=== PATIENT | female | born 1930 | race Caucasian/White ===

== ENCOUNTER 2016-12-05 19:47 | Emergency (ER) | payer MEDICARE, MEDICAID ==
[~2016-12-05] VITALS: Ht 165.1 cm; Wt 59.4 kg
[~2016-12-05 19:47] MED LIST: ACET-868 PO; ASCO500C16 PO; CRAN450C PO; DEXT1CAP3 PO; DIVA250T PO; DONE5TAB3 PO; INSU100V3 IJ; LORA-258 PO; METF10002 PO; MULT1TAB11 PO; NA P133E RC; SITA50TA PO; TEMA7.5C PO; TRAV5DRO EACHEYE; VALS40TA11 PO
--- NOTE | 2016-12-05 20:25 | NUR ---
To bed 5 a 86 yo female bibra with c/o "not eating since this morning and abnormal results of wbc 10.7 and uti from alf." Upon arrival to er, patient is responsive to verbal and tactile stimuli, however does not answer questions and does not follow simple commands. VSS. afebrile. Gowned. Initiated safety and comfort measures. Awaiting for er md castro.
--- NOTE | 2016-12-05 20:32 | NUR ---
Dr Pitt at bedside.
[2016-12-05] MEDS ORDERED: IV NS 0.9% 2,000 ML ONE (20:38)
[2016-12-05] MEDS ORDERED: IV SET PRIMARY PUMP SET 1 EA INFUS.SET MC ONE (20:38)
[2016-12-05] MEDS ORDERED: IV SET PRIMARY 1 EA INFUS.SET MC ONE (20:38)
[2016-12-05] MEDS ORDERED: CEFTRIAXONE 1GM BAG (ER ONLY) 50 ML IV ONE ×2 (20:38→21:00)
--- NOTE | 2016-12-05 20:40 | NUR ---
performed in and out cath aseptically, collected a yellow cloudy urine of about 100cc of amount.
[2016-12-05 20:54] LABS: BASOPHILS % (AUTO) 0.4 % (0.0-2.0); EOSINOPHILS % (AUTO) 0.2 % (0.0-6.0); HEMATOCRIT 38 % (33-45); HEMOGLOBIN 12.7 g/dL (11.5-14.8); LYMPHOCYTES # (AUTO) 2.5 /CMM (0.8-4.8); LYMPHOCYTES % (AUTO) 21.9 % (20.0-44.0); MEAN CORPUSCULAR HEMOGLOBIN 28 PG (26.0-33.0); MEAN CORPUSCULAR HGB CONC 33 g/dl (31.0-36.0); MEAN CORPUSCULAR VOLUME 83 fL (82-100); MONOCYTES # (AUTO) 0.8 /CMM (0.1-1.30); MONOCYTES % (AUTO) 6.9 % (2.0-12.0); NEUTROPHILS % (AUTO) 70.6 % (43.0-81.0); PLATELET COUNT (AUTO) 256 /CMM (150-450); RDW COEFFICIENT OF VARIATION 12.7 (11.5-15.0); RED BLOOD CELL COUNT(AUTO) 4.56 MIL/uL (4.0-5.2); WHITE BLOOD COUNT (AUTO) 11.3 K/uL (4.3-11.0)
[2016-12-05 21:00] LABS: CALCIUM, SERUM 9.4 mg/dL (8.5-10.1); CARBON DIOXIDE 33 mmol/L (21-32); CHLORIDE 105 mmol/L (98-107); CREATININE 0.9 mg/dL (0.6-1.3); GLUCOSE 229 mg/dL (74-106); POTASSIUM 4.7 mmol/L (3.5-5.1); SODIUM SERUM 140 mmol/L (136-145); UREA NITROGEN, BLOOD 20 mg/dL (7-18)
[2016-12-05] MEDS ORDERED: IV NS 0.9% 1,000 ML BAG IV ONE ×2 (21:00)
--- NOTE | 2016-12-05 21:00 | NUR ---
started a saline lock on the rightforearm g20.
[2016-12-05 21:05] LABS: ALANINE AMINOTRANSFERASE 21 U/L (12-78); ALBUMIN 3.2 g/dL (3.4-5.0); ALKALINE PHOSPHATASE 65 U/L (46-116); ASPARTATE AMINOTRANSFERASE 14 U/L (15-37); BILIRUBIN,DIRECT 0.1 mg/dL (0.0-0.2); BILIRUBIN,TOTAL 0.4 mg/dL (0.2-1.0)
[2016-12-05 21:07] LABS: APPEARANCE,URINE Cloudy (CLEAR); BILIRUBIN,URINE Negative (NEGATIVE); BLOOD, URINE Moderate Ery/uL (NEGATIVE); COLOR,URINE Yellow (YELLOW); KETONES,URINE 40 (NEGATIVE); LEUKOCYTE ESTERASE ,URINE Large (NEGATIVE); NITRITE, URINE Positive (NEGATIVE); PH,URINE 5.5 (5.0-8.0); PROTEIN,URINE 30 mg/dl (NEGATIVE); UGLUCOSE Negative (NEGATIVE); UROBILINOGEN,URINE 0.2 EU/dL (0.2)
[2016-12-05 21:07] LABS: TROPONIN I < 0.017 ng/mL (0.00-0.056)
[2016-12-05 21:11] LABS: INR 1.02 (0.87-1.13); PROTHROMBIN TIME 10.6 SECS (9.5-12.7)
[2016-12-05 21:27] LABS: BACTERIA,URINE Many /HPF (None Seen); WBC,URINE TOO NUMEROUS TO COUN /HPF (0-3)
[2016-12-05 21:28] LABS: SQUAMOUS EPITHELIAL CELL,UR Moderate /HPF (None Seen); URINE AMORPHOUS URATE Few /HPF (None Seen)
--- NOTE | 2016-12-05 21:56 | NUR ---
CALLED [facility] FOR TRANSPORT ETA OF 45MINS WAS GIVEN.
--- NOTE | 2016-12-05 21:59 | NUR ---
Report given to LUCY Ferrara in the [facility] for vanessa.
--- NOTE | 2016-12-05 23:06 | NUR ---
Report given to 2 emt's for transport. VSS. Patient remained alert and responsive. IV removed. Catheter intact and site benign. Pressure and 4x4 applied to site. No bleeding noted. Discharge instructions given to patient.
[2016-12-05 23:08] VITALS: BP 150/70
== END 2016-12-05 23:09 ==
LOC: ER 19:49
DX: N39.0 Urinary tract infection, site not specified (principal); F03.90 Unspecified dementia, unspecified severity, without behavioral disturbance, psychotic disturbance, mood disturbance, and anxiety; I10 Essential (primary) hypertension; E11.9 Type 2 diabetes mellitus without complications; Z90.89 Acquired absence of other organs; D64.9 Anemia, unspecified
CPT/HCPCS: 36415; 71010-TC; 80048-TC; 80076-TC; 81000-TC; 83605-TC; 84484-TC; 85025-TC; 85730-TC; 87040-TC; 87086-TC; 87186-TC; A4606; J0696; J7030; Z7610

== ENCOUNTER 2019-01-05 00:41 | Inpatient (IN) | payer MEDICARE, OTHER ==
[~2019-01-05] VITALS: Ht 162.6 cm; Wt 53.5 kg
[~2019-01-05 00:41] MED LIST changes: -DONE5TAB3 PO; +DONE5TAB7 PO; +METF-442 PO; -METF10002 PO; -VALS40TA11 PO; +VALS40TA12 PO
--- NOTE | 2019-01-05 00:45 | NUR ---
PT BIBPA C/O R LEG PAIN FORM IMPERIAL HC/ R DISTAL FEMUR FX, UNKNOWN OF HOW/WHEN. PT STARTED COMPLAINING OF PAIN TODAY. PT AXO2. RESPIRATIONS EVEN AND UNLABORED. PT PUT ON THE MONITOR AND PULSE OX.
--- NOTE | 2019-01-05 01:00 | NUR ---
GAS PUMPING STATION OPERATOR AT BEDSIDE. 20G R FOREARM STARED, LABS DRAWN AND SENT.
[2019-01-05 01:19] LABS: BASOPHILS # (AUTO) 0.1 /CMM (0.0-0.2); BASOPHILS % (AUTO) 0.7 % (0.0-2.0); EOSINOPHILS % (AUTO) 0.1 % (0.0-6.0); HEMATOCRIT 35 % (33-45); HEMOGLOBIN 11.4 g/dL (11.5-14.8); LYMPHOCYTES % (AUTO) 13.3 % (20.0-44.0); MEAN CORPUSCULAR HGB CONC 33 g/dl (31.0-36.0); MEAN CORPUSCULAR VOLUME 86 fL (82-100); MONOCYTES # (AUTO) 0.7 /CMM (0.1-1.30); MONOCYTES % (AUTO) 4.9 % (2.0-12.0); NEUTROPHILS # (AUTO) 11.9 /CMM (1.8-8.9); PLATELET COUNT (AUTO) 261 /CMM (150-450); RED BLOOD CELL COUNT(AUTO) 4.03 MIL/uL (4.0-5.2); WHITE BLOOD COUNT (AUTO) 14.7 K/uL (4.3-11.0)
--- NOTE | 2019-01-05 01:26 | NUR ---
XRAY AT BEDSIDE.
[2019-01-05 01:29] LABS: CARBON DIOXIDE 28 mmol/L (21-32); CREATININE 0.9 mg/dL (0.6-1.3); GLUCOSE 141 mg/dL (74-106); UREA NITROGEN, BLOOD 20 mg/dL (7-18)
[2019-01-05 01:37] LABS: CHLORIDE 102 mmol/L (98-107); POTASSIUM 4.6 mmol/L (3.5-5.1); SODIUM SERUM 137 mmol/L (136-145)
[2019-01-05] MEDS ORDERED: ONDANSETRON HCL/PF 4 MG/2 ML VIAL ONE (01:51)
[2019-01-05] MEDS ORDERED: MORPHINE SULFATE INJ 4 MG/ML DISP.SYRIN ONE (01:52)
[2019-01-05] MEDS ORDERED: ONDANSETRON HCL/PF 4 MG/2 ML VIAL IV ONE (02:00)
[2019-01-05] MEDS ORDERED: MORPHINE SULFATE INJ 2 MG/ML DISP.SYRIN IV ONE (02:00)
[2019-01-05] MEDS ORDERED: ACETAMINOPHEN 325 MG TABLET PO PRN ×2 (02:00→02:30)
[2019-01-05] MEDS ORDERED: NA PHOS,M-B/NA PHOS,DI-BA 1 EA ENEMA RC PRN (02:00)
[2019-01-05] MEDS ORDERED: LORAZEPAM 0.5 MG TABLET PO PRN (02:00)
--- NOTE | 2019-01-05 02:10 | NUR ---
REPORT GIVEN TO SP AYALA FOR DALILA.
[2019-01-05 02:15] LABS: LYMPHOCYTES % (MANUAL) 25 % (16-48); MONOCYTES % (MANUAL) 4 % (0-11.0); NEUTROPHILS % (MANUAL) 71 (42-76)
[2019-01-05] MEDS ORDERED: ONDANSETRON HCL/PF 4 MG/2 ML VIAL IVP PRN (02:30)
[2019-01-05] MEDS ORDERED: MAG HYDROX/AL HYDROX/SIMETH 30 ML UDC PO PRN (02:30)
[2019-01-05] MEDS ORDERED: HYDROCODONE/APAP 5/325MG 1 EACH TABLET PO PRN (02:30)
[2019-01-05] MEDS ORDERED: MAGNESIUM HYDROXIDE 30 ML UDC PO PRN (02:30)
[2019-01-05] MEDS ORDERED: DEXTROSE 50%-WATER 50 ML DISP.SYRIN IV PRN (02:30)
[2019-01-05] MEDS ORDERED: Z GUARD REMEDY 2 OZ OINT TP PRN (02:30)
[2019-01-05 03:00] VITALS: BP 137/67
--- NOTE | 2019-01-05 03:00 | NUR ---
MS DENTURE PACKER NOTES Patient came to unit via edward. Patient is from [facility] who came in for R) femur fracture. Patient is non- verbal. Breathing even and unlabored. Not in any distress. Vital signs taken and recorded: BP- 137/67, HR- 90BPM, RR- 18BPM, TEMP- 97.8, SPO2- 100%. Skin assessment done. Pictures taken and attached to chart. Patient cleaned and kept dry. Oriented to call light- placed within reach. Bed in low, locked position. Will continue to monitor accordingly
--- NOTE | 2019-01-05 04:05 | NUR ---
RN NOTES Contacted Dr. Veliz re diet order. Patient is on CCHO- pureed with moderately thick liquids and no dairy at [facility]. As per Dr. Veliz, to follow SNF diet. Order noted and carried out
[2019-01-05] MEDS: BLOOD SUGAR DIAGNOSTIC 1 EACH STRIP VI SCH ×4 (06:38→21:09)
[2019-01-05] MEDS: INSULIN REGULAR, HUMAN 100 UNIT/ML 3 ML VIAL SQ PRN ×3 (06:43→17:08)
--- NOTE | 2019-01-05 07:08 | NUR ---
MS RN CLOSING NOTES Patient sleeping in bed, easily arousable. Breathing even and unlabored. No distress noted. No acute changes since admission. All needs attended. Safety measures in place. Will endorse DALILA to oncoming RN
--- NOTE | 2019-01-05 07:30 | NUR ---
RN MS NOTES PT IN BED, AWAKE, NON VERBAL, NO FACIAL GRIMACING OR MOANING, NO SIGN OF PAIN, NOT IN DISTRESS, CALL LIGHT WITHIN REACH, KEPT WARM AND COMFORTABLE IN BED.
[2019-01-05 08:00] VITALS: BP 144/74
[2019-01-05] MEDS ORDERED: Medication Not On Formulary EA (Cranberry Fruit Concentrate (Cranberry) 450 MG) PO SCH (09:00)
[2019-01-05] MEDS: MULTIVIT W/MINERALS 1 TAB TABLET PO SCH (09:12)
[2019-01-05] MEDS: ASCORBIC ACID 500 MG TABLET PO SCH (09:13)
[2019-01-05] MEDS: VALSARTAN 40 MG TABLET PO SCH (09:13)
[2019-01-05] MEDS: DIVALPROEX SODIUM 125 MG TABLET.DR PO SCH ×2 (11:55→21:07)
--- NOTE | 2019-01-05 13:00 | NUR ---
RN MS NOTES PT IN BED, RESTING, PAIN MEDICATION GIVEN FOR PAIN MANAGEMENT, SEEN BY ZIA FAJARDO FOR ORTHO, AWAITING RECOMMENDATIONS, SPOKE WITH NURSE JENSEN FROM [facility], STATED THAT PT IS A/O X 1 AND IS NON AMBULATORY AT BASELINE, RECEIVES TOTAL CARE AND USES A RECLINER WHEELCHAIR. PER DR. CHAUDHRY, OK TO INSERT AWAD.
[2019-01-05 16:00] VITALS: BP 142/100
[2019-01-05] MEDS ORDERED: QUINIDINE PO SCH (17:00)
[2019-01-05] MEDS ORDERED: DEXTROMETHORPHAN HBR PO SCH (17:00)
--- NOTE | 2019-01-05 18:12 | NUR ---
RN MS NOTES PT IN BED, ASLEEP, EASY TO AROUSE, NO SIGN OF PAIN AT THIS TIME, RESPIRATIONS NORMAL, TURNED AND REPOSITIONED Q2 HOURS, F/C IN PLACE AND DRAINING WELL WITH CLEAR, YELLOW URINE, URINE SAMPLE COLLECTED AND SENT TO LAB, PM CARE PROVIDED, KEPT COMFORTABLE AT ALL TIMES.
--- NOTE | 2019-01-05 19:10 | NUR ---
MS RN OPENING NOTES Received patient sleeping in bed, easy to arouse. Patient appears comfortable, no facial grimacing noted. Breathing even and unlabored. No distress noted. Rubio catheter in place. Safety measures in place; bed in lowest, locked position, side rails x 3 up. Will continue to monitor accordingly
[2019-01-05 20:00] VITALS: BP 116/68
[2019-01-05] MEDS: LATANOPROST EYE DROP 0.005% 2.5 ML BOTTLE EACHEYE SCH (21:08)
[2019-01-05] MEDS: DONEPEZIL 5 MG TABLET PO SCH (21:09)
[2019-01-05] MEDS: TEMAZEPAM 7.5 MG CAPSULE PO SCH (21:12)
[2019-01-05] MEDS: *INSULIN REGULAR(HUMULIN R)HUM 100 UNIT/ML VIAL SQ PRN (21:17)
--- NOTE | 2019-01-05 21:18 | NUR ---
RN NOTES BSL- 146mg/dL. 2 units of insulin given per sliding scale.
--- NOTE | 2019-01-05 22:13 | NUR ---
RN NOTES Received a call from [facility]. Requested to speak to a Doctor tomorrow. Will endorse to AM LUCY
[2019-01-06 04:00] VITALS: BP 118/68
--- NOTE | 2019-01-06 06:15 | NUR ---
MS RN CLOSING NOTES Patient sleeping in bed, easily arousable. Breathing even and unlabored. No distress noted. On O2 at 2LPM. Rubio catheter in place, draining clear yellow urine. No acute changes overnight. All needs attended. Turned and repositioned. Safety measures in place. Will endorse DALILA to oncoming RN
[2019-01-06 06:29] LABS: BASOPHILS % (AUTO) 0.2 % (0.0-2.0); EOSINOPHILS % (AUTO) 0.4 % (0.0-6.0); HEMATOCRIT 31 % (33-45); HEMOGLOBIN 10.2 g/dL (11.5-14.8); LYMPHOCYTES # (AUTO) 2.9 /CMM (0.8-4.8); LYMPHOCYTES % (AUTO) 24.6 % (20.0-44.0); MEAN CORPUSCULAR HGB CONC 33 g/dl (31.0-36.0); MEAN CORPUSCULAR VOLUME 86 fL (82-100); MONOCYTES # (AUTO) 1.4 /CMM (0.1-1.30); MONOCYTES % (AUTO) 11.6 % (2.0-12.0); NEUTROPHILS # (AUTO) 7.4 /CMM (1.8-8.9); NEUTROPHILS % (AUTO) 63.2 % (43.0-81.0); PLATELET COUNT (AUTO) 271 /CMM (150-450); RED BLOOD CELL COUNT(AUTO) 3.63 MIL/uL (4.0-5.2); WHITE BLOOD COUNT (AUTO) 11.8 K/uL (4.3-11.0)
[2019-01-06] MEDS: BLOOD SUGAR DIAGNOSTIC 1 EACH STRIP VI SCH ×4 (06:30→22:23)
[2019-01-06] MEDS: INSULIN REGULAR, HUMAN 100 UNIT/ML 3 ML VIAL SQ PRN ×3 (06:30→17:49)
[2019-01-06 06:43] LABS: CALCIUM, SERUM 8.9 mg/dL (8.5-10.1); CARBON DIOXIDE 30 mmol/L (21-32); CHLORIDE 103 mmol/L (98-107); CREATININE 0.7 mg/dL (0.6-1.3); GLUCOSE 169 mg/dL (74-106); MAGNESIUM 1.6 mg/dL (1.8-2.4); PHOSPHORUS 4.4 mg/dL (2.5-4.9); POTASSIUM 4.4 mmol/L (3.5-5.1); SODIUM SERUM 141 mmol/L (136-145); UREA NITROGEN, BLOOD 16 mg/dL (7-18)
--- NOTE | 2019-01-06 07:55 | NUR ---
ms rn received on bed, awake,alert,oriented x4,not in any form of distress, respirations even and unlabored,no sob noted, lungs are diminish,abdomen soft,positive bowel sounds, denies pain at this time,all needs attended. Addendum: 01/06/19 at 1821 by CINDY PATEL RN disregard charting, wrong time and patient.
--- NOTE | 2019-01-06 07:55 | NUR ---
ms rn received on bed, awake,demented, not in any form of distress, respirations even and unlabored,no sob noted, lungs are diminished,abdomen soft,positive bowel sounds, dx right leg fracture,will monitor patient.
[2019-01-06 08:00] VITALS: BP_SYST 111; BP_SYST 132; BP_DIAS 69; BP_DIAS 71
[2019-01-06 08:05] LABS: APPEARANCE,URINE CLOUDY (CLEAR); BILIRUBIN,URINE NEGATIVE (NEGATIVE); BLOOD, URINE NEGATIVE Ery/uL (NEGATIVE); COLOR,URINE YELLOW (YELLOW); KETONES,URINE TRACE (NEGATIVE); LEUKOCYTE ESTERASE ,URINE TRACE (NEGATIVE); NITRITE, URINE NEGATIVE (NEGATIVE); PH,URINE 5.5 (5.0-8.0); PROTEIN,URINE TRACE mg/dl (NEGATIVE); UGLUCOSE NEGATIVE (NEGATIVE); UROBILINOGEN,URINE 0.2 EU/dL (0.2)
[2019-01-06 08:33] LABS: BACTERIA,URINE Few /HPF (None Seen); RBC,URINE 0-2 /HPF (0-2); SQUAMOUS EPITHELIAL CELL,UR Few /HPF (None Seen); URINE AMORPHOUS URATE Many /HPF (None Seen)
--- NOTE | 2019-01-06 09:30 | NUR ---
ms saldaña breakfast served,due meds given,tolerated well.
[2019-01-06] MEDS: Magnesium 1GM/D5W 100ML PREMIX 100 ML IV SCH ×2 (09:36→10:48)
[2019-01-06] MEDS: ASCORBIC ACID 500 MG TABLET PO SCH (09:36)
[2019-01-06] MEDS: DIVALPROEX SODIUM 125 MG TABLET.DR PO SCH ×2 (09:36→21:40)
[2019-01-06] MEDS: MULTIVIT W/MINERALS 1 TAB TABLET PO SCH (09:36)
[2019-01-06] MEDS: VALSARTAN 40 MG TABLET PO SCH (09:37)
--- NOTE | 2019-01-06 09:40 | NUR ---
ms saldaña was seen by dr. emily singh/ orders made and carried out.
[2019-01-06] MEDS: MORPHINE SULFATE INJ 2 MG/ML DISP.SYRIN IV PRN (12:37)
[2019-01-06 16:00] VITALS: BP 82/50
--- NOTE | 2019-01-06 16:00 | NUR ---
ms rn on bed, no distress noted.
--- NOTE | 2019-01-06 17:45 | NUR ---
ms saldaña blood sugar - 134 - 2 units regular insulin given sq.
--- NOTE | 2019-01-06 18:17 | NUR ---
ms rn on bed, no distress, all needs attended.
--- NOTE | 2019-01-06 19:34 | NUR ---
MS AYALA OPENING NOTES: RECEIVED PT ON 2LPM VIA NC AND IS ASLEEP AT THIS TIME. PT APPEARS TO BE LETHARGIC AT THIS TIME . PT IS NON-VERBAL. PT HAS AWAD CATH AND IS ATTACHED TO DRAINAGE BAG WITH URINE DRAINING IN BAG. PT HAS R FOREARM #20G AND IS PATENT AND INTACT. BED IN SEMI SALCEDO'S POSITION AT THIS TIME. BED ALARM ACTIVATED. BED KEPT IN LOW, LOCKED POSITION, AND SIDE RAILS X 2UP. WILL CONTINUE TO MONITOR PT. Addendum: 01/07/19 at 0549 by NORA JIM RN R LEG APPEARS TO BE DISLOCATED AND SWOLLEN. ELEVATED WITH A PILLOW. IMMOBILIZER TO BE PLACED BY PT.
[2019-01-06 20:00] VITALS: BP 155/89
[2019-01-06] MEDS: TEMAZEPAM 7.5 MG CAPSULE PO SCH (22:00)
[2019-01-06] MEDS: DONEPEZIL 5 MG TABLET PO SCH (22:24)
[2019-01-06] MEDS: LATANOPROST EYE DROP 0.005% 2.5 ML BOTTLE EACHEYE SCH (22:28)
[2019-01-06] MEDS: *INSULIN REGULAR(HUMULIN R)HUM 100 UNIT/ML VIAL SQ PRN (22:42)
--- NOTE | 2019-01-06 22:44 | NUR ---
MS RN NOTES: BLOOD SUGAR THIS PM WAS 162. 2 UNITS OF INSULIN WAS HELD SINCE PT APPEARS TO BE LETHARGIC AND IS NOT EATING WHEN OFFERED FOOD. WILL CONTINUE TO MONITOR.
--- NOTE | 2019-01-06 22:45 | NUR ---
MS RN NOTES: RESTORIL 7.5MG WAS HELD SINCE PT APPEARS TO STILL BE LETHARGIC. WILL CONTINUE TO MONITOR.
[2019-01-07] MEDS: BLOOD SUGAR DIAGNOSTIC 1 EACH STRIP VI SCH ×4 (06:32→21:36)
[2019-01-07] MEDS: INSULIN REGULAR, HUMAN 100 UNIT/ML 3 ML VIAL SQ PRN (06:34)
--- NOTE | 2019-01-07 06:38 | NUR ---
MS RN NOTES: BLOOD SUGAR THIS AM WAS 195. 3 UNITS OF INSULIN WAS ADMINISTERED. PT MORE AWAKE THIS AM AND AROUSABLE TOUCH. PT WAS ADMINISTERED APPLE SAUCE AND APPLE JUICE. WILL CONTINUE TO MONITOR.
--- NOTE | 2019-01-07 06:50 | NUR ---
MS RN CLOSING NOTES: ALL NEEDS WERE ATTENDED AND ANTICIPATED FOR. PT KEPT CLEAN, DRY, AND COMFORTABLE. PT REMAINS ON 2LPM VIA NC AND IS TOLERATING WELL. NO SOB NOTED. NO S/S OF DISTRESS. PT HAS AWAD CATH AND IS ATTACHED TO DRAINAGE BAG WITH YELLOW URINE DRAINING. NOTED THAT THERE WAS SOME LEAKING WHEN PT'S DIAPER WAS CHANGED. REINFORCED AWAD CATHETER. IV REMAINS INTACT. CURRENTLY H/L. IMMOBILIZER NEEDS TO BE PLACED ON R KNEE BY PT. WILL HAVE DAY NURSE FOLLOW UP. WILL ENDORSE AM NURSE FOR DALILA.
[2019-01-07 07:07] LABS: CALCIUM, SERUM 8.9 mg/dL (8.5-10.1); CARBON DIOXIDE 29 mmol/L (21-32); CHLORIDE 102 mmol/L (98-107); CREATININE 0.7 mg/dL (0.6-1.3); GLUCOSE 200 mg/dL (74-106); MAGNESIUM 2.2 mg/dL (1.8-2.4); PHOSPHORUS 4.5 mg/dL (2.5-4.9); POTASSIUM 4.6 mmol/L (3.5-5.1); SODIUM SERUM 139 mmol/L (136-145); UREA NITROGEN, BLOOD 18 mg/dL (7-18)
[2019-01-07 07:11] LABS: BASOPHILS % (AUTO) 0.4 % (0.0-2.0); EOSINOPHILS % (AUTO) 0.3 % (0.0-6.0); HEMATOCRIT 31 % (33-45); HEMOGLOBIN 9.9 g/dL (11.5-14.8); LYMPHOCYTES # (AUTO) 3.7 /CMM (0.8-4.8); LYMPHOCYTES % (AUTO) 27.7 % (20.0-44.0); MEAN CORPUSCULAR HGB CONC 32 g/dl (31.0-36.0); MEAN CORPUSCULAR VOLUME 87 fL (82-100); MONOCYTES # (AUTO) 1.5 /CMM (0.1-1.30); NEUTROPHILS % (AUTO) 60.6 % (43.0-81.0); PLATELET COUNT (AUTO) 287 /CMM (150-450); RED BLOOD CELL COUNT(AUTO) 3.58 MIL/uL (4.0-5.2); WHITE BLOOD COUNT (AUTO) 13.3 K/uL (4.3-11.0)
--- NOTE | 2019-01-07 07:52 | NUR ---
MS RN OPENING NOTES: RECEIVED PATIENT ASLEEP IN BED RESTING COMFORTABLY IN MODERATE HIGH BACK REST, EASILY AROUSABLE. A/O X 1. ON OXYGEN 2LPM VIA NC. NO SOB NOTED. NO S/S OF DISTRESS. NO COMPLAIN OF PAIN OR DISCOMFORT AT THIS TIME. PT HAS AWAD CATH AND IS ATTACHED TO DRAINAGE BAG WITH YELLOW URINE DRAINING. IV ACCESS ON RIGHT FA #20, PATENT AND INTACT. CURRENTLY H/L. SAFETY MEASURES IN PLACE, BED LOCKED, BED LOW, SIDE RAILS UP X2. CALL LIGHT WITHIN EASY REACH. WILL CONTINUE TO MONITOR.
[2019-01-07 08:00] VITALS: BP 91/60
[2019-01-07] MEDS: VALSARTAN 40 MG TABLET PO SCH (08:55)
[2019-01-07] MEDS: DIVALPROEX SODIUM 125 MG TABLET.DR PO SCH ×2 (08:55→20:57)
[2019-01-07] MEDS: MULTIVIT W/MINERALS 1 TAB TABLET PO SCH (08:55)
[2019-01-07] MEDS: ASCORBIC ACID 500 MG TABLET PO SCH (08:55)
--- NOTE | 2019-01-07 09:49 | NUR ---
MS RN NOTES PATIENT SEEN BY DR. PANDYA WITH ORDERS FOR ORTHO BRACE(KNEE IMMOBILIZER) FOR IMMOBILIZATION. PATIENT MADE AWARE. WILL CONTINUE TO MONITOR.
--- NOTE | 2019-01-07 10:11 | NUR ---
WOUND CARE CONSULT: PT PRESENTS WITH BREASTFOLD RASH, PRESENT ON ADMISSION. RECOMMENDATIONS MADE FOR SKIN PROTECTION AND CARE. DISCUSSED WITH NURSING STAFF. WILL SEE PRN. PERALTA IN AGREEMENT WITH PLAN OF CARE. Addendum: 01/07/19 at 1013 by CASSIDY GARNETT WNDNU Amended: Links added.
[2019-01-07] MEDS: *INSULIN REGULAR(HUMULIN R)HUM 100 UNIT/ML VIAL SQ PRN ×3 (12:17→21:39)
--- NOTE | 2019-01-07 13:55 | NUR ---
MS RN NOTES RECEIVED CALL FROM [employer]), TO CANCEL DC ORDER FOR TODAY.
[2019-01-07] MEDS: CLOTRIMAZOLE 1% 15 GM TUBE TP SCH (17:10)
--- NOTE | 2019-01-07 18:53 | NUR ---
MS RN CLOSING NOTES PATIENT RESTING IN BED AT MODERATE HIGH BACK REST POSITION. EASILY AROUSABLE. A/O X 1. ON OXYGEN 2LPM VIA NC. NO SOB NOTED. NO S/S OF DISTRESS. NO S/S OF PAIN OR DISCOMFORT. ON AWAD CATHETER WITH YELLOW URINE DRAINING. IV ACCESS ON RIGHT FA #20, PATENT AND INTACT. CURRENTLY S/L. SAFETY MEASURES IN PLACE, BED LOCKED, BED LOW, SIDE RAILS UP X2. CALL LIGHT WITHIN EASY REACH. WILL ENDORSE TO CUSTOMER SUPPORT PROFESSIONAL
--- NOTE | 2019-01-07 19:15 | NUR ---
MS RN OPENING NOTES: RECEIVED PT ON 3LPM VIA NC AND IS TOLERATING WELL. PT AROUSABLE TO TOUCH. NOTED R KNEE IMMOBILIZER. PT HAS AWAD CATH AND IS ATTACHED TO DRAINAGE BAG WITH YELLOW URINE DRAINING. IV ON R FOREARM #20G IS PATENT AND INTACT. CURRENTLY H/L. BED KEPT IN LOW, LOCKED POSITION, AND SIDE RAILS X 2UP. WILL CONTINUE TO MONITOR PT.
[2019-01-07] MEDS: MORPHINE SULFATE INJ 2 MG/ML DISP.SYRIN IV PRN (19:50)
--- NOTE | 2019-01-07 19:52 | NUR ---
MS RN NOTES: PT APPEARS TO BE IN PAIN WHEN SHE IS TOUCHED AND REPOSITIONED, SHE STARTS TO MOAN. ALSO, HEART RATE NOTED AT 120S. PT WAS ADMINISTERED MORPHINE 2MG IV. WILL CONTINUE TO MONITOR.
[2019-01-07 20:00] VITALS: BP 130/78
[2019-01-07] MEDS: LATANOPROST EYE DROP 0.005% 2.5 ML BOTTLE EACHEYE SCH (21:13)
[2019-01-07] MEDS: DONEPEZIL 5 MG TABLET PO SCH (21:33)
--- NOTE | 2019-01-07 21:41 | NUR ---
MS RN NOTES: BLOOD SUGAR THIS PM WAS 206. 4 UNITS OF INSULIN WAS ADMINISTERED. PT IS A FEEDER AND WAS GIVEN A SNACK. WILL CONTINUE TO MONITOR.
[2019-01-07] MEDS: TEMAZEPAM 7.5 MG CAPSULE PO SCH (21:49)
--- NOTE | 2019-01-07 21:52 | NUR ---
MS RN NOTES: PT STILL AWAKE IN BED. RESTORIL 7.5MG PO WAS ADMINISTERED SCHEDULED. WILL CONTINUE TO MONITOR.
[2019-01-08] MEDS: INSULIN REGULAR, HUMAN 100 UNIT/ML 3 ML VIAL SQ PRN ×2 (06:24→11:39)
[2019-01-08] MEDS: BLOOD SUGAR DIAGNOSTIC 1 EACH STRIP VI SCH ×2 (06:32→11:40)
--- NOTE | 2019-01-08 06:45 | NUR ---
MS RN CLOSING NOTES: ALL NEEDS WERE ATTENDED AND ANTICIPATED FOR. PT KEPT CLEAN, DRY, AND COMFORTABLE. PT TURNED AND REPOSITIONED Q2HRS. WOUND TX PERFORMED ORDERED. PT HAS AWAD CATH AND IS ATTACHED TO DRAINAGE BAG WITH URINE DRAINING. OUTPUT WAS 300ML. PT OPENS EYES AND IS EASILY AROUSABLE TO TOUCH. IMMOBILIZER REMAINS ON R LEG/KNEE. IV REMAINS INTACT AND IS CURRENTLY H/L. BED KEPT IN LOW, LOCKED POSITION, AND SIDE RAILS X 2UP. BLOOD SUGAR THIS AM WAS 178. 3 UNITS OF INSULIN WAS ADMINISTERED. PT IS A FEEDER AND WAS GIVEN JUICE WITH THICKENER. WILL ENDORSE TO AM NURSE FOR DALILA.
--- NOTE | 2019-01-08 07:27 | NUR ---
RN OPENING NOTE PT WAS RECEIVED IN BED AT LOWEST AND LOCKED POSITION WITH SIDE RAILS UP X2, A/O X1 NON-VERBAL BREATHING EVEN AND UNLABORED ON 3L VIA NC, NO S/S OF ANY DISTRESS OR PAIN NOTED AT THIS TIME, IV IS PATENT AND INTACT, NOTED TO HAVE AWAD IN PLACE DRAINING, KNEE IMMOBILIZER IN PLACE, D/C PLANNING, SAFETY PRECAUTIONS IN PLACE, CALL LIGHT WITHIN REACH, WILL MONITOR ACCORDINGLY.
[2019-01-08 08:00] VITALS: BP 132/78
[2019-01-08 08:24] VITALS: BP 132/78
[2019-01-08] MEDS: MULTIVIT W/MINERALS 1 TAB TABLET PO SCH (08:24)
[2019-01-08] MEDS: ASCORBIC ACID 500 MG TABLET PO SCH (08:24)
[2019-01-08] MEDS: DIVALPROEX SODIUM 125 MG TABLET.DR PO SCH (08:24)
[2019-01-08] MEDS: VALSARTAN 40 MG TABLET PO SCH (08:24)
[2019-01-08] MEDS: CLOTRIMAZOLE 1% 15 GM TUBE TP SCH (08:25)
--- NOTE | 2019-01-08 13:10 | NUR ---
RN NOTE DELMI WAS D/C AT THIS TIME
--- NOTE | 2019-01-08 13:38 | NUR ---
RN NOTE REPORT GIVEN TO LESLIE AT [facility] AT THIS TIME
--- NOTE | 2019-01-08 15:52 | NUR ---
DISCHARGE NOTE PT WAS D/C AT THIS TIME BACK IN MEDICALLY STABLE CONDITION BACK TO [facility] [place] WHERE REPORT WAS GIVEN TO LESLIE. IV AND ID BAND WERE REMOVED. ALL D/C PAPERWORK, EXITCARE, AND BELONGINGS LIST WERE SIGNED, DISCUSSED, AND HANDED TO THE EMT CREW. PHOTOS OF WOUNDS WERE TAKEN AND PLACED IN THE CHART. ALL NEEDS WERE ATTENDED TO DURING HER STAY.
== END 2019-01-08 15:55 | DRG 544 ==
LOC: ER 00:50 → MED 02:06
DX: M84.451A Pathological fracture, right femur, initial encounter for fracture (principal); E11.9 Type 2 diabetes mellitus without complications; I10 Essential (primary) hypertension; F03.90 Unspecified dementia, unspecified severity, without behavioral disturbance, psychotic disturbance, mood disturbance, and anxiety; D64.9 Anemia, unspecified; Z79.4 Long term (current) use of insulin; Z86.73 Personal history of transient ischemic attack (TIA), and cerebral infarction without residual deficits; D72.829 Elevated white blood cell count, unspecified; E83.42 Hypomagnesemia; R53.1 Weakness; Z96.651 Presence of right artificial knee joint
CPT/HCPCS: 36415; 71045-TC; 73560-TC; 80048-TC; 81000-TC; 82962-TC; 83735-TC; 84100-TC; 85025-TC; 85610-TC; 85730-TC; 87081-TC; 87086-TC; 93307-TC; 94799-TC; G0378; J1815; J2270; J2405; J3475; J7050

== ENCOUNTER 2019-03-20 10:44 | Inpatient (IN) | payer MEDICARE, OTHER ==
[~2019-03-20] VITALS: Ht 167.6 cm; Wt 65.3 kg
--- NOTE | 2019-03-20 10:49 | NUR ---
PT BIBPA FROM [facility], SENT BY PMD DUE TO ABNORMAL LABS, CXR, K 5.2, PTI S AAOX1, NOT IN RESPIRATORY DISTRESS, HOOKED TO MONITOR, KEPT RESTED AND COMFORTABLE, WILL CONTINUE TO MONITOR, AWAITING ER MD FOR EVAL.
[2019-03-20] MEDS ORDERED: BRIM5DRO LEFTEYE (10:55)
[2019-03-20] MEDS ORDERED: DORZ10DR13 LEFTEYE (10:59)
[2019-03-20] MEDS ORDERED: BISA-79 RC (10:59)
--- NOTE | 2019-03-20 11:00 | NUR ---
IV LINE ESTABLISHED, BLOOD DRAWNED AND SENT TO LAB.
[2019-03-20] MEDS ORDERED: NUTR1PAC14 PO (11:01)
[2019-03-20] MEDS ORDERED: CYAN-51 PO (11:09)
[2019-03-20] MEDS ORDERED: CHOL100044 PO (11:09)
[2019-03-20] MEDS ORDERED: HYDR-4384 PO (11:09)
[2019-03-20] MEDS ORDERED: PRED20TA PO (11:09)
[2019-03-20] MEDS ORDERED: LINA5TAB PO (11:09)
[2019-03-20] MEDS ORDERED: ZINC220C8 PO (11:11)
[2019-03-20] MEDS ORDERED: AMIN30LI2 PO (11:11)
[2019-03-20] MEDS ORDERED: LATA2.5D2 EACHEYE (11:11)
--- NOTE | 2019-03-20 11:12 | NUR ---
SEEN AND EXAMINED BY .
[2019-03-20] MEDS ORDERED: MAGN2400 PO (11:13)
--- NOTE | 2019-03-20 11:18 | NUR ---
URINE SPECIMEN COLLECTED AND SENT TO LAB.
[2019-03-20 11:22] LABS: APPEARANCE,URINE Cloudy (CLEAR); BILIRUBIN,URINE Negative (NEGATIVE); BLOOD, URINE Small Ery/uL (NEGATIVE); COLOR,URINE Yellow (YELLOW); KETONES,URINE 15 (NEGATIVE); LEUKOCYTE ESTERASE ,URINE Large (NEGATIVE); NITRITE, URINE Positive (NEGATIVE); PROTEIN,URINE 30 mg/dl (NEGATIVE); UGLUCOSE 250 MG/DL mg/dL (NEGATIVE)
--- NOTE | 2019-03-20 11:25 | NUR ---
ELECTRICIAN MARINE AT BEDSIDE FOR XRAY.
[2019-03-20 11:29] LABS: BACTERIA,URINE Moderate /HPF (None Seen); SQUAMOUS EPITHELIAL CELL,UR Few /HPF (None Seen); WBC,URINE 81-100 /HPF (0-3)
[2019-03-20] MEDS ORDERED: CEFEPIME 1 GM in IV D5W 50 ML IV ONE (11:30)
[2019-03-20] MEDS ORDERED: IV NS 0.9% 1,000 ML BAG IV ONE (11:30)
[2019-03-20 11:36] LABS: CALCIUM, SERUM 9.1 mg/dL (8.5-10.1); CARBON DIOXIDE 28 mmol/L (21-32); CHLORIDE 103 mmol/L (98-107); CREATININE 0.9 mg/dL (0.6-1.3); GLUCOSE 249 mg/dL (74-106); POTASSIUM 4.9 mmol/L (3.5-5.1); SODIUM SERUM 139 mmol/L (136-145); UREA NITROGEN, BLOOD 26 mg/dL (7-18)
--- NOTE | 2019-03-20 11:36 | NUR ---
CALLED [employer] FOR TELE BED
--- NOTE | 2019-03-20 11:36 | NUR ---
CALLED [employer]. DYNAMITE RECLAIMER WAS PAGED.
[2019-03-20 11:44] LABS: BASOPHILS # (AUTO) 0.1 /CMM (0.0-0.2); BASOPHILS % (AUTO) 0.6 % (0.0-2.0); HEMATOCRIT 35 % (33-45); HEMOGLOBIN 11.4 g/dL (11.5-14.8); LYMPHOCYTES # (AUTO) 1.7 /CMM (0.8-4.8); MEAN CORPUSCULAR HGB CONC 32 g/dl (31.0-36.0); MEAN CORPUSCULAR VOLUME 87 fL (82-100); MONOCYTES # (AUTO) 0.3 /CMM (0.1-1.30); MONOCYTES % (AUTO) 2.5 % (2.0-12.0); NEUTROPHILS # (AUTO) 8.4 /CMM (1.8-8.9); NEUTROPHILS % (AUTO) 80.9 % (43.0-81.0); PLATELET COUNT (AUTO) 251 /CMM (150-450); RED BLOOD CELL COUNT(AUTO) 4.04 MIL/uL (4.0-5.2); WHITE BLOOD COUNT (AUTO) 10.4 K/uL (4.3-11.0)
[2019-03-20] MEDS ORDERED: CEFEPIME 1 GM in IV NS 0.9% 50 ML IV ONE (11:45)
[2019-03-20 11:50] LABS: ALANINE AMINOTRANSFERASE 116 U/L (12-78); ALBUMIN 2.6 g/dL (3.4-5.0); ALKALINE PHOSPHATASE 73 U/L (46-116); ASPARTATE AMINOTRANSFERASE 31 U/L (15-37); BILIRUBIN,DIRECT 0.1 mg/dL (0.0-0.2); BILIRUBIN,TOTAL 0.2 mg/dL (0.2-1.0); LIPASE 113 U/L (73-393); TOTAL PROTEIN, SERUM 5.9 g/dL (6.4-8.2)
--- NOTE | 2019-03-20 12:07 | NUR ---
REPORT GIVEN TO RN ADAM FOR DALILA.
[2019-03-20] MEDS ORDERED: NA PHOS,M-B/NA PHOS,DI-BA 1 EA ENEMA RC PRN (13:00)
[2019-03-20] MEDS ORDERED: ACETAMINOPHEN 325 MG TABLET PO PRN ×2 (13:00→13:30)
[2019-03-20] MEDS ORDERED: BISACODYL (5 MG) 5 MG TABLET.DR GT PRN (13:00)
[2019-03-20] MEDS ORDERED: HYDROCODONE/APAP 5/325MG 1 EACH TABLET PO PRN ×2 (13:00→13:30)
--- NOTE | 2019-03-20 13:25 | NUR ---
rn opening notes Patient received on 3L o2 nasal cannula, a/o x1, no s/s of pain at this time. R FA #18 running on 75 mL per hour NS 0.9%. Photos taken of patients wound and has photos of them in the chart. Bed at the lowest setting, call light within reach, side rails up x2.
[2019-03-20] MEDS ORDERED: MAGNESIUM HYDROXIDE 30 ML UDC PO PRN ×2 (13:30)
[2019-03-20] MEDS ORDERED: Z GUARD REMEDY 2 OZ OINT TP PRN (13:30)
[2019-03-20] MEDS ORDERED: MAG HYDROX/AL HYDROX/SIMETH 30 ML UDC PO PRN (13:30)
[2019-03-20] MEDS ORDERED: ONDANSETRON HCL/PF 4 MG/2 ML VIAL IVP PRN (13:30)
[2019-03-20] MEDS ORDERED: DEXTROSE 50%-WATER 50 ML DISP.SYRIN IV PRN (13:30)
[2019-03-20] MEDS: IV NS 0.9% 1,000 ML IV PRN (13:59)
[2019-03-20] MEDS: TIMOLOL 0.5% SOLN OPHTH 5 ML BOTTLE LEFTEYE SCH ×2 (14:33→16:21)
[2019-03-20 16:00] VITALS: BP 142/91
[2019-03-20] MEDS: DORZOLAMIDE OPTH 2% 10 ML BOTTLE LEFTEYE SCH (16:21)
[2019-03-20] MEDS: BRIMONIDINE TARTRATE OPHT SOLN 5 ML BOTTLE LEFTEYE SCH (16:22)
[2019-03-20] MEDS: PROSOURCE / PROSTAT (PYXIS) 30 ML UDC PO SCH (16:22)
[2019-03-20] MEDS: BLOOD SUGAR DIAGNOSTIC 1 EACH STRIP VI SCH ×2 (16:52→21:42)
[2019-03-20] MEDS ORDERED: Medication Not On Formulary EA (Arginine/Glutamine/Calcium Hmb (Juven Packet) 1 EACH) PO SCH (17:00)
[2019-03-20] MEDS: INSULIN REGULAR, HUMAN 100 UNIT/ML 3 ML VIAL SQ PRN (17:29)
[2019-03-20] MEDS ORDERED: LINAGLIPTIN 5 MG TABLET PO SCH (17:30)
--- NOTE | 2019-03-20 18:44 | NUR ---
RN CLOSING NOTES Patient remains on room air, no sob noted, no s/s of pain at this time. Patient remains on tele with SR ~70's rate. Patient remains with R FA #18, 75 mL per hour NS. Bed at the lowest setting, call light within reach, side rails up x2. Will give report to NOC RN for DALILA bedside.
--- NOTE | 2019-03-20 19:35 | NUR ---
MS RN NOTES RECEIVED ON BED A/O X1,BREATHING NON LABORED,O2 IN USED AT 2L/NC TO KEEP O2 SAT ABOVE 90%,CAME IN FOR DEHYDRATION,IVF OF NS 75ML/HR RATE IN PROGRESS ON RFA.NOTED RIGHT LEG IMMOBILIZER,LEFT FOOT HEEL PROTECTOR FOR SKIN MANAGEMENT.REPOSITION PER PROTOCOL,WILL CONTINUE TO MONITOR STATUS.
[2019-03-20 20:00] VITALS: BP 123/76
[2019-03-20] MEDS: DIVALPROEX SODIUM 250 MG TABLET.DR PO SCH (21:41)
[2019-03-20] MEDS: DONEPEZIL 5 MG TABLET PO SCH (21:42)
[2019-03-20] MEDS: LATANOPROST EYE DROP 0.005% 2.5 ML BOTTLE EACHEYE SCH (22:02)
--- NOTE | 2019-03-21 01:00 | NUR ---
MS RN NOTES SOUND ASLEEP,KEPT WARM AND COMFORTABLE.
[2019-03-21] MEDS: IV NS 0.9% 1,000 ML IV PRN ×2 (03:11→17:39)
--- NOTE | 2019-03-21 06:00 | NUR ---
MS RN NOTES ACCU-CHECK BLOOD SUGAR CHECK 113,NO INSULIN COVERAGE
--- NOTE | 2019-03-21 06:17 | NUR ---
MS RN CLOSING NOTES FAIRLY RESTED,TOLERATED PO PILLS WITH APPLE SAUCE.NEGATIVE FOR ASPIRATION.REPOSITION PER PROTOCOL.WOUND CARE RENDERED,IN NO ACUTE DISTRESS.WILL ENDORSE TO DAY NURSE FOR DALILA.
--- NOTE | 2019-03-21 07:30 | NUR ---
RN MS NOTES PT IN BED, AWAKE, ALERT TO SELF, SMILES WHEN SPOKEN TO, WITH CONFUSION, NOT IN DISTRESS, NO SIGN OF PAIN OR DISTRESS, IV FLUIDS INFUSING WELL, CALL LIGHT WITHIN REACH, KEPT WARM AND COMFORTABLE IN BED.
[2019-03-21] MEDS: BLOOD SUGAR DIAGNOSTIC 1 EACH STRIP VI SCH ×4 (07:49→21:10)
[2019-03-21 08:00] VITALS: BP 130/90
[2019-03-21 08:22] LABS: BASOPHILS % (AUTO) 0.4 % (0.0-2.0); EOSINOPHILS % (AUTO) 0.2 % (0.0-6.0); HEMATOCRIT 35 % (33-45); HEMOGLOBIN 11.3 g/dL (11.5-14.8); LYMPHOCYTES # (AUTO) 4.5 /CMM (0.8-4.8); LYMPHOCYTES % (AUTO) 40.2 % (20.0-44.0); MEAN CORPUSCULAR HGB CONC 32 g/dl (31.0-36.0); MEAN CORPUSCULAR VOLUME 87 fL (82-100); MONOCYTES # (AUTO) 0.8 /CMM (0.1-1.30); NEUTROPHILS # (AUTO) 5.9 /CMM (1.8-8.9); NEUTROPHILS % (AUTO) 52.2 % (43.0-81.0); PLATELET COUNT (AUTO) 247 /CMM (150-450); RED BLOOD CELL COUNT(AUTO) 4.08 MIL/uL (4.0-5.2); WHITE BLOOD COUNT (AUTO) 11.3 K/uL (4.3-11.0)
[2019-03-21] MEDS: MULTIVIT W/MINERALS 1 TAB TABLET PO SCH (08:24)
[2019-03-21] MEDS: ASCORBIC ACID 500 MG TABLET PO SCH (08:24)
[2019-03-21] MEDS: DIVALPROEX SODIUM 250 MG TABLET.DR PO SCH ×2 (08:24→21:10)
[2019-03-21] MEDS: ZINC SULFATE 220 MG CAPSULE PO SCH (08:24)
[2019-03-21] MEDS: predniSONE 20 MG TABLET PO SCH (08:24)
[2019-03-21] MEDS: BRIMONIDINE TARTRATE OPHT SOLN 5 ML BOTTLE LEFTEYE SCH ×2 (08:29→16:09)
[2019-03-21] MEDS: TIMOLOL 0.5% SOLN OPHTH 5 ML BOTTLE LEFTEYE SCH ×2 (08:30→16:09)
[2019-03-21] MEDS: DORZOLAMIDE OPTH 2% 10 ML BOTTLE LEFTEYE SCH ×2 (08:31→16:09)
[2019-03-21] MEDS: PROSOURCE / PROSTAT (PYXIS) 30 ML UDC PO SCH ×3 (08:33→16:09)
[2019-03-21 08:34] LABS: CALCIUM, SERUM 8.1 mg/dL (8.5-10.1); CREATININE 0.6 mg/dL (0.6-1.3); MAGNESIUM 1.8 mg/dL (1.8-2.4); PHOSPHORUS 3.3 mg/dL (2.5-4.9); POTASSIUM 4.3 mmol/L (3.5-5.1)
[2019-03-21] MEDS ORDERED: VALSARTAN 40 MG TABLET PO SCH (09:00)
[2019-03-21] MEDS: CEFTRIAXONE 1 G in IV D5W 50 ML IV SCH (09:10)
--- NOTE | 2019-03-21 11:05 | NUR ---
WOUND CARE CONSULT: PT PRESENTS WITH DISCOLORATION TO BILATERAL DORSAL FEET AND NECROTIC WOUND TO RT MEDIAL LOWER LEG, PRESENT ON ADMISSION. RECOMMEND DPM CONSULT DR HE NOTIFIED OF CONSULT REQUEST. PT IS IMMOBILE AND INCONTINENT. RECOMMENDATIONS MADE FOR SKIN PROTECTION. DISCUSSED WITH NURSING STAFF. CURRENT RENE SCORE IS 8. DEFORMITY NOTED TO RT KNEE. DEFER TO MD FOR POSSIBLE ORTHO CONSULT. WILL SEE PRN. MD IN AGREEMENT WITH PLAN OF CARE. Addendum: 03/21/19 at 1108 by CASSIDY GARNETT WNDNU Amended: Links added.
[2019-03-21] MEDS: INSULIN REGULAR, HUMAN 100 UNIT/ML 3 ML VIAL SQ PRN ×2 (12:51→17:36)
--- NOTE | 2019-03-21 13:00 | NUR ---
RN MS NOTES PT IN BED, RESTING, ALERT TO SELF, NO SIGN OF PAIN OR DISTRESS, IV FLUIDS INFUSING WELL, SEEN BY DR. JEFFERSON, TURNED AND REPOSITIONED, KEEP SKIN CLEAN AND DRY, KEPT ADMITTING SUPERVISOR BED.
[2019-03-21 16:00] VITALS: BP 122/95
--- NOTE | 2019-03-21 18:04 | NUR ---
RN MS NOTES PT IN BED, ALERT TO SELF, MUMBLES, NO SIGN OF PAIN OR ANY DISCOMFORT, RESPIRATIONS NORMAL, CALL LIGHT WITHIN REACH, IV FLUIDS INFUSING WELL, SEEN BY DR. STORM, WOUND TREATMENT ORDERS RECEIVED, INITIAL TREATMENT DONE, PM CARE PROVIDED, ASSISTED IN TURNING AND REPOSITIONING, KEPT BOTH HEELS ELEVATED, ALL NEEDS ATTENDED.
--- NOTE | 2019-03-21 19:15 | NUR ---
MS RN NOTES RECEIVED ON BED ON SEMI FOWLERS POSITION,BREATHING REGULAR,NOT IN ANY FORM OF DISTRESS.IVF NS AT 75ML/HR RATE IN PROGRESS ON RFA,SITE PATENT.ON GEL BED FOR SKIN MANAGEMENT.HEEL PROTECTOR IN USED ON BILATERAL FOOT.DRESSING TO RIGHT ANTERIOR LOWER LEG INTACT AND DRY.REPOSITION PER PROTOCOL.WILL CONTINUE TO MONITOR STATUS.
[2019-03-21 20:00] VITALS: BP 116/61
[2019-03-21 20:02] VITALS: BP 116/61
[2019-03-21] MEDS: DONEPEZIL 5 MG TABLET PO SCH (21:10)
[2019-03-21] MEDS: LATANOPROST EYE DROP 0.005% 2.5 ML BOTTLE EACHEYE SCH (21:11)
--- NOTE | 2019-03-21 21:30 | NUR ---
MS RN NOTES DUE PO MEDS CRUSHED AND GIVEN PO WITH APPLE SAUCE,TAKEN WELL.NEGATIVE FOR ASPIRATION
--- NOTE | 2019-03-21 22:00 | NUR ---
MS RN NOTES ACCU-CHECK BLOOD SUGAR CHECK 173,COVERED WITH HUMULIN R 3 UNITS PER SLIDING SCALE
[2019-03-21] MEDS: *INSULIN REGULAR(HUMULIN R)HUM 100 UNIT/ML VIAL SQ PRN (22:03)
[2019-03-22] MEDS: BLOOD SUGAR DIAGNOSTIC 1 EACH STRIP VI SCH ×4 (05:20→21:28)
[2019-03-22] MEDS: IV NS 0.9% 1,000 ML IV PRN ×2 (05:41→21:48)
--- NOTE | 2019-03-22 06:14 | NUR ---
MS RN NOTES ACCU-CHECK BLOOD SUGAR CHECK 86,NO INSULIN COVERAGE.
--- NOTE | 2019-03-22 06:15 | NUR ---
MS RN NOTES NO SIGNIFICANT CHANGE IN STATUS,IVF IN PROGRESS,DRESSING TO RIGHT LOWER LEG WOUND INTACT AND DRY,WITH BETADINE STAIN.REPOSITION PER PROTOCOL.IN NO ACUTE DISTRESS.WILL ENDORSE TO DAY NURSE FOR DALILA.
--- NOTE | 2019-03-22 07:25 | NUR ---
MS RN OPENING NOTES RECEIVED PT IN BED, ASLEEP, EASILY AROUSED. A/O X1. PT ON SUPPLEMENTARY OXYGEN AT 2LPM VIA NC, WITH NO ACUTE RESPIRATORY DISTRESS NOTED. PT DENIES PAIN OR ANY DISCOMFORT AT THIS TIME. PT ALSO DENIES QUESTIONS OR CONCERNS AT THIS MOMENT. IVF NS AT 75ML/HR TO [id number], INTACT AND FLUID INFUSING WELL. PT KEPT COMFORTABLE IN BED. CALL LIGHT KEPT WITHIN REACH. PT'S BED IN LOWEST, LOCKED POSITION WITH SR X3. WILL CONTINUE PLAN OF CARE.
[2019-03-22 08:00] VITALS: BP 138/88
[2019-03-22] MEDS: ASCORBIC ACID 500 MG TABLET PO SCH (08:41)
[2019-03-22] MEDS: PROSOURCE / PROSTAT (PYXIS) 30 ML UDC PO SCH ×3 (08:41→16:13)
[2019-03-22] MEDS: MULTIVIT W/MINERALS 1 TAB TABLET PO SCH (08:41)
[2019-03-22] MEDS: DIVALPROEX SODIUM 250 MG TABLET.DR PO SCH ×2 (08:41→21:28)
[2019-03-22] MEDS: predniSONE 20 MG TABLET PO SCH (08:41)
[2019-03-22] MEDS: ZINC SULFATE 220 MG CAPSULE PO SCH (08:41)
[2019-03-22] MEDS: TIMOLOL 0.5% SOLN OPHTH 5 ML BOTTLE LEFTEYE SCH ×2 (08:50→16:14)
[2019-03-22] MEDS: BRIMONIDINE TARTRATE OPHT SOLN 5 ML BOTTLE LEFTEYE SCH ×2 (08:50→16:14)
[2019-03-22] MEDS: DORZOLAMIDE OPTH 2% 10 ML BOTTLE LEFTEYE SCH ×2 (08:50→16:14)
[2019-03-22] MEDS ORDERED: ERGOCALCIFEROL (VITAMIN D 2) 50,000 UNIT CAPSULE PO SCH (09:00)
[2019-03-22] MEDS: CEFTRIAXONE 1 G in IV D5W 50 ML IV SCH (09:15)
--- NOTE | 2019-03-22 10:36 | NUR ---
MS/RN Saturation Room air saturation while ambulating 86%
[2019-03-22] MEDS: INSULIN REGULAR, HUMAN 100 UNIT/ML 3 ML VIAL SQ PRN ×2 (11:27→17:24)
[2019-03-22 16:00] VITALS: BP 122/85
--- NOTE | 2019-03-22 18:51 | NUR ---
MS RN CLOSING NOTES PT IN BED, ASLEEP, EASILY AROUSED. A/O X1. PT ON SUPPLEMENTARY OXYGEN AT 2LPM VIA NC, WITH NO ACUTE RESPIRATORY DISTRESS NOTED. PT DENIES PAIN OR ANY DISCOMFORT AT THIS TIME. IVF NS AT 75ML/HR TO [id number], INTACT AND FLUID INFUSING WELL. ALL NEEDS AND CARE ATTENDED. PT KEPT COMFORTABLE IN BED. CALL LIGHT KEPT WITHIN REACH. PT'S BED IN LOWEST, LOCKED POSITION WITH SR X3. WILL ENDORSE TO INCOMING NIGHT NURSE FOR DALILA.
--- NOTE | 2019-03-22 19:00 | NUR ---
MS RN NOTE RECEIVED PT IN STABLE CONDITION A/O X1, CURRENTLY AWAKE. NO SIGNS OF SOB OR DISTRESS, NO INDICATIONS OF PAIN. IV IN RFA #[address] WITH IVF INFUSING. ALL CURRENT NEEDS ATTENDED TO. BED LOW, LOCKED, UPPER RAILS UP, AND CALL LIGHT WITHIN REACH. WILL CONT. TO MONITOR.
[2019-03-22 20:00] VITALS: BP 127/75
[2019-03-22] MEDS: DONEPEZIL 5 MG TABLET PO SCH (21:28)
[2019-03-22] MEDS: LATANOPROST EYE DROP 0.005% 2.5 ML BOTTLE EACHEYE SCH (21:41)
[2019-03-22] MEDS: *INSULIN REGULAR(HUMULIN R)HUM 100 UNIT/ML VIAL SQ PRN (21:44)
--- NOTE | 2019-03-23 06:18 | NUR ---
MS RN NOTE PT REMAINS IN STABLE CONDITION A/O X1, CURRENTLY ASLEEP. NO SIGNS OF SOB OR DISTRESS, NO INDICATIONS OF PAIN. IV IN RFA #[address] WITH IVF INFUSING. ALL CURRENT NEEDS ATTENDED TO. BED LOW, LOCKED, UPPER RAILS UP, AND CALL LIGHT WITHIN REACH. WILL CONT. TO MONITOR AND ENDORSE TO NEXT SHIFT FOR DALILA.
[2019-03-23] MEDS: BLOOD SUGAR DIAGNOSTIC 1 EACH STRIP VI SCH ×2 (06:33→11:48)
--- NOTE | 2019-03-23 07:20 | NUR ---
MS RN OPENING NOTES RECEIVED PT IN AWAKE. A/O X1. PT ON SUPPLEMENTARY OXYGEN AT 2LPM VIA NC, WITH NO ACUTE RESPIRATORY DISTRESS NOTED. PT DENIES PAIN OR ANY DISCOMFORT AT THIS TIME. PT ALSO DENIES QUESTIONS OR CONCERNS AT THIS MOMENT. IVF NS AT 75ML/HR TO [id number], INTACT AND FLUID INFUSING WELL. PT KEPT COMFORTABLE IN BED. CALL LIGHT KEPT WITHIN REACH. PT'S BED IN LOWEST, LOCKED POSITION WITH SR X3. WILL CONTINUE PLAN OF CARE.
[2019-03-23] MEDS: ASCORBIC ACID 500 MG TABLET PO SCH (08:27)
[2019-03-23] MEDS: predniSONE 20 MG TABLET PO SCH (08:27)
[2019-03-23] MEDS: MULTIVIT W/MINERALS 1 TAB TABLET PO SCH (08:27)
[2019-03-23] MEDS: DIVALPROEX SODIUM 250 MG TABLET.DR PO SCH (08:27)
[2019-03-23] MEDS: ZINC SULFATE 220 MG CAPSULE PO SCH (08:28)
[2019-03-23 08:30] VITALS: BP 152/69
[2019-03-23] MEDS: PROSOURCE / PROSTAT (PYXIS) 30 ML UDC PO SCH ×2 (08:52→13:07)
[2019-03-23] MEDS: TIMOLOL 0.5% SOLN OPHTH 5 ML BOTTLE LEFTEYE SCH (08:52)
[2019-03-23] MEDS: BRIMONIDINE TARTRATE OPHT SOLN 5 ML BOTTLE LEFTEYE SCH (08:52)
[2019-03-23] MEDS: DORZOLAMIDE OPTH 2% 10 ML BOTTLE LEFTEYE SCH (08:52)
[2019-03-23] MEDS: CEFTRIAXONE 1 G in IV D5W 50 ML IV SCH (09:10)
[2019-03-23] MEDS ORDERED: LEVO500T75 PO (10:24)
[2019-03-23] MEDS: INSULIN REGULAR, HUMAN 100 UNIT/ML 3 ML VIAL SQ PRN (11:46)
--- NOTE | 2019-03-23 15:00 | NUR ---
MS RN NOTES SKIN ISSUES, PICTURES TAKEN AND FILED TO CHART.
--- NOTE | 2019-03-23 15:30 | NUR ---
SENIOR PRODUCER NOTES PT GOING BACK TO [facility]. PT ON SUPPLEMENTARY OXYGEN AT 2LPM VIA NC, WITH NO ACUTE RESPIRATORY DISTRESS NOTED. PT DENIES ANY PAIN OR DISCOMFORT AT THE TIME OF DISCHARGE. REPORT GIVEN TO GRACIELA AYALA AT [facility]. PIV TO RFA REMOVED, APPLIED DRY DRESSING. REVIEWED AND SIGNED DISCHARGE PAPERS AND INVENTORY LIST BY CAREGIVER/OTTIS. ALL BELONGINGS WITH THE PT. ALL NEEDS AND CARE ATTENDED AND PROVIDED. [facility] TRANSFERRED PT TO [facility] AND TO TRANSPORT VIA AMBULANCE TO [facility]. PT LEFT THE UNIT AT 1520. JAQUI/MADELINE AND /MILDRED AWARE OF DISCHARGE. Addendum: 03/23/19 at 1623 by MAXX CLIFTON RN WRONG DOCUMENTATION
--- NOTE | 2019-03-23 15:35 | NUR ---
MS [place] ATTORNEY NOTES PT GOING BACK TO [facility]. PT ON SUPPLEMENTARY OXYGEN AT 2LPM VIA NC, WITH NO ACUTE RESPIRATORY DISTRESS NOTED. PT DENIES ANY PAIN OR DISCOMFORT AT THE TIME OF DISCHARGE. REPORT GIVEN TO GRACIELA AYALA AT [facility]. PIV TO RFA REMOVED, APPLIED DRY DRESSING. PT UNABLE TO SIGN DISCHARGE PAPERS, WITNESSED BY ANOTHER RN. ALL BELONGINGS WITH THE PT. ALL NEEDS AND CARE ATTENDED AND PROVIDED. [facility] TRANSFERRED PT TO [facility] AND TO TRANSPORT VIA AMBULANCE TO [facility]. PT LEFT THE UNIT AT 1520. JAQUI/MADELINE AND /MILDRED AWARE OF DISCHARGE.
--- NOTE | 2019-03-23 17:30 | NUR ---
MS RN NOTES RECEIVED CALL FROM [facility] REGARDING RIGHT KNEE BLACK IMMOBILIZER IS MISSING. INFORMED THEM I/RN WAS THE ONE WHO PACKED HER BELONGINGS AND PUT IN THE BELONGINGS BAG. 1 BLUE BLANKET AT BEDSIDE, 4 EYEDROPS AND 1 INSULIN VIAL ONLY PRESENT AT BEDSIDE. JAQUI/MADELINE MADE AWARE. ALSO, I/RN CHANGED WOUND DRESSING TO RIGHT LOWER LEG WOUND FOR 2 CONSECUTIVE DAYS WITH NO BLACK KNEE IMMOBILIZER AT BEDSIDE.
[2019-04-19] MEDS ORDERED: CYANOCOBALAMIN 500 MCG TABLET PO SCH (09:00)
== END 2019-03-23 15:20 | DRG 640 ==
LOC: ER 10:51 → TELE 12:39 → MED 22:14
PROVIDERS: ADMIT Internal Medicine; ATTEND Internal Medicine
DX: E86.0 Dehydration (principal); N17.0 Acute kidney failure with tubular necrosis; G93.41 Metabolic encephalopathy; N39.0 Urinary tract infection, site not specified; E11.42 Type 2 diabetes mellitus with diabetic polyneuropathy; H40.9 Unspecified glaucoma; I10 Essential (primary) hypertension; Z86.73 Personal history of transient ischemic attack (TIA), and cerebral infarction without residual deficits; B96.89 Other specified bacterial agents as the cause of diseases classified elsewhere; B96.4 Proteus (mirabilis) (morganii) as the cause of diseases classified elsewhere; I95.9 Hypotension, unspecified; K59.09 Other constipation; Z79.4 Long term (current) use of insulin; M19.90 Unspecified osteoarthritis, unspecified site; Z74.01 Bed confinement status; M20.12 Hallux valgus (acquired), left foot; M20.11 Hallux valgus (acquired), right foot; F41.9 Anxiety disorder, unspecified; F03.90 Unspecified dementia, unspecified severity, without behavioral disturbance, psychotic disturbance, mood disturbance, and anxiety; Z96.659 Presence of unspecified artificial knee joint; M20.5X2 Other deformities of toe(s) (acquired), left foot; E11.621 Type 2 diabetes mellitus with foot ulcer; L97.519 Non-pressure chronic ulcer of other part of right foot with unspecified severity; M24.562 Contracture, left knee; M24.561 Contracture, right knee; Z79.84 Long term (current) use of oral hypoglycemic drugs
CPT/HCPCS: 36415; 71045-TC; 80048-TC; 80076-TC; 81000-TC; 82962-TC; 83690-TC; 83735-TC; 84100-TC; 84484-TC; 85025-TC; 87081-TC; 87086-TC; 87186-TC; A4216; A6253; G0378; J0692; J0696; J1815; J7030; J7042; J7060

== ENCOUNTER 2019-09-22 15:01 | Inpatient (IN) | payer MEDICARE, OTHER ==
[2019-09-22] VITALS (7 sets, daily range): BP systolic 84–191; BP diastolic 45–141
[~2019-09-22] VITALS: Ht 162.6 cm; Wt 58.1 kg
[~2019-09-22 15:01] MED LIST changes: +AMIN30LI2 PO; +BISA-79 RC; +BRIM5DRO LEFTEYE; +CHOL100044 PO; -CRAN450C PO; +CYAN-51 PO; -DEXT1CAP3 PO; +DORZ10DR13 LEFTEYE; +HYDR-4384 PO; -INSU100V3 IJ; +INSU100V3 SQ; +LATA2.5D2 EACHEYE; +LEVO500T75 PO; +LINA5TAB PO; -LORA-258 PO; +MAGN24002 PO; -METF-442 PO; +NUTR1PAC14 PO; +PRED20TA PO; -SITA50TA PO; -TEMA7.5C PO; -TRAV5DRO EACHEYE; +ZINC1CAP3 PO
--- NOTE | 2019-09-22 15:10 | NUR ---
BIB [facility] FOR O2 DESATURATION. PATIENT A/OX1, NOTED COUGHING, NO S/SX OF RESPIRATORY DISTRESS NOTED. NEEDS ATTENDED. KEPT COMFORTABLE.
[2019-09-22] MEDS ORDERED: DORZ10DR11 LEFTEYE (15:18)
[2019-09-22] MEDS ORDERED: ERGO500014 PO (15:18)
[2019-09-22] MEDS ORDERED: GLUC1KIT IM (15:18)
[2019-09-22] MEDS ORDERED: BRIM5DRO3 LEFTEYE (15:18)
[2019-09-22] MEDS ORDERED: ACET-868 PO (15:18)
[2019-09-22] MEDS ORDERED: DIVA-76 PO (15:18)
[2019-09-22 15:47] LABS: BASOPHILS % (AUTO) 0.3 % (0.0-2.0); HEMATOCRIT 36 % (33-45); HEMOGLOBIN 11.4 g/dL (11.5-14.8); LYMPHOCYTES # (AUTO) 0.8 /CMM (0.8-4.8); LYMPHOCYTES % (AUTO) 5.1 % (20.0-44.0); MEAN CORPUSCULAR HGB CONC 31 g/dl (31.0-36.0); MEAN CORPUSCULAR VOLUME 88 fL (82-100); MONOCYTES % (AUTO) 5.9 % (2.0-12.0); NEUTROPHILS # (AUTO) 14.6 /CMM (1.8-8.9); NEUTROPHILS % (AUTO) 88.7 % (43.0-81.0); PLATELET COUNT (AUTO) 290 /CMM (150-450); RED BLOOD CELL COUNT(AUTO) 4.13 MIL/uL (4.0-5.2); WHITE BLOOD COUNT (AUTO) 16.5 K/uL (4.3-11.0)
[2019-09-22 15:54] LABS: APPEARANCE,URINE CLEAR (CLEAR); BILIRUBIN,URINE NEGATIVE (NEGATIVE); BLOOD, URINE NEGATIVE Ery/uL (NEGATIVE); COLOR,URINE YELLOW (YELLOW); KETONES,URINE TRACE (NEGATIVE); LEUKOCYTE ESTERASE ,URINE NEGATIVE (NEGATIVE); NITRITE, URINE NEGATIVE (NEGATIVE); PH,URINE 5.5 (5.0-8.0); PROTEIN,URINE TRACE mg/dl (NEGATIVE); UGLUCOSE 500 MG/DL mg/dL (NEGATIVE); UROBILINOGEN,URINE 0.2 EU/dL (0.2)
[2019-09-22 16:06] LABS: BACTERIA,URINE Rare /HPF (None Seen); RBC,URINE 0-2 /HPF (0-2); SQUAMOUS EPITHELIAL CELL,UR 0-2 /HPF (None Seen); WBC,URINE 0-2 /HPF (0-3)
[2019-09-22 16:07] LABS: URINE AMORPHOUS URATE Few /HPF (None Seen)
[2019-09-22 16:09] LABS: ALANINE AMINOTRANSFERASE 29 U/L (12-78); ALBUMIN 2.3 g/dL (3.4-5.0); ALKALINE PHOSPHATASE 54 U/L (46-116); ASPARTATE AMINOTRANSFERASE 15 U/L (15-37); BILIRUBIN,DIRECT 0.1 mg/dL (0.0-0.2); BILIRUBIN,TOTAL 0.3 mg/dL (0.2-1.0); CALCIUM, SERUM 9.4 mg/dL (8.5-10.1); CARBON DIOXIDE 30 mmol/L (21-32); CHLORIDE 102 mmol/L (98-107); CREATININE 1.3 mg/dL (0.6-1.3); POTASSIUM 4.5 mmol/L (3.5-5.1); SODIUM SERUM 140 mmol/L (136-145); TOTAL PROTEIN, SERUM 6.6 g/dL (6.4-8.2); UREA NITROGEN, BLOOD 26 mg/dL (7-18)
[2019-09-22 16:18] LABS: GLUCOSE 359 mg/dL (74-106)
[2019-09-22] MEDS ORDERED: VANCOMYCIN 1 GM in IV D5W 250 ML IV ONE (17:00)
[2019-09-22] MEDS ORDERED: IV NS 0.9% 1,000 ML BAG IV ONE (17:00)
[2019-09-22] MEDS ORDERED: PIPERACILLIN /TAZOBACTAM 3.375 G in IV D5W 50 ML IV ONE (17:00)
--- NOTE | 2019-09-22 17:00 | NUR ---
PATIENT RESTING, STILL NOTED WITH DRY COUGHING. VITALS STABLE. ON ROOM AIR WITH SPO2 OF 96%. NEEDS ATTENDED. KEPT COMFORTABLE.
--- NOTE | 2019-09-22 17:42 | NUR ---
PAGED [facility].
--- NOTE | 2019-09-22 17:57 | NUR ---
CALLED NURSING SUP FOR ICU BED.
[2019-09-22] MEDS ORDERED: Z GUARD REMEDY 2 OZ OINT TP PRN (18:00)
[2019-09-22] MEDS ORDERED: predniSONE 20 MG TABLET PO SCH (18:00)
[2019-09-22] MEDS ORDERED: DEXTROSE 50%-WATER 50 ML DISP.SYRIN IV PRN (18:00)
[2019-09-22] MEDS ORDERED: MAGNESIUM HYDROXIDE 30 ML UDC PO PRN (18:00)
[2019-09-22] MEDS ORDERED: ONDANSETRON HCL/PF 4 MG/2 ML VIAL IVP PRN (18:00)
[2019-09-22] MEDS ORDERED: HYDROCODONE/APAP 5/325MG 1 EACH TABLET PO PRN (18:00)
[2019-09-22] MEDS ORDERED: NA PHOS,M-B/NA PHOS,DI-BA 1 EA ENEMA RC PRN (18:00)
[2019-09-22] MEDS ORDERED: ACETAMINOPHEN 325 MG TABLET PO PRN (18:00)
[2019-09-22] MEDS ORDERED: MAG HYDROX/AL HYDROX/SIMETH 30 ML UDC PO PRN (18:00)
[2019-09-22] MEDS ORDERED: BISACODYL (5 MG) 5 MG TABLET.DR PO PRN (18:00)
--- NOTE | 2019-09-22 18:22 | NUR ---
NURSING SUP GAVE ICU BED 258.
--- NOTE | 2019-09-22 19:07 | NUR ---
TRIED TO GIVE REPORT, RECEIVING NURSE UNABLE AT THIS TIME.
[2019-09-22] MEDS ORDERED: FEE PK DOSING 1 MIN EA MC ONE (19:23)
--- NOTE | 2019-09-22 19:42 | NUR ---
rREPORT GIVEN TO KRISTEN AYALA.
[2019-09-22] MEDS: AZITHROMYCIN 500 MG in IV D5W 250 ML IV SCH (20:22)
[2019-09-22] MEDS: BRIMONIDINE TARTRATE OPHT SOLN 5 ML BOTTLE OP SCH (20:35)
[2019-09-22] MEDS: DIVALPROEX SODIUM 250 MG TABLET.DR PO SCH (20:38)
--- NOTE | 2019-09-22 21:00 | NUR ---
RN NOTES ADMITTED A FEMALE PATIENT CONFUSED MUMBLES AND MOANS ON ROOM AIR SATURATION BETWEEN 88-90% PLACED ON O2 2LPM VIA NC TOLERATED WELL WENT UP TO 92%. PLACED ON TELE MONITOR. REVEALS ST WITH PVC'S HARDLY TO READ DUE TO SHAKING. DIAGNOSED WITH SEPSIS LACTIC ACID WAS 6.3 IN ER. AFEBRILE. VSS. IV SITE ON RFA AND STARTED ANOTHER IV ON LFA ALL IV SITE ARE INTACT AD PATENT. STARTED NS @ 75 ML/HR ORDERED AND AZITHROMYCIN IV. SKIN IS INTACT. KEPT PT CLEAN AND SRY. TURNED AND REPOSITIONED FOR SKIN MANAGEMENT. WILL CONTINUE TO MONITOR.
[2019-09-22] MEDS: LATANOPROST EYE DROP 0.005% 2.5 ML BOTTLE OP SCH (21:47)
[2019-09-22] MEDS: DONEPEZIL 5 MG TABLET PO SCH (21:47)
[2019-09-22] MEDS: IV NS 0.9% 1,000 ML IV PRN (21:58)
[2019-09-22] MEDS: BLOOD SUGAR DIAGNOSTIC 1 EACH STRIP VI SCH (22:00)
[2019-09-22] MEDS: HYDROCODONE/APAP 5/325MG 1 EACH TABLET PO PRN (22:02)
[2019-09-22 22:08] LABS: C-REACTIVE PROTEIN 20.3 mg/dL (0.0-0.9)
[2019-09-22] MEDS: PIPERACILLIN /TAZOBACTAM 2.25 G in IV D5W 50 ML IV SCH (23:04)
[2019-09-23] VITALS (42 sets, daily range): BP systolic 66–183; BP diastolic 20–145
[2019-09-23] MEDS: *INSULIN REGULAR(HUMULIN R)HUM 100 UNIT/ML VIAL SQ PRN (01:10)
[2019-09-23] MEDS ORDERED: NOREPINEPHRINE 8 MG in IV NS 0.9% 242 ML IV PRN (03:30)
[2019-09-23] MEDS ORDERED: NOREPINEPHRINE 4 MG/4 ML AMPUL IV ONE (03:33)
[2019-09-23 04:57] LABS: BASOPHILS % (AUTO) 0.1 % (0.0-2.0); EOSINOPHILS % (AUTO) 0.2 % (0.0-6.0); HEMATOCRIT 35 % (33-45); HEMOGLOBIN 10.9 g/dL (11.5-14.8); LYMPHOCYTES % (AUTO) 19.6 % (20.0-44.0); MEAN CORPUSCULAR HGB CONC 31 g/dl (31.0-36.0); MEAN CORPUSCULAR VOLUME 90 fL (82-100); MONOCYTES # (AUTO) 2.1 /CMM (0.1-1.30); MONOCYTES % (AUTO) 10.3 % (2.0-12.0); NEUTROPHILS # (AUTO) 14.3 /CMM (1.8-8.9); NEUTROPHILS % (AUTO) 69.8 % (43.0-81.0); PLATELET COUNT (AUTO) 302 /CMM (150-450); RED BLOOD CELL COUNT(AUTO) 3.88 MIL/uL (4.0-5.2); WHITE BLOOD COUNT (AUTO) 20.5 K/uL (4.3-11.0)
[2019-09-23] MEDS: PIPERACILLIN /TAZOBACTAM 2.25 G in IV D5W 50 ML IV SCH ×4 (05:19→23:12)
[2019-09-23 05:20] LABS: CALCIUM, SERUM 8.4 mg/dL (8.5-10.1); CREATININE 0.9 mg/dL (0.6-1.3); MAGNESIUM 1.9 mg/dL (1.8-2.4)
[2019-09-23] MEDS: BRIMONIDINE TARTRATE OPHT SOLN 5 ML BOTTLE OP SCH ×3 (05:54→21:07)
--- NOTE | 2019-09-23 07:10 | NUR ---
RN NOTES PT ASLEEP WELL ON BED. BREATHING EVEN AND UNLABORED. O2 2LPM VIA NC TOLERATED WELL SATURATION >92%. SR - ST ON TELE MONITOR. EPISODE OF SB 40'S THIS MORNING @ 330AM NOTED ONCE AND BOUNCE BACK TO SR. LEVOPHED OFF. VSS AT THIS TIME.. NO SIGNIFICANT CHANGES NOTED. KEPT PT CLEAN AND DRY. COTNIEU ON ISOLATION PRECAUTION.
[2019-09-23] MEDS ORDERED: HYDROCORTISONE SOD SUCCINATE 100 MG/2 ML VIAL IV SCH (09:00)
[2019-09-23] MEDS: DIVALPROEX SODIUM 250 MG TABLET.DR PO SCH ×2 (09:15→21:05)
[2019-09-23] MEDS: CYANOCOBALAMIN 500 MCG TABLET PO SCH (09:15)
[2019-09-23] MEDS: BLOOD SUGAR DIAGNOSTIC 1 EACH STRIP VI SCH ×4 (09:15→22:00)
[2019-09-23] MEDS: DORZOLAMIDE OPTH 2% 10 ML BOTTLE OP SCH ×2 (09:17→16:25)
[2019-09-23] MEDS: PROSTAT (PYXIS) 30 ML UDC PO SCH ×3 (09:19→16:26)
--- NOTE | 2019-09-23 11:00 | NUR ---
ICU/RN PT IS COUGHING DURING FEEDING.PLACED NPO.MD NOTIFIED.OK TO GIVE MEDS.SWALLOW EVAL ORDERED.
[2019-09-23] MEDS: IV NS 0.9% 1,000 ML IV PRN (12:23)
[2019-09-23] MEDS: predniSONE 10 MG TABLET PO SCH (12:25)
[2019-09-23 13:30] LABS: IRON, SERUM 33 ug/dl (50-175); TOTAL IRON BINDING CAPACITY 216 ug/dl (250-450)
[2019-09-23 13:38] LABS: PHOSPHORUS 3.1 mg/dL (2.5-4.9); THYROID STIMULATING HORMONE 0.266 uIU/mL (0.358-3.74)
[2019-09-23] MEDS: VANCOMYCIN 1 GM in IV D5W 250ml IV SCH (16:25)
[2019-09-23] MEDS ORDERED: VANCOMYCIN 500 MG in IV D5W 100 ML IV SCH (17:00)
--- NOTE | 2019-09-23 17:40 | NUR ---
ICU/RN PM CARE PROVIDED.DUE MEDS ARE GIVEN ORDERED. BS-158.NOT COVERED.PT IS NPO.IV FLUIDS INFUSING ORDERED.CONTINUE MONITORING
[2019-09-23] MEDS: AZITHROMYCIN 500 MG in IV D5W 250 ML IV SCH (18:36)
--- NOTE | 2019-09-23 19:40 | NUR ---
SCIENCE MANAGER OPENING NOTES, RECEIVED PATIENT IN BED SLEEPING. A/OX1. ON THE MONITOR PATIENT HAS ST OF 110. PATIENT IS ON 2L O2 VIA NC OF 97%. TOLERATING WELL. NO SOB OR ACUTE DISTRESS NOTED AT THIS TIME. IV ON RFA #18, LFA #20 AND PICC LINE ON [place]. NS RUNNING @75ML/HR. PATIENT IS NPO. CONTINUE ON ISOLATION PRECAUTION FOR R/O COVID. BED IN LOW/LOCKED POSITION. SIDE RAILS UP X2. CALL LIGHT WITHIN REACH WILL CONTINUE TO MONITOR.
[2019-09-23] MEDS: DONEPEZIL 5 MG TABLET PO SCH (22:10)
[2019-09-23] MEDS: HYDROCODONE/APAP 5/325MG 1 EACH TABLET PO PRN (22:10)
[2019-09-23] MEDS: LATANOPROST EYE DROP 0.005% 2.5 ML BOTTLE OP SCH (22:11)
--- NOTE | 2019-09-23 23:21 | NUR ---
PATIENTS BS IS 191. PATIENT IS NPO, NO INSULIN WAS ADMITTED. VSS. WILL CONTINUE TO MONITOR.
[2019-09-24] VITALS (25 sets, daily range): BP systolic 90–149; BP diastolic 34–97
[2019-09-24] MEDS: IV NS 0.9% 1,000 ML IV PRN ×2 (01:23→16:03)
--- NOTE | 2019-09-24 03:40 | NUR ---
CRITICAL LAB VALUE, BLOOD CULTURE GRAM POSITIVE COCCI IN CLUSTER WAS REPORTED BY [facility], AT [id number]. THE LAB RESULT IS EXPECTED. VSS, WILL CONTINUE TO MONITOR.
[2019-09-24 04:29] LABS: BASOPHILS % (AUTO) 0.2 % (0.0-2.0); EOSINOPHILS % (AUTO) 0.1 % (0.0-6.0); HEMATOCRIT 29 % (33-45); HEMOGLOBIN 9.3 g/dL (11.5-14.8); LYMPHOCYTES # (AUTO) 1.8 /CMM (0.8-4.8); LYMPHOCYTES % (AUTO) 14.7 % (20.0-44.0); MEAN CORPUSCULAR HGB CONC 33 g/dl (31.0-36.0); MEAN CORPUSCULAR VOLUME 88 fL (82-100); MONOCYTES # (AUTO) 1.2 /CMM (0.1-1.30); MONOCYTES % (AUTO) 10.3 % (2.0-12.0); NEUTROPHILS # (AUTO) 8.9 /CMM (1.8-8.9); NEUTROPHILS % (AUTO) 74.7 % (43.0-81.0); PLATELET COUNT (AUTO) 233 /CMM (150-450); RED BLOOD CELL COUNT(AUTO) 3.25 MIL/uL (4.0-5.2); WHITE BLOOD COUNT (AUTO) 11.9 K/uL (4.3-11.0)
[2019-09-24 04:40] LABS: CALCIUM, SERUM 7.7 mg/dL (8.5-10.1); CREATININE 0.8 mg/dL (0.6-1.3); POTASSIUM 3.7 mmol/L (3.5-5.1)
[2019-09-24] MEDS: BRIMONIDINE TARTRATE OPHT SOLN 5 ML BOTTLE OP SCH ×3 (05:01→20:06)
[2019-09-24] MEDS: PIPERACILLIN /TAZOBACTAM 2.25 G in IV D5W 50 ML IV SCH ×4 (06:04→23:15)
--- NOTE | 2019-09-24 07:05 | NUR ---
CORPORATE COMMUNICATIONS ASSOCIATE CLOSING NOTES, PATIENT IN BED SLEEPING. A/OX1. ON THE MONITOR PATIENT HAS ST OF 74. PATIENT IS ON 2L O2 VIA NC OF 100%. TOLERATING WELL. NO SOB OR ACUTE DISTRESS NOTED AT THIS TIME. IV ON RFA #18, LFA #20 AND PICC LINE ON MERLYN. NS RUNNING @75ML/HR. PATIENT IS NPO EXCEPT FOR MEDICATIONS. CONTINUE ON ISOLATION PRECAUTION FOR R/O COVID. PATIENT KEPT DRY AND CLEAN DURING YARN WASHER. BED IN LOW/LOCKED POSITION. SIDE RAILS UP X2. ENDORSED THE PATIENT TO AM RN FOR DALILA.
--- NOTE | 2019-09-24 07:10 | NUR ---
RN NOTES RECEIVED PATIENT ON BED, DRAWZY , DOENS NOT FOLLOW COMMAND, ON 2L O2 N/C , NO SOB NOTED, O2 SAT WNL, ON TELE SR HR IN 80'S , IV ON RFA #18, LFA #20 AND PICC LINE ON L UA , STIES CLEAN, DRY AND INTACT, NS RUNNING @75ML/HR. PATIENT IS NPO. CONTINUE ON ISOLATION PRECAUTION FOR R/O COVID. BED IN LOW/LOCKED POSITION. SIDE RAILS UP X3. CALL LIGHT WITHIN REACH, CONTINUE TO MONITOR.
[2019-09-24] MEDS: BLOOD SUGAR DIAGNOSTIC 1 EACH STRIP VI SCH ×4 (08:09→22:57)
[2019-09-24] MEDS: DIVALPROEX SODIUM 250 MG TABLET.DR PO SCH ×2 (08:52→20:06)
[2019-09-24] MEDS: predniSONE 10 MG TABLET PO SCH (08:52)
[2019-09-24] MEDS: CYANOCOBALAMIN 500 MCG TABLET PO SCH (08:53)
[2019-09-24] MEDS: DORZOLAMIDE OPTH 2% 10 ML BOTTLE OP SCH ×2 (08:57→16:30)
[2019-09-24] MEDS: PROSOURCE / PROSTAT (PYXIS) 30 ML UDC PO SCH ×3 (09:09→16:29)
[2019-09-24] MEDS: HYDROCORTISONE SOD SUCCINATE 100 MG/2 ML VIAL IV SCH ×3 (10:45→16:03)
--- NOTE | 2019-09-24 11:00 | NUR ---
RN NOTES VSS STABLE, IVF NS AT 75CC/HR RUNNING , CONTINUE TO MONITOR.
[2019-09-24] MEDS: HYDROCODONE/APAP 5/325MG 1 EACH TABLET PO PRN (12:48)
--- NOTE | 2019-09-24 15:45 | NUR ---
RN NOTES DR JENNINGS NOTIFED REGARDING POSITIVE MRSA , NEW ORDER RECEIVED.
[2019-09-24] MEDS: VANCOMYCIN 1 GM in IV D5W 250ml IV SCH (16:54)
[2019-09-24] MEDS: INSULIN REGULAR, HUMAN 100 UNIT/ML 3 ML VIAL SQ PRN (17:08)
[2019-09-24] MEDS: AZITHROMYCIN 500 MG in IV D5W 250 ML IV SCH (17:36)
--- NOTE | 2019-09-24 18:37 | NUR ---
RN NOTES NO SIGNFICATN CHANGES NOTED ON THIS SHIFT, VSS STABLE, O2 SAT 98-100% ON 2L O2 N/C , SR UP x3, CALL LIGHT WITHIN EASY REACH, BED LOCKED AND IN LOWEST POSITION, WILL ENDORSE TO WEEDER NURSE FOR CONTINUITY OF CARE .
--- NOTE | 2019-09-24 19:30 | NUR ---
RAIL DOWELING MACHINE OPERATOR OPENING NOTES, RECEIVED PATIENT IN BED SLEEPING. A/OX1. ON THE MONITOR PATIENT HAS SR OF 70. PATIENT IS ON 2L O2 VIA NC OF 98%. TOLERATING WELL. NO SOB OR ACUTE DISTRESS NOTED AT THIS TIME. IV ON RFA #18 SL, LFA #20 SL, AND PICC LINE ON MERLYN. NS RUNNING @75ML/HR. PATIENT IS ON FULL LIQUID DIET. CONTINUE ON ISOLATION PRECAUTION FOR R/O COVID. BED IN LOW/LOCKED POSITION. SIDE RAILS UP X2. WILL CONTINUE TO MONITOR.
[2019-09-24] MEDS: MUPIROCIN OINT 2% 22 GM TUBE SCH (20:06)
[2019-09-24] MEDS: LATANOPROST EYE DROP 0.005% 2.5 ML BOTTLE OP SCH (22:47)
[2019-09-24] MEDS: DONEPEZIL 5 MG TABLET PO SCH (22:51)
[2019-09-24] MEDS: *INSULIN REGULAR(HUMULIN R)HUM 100 UNIT/ML VIAL SQ PRN (23:08)
[2019-09-25] VITALS (26 sets, daily range): BP systolic 46–142; BP diastolic 24–92
[2019-09-25 04:36] LABS: BASOPHILS % (AUTO) 0.3 % (0.0-2.0); HEMATOCRIT 30 % (33-45); HEMOGLOBIN 9.7 g/dL (11.5-14.8); LYMPHOCYTES # (AUTO) 1.1 /CMM (0.8-4.8); LYMPHOCYTES % (AUTO) 10.8 % (20.0-44.0); MEAN CORPUSCULAR HGB CONC 32 g/dl (31.0-36.0); MEAN CORPUSCULAR VOLUME 88 fL (82-100); MONOCYTES # (AUTO) 0.4 /CMM (0.1-1.30); MONOCYTES % (AUTO) 4.4 % (2.0-12.0); NEUTROPHILS # (AUTO) 8.5 /CMM (1.8-8.9); NEUTROPHILS % (AUTO) 84.5 % (43.0-81.0); PLATELET COUNT (AUTO) 232 /CMM (150-450); RED BLOOD CELL COUNT(AUTO) 3.38 MIL/uL (4.0-5.2); WHITE BLOOD COUNT (AUTO) 10.1 K/uL (4.3-11.0)
[2019-09-25 04:44] LABS: CALCIUM, SERUM 7.9 mg/dL (8.5-10.1); CREATININE 0.8 mg/dL (0.6-1.3); POTASSIUM 3.6 mmol/L (3.5-5.1)
[2019-09-25] MEDS: BRIMONIDINE TARTRATE OPHT SOLN 5 ML BOTTLE OP SCH ×3 (04:53→21:46)
[2019-09-25] MEDS: PIPERACILLIN /TAZOBACTAM 2.25 G in IV D5W 50 ML IV SCH ×4 (05:22→23:27)
--- NOTE | 2019-09-25 07:00 | NUR ---
DRAFT ROLLER PICKER - OPENING PATIENT IN BED SLEEPING A/OX1. ON EXTERNAL MONITOR HEART RYTHM 60'S. PATIENT IS ON 2L O2 VIA NC SATURATING WELL > 95 PERCENT. TOLERATING TREATMENT WELL NO SIGNS OF ACUTE DISTRESS AT THIS TIME. IV ON RFA 18 #, AND PICC LINE ON MERLYN. NS RUNNING @ 75 ML/HR LINES PATENT AND FLUSHING WELL. NO SIGNS OF INFILRATION NOTE. PATIENT IS ON FULL LIQUID DIET. ISOLATION FOR R/O COVID , BED LOCKED, LOWEST POSITION CALL LIGHT WITH IN REACH ALL SAFETY MEASURE IMPLEMENTED PER HOSPITAL POLICY 2X RAILS UP
--- NOTE | 2019-09-25 07:02 | NUR ---
OFFSHORE WIND OPERATIONS MANAGER CLOSING NOTES, PATIENT IN BED SLEEPING. A/OX1. ON THE MONITOR PATIENT HAS SR OF 68. PATIENT IS ON 2L O2 VIA NC OF 97%. TOLERATING WELL. NO SOB OR ACUTE DISTRESS NOTED AT THIS TIME. IV ON RFA #18 SL, LFA #20 SL, AND PICC LINE ON MERLYN. NS RUNNING @75ML/HR. PATENT AND FLUSHING WELL. NO S/S OF INFILTRATION NOTED. PATIENT IS ON FULL LIQUID DIET. CONTINUE ON ISOLATION PRECAUTION FOR R/O COVID. BED IN LOW/LOCKED POSITION. SIDE RAILS UP X2. WILL ENDORSE THE PATIENT TO AM RN FOR DALILA.
[2019-09-25] MEDS: IV NS 0.9% 1,000 ML IV PRN (09:10)
[2019-09-25] MEDS: HYDROCORTISONE SOD SUCCINATE 100 MG/2 ML VIAL IV SCH ×3 (11:25→17:27)
[2019-09-25] MEDS: DORZOLAMIDE OPTH 2% 10 ML BOTTLE OP SCH ×2 (11:25→17:27)
[2019-09-25] MEDS: predniSONE 10 MG TABLET PO SCH (11:25)
[2019-09-25] MEDS: MUPIROCIN OINT 2% 22 GM TUBE SCH ×2 (11:25→21:45)
[2019-09-25] MEDS: CYANOCOBALAMIN 500 MCG TABLET PO SCH (11:26)
[2019-09-25] MEDS: DIVALPROEX SODIUM 250 MG TABLET.DR PO SCH ×2 (11:26→21:45)
[2019-09-25] MEDS: PROSOURCE / PROSTAT (PYXIS) 30 ML UDC PO SCH ×3 (11:26→17:27)
[2019-09-25] MEDS: BLOOD SUGAR DIAGNOSTIC 1 EACH STRIP VI SCH ×4 (11:28→21:47)
[2019-09-25] MEDS: *INSULIN REGULAR(HUMULIN R)HUM 100 UNIT/ML VIAL SQ PRN ×4 (11:49→23:00)
[2019-09-25] MEDS: VANCOMYCIN 1 GM in IV D5W 250ml IV SCH (18:01)
[2019-09-25] MEDS: AZITHROMYCIN 500 MG in IV D5W 250 ML IV SCH (19:31)
--- NOTE | 2019-09-25 19:45 | NUR ---
ICU/SYSTEMS ANALYST DEVELOPER REPORT RECEIVED FROM THE TO DAY NURSE. SEE FLOWSHEET FOR ASSESSMENT, ALONG WITH SKIN ASSESSMENTS AND THE INTERVENTIONS TO THESE. PT IS CONFUSED, DOESN'T RESPONDS TO QUESTIONS. PT IS ON 2 LITERS VIA N/C WITH SATURATION AT 100%. PT IS ON THICKEN LIQUIDS. PT TURNED AND REPOSITIONED FOR COMFORT AND CARE, WILL CONTINUE TO MONITOR THIS PT.
[2019-09-25] MEDS: DONEPEZIL 5 MG TABLET PO SCH (21:45)
[2019-09-25] MEDS: LATANOPROST EYE DROP 0.005% 2.5 ML BOTTLE OP SCH (21:46)
--- NOTE | 2019-09-25 22:10 | NUR ---
ICU/TIEDOWN OPERATOR PT WAS GIVEN PM CARE, ALONG WITH ORAL CARE. PT TOLERATED THIS WELL WITH SATURATION AT 100%. PT HAD LARGE LOSE STOOL. PT WAS THEN TURNED AND REPOSITIONED FOR COMFORT AND CARE. WILL CONTINUE TO MONITOR THIS PT. NO ACUTE DISTRESS SEEN AT THIS TIME.
--- NOTE | 2019-09-25 22:45 | NUR ---
ICU/INFORMATICS PHARMACIST PT'S BLOOD SUGAR IS 238, THIS WAS COVERED WITH THE PM DOSE REGULAR INSULIN. WILL CONTINUE TO MONITOR THIS PT AND HER BLOOD SUGAR. NO ACUTE DISTRESS SEEN AT THIS TIME.
[2019-09-26] VITALS (14 sets, daily range): BP systolic 96–150; BP diastolic 49–93
--- NOTE | 2019-09-26 02:10 | NUR ---
ICU/LINUX PROGRAMMER PT WAS GIVEN AM CARE, ALONG WITH ORAL CARE. PT TOLERATED THIS WELL WITH SATURATION AT 100%. PT HAD LARGE LOSE STOOL. PT WAS THEN TURNED AND REPOSITIONED FOR COMFORT AND CARE. WILL CONTINUE TO MONITOR THIS PT. NO ACUTE DISTRESS SEEN AT THIS TIME.
[2019-09-26 05:06] LABS: HEMATOCRIT 28 % (33-45); HEMOGLOBIN 9.3 g/dL (11.5-14.8); LYMPHOCYTES # (AUTO) 1.2 /CMM (0.8-4.8); LYMPHOCYTES % (AUTO) 12.4 % (20.0-44.0); MEAN CORPUSCULAR HGB CONC 33 g/dl (31.0-36.0); MEAN CORPUSCULAR VOLUME 88 fL (82-100); MONOCYTES # (AUTO) 0.4 /CMM (0.1-1.30); NEUTROPHILS # (AUTO) 8.2 /CMM (1.8-8.9); NEUTROPHILS % (AUTO) 83.6 % (43.0-81.0); PLATELET COUNT (AUTO) 274 /CMM (150-450); RED BLOOD CELL COUNT(AUTO) 3.23 MIL/uL (4.0-5.2); WHITE BLOOD COUNT (AUTO) 9.9 K/uL (4.3-11.0)
[2019-09-26 05:15] LABS: CALCIUM, SERUM 7.8 mg/dL (8.5-10.1); CREATININE 0.9 mg/dL (0.6-1.3); POTASSIUM 3.2 mmol/L (3.5-5.1)
[2019-09-26] MEDS: BRIMONIDINE TARTRATE OPHT SOLN 5 ML BOTTLE OP SCH ×3 (05:21→21:15)
[2019-09-26] MEDS: PIPERACILLIN /TAZOBACTAM 2.25 G in IV D5W 50 ML IV SCH ×4 (05:26→23:57)
[2019-09-26] MEDS: INSULIN REGULAR, HUMAN 100 UNIT/ML 3 ML VIAL SQ PRN ×3 (07:51→17:41)
[2019-09-26] MEDS: BLOOD SUGAR DIAGNOSTIC 1 EACH STRIP VI SCH ×4 (07:52→21:16)
--- NOTE | 2019-09-26 08:10 | NUR ---
received pt from steward/stewardess night, alert, does not follows commands, non verbal, SR, on 2L 02 sat well, lungs partially congested, tolerates diet, diaper on, v/s stable, no pain, pt turned and repositioned.
[2019-09-26] MEDS: predniSONE 10 MG TABLET PO SCH (08:15)
[2019-09-26] MEDS: HYDROCORTISONE SOD SUCCINATE 100 MG/2 ML VIAL IV SCH ×2 (08:15→17:39)
[2019-09-26] MEDS: DORZOLAMIDE OPTH 2% 10 ML BOTTLE OP SCH ×2 (08:16→17:38)
[2019-09-26] MEDS: MUPIROCIN OINT 2% 22 GM TUBE SCH ×2 (08:16→21:15)
[2019-09-26] MEDS: CYANOCOBALAMIN 500 MCG TABLET PO SCH (08:16)
[2019-09-26] MEDS: DIVALPROEX SODIUM 250 MG TABLET.DR PO SCH ×2 (08:16→21:15)
[2019-09-26] MEDS: PROSOURCE / PROSTAT (PYXIS) 30 ML UDC PO SCH ×3 (08:17→17:37)
[2019-09-26] MEDS: POTASSIUM CHLORIDE 20 MEQ POWDER PACKET PO SCH ×2 (09:57→10:41)
--- NOTE | 2019-09-26 10:30 | NUR ---
FOOD CASHIER NOTES RECEIVED PT IN BED FROM ICU NURSE LUCY BRYANT. PT IS NON VERBAL AND OPEN EYES. STABLE VITAL SIGNS. PT APPEARS COMFORTABLE WITH NO S/S OF ANY ACUTE DISTRESS. RESPIRATIONS ARE EVEN AND UNLABORED. LEFT UPPER ARM PICC, RFA G#18, LFA G#20 ALL IN TACT AND PATENT. SAFETY AND ASPIRATION PRECAUTIONS IN PLACE. BED IN LOWEST LOCK POSITION, CALL LIGHT WITHIN REACH, SIDE RAILS UP X3, WILL CONTINUE TO MONITOR
--- NOTE | 2019-09-26 10:44 | NUR ---
pt transferred to [facility], v/s stable, no pain.
[2019-09-26] MEDS: IV NS 0.9% 1,000 ML IV PRN (12:01)
--- NOTE | 2019-09-26 13:00 | NUR ---
COIN PURSE FRAMER NOTES NOTED MONOMORPHIC V TACH FOR 15-20 SECONDS PER CALL CENTER SPECIALIST, NOTIFIED DR MARVIN JEFFERSON MADE AWARE. NO NEW ORDERS MADE. PATIENT ALERT, NO ACUTE DISTRESS NOTED.
--- NOTE | 2019-09-26 16:06 | NUR ---
SERVICE CENTER REPRESENTATIVE NOTES RECEIVED NEW ORDER FROM DR MARVIN WASHINGTON FOR glucerna bid with food, ORDER CLARIFIED AND READ BACK WITH MD, NOTED AND CARRIED OUT.
[2019-09-26] MEDS: GLUCERNA SHAKE 237 ML CAN PO SCH (17:34)
[2019-09-26] MEDS: VANCOMYCIN 1 GM in IV D5W 250ml IV SCH (18:02)
--- NOTE | 2019-09-26 19:10 | NUR ---
OXYGEN EQUIPMENT PREPARER CLOSING NOTES PT IN BED AWAKE AT THIS TIME WITH HOB ELEVATED. PT IS NON VERBAL AND OPEN EYES. STABLE VITAL SIGNS. PT APPEARS COMFORTABLE WITH NO S/S OF ANY ACUTE DISTRESS. ALL NEEDS MET, SKIN CARE PROVIDED, CLEAN, DRY AND COMFORTABLE. TURN AND REPOSITION Q2HRS AND PRN. RESPIRATIONS ARE EVEN AND UNLABORED. LEFT UPPER ARM PICC INTACT, PATENT AND INFUSING NS@75ML/HR, RFA G#18, LFA G#20 ALL INTACT AND PATENT. SAFETY AND ASPIRATION PRECAUTIONS IN PLACE. BED IN LOWEST LOCK POSITION, CALL LIGHT WITHIN REACH, SIDE RAILS UP X3, WILL ENDORSE TO NIGHT NURSE FOR DALILA
--- NOTE | 2019-09-26 19:23 | NUR ---
MUNITIONS FACTORY WORKER NOTE, PERFORMED ACCU CHECK ON PATIENT WITH A BLOOD SUGAR RESULT OF 255 GAVE 6 UNITS OF REGULAR INSULIN PER SLIDING SCALE. PATIENT ALSO HAD APPLESAUCE A SNACK. WILL CONTINUE TO MONITOR THIS PATIENT.
--- NOTE | 2019-09-26 20:00 | NUR ---
RN NOTES RECEIVED PT. AWAKE ON BED, CONFUSED, SR-ST ON TELE MONITOR , PICC LINE IN PLACE, NOT IN DISTRESS, NO -PAIN NOTED, NO SOB, SIDERAILSUPX2, CONTINUE TO MONITOR
[2019-09-26] MEDS: LATANOPROST EYE DROP 0.005% 2.5 ML BOTTLE OP SCH (21:15)
[2019-09-26] MEDS: DONEPEZIL 5 MG TABLET PO SCH (21:16)
[2019-09-26] MEDS: *INSULIN REGULAR(HUMULIN R)HUM 100 UNIT/ML VIAL SQ PRN (21:33)
[2019-09-27] VITALS (7 sets, daily range): BP systolic 110–157; BP diastolic 69–92
[2019-09-27] MEDS: IV NS 0.9% 1,000 ML IV PRN (01:09)
[2019-09-27] MEDS ORDERED: DILTIAZEM HCL 25 MG IV IV ONE ×2 (02:00→04:30)
--- NOTE | 2019-09-27 02:00 | NUR ---
RN NOTES PT. HEART RATE SUDDENLY WENT UP TO 146-160, STAT EKG WAS ORDERED AND IT WAS A-FIB WITH RAPID V-RATE HR IS -146, SPOKE TO LEROY LUGO AND INFORMED HIM REGARDING PT'S, RHYTHM WAS FROM SR TO A-FIB,, LOKESH LUGO ORDERED DILTIAZEM 10MG IV X1, ORDERED NOTED AND CARRIED OUT
--- NOTE | 2019-09-27 02:14 | NUR ---
RN NOTES PT IS UNCONTROLLED [id number] DILTIAZEM 10MG IV GIVEN ORDERED, V/S STABLE
--- NOTE | 2019-09-27 04:30 | NUR ---
RN NOTES SPOKE TO LOKESH CARRANZA-PAPER TWISTER TENDER AND INFORMED HIM REGARDING PT'S HEART RATE STILL UNCONTROLLED A-FIB 132-160,DR. CARRANZA ORDERED ANOTHER DILTIAZEM 10MG IV ONCE, ORDER NOTED AND CARRIED OUT
--- NOTE | 2019-09-27 04:35 | NUR ---
RN NOTES PT. STILL UNCONTROLLED A-FIB- 132-160- ANOTHER DILTIAZEM 10MG IV GIVEN ORDERED, V/S STABLE
[2019-09-27] MEDS: BRIMONIDINE TARTRATE OPHT SOLN 5 ML BOTTLE OP SCH ×3 (04:46→22:50)
[2019-09-27] MEDS: PIPERACILLIN /TAZOBACTAM 2.25 G in IV D5W 50 ML IV SCH ×4 (05:30→23:29)
[2019-09-27 06:14] LABS: BASOPHILS % (AUTO) 0.1 % (0.0-2.0); HEMATOCRIT 29 % (33-45); HEMOGLOBIN 9.5 g/dL (11.5-14.8); LYMPHOCYTES # (AUTO) 1.2 /CMM (0.8-4.8); LYMPHOCYTES % (AUTO) 10.9 % (20.0-44.0); MEAN CORPUSCULAR HGB CONC 33 g/dl (31.0-36.0); MEAN CORPUSCULAR VOLUME 87 fL (82-100); MONOCYTES # (AUTO) 0.8 /CMM (0.1-1.30); MONOCYTES % (AUTO) 7.6 % (2.0-12.0); NEUTROPHILS # (AUTO) 9.1 /CMM (1.8-8.9); NEUTROPHILS % (AUTO) 81.4 % (43.0-81.0); PLATELET COUNT (AUTO) 300 /CMM (150-450); RED BLOOD CELL COUNT(AUTO) 3.29 MIL/uL (4.0-5.2); WHITE BLOOD COUNT (AUTO) 11.2 K/uL (4.3-11.0)
[2019-09-27 06:33] LABS: CALCIUM, SERUM 7.9 mg/dL (8.5-10.1); CREATININE 0.9 mg/dL (0.6-1.3); POTASSIUM 3.5 mmol/L (3.5-5.1)
[2019-09-27] MEDS: BLOOD SUGAR DIAGNOSTIC 1 EACH STRIP VI SCH ×4 (06:43→23:21)
--- NOTE | 2019-09-27 07:00 | NUR ---
RN NOTES AWAKE, NOT IN DISTRESS CONVRERTED TO SR., MORNING CARE RENDERED, PT. NEEDA ATTENDED
[2019-09-27] MEDS: INSULIN REGULAR, HUMAN 100 UNIT/ML 3 ML VIAL SQ PRN ×3 (07:05→17:54)
[2019-09-27] MEDS ORDERED: RXVAN XX (07:17)
[2019-09-27] MEDS ORDERED: PIPE3.379 IV (07:17)
--- NOTE | 2019-09-27 07:20 | NUR ---
EMS HELICOPTER PILOT NOTES PATIENT EYES CLOSED EASY TO AROUSE, NO ACUTE DISTRESS NOTED. BREATHING UNLABORED. SAFETY MEASURES IN PLACE. CALL LIGHT WITHIN REACH. WILL CONTINUE TO MONITOR ACCORDINGLY.
[2019-09-27] MEDS ORDERED: DILT180C66 PO (07:36)
[2019-09-27] MEDS: GLUCERNA SHAKE 237 ML CAN PO SCH ×2 (08:00→17:00)
[2019-09-27] MEDS: DIVALPROEX SODIUM 250 MG TABLET.DR PO SCH ×2 (08:42→22:46)
[2019-09-27] MEDS: HYDROCORTISONE SOD SUCCINATE 100 MG/2 ML VIAL IV SCH ×2 (08:42→12:00)
[2019-09-27] MEDS: CYANOCOBALAMIN 500 MCG TABLET PO SCH (08:43)
[2019-09-27] MEDS: PROSOURCE / PROSTAT (PYXIS) 30 ML UDC PO SCH ×3 (08:43→17:50)
[2019-09-27] MEDS: MUPIROCIN OINT 2% 22 GM TUBE SCH ×2 (08:44→22:50)
[2019-09-27] MEDS: DORZOLAMIDE OPTH 2% 10 ML BOTTLE OP SCH ×2 (08:44→17:48)
[2019-09-27] MEDS ORDERED: IV NS 0.9% 1,000 ML IV PRN (10:17)
--- NOTE | 2019-09-27 10:17 | NUR ---
CASH REGISTER OPERATOR NOTES LACTIC ACID RESULTED CRITICALLY HIGH 3.[address] BRYAN BUSTILLO, WITH NEW ORDERS TO INCREASE NS IVF @ 100MLS/HR AND CONTINUE DISCHARGE AND CONTINUE TO CONTINUE NS IVF @ 100MLS/HR AT SNF AND FOLLOW UP WITH SNF MD POST DISCHARGE. ORDER CLARIFIED AND READ BACK WITH MD, NOTED AND CARRIED OUT.
--- NOTE | 2019-09-27 11:20 | NUR ---
VERTICAL MILL OPERATOR NOTES PATIENT NOTED TO START SINUS TACHY AND CONVERTED TO UNCONTROLLED AFIB WITH PVC ON TELEMONITOR, NOTIFIED DR NILDA SALINAS MADE AWARE WITH NEW ORDERS FOR AMIODARONE 400 MG PO TID , ORDER CLARIFIED AND READ BACK, NOTED AND CARRIED OUT. DR MUNGUIA AWARE OF LACTOSE AND MILK ALLERGY , OK TO TAKE MEDICATION. Addendum: 09/27/19 at 1505 by ARACELI WATERS RN ADDENDUM: PATIENT NOT IN DISTRESS . WILL CONTINUE TO MONITOR PATIENT.
--- NOTE | 2019-09-27 11:25 | NUR ---
CLAM DREDGE BOAT CAPTAIN NOTES NOTIFIED DR ADAMS THAT NOTED ON TELE MONITOR STARTED SINUS TACHY AND CONVERTED TO UNCONTROLLED AFIB, HEART RATE 140-160 WITH PVC AND MENTIONED TO DR ADAMS THAT DR NILDA SALINAS WAS NOTIFIED WITH NEW ORDERS MADE BY DR MUNGUIA FOR AMIODARONE 400 MG PO TID, [address] ADAMS ORDERED TO CONTINUE WITH DISCHARGE AND DISCONTINUE DISCHARGE MEDICATION DILTIAZEM ORDERED BY DR ADAMS EARLIER, DR ADAMS MADE AWARE ALSO REGARDING PATIENT ALLERGY WITH LACTOSE AND MILK SAID ITS OK TO TAKE AMIODARONE, ORDER CLARIFIED AND READ BACK WITH DR ADAMS , NOTED AND CARRIED OUT.
[2019-09-27] MEDS ORDERED: AMIODARONE HCL 200 MG TABLET PO SCH (11:30)
[2019-09-27] MEDS: AMIODARONE HCL 200 MG TABLET PO SCH ×2 (11:44→17:49)
--- NOTE | 2019-09-27 12:25 | NUR ---
RN ONCOLOGY RESEARCH NOTES PATIENT NOT IN DISTRESS. WILL CONTINUE TO MONITOR PATIENT.
--- NOTE | 2019-09-27 12:45 | NUR ---
HUMAN RESOURCES BENEFITS COORDINATOR NOTES CLARIFIED WITH DR ATKINS REGARDING SOLU CORTROSALIO NEW ORDER SAID NOT TO ADMINISTER SCHEDULED FOR 1200 TODAY AND SAID TO START TOMORROW. ORDER CLARIFIED AND READ BACK WITH MD, NOTED AND CARRIED OUT.
[2019-09-27 13:29] LABS: BILIRUBIN,DIRECT 0.1 mg/dL (0.0-0.2); BILIRUBIN,TOTAL 0.1 mg/dL (0.2-1.0)
--- NOTE | 2019-09-27 14:03 | NUR ---
INVESTMENT ACCOUNTANT NOTES LACTIC ACID CRITICAL 3.4 RESULTED, NOTIFIED DR BRYAN BUSTILLO AND ALSO MENTIONEDTO MD THAT PATIENT STILL WITH UNCONTROLLED AFIB WITH PVC ON TELE MONITOR UP TO THIS TIME, NO NEW ORDERS MADE AT THIS TIME ,
[2019-09-27] MEDS ORDERED: ACETYLCYSTEINE 10% SOLN 400 MG/4 ML VIAL NEB SCH (15:30)
[2019-09-27] MEDS: VANCOMYCIN 1 GM in IV D5W 250ml IV SCH (17:44)
--- NOTE | 2019-09-27 19:06 | NUR ---
SALES MERCHANDISE ASSOCIATE NOTES PATIENT AWAKE, HOB ELEVATED . NO ACUTE DISTRESS NOTED. BREATHING UNLABORED. UNCONTROLLED AFIB WITH PVC HR 140-160 ON TELE MONITOR, DR ADAMS IS AWARE. NEEDS ATTENDED AND ANTICIPATED. SAFETY MEASURES IN PLACE. PATIENT FOR DISCHARGE , GAVE REPORT TO [facility] SPOKE WITH EDD RN, PER HER DON UNABLE TO TAKE PATIENT AT THIS TIME UNTIL HR LESS THAN 100, [facility] ON WILL CALL, DR DASILVA MADE AWARE. WILL ENDORSE TO NIGHT NURSE FOR CONTINUITY OF CARE AND DISCHARGE.
--- NOTE | 2019-09-27 19:45 | NUR ---
RN OPENING NOTES RECEIVED REPORT FROM [facility] LUCY ARTHUR/KRISHNA CAPPS. FOUND Pt AWAKE, RESTING IN BED. Pt IS AOX0, CONFUSED, NON-VERBAL, BUT MAKES MUMBLING NOISES. PER REPORT Pt IS PENDING DISCHARGE TO [facility], BUT WAS TOLD THAT [facility] WILL NOT ACCEPT Pt IF HER HR IS UNSTABLE & >100. ON TELE MONITOR, WITH TELE READING UNCONTROLLED AFIB 70-140. IV ACCESS ON MERLYN PICC IVF NS @100ML/HR. SAFETY MEASURES IN PLACE. BED LOW, LOCKED, HOB ELEVATED, SIDE RAILS UP, & BED ALARM ON. WILL CONTINUE TO MONITOR Pt's CONDITION AND SAFETY THROUGHOUT THE NIGHT.
--- NOTE | 2019-09-27 20:48 | NUR ---
RN NOTES SPOKE WITH LOW CARRANZA ON THE PHONE INFORMED HIM THAT [facility] WILL NOT ACCEPT THE Pt IF Pt' HR IS >100; AND Pt's HR IS STILL UNCONTROLLED AFIB THAT GOES >100. MINING SUPPORT WORKER SAID IS OK TO HOLD DC FOR TONIGHT AND HAVE THEM F/U TOMORROW AM.
[2019-09-27] MEDS: DONEPEZIL 5 MG TABLET PO SCH (22:46)
[2019-09-27] MEDS: HYDROCODONE/APAP 5/325MG 1 EACH TABLET PO PRN (22:46)
[2019-09-27] MEDS: LATANOPROST EYE DROP 0.005% 2.5 ML BOTTLE OP SCH (22:51)
--- NOTE | 2019-09-27 23:00 | NUR ---
RN NOTES HS ACCUCHECK BG 211. ADMINISTERED 4UN OF INSULIN PER SLIDING SCALE.
[2019-09-27] MEDS: *INSULIN REGULAR(HUMULIN R)HUM 100 UNIT/ML VIAL SQ PRN (23:20)
[2019-09-28 00:01] VITALS: BP 174/92
[2019-09-28 04:00] VITALS: BP 157/76
--- NOTE | 2019-09-28 04:12 | NUR ---
RN OPEN NOTES RECEIVED PATIENT FOR DALILA AWAKE IN BED. NON VERBAL. NO SIGNS OF DISTRESS OR DISCOMFORT. BREATHING EVEN AND UNLABORED.ON 2LPM O2 VIA NC. ON TELE MONITOR WITH SR 100 NOTED. IV ACCESS IN RFA AND LFA, PATENT AND INTACT, NO SIGNS OF REDNESS OR INFILTRATION. HAS MERLYN PICC INTACT WITH NS INFUSING. BED IN LOW LOCKED POSITION WITH SIDE RAILS X2. CALL LIGHT WITHIN REACH. WILL CONTINUE TO MONITOR.
--- NOTE | 2019-09-28 04:13 | NUR ---
RN NOTES ENDORSEMENT REPORT GIVEN TO LUCY DENT FOR Pt's DALILA. Pt IS RESTING COMFORTABLY IN BED. NO S/S OF ACUTE DISTRESS OR SOB NOTED. SAFETY MEASURES IN PLACE.
[2019-09-28] MEDS: BRIMONIDINE TARTRATE OPHT SOLN 5 ML BOTTLE OP SCH ×2 (05:32→12:06)
[2019-09-28] MEDS: PIPERACILLIN /TAZOBACTAM 2.25 G in IV D5W 50 ML IV SCH ×3 (05:34→17:28)
[2019-09-28 06:19] VITALS: BP 157/76
--- NOTE | 2019-09-28 06:37 | NUR ---
RN CLOSING NOTES PATIENT RESTING IN BED, EASILY AROUSABLE. NON VERBAL. NO SIGNS OF DISTRESS OR DISCOMFORT. BREATHING EVEN AND UNLABORED.ON 2LPM O2 VIA NC. ON TELE MONITOR WITH ST 130 NOTED. IV ACCESS IN RFA AND LFA, PATENT AND INTACT, NO SIGNS OF REDNESS OR INFILTRATION. HAS MERLYN PICC INTACT WITH NS INFUSING. ALL NEEDS MET. NO SIGNIFICANT CHANGES THROUGH THE NIGHT. BED IN LOW LOCKED POSITION WITH SIDE RAILS X2. CALL LIGHT WITHIN REACH. WILL ENDORSE TO AM SHIFT FOR DALILA. Addendum: 09/28/19 at 0703 by FILIPE JEREZ RN ERROR: TELE MONITOR IS READING SR 61
[2019-09-28 06:38] LABS: BASOPHILS % (AUTO) 0.1 % (0.0-2.0); HEMATOCRIT 29 % (33-45); HEMOGLOBIN 9.6 g/dL (11.5-14.8); LYMPHOCYTES # (AUTO) 2.1 /CMM (0.8-4.8); LYMPHOCYTES % (AUTO) 19.5 % (20.0-44.0); MEAN CORPUSCULAR HGB CONC 33 g/dl (31.0-36.0); MEAN CORPUSCULAR VOLUME 87 fL (82-100); MONOCYTES # (AUTO) 1.2 /CMM (0.1-1.30); MONOCYTES % (AUTO) 11.3 % (2.0-12.0); NEUTROPHILS # (AUTO) 7.6 /CMM (1.8-8.9); NEUTROPHILS % (AUTO) 69.1 % (43.0-81.0); PLATELET COUNT (AUTO) 345 /CMM (150-450); RED BLOOD CELL COUNT(AUTO) 3.37 MIL/uL (4.0-5.2)
[2019-09-28] MEDS: BLOOD SUGAR DIAGNOSTIC 1 EACH STRIP VI SCH ×3 (06:49→16:59)
[2019-09-28 06:53] LABS: CALCIUM, SERUM 8.1 mg/dL (8.5-10.1); CREATININE 0.9 mg/dL (0.6-1.3)
[2019-09-28 07:25] LABS: POTASSIUM 2.8 mmol/L (3.5-5.1)
--- NOTE | 2019-09-28 07:30 | NUR ---
GAS LOAD DISPATCHER NOTES RECEIVED PT IN BED, ASLEEP, EASILY AROUSED, A/OX0, OPEN EYES. PT ON SUPPLEMENTARY OXYGEN AT 2L VIA NC, WITH NO ACUTE RESPIRATORY DISTRESS NOTED. PT DENIES ANY PAIN OR DISCOMFORT AT THIS TIME. ON TELEMONITORING WITH SR 60. IVF NSS AT 100ML/HR TO MERLYN PICC, INTACT AND INFUSING WELL. PIV TO RFA G18 AND LFAG20, BOTH FLUSHED WITH NS, INTACT AND OPERATIONAL. PT KEPT COMFORTABLE IN BED. CALL LIGHT KEPT WITHIN REACH. PT'S BED IN LOWEST, LOCKED POSITION WITH SRX3. WILL CONTINUE PLAN OF CARE.
[2019-09-28] MEDS: GLUCERNA SHAKE 237 ML CAN PO SCH ×2 (08:00→16:27)
--- NOTE | 2019-09-28 08:16 | NUR ---
LUMBER TALLIER NOTES SEEN AND EVALUATED BY /EVERARDO. INFORMED ABOUT POTASSIUM LEVEL OF 2.8 FROM 3.5 YESTERDAY. ORDERED TO RECHECK POTASSIUM AT 9AM. CALLED TO LAB, SPOKE TO DUNIA.
[2019-09-28] MEDS: CYANOCOBALAMIN 500 MCG TABLET PO SCH (08:26)
[2019-09-28] MEDS: DIVALPROEX SODIUM 250 MG TABLET.DR PO SCH (08:26)
[2019-09-28] MEDS: PROSOURCE / PROSTAT (PYXIS) 30 ML UDC PO SCH ×3 (08:27→16:27)
[2019-09-28] MEDS: HYDROCORTISONE SOD SUCCINATE 100 MG/2 ML VIAL IV SCH (08:27)
[2019-09-28] MEDS: MUPIROCIN OINT 2% 22 GM TUBE SCH (08:37)
[2019-09-28] MEDS: DORZOLAMIDE OPTH 2% 10 ML BOTTLE OP SCH ×2 (08:37→16:26)
[2019-09-28] MEDS: AMIODARONE HCL 200 MG TABLET PO SCH ×3 (09:15→16:26)
[2019-09-28] MEDS: POTASSIUM CHLORIDE 20 MEQ TAB.PRT.SR PO SCH ×5 (09:49→14:00)
--- NOTE | 2019-09-28 10:30 | NUR ---
AIRPORT LOCATION MANAGER NOTES MD MADE AWARE OF REPEATED K RESULT OF 2.7. /NILDA REPLACED K TOTAL OF 100 MEQS NOTED/ PER HOSPITALIST//GA OKAY TO GO BACK TO [facility] TODAY AFTER REPLACING POTASSIUM AND TO KEEP PICC FOR IV VANCO AND IV ZOYSN X5MORE DAYS. ALSO, PER MD/GA DO NOT CONTINUE CARDIZEM ANYMORE AND CONTINUE AMIODARONE. WILL GIVE REPORT TO [facility].
[2019-09-28] MEDS: INSULIN REGULAR, HUMAN 100 UNIT/ML 3 ML VIAL SQ PRN ×2 (12:06→16:59)
[2019-09-28] MEDS ORDERED: Potassium Chloride 40 MEQ in IV NS 0.9% 1,000 ML IV PRN (14:00)
--- NOTE | 2019-09-28 14:04 | NUR ---
VICE PRESIDENT FINANCIAL NOTES RECEIVED N.O IF IVF WITH POTASSIUM FROM DR. TUBBS ELECTRONICALLY. PAGED MD/GA TO VERIFY ORDER ON TOP OF SUPPLEMENT POTASSIUM PO, SINCE PT IS GETTING DISCHARGE TODAY.
--- NOTE | 2019-09-28 14:49 | NUR ---
RN NOTES RECEIVED CALL FROM /ARLEY REGARDING IVF NS WITH 40MEQS POTASSIUM. PER MD, OKAY TO DISCONTINUE.
[2019-09-28 16:00] VITALS: BP 154/92
[2019-09-28 16:26] VITALS: BP 154/92
[2019-09-28] MEDS: VANCOMYCIN 1 GM in IV D5W 250ml IV SCH (16:26)
--- NOTE | 2019-09-28 18:15 | NUR ---
FORM STRIPPER NOTES PT DISCHARGE BACK TO [facility], REPORT GIVEN TO JENSEN/RN/ PT ON SUPPLEMENTARY OXYGEN AT 2LPM, WITH NO ACUTE RESPIRATORY DISTRESS NOTED. PT UNABLE TO SIGN DISCHARGE PAPERS, 2 RNS SIGNED AND REVIEWED DISCHARGE PAPERS. NO BELONGINGS WITH THE PT. PIVS TO RFA AND FA REMOVED AND APPLIED DRESSINGS. MERLYN TRIPLE PICC STILL IN PLACE AND WILL GO WITH PT TO CONTINUE 2 ANTIBIOTICS AT SNF. ALL PICTURES TAKEN FOR SKIN ISSUES AND FILED IN THE CHART. ALL NEEDS AND CARE ATTENDED AND PROVIDED TO THE PT. PT HAD BM TODAY AND HAD DINNER BEFORE LEAVING THE UNIT. 2[facility] TRANSPORTED PT VIA GURNEY IN AN AMBULANCE. VS RECHECKED AND STABLE. PT LEFT THE UNIT AT 1810. HOSPITALIST/GA AND CHARGE NURSE/MEHRDAD AWARE OF DISCHARGE.
[2019-10-02] MEDS ORDERED: AMIO200T4 PO (14:25)
== END 2019-09-28 18:10 | DRG 871 ==
LOC: ER 15:07 → ICU 18:23 → MED 09-26 10:30 → TELE 09-26 11:44
PROVIDERS: ADMIT Internal Medicine; ATTEND Family Medicine
PROC: 02HV33Z Insertion of Infusion Device into Superior Vena Cava, Percutaneous Approach (ICD-10-PCS; principal; 2019-09-24)
PROC: B548ZZA Ultrasonography of Superior Vena Cava, Guidance (ICD-10-PCS; 2019-09-24)
DX: A41.9 Sepsis, unspecified organism (principal); E11.00 Type 2 diabetes mellitus with hyperosmolarity without nonketotic hyperglycemic-hyperosmolar coma (NKHHC); E43 Unspecified severe protein-calorie malnutrition; G93.41 Metabolic encephalopathy; J18.9 Pneumonia, unspecified organism; N17.0 Acute kidney failure with tubular necrosis; R65.21 Severe sepsis with septic shock; J96.01 Acute respiratory failure with hypoxia; E27.40 Unspecified adrenocortical insufficiency; E87.2 Acidosis; J98.11 Atelectasis; M06.9 Rheumatoid arthritis, unspecified; R26.9 Unspecified abnormalities of gait and mobility; L89.601 Pressure ulcer of unspecified heel, stage 1; R62.7 Adult failure to thrive; Z87.81 Personal history of (healed) traumatic fracture; D63.8 Anemia in other chronic diseases classified elsewhere; E03.9 Hypothyroidism, unspecified; E86.1 Hypovolemia; E87.6 Hypokalemia; F03.90 Unspecified dementia, unspecified severity, without behavioral disturbance, psychotic disturbance, mood disturbance, and anxiety; F09 Unspecified mental disorder due to known physiological condition; I10 Essential (primary) hypertension; I48.91 Unspecified atrial fibrillation; Y95 Nosocomial condition; Z79.4 Long term (current) use of insulin; Z86.73 Personal history of transient ischemic attack (TIA), and cerebral infarction without residual deficits; Z96.659 Presence of unspecified artificial knee joint; Z79.899 Other long term (current) drug therapy; Z79.84 Long term (current) use of oral hypoglycemic drugs
CPT/HCPCS: 36415; 36569; 71045-TC; 80048-TC; 80076-TC; 80202-TC; 81000-TC; 82247-TC; 82248-TC; 82533; 82550-TC; 82728-TC; 82962-TC; 83540-TC; 83605-TC; 83615-TC; 83735-TC; 84100-TC; 84132-TC; 84439-TC; 84443-TC; 84484-TC; 85025-TC; 85378-TC; 85730-TC; 86140-TC; 87040-TC; 87081-TC; 87086-TC; 92526; 92611-TC; 93307-TC; C1751; C1894; G0378; J0456; J1720; J1815; J2543; J3370; J3480; J3490; J7030; J7040; J7050; J7060

== ENCOUNTER 2019-10-02 13:22 | Inpatient (IN) | payer MEDICARE, OTHER ==
[~2019-10-02] VITALS: Ht 152.4 cm; Wt 61.2 kg
[~2019-10-02 13:22] MED LIST changes: +ACET-868 GT; -ACET-868 PO; -ASCO500C16 PO; -BRIM5DRO LEFTEYE; +BRIM5DRO3 LEFTEYE; -CHOL100044 PO; +CYAN-51 GT; -CYAN-51 PO; +DILT180C66 PO; +DIVA-76 GT; -DIVA250T PO; +DONE5TAB7 GT; -DONE5TAB7 PO; +DORZ10DR11 LEFTEYE; -DORZ10DR13 LEFTEYE; +ERGO500014 GT; +GLUC1KIT IM; +HYDR-4384 GT; -HYDR-4384 PO; -LEVO500T75 PO; +LINA5TAB GT; -LINA5TAB PO; +MAGN24002 GT; -MAGN24002 PO; -MULT1TAB11 PO; -NUTR1PAC14 PO; +PIPE3.379 IV; +PRED20TA GT; -PRED20TA PO; +RXVAN XX; +VALS40TA12 GT; -VALS40TA12 PO; -ZINC1CAP3 PO
--- NOTE | 2019-10-02 13:22 | NUR ---
cary from [facility] for choking episode while being fed today; the staff called the EMS after they noted she was having SOB and hypoxic events after the incidence; poss. aspiration. to ER bed 3, hooked to monitor, changed to hosp gown, placed in an isolation room. awaiting MD castro.
--- NOTE | 2019-10-02 13:53 | NUR ---
RAPID INFLUENZA, COVID AND RESPIRATORY PROFILE SWAB SENT TO LAB
[2019-10-02] MEDS ORDERED: PIPE3.376 IV (14:25)
[2019-10-02] MEDS ORDERED: AMIO200T4 GT (14:25)
[2019-10-02] MEDS ORDERED: VANC1PIG IV (14:25)
[2019-10-02 14:40] LABS: APPEARANCE,URINE Clear (CLEAR); BILIRUBIN,URINE Negative (NEGATIVE); BLOOD, URINE Negative Ery/uL (NEGATIVE); COLOR,URINE Yellow (YELLOW); KETONES,URINE Negative (NEGATIVE); LEUKOCYTE ESTERASE ,URINE Negative (NEGATIVE); NITRITE, URINE Negative (NEGATIVE); PH,URINE 5.5 (5.0-8.0); PROTEIN,URINE Negative (NEGATIVE); UGLUCOSE 100 MG/DL mg/dL (NEGATIVE); UROBILINOGEN,URINE 0.2 EU/dL (0.2)
[2019-10-02] MEDS ORDERED: VANCOMYCIN 1 GM in IV D5W 250 ML IV ONE (15:00)
[2019-10-02] MEDS ORDERED: PIPERACILLIN /TAZOBACTAM 3.375 G in IV D5W 50 ML IV ONE (15:00)
[2019-10-02 15:15] LABS: BASOPHILS % (AUTO) 0.2 % (0.0-2.0); EOSINOPHILS % (AUTO) 0.3 % (0.0-6.0); HEMATOCRIT 33 % (33-45); HEMOGLOBIN 10.2 g/dL (11.5-14.8); LYMPHOCYTES # (AUTO) 1.7 /CMM (0.8-4.8); LYMPHOCYTES % (AUTO) 8.5 % (20.0-44.0); MEAN CORPUSCULAR HGB CONC 31 g/dl (31.0-36.0); MEAN CORPUSCULAR VOLUME 89 fL (82-100); MONOCYTES % (AUTO) 4.7 % (2.0-12.0); NEUTROPHILS # (AUTO) 17.7 /CMM (1.8-8.9); NEUTROPHILS % (AUTO) 86.3 % (43.0-81.0); PLATELET COUNT (AUTO) 305 /CMM (150-450); RED BLOOD CELL COUNT(AUTO) 3.69 MIL/uL (4.0-5.2); WHITE BLOOD COUNT (AUTO) 20.5 K/uL (4.3-11.0)
--- NOTE | 2019-10-02 15:21 | NUR ---
PAGED [facility].
[2019-10-02 15:34] LABS: ALBUMIN 1.9 g/dL (3.4-5.0); BILIRUBIN,TOTAL 0.3 mg/dL (0.2-1.0); CREATININE 0.9 mg/dL (0.6-1.3); TOTAL PROTEIN, SERUM 5.2 g/dL (6.4-8.2)
[2019-10-02 15:42] LABS: POTASSIUM 2.5 mmol/L (3.5-5.1)
[2019-10-02] MEDS ORDERED: ASPIRIN 300 MG/SUPP.RECT RC ONE ×2 (16:00→16:09)
[2019-10-02] MEDS ORDERED: POTASSIUM CL. PREMIX PERIPHER. 50 ML ONE (16:09)
[2019-10-02 16:16] LABS: D-DIMER 2.29 mg/L(FEU (0.17-0.50)
[2019-10-02] MEDS: POTASSIUM CL. PREMIX PERIPHER. 50 ML IV SCH ×4 (16:20→20:08)
[2019-10-02] MEDS ORDERED: POTASSIUM CL. PREMIX PERIPHER. 150 ML ONE (16:45)
--- NOTE | 2019-10-02 17:06 | NUR ---
NURSING SUP GAVE 105.
--- NOTE | 2019-10-02 17:13 | NUR ---
REPORT GIVEN TO COBY AYALA OF TELE UNIT
--- NOTE | 2019-10-02 18:28 | NUR ---
TRANSFERRED PATIENT TO TELE UNIT. ENDORSED 4TH BAG OF POTASSIUM CHLORIDE 10MEQ/50ML TO BE INFUSED IN UNIT.
[2019-10-02 18:47] VITALS: BP 166/94
[2019-10-02 19:38] LABS: C-REACTIVE PROTEIN 3.1 mg/dL (0.0-0.9)
[2019-10-02 20:00] VITALS: BP 149/83
[2019-10-02] MEDS: AZITHROMYCIN 500 MG in IV D5W 250 ML IV SCH (20:08)
[2019-10-02] MEDS: ZOSYN IVPB 2.25 G in IV D5W 50ml IV SCH (20:13)
[2019-10-02] MEDS ORDERED: PIPERACILLIN /TAZOBACTAM 3.375 G in IV D5W 50 ML IV SCH (21:00)
[2019-10-02] MEDS ORDERED: HEPARIN SODIUM, PORCINE 5000 UNITS/1 ML VIAL IV ONE (21:00)
[2019-10-02] MEDS: HEPARIN INFUSION/D5W 500 ML IV PRN (21:40)
[2019-10-03] VITALS (7 sets, daily range): BP systolic 118–148; BP diastolic 52–84
--- NOTE | 2019-10-03 02:20 | NUR ---
RN NOTES 1999 CHECKED ON PATIENT. PHOTOS TAKEN. TROPONIN 1.[address] LARA; TRENDING UP; NO ANTICOAGULANTS GIVEN. WITH ORDER TO START HEPARIN DRIP START WITH BOLUS THEN PER PROTOCOL. PHARMACIST MADE AWARE. 2139 HEPARIN DRIP STARTED ORDERED. PICC LINE MERLYN PATENT AND INTACT WITH GOOD BLOOD RETURN 0000 DR. DELACRUZ MADE AWARE OF TROPONIN 1.027; CONTINUE ON HEPARIN DRIP. PTT DUE AT 0340
--- NOTE | 2019-10-03 02:30 | NUR ---
MOTOR BUS DRIVER: Transferred of care from LUCY Desai (Registry) Completed admission process. Patient in bed remains stable.
[2019-10-03] MEDS: ZOSYN IVPB 2.25 G in IV D5W 50ml IV SCH ×4 (02:37→17:19)
[2019-10-03 04:30] LABS: BASOPHILS # (AUTO) 0.1 /CMM (0.0-0.2); BASOPHILS % (AUTO) 0.3 % (0.0-2.0); HEMATOCRIT 28 % (33-45); HEMOGLOBIN 9.2 g/dL (11.5-14.8); LYMPHOCYTES # (AUTO) 2.4 /CMM (0.8-4.8); LYMPHOCYTES % (AUTO) 11.9 % (20.0-44.0); MEAN CORPUSCULAR HGB CONC 33 g/dl (31.0-36.0); MEAN CORPUSCULAR VOLUME 87 fL (82-100); MONOCYTES # (AUTO) 1.3 /CMM (0.1-1.30); MONOCYTES % (AUTO) 6.4 % (2.0-12.0); NEUTROPHILS # (AUTO) 16.2 /CMM (1.8-8.9); NEUTROPHILS % (AUTO) 80.4 % (43.0-81.0); PLATELET COUNT (AUTO) 291 /CMM (150-450); RED BLOOD CELL COUNT(AUTO) 3.26 MIL/uL (4.0-5.2); WHITE BLOOD COUNT (AUTO) 20.2 K/uL (4.3-11.0)
[2019-10-03 04:45] LABS: CALCIUM, SERUM 7.6 mg/dL (8.5-10.1); CREATININE 0.8 mg/dL (0.6-1.3); MAGNESIUM 1.4 mg/dL (1.8-2.4); PHOSPHORUS 2.4 mg/dL (2.5-4.9)
[2019-10-03 04:59] LABS: POTASSIUM 2.6 mmol/L (3.5-5.1)
--- NOTE | 2019-10-03 04:59 | NUR ---
BANQUET SERVER ON CALL: CRITICAL LAB VALUES Potassium [address] Morales, order placed.
--- NOTE | 2019-10-03 05:44 | NUR ---
VEGETABLE I FARMWORKER: ABNORMAL LAB VALUES Low Magnesium 1.4 [address] Morales, order placed.
--- NOTE | 2019-10-03 05:47 | NUR ---
FRUIT TESTER: APTT RESULT PENDING Patient is on Heparin drip at 960unit/hr 19.2ml/hr. APTT result pending, charge nurse aware.
[2019-10-03] MEDS ORDERED: POTASSIUM CL. PREMIX PERIPHER. 50 ML ONE (05:52)
[2019-10-03] MEDS: POTASSIUM CL. PREMIX PERIPHER. 50 ML IV SCH ×4 (05:59→09:12)
[2019-10-03] MEDS: Magnesium 1GM/D5W 100ML PREMIX 100 ML IV SCH ×4 (06:06→09:12)
--- NOTE | 2019-10-03 06:32 | NUR ---
ADVISORY INTERNSHIP: END OF SHIFT REPORT' Patient in bed, 97% on 2L NC tolerating well. Sinus Rhythm in the Tele monitor. MERLYN PICC line intact, IV antibiotic as scheduled, afebrile. Heparin drip at 960 units/hr. photovoltaic testing technician arrived to re draw APTT, result pending from previous draw, per photovoltaic testing technician. they were asked to re draw APTT. Charge nurse aware, called lab for further infor. Will endorse to Oncoming RN.
--- NOTE | 2019-10-03 06:46 | NUR ---
RN NOTES SENIOR SQL SERVER DEVELOPER CAME TO REDRAW PTT SINCE THE 0340 BLOOD DRAWN HAS NO RESULT. CALLED LAB AND SPOKE TO ALANNA JOVEL, APPARENTLY THE MACHINE ONLY SHOWS [facility]ER[facility]K MEANING NO VALUE. CALLED PHARMACIST, SPOKE TO TIFFANY AND INFORMED HIM OF THE ABOVE. STATED TO HAVE THE LAB RUN THE RESULT STAT. WILL CONTINUE TO RUN HEPARIN DRIP UNTIL RESULT COMES OUT. CALLED ALANNA AGAIN TO MAKE SURE IT IS STAT. PRIMARY RNMERVAT MADE AWARE
--- NOTE | 2019-10-03 07:15 | NUR ---
JUNIOR LINUX SYSTEMS ADMINISTRATOR OPENING NOTES RECEIVED PT IN BED, ASLEEP, EASILY AROUSED, CONFUSED. ON SUPPLEMENTARY OXYGEN AT 2LPM VIA NC. PT NOT EXHIBIHING PAIN OR DISCOMFORT AT THIS TIME. ON TELEMONITORING WITH SR HR 80. MERLYN PICC PRESENT. ON GOING MG IV, PER NIGHT NURSE SHE REPLACED POTASSIUM AND MAGNESIUM ON HER SHIFT. ALSO, ON GOING HEPARIN DRIP, PER NIGHT NURSE APTT WAS JUST DRAWN AT AROUND 6AM, AWAITING FOR RESULT AT THIS TIME. PT KEPT COMFORTABLE. HOB ELEVATED. CALL LIGHT JEPT WITHIN REACH. PT'S BED IN LOWEST, LOCKED POSITION WITH SR X3. WILL CONTINUE PLAN OF CARE.
--- NOTE | 2019-10-03 07:30 | NUR ---
HAND WRAPPER OPERATOR NOTES TO REPEAT PTT AFTER 6 HOURS. AFTER RESUMING HEPARIN.
--- NOTE | 2019-10-03 07:30 | NUR ---
CERTIFIED COURT INTERPRETER NOTES RECEIVED CALL FROM LAB. APTT OF >170. VERIFIED WITH CHARGE NURSES. TO HOLD THE DOSE FOR AN HOUR AND SPOKE TO PHARMACIST/TIFFANY. WILL CONTINUE PLAN OF CARE.
[2019-10-03] MEDS: AMIODARONE HCL 200 MG TABLET PO SCH ×2 (09:13→17:00)
[2019-10-03] MEDS: POTASSIUM CHLORIDE 20 MEQ TAB.PRT.SR PO SCH ×2 (09:13→11:16)
[2019-10-03] MEDS: VALSARTAN 40 MG TABLET PO SCH (09:13)
[2019-10-03] MEDS: Z GUARD REMEDY 2 OZ OINT TP SCH (09:14)
[2019-10-03] MEDS: DIVALPROEX SODIUM 250 MG TABLET.DR PO SCH ×3 (09:14→21:00)
[2019-10-03] MEDS: HEPARIN INFUSION/D5W 500 ML IV PRN ×2 (09:26→18:35)
--- NOTE | 2019-10-03 09:27 | NUR ---
PLANT PACKER NOTES RESTARTED HEPARIN DRIP AT 0910 NOT 09 (FORGOT TO SAVE WHEN SCANNED AT 0910, RESCANNED AND VERIFIED AT 09 WITH SAME RN/RAÚL), WITH DOSAGE RATE OF 750 UNITS/HR AND 15ML/HR. RN VERIFIED AND CO SIGNED WITH RAÚL. CHARGE NURSE MADE AWARE WELL. WILL CONTINUE TO MONITOR PT.
--- NOTE | 2019-10-03 09:30 | NUR ---
LINOTYPIST NOTES HOSPITALIST/SK MADE AWARE REGARDING TROPONIN OF 0.809. NO ORDERS NOTED AT THIS TIME. PT ONGOING HEPARIN DRIP AT 750UNITS/HR. WILL CONTINUE TO MONITOR PT.
--- NOTE | 2019-10-03 09:43 | NUR ---
SAMPLE CHECKER NOTES PT HARD TO SWALLOW. NOT FULLY AWAKE WHEN SHE TOOK MEDS. SKIPPED BREAKFAST. MD/SK MADE AWARE. ORDERED SWALLOW EVAL. WILL CONTINUE TO MONITOR PT.
[2019-10-03] MEDS ORDERED: POTASSIUM PHOSPHATE MM 15 MMOL in IV NS 0.9% 250 ML IV SCH (10:00)
[2019-10-03] MEDS: TIMOLOL MAL/DORZOLAM HCL OPHTH 10 ML BOTTLE LEFTEYE SCH ×2 (11:17→17:07)
--- NOTE | 2019-10-03 11:54 | NUR ---
DATA ENTRY EMAIL PROCESSOR NOTES SPEECH THERAPIST/WINDY JUST SEEN AND EVALUATED PT. SHE RECOMMENDS PT TO BE NPO TODAY. AND SHE'LL RE-EVALUATE MARIA C WHEN PT IS MORE AWAKE. PER RECORDS PT WAS ON FULL LIQUID AND HONEY THICK LIQUIDS ON THE LAST ADMISSION. MD/SK MADE AWARE WELL. MEDICINE PREDNISONE TO RESTART MARIA C, MD/SK INFORMED. WILL CONTINUE TO MONITOR PT.
[2019-10-03] MEDS ORDERED: predniSONE 10 MG TABLET PO SCH (12:00)
--- NOTE | 2019-10-03 12:45 | NUR ---
SUCTION ROLLER NOTES.. CALLED TO RADIOLOGY REGARDING CT/HEAD WITHOUT CONTRAST FOR THE PT. SPOKE TO CHLOE.
--- NOTE | 2019-10-03 15:30 | NUR ---
ONLINE HEALTH AND FITNESS COACH NOTES PLUMBER HELPER JUST CAME TO GET BLOOD FOR PT/INR AND APTT. AWAITING FOR RESULT.
--- NOTE | 2019-10-03 16:30 | NUR ---
MANAGER SOCIAL RESPONSIBILITY NOTES RECEIVED CALL FROM LAB, APTT OF >170. TO FOLLOW HEPARIN PROTOCOL. CHARGE NURSE/SOON MADE AWARE ASWELL.
--- NOTE | 2019-10-03 16:32 | NUR ---
VIOLIN RESTORER NOTES CALLED LAB FOR RE DRAW OF BLOOD FOR PTT, SHOULD BE FROM PERIPHERAL NOT FROM PICC LINE. CHARGE NURSE SOON AWARE. AWAITING FOR NEW RESULT TO COME BACK BEFORE FOLLOWING HEPARIN PROTOCOL.
--- NOTE | 2019-10-03 16:35 | NUR ---
SKIVER HAND NOTES PT WENT TO CT FOR CT HEAD WITHOUT CONTRAST.
--- NOTE | 2019-10-03 16:47 | NUR ---
LEGAL SUMMER INTERN NOTES PT CAME BACK FROM CT. AWAITING FOR THE RESULT.
--- NOTE | 2019-10-03 17:30 | NUR ---
SUPERVISOR PLEATING NOTES CHARTER PILOT JUST RE-DRAW THE PTT. CHARGE NURSE/SOON AWARE HEPARIN DRIP STILL ON HOLD AT THIS TIME. AWAITING FOR PTT RESULT.
[2019-10-03] MEDS: AZITHROMYCIN 500 MG in IV D5W 250 ML IV SCH (18:05)
--- NOTE | 2019-10-03 18:35 | NUR ---
CORRESPONDENCE CLERK NOTES RESTARTED HEPARIN DRIP AT 700 U/HR WITH APTT OF 76.6. VERIFIED WITH CHARGE NURSE/SOON WELL.
--- NOTE | 2019-10-03 19:27 | NUR ---
BARREL CHARRER HELPER CLOSING NOTES PT REMAINS IN BED, ASLEEP, EASILY AROUSED, CONFUSED. ON SUPPLEMENTARY OXYGEN AT 2LPM VIA NC. PT NOT EXHIBITING PAIN OR DISCOMFORT AT THIS TIME. ON TELEMONITORING WITH SR HR 82. MERLYN PICC PRESENT. ON GOING HEPARIN DRIP, NEXT PTT AT 0030, ENDORSED TO RN/LENIN. PT KEPT COMFORTABLE. ALL NEEDS AND CARE PROVIDED. HOB ELEVATED. TURNED AND REPOSITIONED Q2H. CALL LIGHT KEPT WITHIN REACH. PT'S BED IN LOWEST, LOCKED POSITION WITH SR X3. ENDORSED TO INCOMING NIGHT NURSE FOR DALILA.
[2019-10-03] MEDS ORDERED: FEE PK DOSING 1 MIN EA MC ONE (20:08)
[2019-10-03] MEDS: VANCOMYCIN 1 GM in IV D5W 250 ML IV SCH (20:34)
--- NOTE | 2019-10-03 21:00 | NUR ---
INSTRUMENT TECHNICIAN HELPER NOTES BLOOD CX RESULTS GRAM + COCCI IN CLUSTERS. RENETTA MADE AWARE. WITH NEW ORDERS FOR VANCO. ORDERS NOTED AND CARRIED OUT. WILL CONTINUE TO MONITOR.
[2019-10-04] VITALS: BP_SYST 103; BP_SYST 138; BP_DIAS 47; BP_DIAS 70
[2019-10-04] MEDS: ZOSYN IVPB 2.25 G in IV D5W 50ml IV SCH ×5 (00:03→23:56)
[2019-10-04 04:00] VITALS: BP 134/70
--- NOTE | 2019-10-04 06:31 | NUR ---
WEAVER HAND LOOM NOTES PT SLEEPING EASILY AROUSABLE. NOT IN ANY DISTRESS. NO SOB NOTED. NO S/SX OF ANY PAIN OR DISCOMFORT AT THIS TIME. WITH HEPARIN DRIP INFUSING WELL @ 650 UNITS/HR. AM CARE DONE. MONITORED ACCORDINGLY. CALL LIGHT WITHIN REACH. BED IN LOWEST POSITION. SR UP X 3 WITH BED ALARM ON FOR SAFETY. WILL ENDORSE TO NEXT SHIFT. Addendum: 10/04/19 at 0637 by LENIN NEWTON RN ON TELE SR @ 73
[2019-10-04 07:46] LABS: BASOPHILS % (AUTO) 0.1 % (0.0-2.0); EOSINOPHILS % (AUTO) 2.5 % (0.0-6.0); HEMATOCRIT 30 % (33-45); HEMOGLOBIN 9.6 g/dL (11.5-14.8); LYMPHOCYTES # (AUTO) 2.2 /CMM (0.8-4.8); LYMPHOCYTES % (AUTO) 12.6 % (20.0-44.0); MEAN CORPUSCULAR HGB CONC 32 g/dl (31.0-36.0); MEAN CORPUSCULAR VOLUME 87 fL (82-100); MONOCYTES # (AUTO) 1.5 /CMM (0.1-1.30); MONOCYTES % (AUTO) 8.8 % (2.0-12.0); PLATELET COUNT (AUTO) 263 /CMM (150-450); RED BLOOD CELL COUNT(AUTO) 3.48 MIL/uL (4.0-5.2); WHITE BLOOD COUNT (AUTO) 17.1 K/uL (4.3-11.0)
[2019-10-04 08:00] VITALS: BP 135/75
[2019-10-04] MEDS: VALSARTAN 40 MG TABLET PO SCH (09:00)
--- NOTE | 2019-10-04 09:22 | NUR ---
WOUND CARE CONSULT: REVIEWED CHART AND NURSING DOCUMENTATION INCLUDING PHOTOS WHICH SHOW SACRAL SCARRING AND RASH TO POSTERIOR BUTTOCKS, THIGHS PRESENT ON ADMISSION. RECOMMENDATIONS MADE FOR SKIN PROTECTION. DISCUSSED WITH NURSING STAFF. ISOFLEX LOW AIRLOSS BED TO BE PLACED. WILL SEE PRN. PERALTA IN AGREEMENT WITH PLAN OF CARE.
[2019-10-04] MEDS: HEPARIN INFUSION/D5W 500 ML IV PRN (10:20)
[2019-10-04] MEDS: Z GUARD REMEDY 2 OZ OINT TP SCH (10:20)
[2019-10-04] MEDS: predniSONE 10 MG TABLET PO SCH (10:21)
[2019-10-04] MEDS: AMIODARONE HCL 200 MG TABLET PO SCH ×2 (10:22→18:11)
[2019-10-04] MEDS: DIVALPROEX SODIUM 250 MG TABLET.DR PO SCH ×2 (10:22→21:55)
[2019-10-04] MEDS: CLOTRIMAZOLE 1% 15 GM TUBE TP SCH (10:27)
[2019-10-04 10:28] LABS: CALCIUM, SERUM 7.8 mg/dL (8.5-10.1); CREATININE 0.9 mg/dL (0.6-1.3); MAGNESIUM 2.4 mg/dL (1.8-2.4); PHOSPHORUS 2.6 mg/dL (2.5-4.9)
[2019-10-04] MEDS: TIMOLOL MAL/DORZOLAM HCL OPHTH 10 ML BOTTLE LEFTEYE SCH ×2 (10:34→18:10)
[2019-10-04] MEDS: ENOXAPARIN SODIUM 30 MG/0.3 ML DISP.SYRIN SQ SCH (11:00)
[2019-10-04 12:00] VITALS: BP 148/66
--- NOTE | 2019-10-04 14:17 | NUR ---
Pt noted to have been bleeding from nose and mouth in small to moderate amounts. Heparin drip on hold since [address] Mckinney of the same. Received order from Dr. Mckinney to hold Enoxaparin Sodium (30 mg subcutaneous) dose for today and start it tomorrow. Please see eMAR.
[2019-10-04 16:00] VITALS: BP 149/50
--- NOTE | 2019-10-04 19:00 | NUR ---
WELL TESTING OPERATOR CLOSING NOTES Pt A/O x1 to person, remains confused. Noted O2 Sat=98% on 2L O2 via N/C. NO distress noted or reported. NO signs of pain or discomfort noted. NOted SR on Tele monitor. HR=73. MERLYN PICC PRESENT. Pt turned and repositioned every 2 hrs. All safety precautions in place. Pt safety maintained during shift. SBAR report given to LUCY Lo for continuity of care.
--- NOTE | 2019-10-04 19:00 | NUR ---
Pt failed swallow eval. Received order to insert NGT. Multiple attempts by this nurse and another RN to insert NGT, but unsuccessful x5 total. Notified Dr. Hopkins. Dr. Hopkins to consult Dr. Hansen to see pt tomorrow. Pt still remains NPO. Pt remains confused. NO respiratory distress noted or reported, but non-productive cough noted. Audible gurgling. Orally suctioned pt with [place]. Noted moderate amounts red tinged sputum. Pt turned and repositioned every 2 hours. SZ precautions maintained throughout shift. No SZ Activity noted. All safety precaUtions including aspiration precautions maintained. Pt safety maintained during shift. SBAR report given to LUCY Lo for continuity of care.
--- NOTE | 2019-10-04 19:54 | NUR ---
PHARMACY CUSTOMER CARE SPECIALIST OPENING NOTE RECEIVED PATIENT IN BED. A/OX1, PER REPORT PATIENT IS CONFUSED. ON OXYGEN 2L/MIN VIA NASAL CANNULA. RESPIRATIONS ARE EVEN AND UNLABORED. NO S/S SOB NOTED. NO S/S PAIN AT THIS TIME. EXTERNAL TELE MONITOR READS SINUS RHYTHM HR 71. IN NO APPARENT DISTRESS. IV ACCESS IN MERLYN PICC TRIPLE LUMEN CATH PATENT AND SALINE LOCKED. BED IS LOW AND LOCKED, HOB ELEVATED IN HIGH FOWLERS, SIDE RIALS UP X3, BED ALARM ON. CALL LIGHT WITHIN REACH. WILL CONTINUE TO MONITOR.
[2019-10-04 20:00] VITALS: BP 131/68
--- NOTE | 2019-10-04 21:47 | NUR ---
UPHOLSTERER INSIDE NOTE CALLED DUCT LAYER MD ZELALEM DELACRUZ AND INFORMED HIM PATIENT IS NPO AND FAILED SWALLOW EVAL BUT HAS DEPAKOTE 250 MG PO SCHEDULED AND REQUESTING TO CHANGE ROUTE TO IV. MD TELEPHONE ORDERED DEPAKOTE 250MG IV . ORDER READ BACK NOTED AND CARRIED OUT. WILL CONTINUE TO MONITOR.
[2019-10-04] MEDS: VANCOMYCIN 1 GM in IV D5W 250 ML IV SCH (21:54)
[2019-10-05] VITALS (7 sets, daily range): BP systolic 101–141; BP diastolic 59–84
[2019-10-05] MEDS: ZOSYN IVPB 2.25 G in IV D5W 50ml IV SCH ×4 (05:08→23:14)
--- NOTE | 2019-10-05 06:37 | NUR ---
TERRAZZO WORKER HELPER CLOSING NOTE PATIENT IN BED. A/OX1, CONFUSED. ON OXYGEN 4L/MIN VIA NASAL CANNULA. RESPIRATIONS ARE EVEN AND UNLABORED. NO SOB NOTED. PATIENT IS GARGLING, SUCTION WHEN NEEDED. NO S/S PAIN NOTED. EXTERNAL TELE MONITOR READS SINUS RHYTHM HR 71. NO DISTRESS NOTED. IV ACCESS IN MERLYN PICC TRIPLE LUMEN CATH PATENT AND SALINE LOCKED. BED IS LOW AND LOCKED, HOB ELEVATED IN HIGH FOWLERS, SIDE RIALS UP X3, BED ALARM ON. CALL LIGHT WITHIN REACH. WILL ENDORSE TO NEXT SHIFT
--- NOTE | 2019-10-05 07:24 | NUR ---
RN NOTES RECEIVED PATIENT IN BED RESTING COMFORTABLY IN MODERATE HIGH BACK REST. A/OX1, CONFUSED. ON OXYGEN 4L/MIN VIA NASAL CANNULA. NO SIGNS OF DISTRESS NOTED AT THIS TIME. TELE MONITOR READS SINUS RHYTHM HR 70'S. IV ACCESS IN MERLYN PICC TRIPLE LUMEN CATH PATENT AND SALINE LOCKED. SAFETY MEASURES IN PLACE, BED IS LOW AND LOCKED, HOB ELEVATED IN HIGH FOWLERS, SIDE RIALS UP X3, BED ALARM ON. CALL LIGHT WITHIN REACH. WILL CONTINUE TO MONITOR.
[2019-10-05] MEDS: VALSARTAN 40 MG TABLET PO SCH (09:00)
[2019-10-05] MEDS: AMIODARONE HCL 200 MG TABLET PO SCH ×2 (09:00→16:38)
[2019-10-05] MEDS: DIVALPROEX SODIUM 250 MG TABLET.DR PO SCH ×2 (09:00→21:00)
[2019-10-05] MEDS: ENOXAPARIN SODIUM 30 MG/0.3 ML DISP.SYRIN SQ SCH (09:00)
[2019-10-05] MEDS: Z GUARD REMEDY 2 OZ OINT TP SCH (09:38)
[2019-10-05] MEDS: CLOTRIMAZOLE 1% 15 GM TUBE TP SCH ×2 (09:38→16:06)
[2019-10-05] MEDS: TIMOLOL MAL/DORZOLAM HCL OPHTH 10 ML BOTTLE LEFTEYE SCH ×2 (09:39→16:06)
[2019-10-05] MEDS: CARVEDILOL 3.125 MG TABLET PO SCH ×2 (10:30→21:00)
[2019-10-05 10:55] LABS: CALCIUM, SERUM 8.2 mg/dL (8.5-10.1); MAGNESIUM 2.2 mg/dL (1.8-2.4); PHOSPHORUS 2.7 mg/dL (2.5-4.9); POTASSIUM 3.9 mmol/L (3.5-5.1)
[2019-10-05 11:19] LABS: BASOPHILS # (AUTO) 0.1 /CMM (0.0-0.2); BASOPHILS % (AUTO) 0.5 % (0.0-2.0); EOSINOPHILS % (AUTO) 0.7 % (0.0-6.0); HEMATOCRIT 32 % (33-45); HEMOGLOBIN 10.3 g/dL (11.5-14.8); LYMPHOCYTES # (AUTO) 1.8 /CMM (0.8-4.8); LYMPHOCYTES % (AUTO) 11.1 % (20.0-44.0); MEAN CORPUSCULAR HGB CONC 33 g/dl (31.0-36.0); MEAN CORPUSCULAR VOLUME 88 fL (82-100); MONOCYTES # (AUTO) 1.6 /CMM (0.1-1.30); MONOCYTES % (AUTO) 10.1 % (2.0-12.0); NEUTROPHILS # (AUTO) 12.6 /CMM (1.8-8.9); NEUTROPHILS % (AUTO) 77.6 % (43.0-81.0); PLATELET COUNT (AUTO) 244 /CMM (150-450); RED BLOOD CELL COUNT(AUTO) 3.58 MIL/uL (4.0-5.2); WHITE BLOOD COUNT (AUTO) 16.2 K/uL (4.3-11.0)
--- NOTE | 2019-10-05 18:30 | NUR ---
RN NOTES PATIENT IN BED RESTING COMFORTABLY IN MODERATE HIGH BACK REST. A/OX1, CONFUSED. ON OXYGEN 4L/MIN VIA NASAL CANNULA. NO SIGNS OF DISTRESS NOTED THROUGHOUT THE SHIFT. TELE MONITOR READS SINUS RHYTHM HR 60'S. IV ACCESS IN MERLYN PICC TRIPLE LUMEN CATH PATENT AND SALINE LOCKED. SAFETY MEASURES IN PLACE, BED IS LOW AND LOCKED, HOB ELEVATED IN HIGH FOWLERS, SIDE RIALS UP X3, BED ALARM ON. CALL LIGHT WITHIN REACH. WILL ENDORSE TO RIBBON WINDER NURSE FOR DALILA.
--- NOTE | 2019-10-05 19:10 | NUR ---
RN OPENING NOTE RECEIVED PATIENT IN BED RESTING WITH HOB ELEVATED. CONFUSED. BREATHING EVEN AND NON LABORED, NO SOB NOTED AT THIS TIME. MINIMAL WHEEZING HEARD. ON O2 4 LPM VIA NC. RESPONSIVE TO TACTILE STIMULI. PATIENT IS BEDRIDDEN, CONTRACTED. NOTED DISCOLORATION ON BILATERAL UPPER EXTREMITIES. GENERALIZED EDEMA. IN NO APPARENT DISTRESS NOTED AT THIS TIME. BED LOWERED AND LOCKED FOR SAFETY. WILL CONTINUE TO MONITOR.
[2019-10-06] VITALS (7 sets, daily range): BP systolic 111–143; BP diastolic 61–90
--- NOTE | 2019-10-06 01:10 | NUR ---
RN NOTE NOTED PATIENT'S HX OF DM TYPE 2. GLUCOSE LEVEL IS 189 IN AM LAB. PATIENT IS NPO. NOTIFIED DR. DELACRUZ, RECEIVED ORDERS FOR ACCU-CHECKS ACHS AND MILD INSULIN SLIDING SCALE. ORDERS NOTED AT CARRIED OUT. WILL CONTINUE TO MONITOR.
[2019-10-06] MEDS ORDERED: DEXTROSE 50%-WATER 50 ML DISP.SYRIN IV PRN (01:30)
[2019-10-06] MEDS: ZOSYN IVPB 2.25 G in IV D5W 50ml IV SCH ×4 (05:04→23:43)
--- NOTE | 2019-10-06 06:40 | NUR ---
RN CLOSING NOTE PATIENT IS IN BED RESTING WITH HOB ELEVATED. CONFUSED. ON O2 4 LPM VIA NC. IN NO APPARENT DISTRESS. ALL DUE IV MEDS GIVEN AND TOLERATED WELL ORDERED. PATIENT KEPT NPO THROUGHOUT THE NIGHT. PATIENT KEPT CLEAN, DRY, AND COMFORTABLE. WOUND CARE RENDERED. WILL ENDORSE TO AM SHIFT RN FOR CONTINUATION OF CARE.
--- NOTE | 2019-10-06 07:00 | NUR ---
RN TELE1 PATIENT IN BED RESTING COMFORTABLY, PATIENT IS CONFUSED, ON EXTERNAL MONITOR SR 80'S , PATIENT IS CONTRACTED , BUE DISCOLORATION, SARAL REDNESS. PATIENT IS ON NC WITH 4 LMP . NO SIGNS OF ACUTE RESPIRATORY DISTRESS, NO PAIN, AT THIS TIME PATIENT HAS A MERLYN PICC TKO PATENT FLUSHING AND INTACT, NO SIGNS OF INFILTRATION BED LOCKED LOWEST POSTION CALL LIGHT WITH IN REACH ALL SAFETY MEASURE IMPLEMENTED PER HOSPITAL POLICY
[2019-10-06] MEDS: BLOOD SUGAR DIAGNOSTIC 1 EACH STRIP IN SCH ×4 (07:30→21:39)
[2019-10-06 07:45] LABS: BASOPHILS # (AUTO) 0.1 /CMM (0.0-0.2); BASOPHILS % (AUTO) 0.4 % (0.0-2.0); EOSINOPHILS % (AUTO) 0.6 % (0.0-6.0); HEMATOCRIT 31 % (33-45); HEMOGLOBIN 9.8 g/dL (11.5-14.8); LYMPHOCYTES # (AUTO) 1.5 /CMM (0.8-4.8); LYMPHOCYTES % (AUTO) 9.3 % (20.0-44.0); MEAN CORPUSCULAR HGB CONC 32 g/dl (31.0-36.0); MEAN CORPUSCULAR VOLUME 88 fL (82-100); MONOCYTES # (AUTO) 1.7 /CMM (0.1-1.30); MONOCYTES % (AUTO) 10.3 % (2.0-12.0); NEUTROPHILS # (AUTO) 12.8 /CMM (1.8-8.9); NEUTROPHILS % (AUTO) 79.4 % (43.0-81.0); PLATELET COUNT (AUTO) 250 /CMM (150-450); RED BLOOD CELL COUNT(AUTO) 3.51 MIL/uL (4.0-5.2); WHITE BLOOD COUNT (AUTO) 16.1 K/uL (4.3-11.0)
[2019-10-06 08:04] LABS: CALCIUM, SERUM 8.4 mg/dL (8.5-10.1); CREATININE 0.8 mg/dL (0.6-1.3); PHOSPHORUS 2.3 mg/dL (2.5-4.9); POTASSIUM 3.7 mmol/L (3.5-5.1)
[2019-10-06] MEDS: VALSARTAN 40 MG TABLET PO SCH (08:06)
[2019-10-06] MEDS: CARVEDILOL 3.125 MG TABLET PO SCH ×2 (08:06→20:39)
[2019-10-06] MEDS: AMIODARONE HCL 200 MG TABLET PO SCH ×2 (08:06→16:05)
[2019-10-06] MEDS: DIVALPROEX SODIUM 250 MG TABLET.DR PO SCH ×2 (08:06→20:39)
[2019-10-06] MEDS: predniSONE 10 MG TABLET PO SCH (08:07)
--- NOTE | 2019-10-06 08:07 | NUR ---
EDUCATIONAL ASSISTANT TEACHER- NPO- FAILED SWALLOW EVAL NO PO MEDICATIONS GIVEN
[2019-10-06] MEDS: ENOXAPARIN SODIUM 30 MG/0.3 ML DISP.SYRIN SQ SCH (09:00)
--- NOTE | 2019-10-06 09:45 | NUR ---
EGG SORTER NOTES PER DR. MUNGUIA ALL COVID NEGATIVE PATIENTS NOT ON VENT MAY DC TELEMETRY.
[2019-10-06] MEDS: CLOTRIMAZOLE 1% 15 GM TUBE TP SCH ×2 (09:47→16:43)
[2019-10-06] MEDS: TIMOLOL MAL/DORZOLAM HCL OPHTH 10 ML BOTTLE LEFTEYE SCH ×2 (09:47→16:43)
[2019-10-06] MEDS: Z GUARD REMEDY 2 OZ OINT TP SCH (09:48)
[2019-10-06 09:59] LABS: IRON, SERUM 30 ug/dl (50-175); TOTAL IRON BINDING CAPACITY 164 ug/dl (250-450)
--- NOTE | 2019-10-06 10:00 | NUR ---
RN NOTES INSULIN NOT GIVEN, NOT EATING SINCE YESTERDAY, WILL CONTINUE TO MONITOR.
[2019-10-06 10:14] LABS: FERRITIN 256 ng/mL (8-388)
--- NOTE | 2019-10-06 17:00 | NUR ---
RN NOTES SEEN AND EXAMINED BY DR. LARA, INFROMED HER THAT DR. STEWART DID NOT COME, I INFORMED HER THAT DR. STEWART MADE AWARE SINCE YESTERDAY. WILL F/U.
[2019-10-06] MEDS ORDERED: K PHOS NEUTRAL 250 MG TABLET PO ONE (17:30)
--- NOTE | 2019-10-06 18:40 | NUR ---
RN NOTES PATIENT IN BED RESTING COMFORTABLY IN MODERATE HIGH BACK REST. A/OX1, CONFUSED. ON OXYGEN 4L/MIN VIA NASAL CANNULA. NO SIGNS OF DISTRESS NOTED THROUGHOUT THE SHIFT. IV ACCESS IN MERLYN PICC TRIPLE LUMEN CATH PATENT AND SALINE LOCKED. SAFETY MEASURES IN PLACE, BED IS LOW AND LOCKED, HOB ELEVATED IN HIGH FOWLERS, SIDE RIALS UP X3, BED ALARM ON. CALL LIGHT WITHIN REACH. WILL ENDORSE TO TODDLER CAREGIVER NURSE FOR DALILA.
--- NOTE | 2019-10-06 19:05 | NUR ---
RN OPENING NOTE RECEIVED PATIENT IN BED RESTING WITH HOB ELEVATED. CONFUSED. BREATHING EVEN AND NON LABORED, NO SOB NOTED AT THIS TIME. ON O2 4 LPM VIA NC. RESPONSIVE TO TACTILE STIMULI. PATIENT IS BEDRIDDEN, CONTRACTED. NOTED DISCOLORATION ON BILATERAL UPPER EXTREMITIES. GENERALIZED EDEMA. IN NO APPARENT DISTRESS NOTED AT THIS TIME. BED LOWERED AND LOCKED FOR SAFETY. WILL CONTINUE TO MONITOR.
--- NOTE | 2019-10-06 20:30 | NUR ---
RN NOTE INFORMED DR. DELACRUZ THAT PATIENT IS NPO WITH NO IV HYDRATION AT THIS TIME. RECEIVED ORDERS FOR D5 1/2 NS AT 60 MLS/HR IV. ORDERS NOTED AND CARRIED OUT. WILL CONTINUE TO MONITOR.
[2019-10-06] MEDS: IV D5/0.45 NACL 1,000 ML IV PRN (21:02)
[2019-10-06] MEDS: INSULIN REGULAR, HUMAN 100 UNIT/ML 3 ML VIAL SQ PRN (21:40)
--- NOTE | 2019-10-06 23:15 | NUR ---
PRESTRESSED CONCRETE LABORER NOTE TRANSFERRED PATIENT TO ROOM 311 BED 2 IN STABLE CONDITION AROUND THIS TIME. IN NO APPARENT DISTRESS NOTED. CHART AND MEDICATIONS SENT WITH PATIENT. GAVE REPORT TO PAUL AYALA FOR CONTINUATION OF CARE.
--- NOTE | 2019-10-06 23:37 | NUR ---
MS RN NOTES RECEIVED PATIENT FROM PRIYA FROM LUCY CAO. VSS STABLE. NO SIGNS OF DISTRESS. WILL CONTINUE TO MONITOR THROUGHOUT THE NIGHT.
[2019-10-07] MEDS: ZOSYN IVPB 2.25 G in IV D5W 50ml IV SCH ×3 (05:14→17:08)
[2019-10-07] MEDS: BLOOD SUGAR DIAGNOSTIC 1 EACH STRIP IN SCH ×4 (06:34→23:09)
--- NOTE | 2019-10-07 06:34 | NUR ---
MS RN NOTES PATIENT FSBS 168 NO INSULIN ADMINISTERED DUE TO PT BEING NPO. WILL CONTINUE TO MONITOR.
--- NOTE | 2019-10-07 06:53 | NUR ---
MS RN CLOSING NOTES PATIENT IN BED ASLEEP, A/O X 1. ON 4L OF O2 VIA NC BREATHING EVEN AND UNLABORED, NO SOB NOTED. NO SIGNS OF ACUTE DISTRESS. NO COMPLAINTS OF PAIN OR DISCOMFORT AT THE MOMENT- NO FACIAL GRIMACING NOTED. PICC LINE LOCATED ON MERLYN RUNNING D51//2 NS @ 60 ML/ HR. SAFETY PRECAUTIONS IN PLACE WITH BED IN LOWEST POSITION, CALL LIGHT WITHIN REACH, BREAKS ON, SIDE RAILS UP. PATIENT KEPT CLEAN AND DRY THROUGHOUT THE NIGHT. ALL NEEDS ATTENDED TO. WILL ENDORSE TO ONCOMING SHIFT ABOUT DALILA.
[2019-10-07 07:18] LABS: BASOPHILS % (AUTO) 0.4 % (0.0-2.0); EOSINOPHILS % (AUTO) 0.7 % (0.0-6.0); HEMATOCRIT 30 % (33-45); HEMOGLOBIN 9.4 g/dL (11.5-14.8); LYMPHOCYTES # (AUTO) 1.5 /CMM (0.8-4.8); LYMPHOCYTES % (AUTO) 12.2 % (20.0-44.0); MEAN CORPUSCULAR HGB CONC 32 g/dl (31.0-36.0); MEAN CORPUSCULAR VOLUME 89 fL (82-100); MONOCYTES # (AUTO) 1.3 /CMM (0.1-1.30); MONOCYTES % (AUTO) 10.2 % (2.0-12.0); NEUTROPHILS # (AUTO) 9.6 /CMM (1.8-8.9); NEUTROPHILS % (AUTO) 76.5 % (43.0-81.0); PLATELET COUNT (AUTO) 275 /CMM (150-450); RED BLOOD CELL COUNT(AUTO) 3.34 MIL/uL (4.0-5.2); WHITE BLOOD COUNT (AUTO) 12.6 K/uL (4.3-11.0)
[2019-10-07 07:26] LABS: CALCIUM, SERUM 8.2 mg/dL (8.5-10.1); CREATININE 0.8 mg/dL (0.6-1.3); MAGNESIUM 1.8 mg/dL (1.8-2.4); PHOSPHORUS 2.1 mg/dL (2.5-4.9); POTASSIUM 3.4 mmol/L (3.5-5.1)
[2019-10-07 08:00] VITALS: BP 146/81
[2019-10-07] MEDS: VALSARTAN 40 MG TABLET PO SCH (09:00)
[2019-10-07] MEDS: TIMOLOL MAL/DORZOLAM HCL OPHTH 10 ML BOTTLE LEFTEYE SCH ×2 (09:00→17:05)
[2019-10-07] MEDS: ENOXAPARIN SODIUM 30 MG/0.3 ML DISP.SYRIN SQ SCH (09:00)
[2019-10-07] MEDS: AMIODARONE HCL 200 MG TABLET PO SCH ×2 (09:00→17:00)
[2019-10-07] MEDS: CARVEDILOL 3.125 MG TABLET PO SCH ×2 (09:00→21:00)
[2019-10-07] MEDS: DIVALPROEX SODIUM 250 MG TABLET.DR PO SCH ×2 (09:00→21:00)
--- NOTE | 2019-10-07 09:48 | NUR ---
WOUND CARE CONSULT: PT CONTINUES TO HAVE RASH TO BUTTOCKS AND UPPER THIGHS, PRESENT ON ADMISSION. PT NOTED TO HAVE VERY LOOSE STOOL. RECOMMENDATIONS MADE FOR SKIN PROTECTION. DISCUSSED WITH NURSING STAFF AND MEDICAL CSR. WILL SEE PRN. PERALAT IN AGREEMENT WITH PLAN OF CARE. Addendum: 10/07/19 at 0950 by CASSIDY GARNETT WNDNU Amended: Links added.
[2019-10-07] MEDS ORDERED: POTASSIUM PHOSPHATE MM 15 MMOL in IV NS 0.9% 250 ML IV SCH (10:30)
[2019-10-07] MEDS: POTASSIUM CL. PREMIX PERIPHER. 50 ML IV SCH ×2 (10:40→11:55)
[2019-10-07] MEDS: CLOTRIMAZOLE 1% 15 GM TUBE TP SCH ×2 (11:53→17:09)
[2019-10-07] MEDS: POTASSIUM PHOSPHATE MM 7.5 MMOL in IV NS 0.9% 100 ML IV SCH ×2 (11:54→15:10)
[2019-10-07] MEDS: Z GUARD REMEDY 2 OZ OINT TP SCH (11:54)
[2019-10-07] MEDS: INSULIN REGULAR, HUMAN 100 UNIT/ML 3 ML VIAL SQ PRN ×2 (12:10→23:11)
[2019-10-07 16:00] VITALS: BP 80/48
--- NOTE | 2019-10-07 18:28 | NUR ---
Patient in bed, obtunded. Breathing unlabored and even on O2 4l via nasal canula. Patient remains NPO , GI consult for possible PEG placement is pending. Patient kept clean and dry , wound care as ordered. IV fluid is running as ordered. Midline intact and patent , flushing well. All needs attended. Patient turned and repositioned q2hr. Will endorse to next shift for vanessa.
--- NOTE | 2019-10-07 19:15 | NUR ---
MS RN NOTES RECEIVED PT IN BED AND RESTING. A/O X 1. PT ON 4L OF O2 VIA NC BREATHING EVEN AND UNLABORED, NO SOB NOTED. NO S/S OF PAIN AT THIS TIME. SAFETY MEASURES IN PLACE WITH BED IN LOWEST POSITION WITH SIDE RAILS UP X2. CALL LIGHT WITHIN REACH. WILL CONTINUE TO MONITOR.
[2019-10-07 20:00] VITALS: BP 145/73
[2019-10-08] MEDS: ZOSYN IVPB 2.25 G in IV D5W 50ml IV SCH ×4 (00:08→18:43)
[2019-10-08] MEDS: IV D5/0.45 NACL 1,000 ML IV PRN (00:41)
[2019-10-08 06:33] LABS: BASOPHILS # (AUTO) 0.1 /CMM (0.0-0.2); BASOPHILS % (AUTO) 0.5 % (0.0-2.0); EOSINOPHILS % (AUTO) 0.1 % (0.0-6.0); HEMATOCRIT 29 % (33-45); HEMOGLOBIN 9.2 g/dL (11.5-14.8); LYMPHOCYTES # (AUTO) 1.1 /CMM (0.8-4.8); LYMPHOCYTES % (AUTO) 6.3 % (20.0-44.0); MEAN CORPUSCULAR HGB CONC 32 g/dl (31.0-36.0); MEAN CORPUSCULAR VOLUME 88 fL (82-100); MONOCYTES # (AUTO) 1.1 /CMM (0.1-1.30); MONOCYTES % (AUTO) 6.4 % (2.0-12.0); NEUTROPHILS # (AUTO) 15.4 /CMM (1.8-8.9); NEUTROPHILS % (AUTO) 86.7 % (43.0-81.0); PLATELET COUNT (AUTO) 289 /CMM (150-450); RED BLOOD CELL COUNT(AUTO) 3.27 MIL/uL (4.0-5.2); WHITE BLOOD COUNT (AUTO) 17.7 K/uL (4.3-11.0)
[2019-10-08 07:00] LABS: CALCIUM, SERUM 8.4 mg/dL (8.5-10.1); CREATININE 0.9 mg/dL (0.6-1.3); MAGNESIUM 1.6 mg/dL (1.8-2.4); PHOSPHORUS 2.4 mg/dL (2.5-4.9); POTASSIUM 3.5 mmol/L (3.5-5.1)
[2019-10-08] MEDS: BLOOD SUGAR DIAGNOSTIC 1 EACH STRIP IN SCH ×4 (07:07→21:12)
[2019-10-08] MEDS: INSULIN REGULAR, HUMAN 100 UNIT/ML 3 ML VIAL SQ PRN ×3 (07:13→21:10)
--- NOTE | 2019-10-08 07:24 | NUR ---
MS RN NOTES PT IN BED AND RESTING. A/O X 1. PT ON 4L OF O2 VIA NC BREATHING EVEN AND UNLABORED, NO SOB NOTED THROUGHOUT SHIFT. NO S/S OF PAIN AT THIS TIME. PT KEPT CLEAN, RY, AND COMFORTABLE. SAFETY MEASURES IN PLACE WITH BED IN LOWEST POSITION WITH SIDE RAILS UP X2. CALL LIGHT WITHIN REACH. WILL ENDORSE TO ONCOMING NURSE FOR DALILA.
--- NOTE | 2019-10-08 07:30 | NUR ---
RN MS NOTES PT IN BED, ASLEEP, EASY TO AROUSE, NON VERBAL, NO SIGN OF PAIN, NOT IN DISTRESS, ON O2 AT 4LPM VIA NASAL CANULA, ORAL SUCTION DONE, KEPT HOB ELEVATED, IV FLUIDS INFUSING, CALL LIGHT WITHIN REACH, REPOSITIONED FOR COMFORT.
[2019-10-08 08:00] VITALS: BP 160/85
[2019-10-08] MEDS: CARVEDILOL 3.125 MG TABLET PO SCH ×2 (09:00→20:34)
[2019-10-08] MEDS: ENOXAPARIN SODIUM 30 MG/0.3 ML DISP.SYRIN SQ SCH (09:00)
[2019-10-08] MEDS: DIVALPROEX SODIUM 250 MG TABLET.DR PO SCH ×2 (09:00→20:35)
[2019-10-08] MEDS: AMIODARONE HCL 200 MG TABLET PO SCH ×2 (09:00→17:00)
[2019-10-08] MEDS: VALSARTAN 40 MG TABLET PO SCH (09:00)
[2019-10-08] MEDS: TIMOLOL MAL/DORZOLAM HCL OPHTH 10 ML BOTTLE LEFTEYE SCH ×2 (09:03→16:41)
[2019-10-08] MEDS: CLOTRIMAZOLE 1% 15 GM TUBE TP SCH ×2 (09:03→16:42)
[2019-10-08] MEDS: Magnesium 1GM/D5W 100ML PREMIX 100 ML IV SCH ×2 (09:03→10:33)
[2019-10-08] MEDS: Z GUARD REMEDY 2 OZ OINT TP SCH (09:04)
[2019-10-08] MEDS ORDERED: hydrALAZINE HCL IV 20 MG VIAL IV PRN (09:30)
--- NOTE | 2019-10-08 09:30 | NUR ---
RN MS NOTES DR. LUCAS INFORMED OF PT'S INCREASING BLOOD PRESSURE AND HEART RATE, ORDERS GIVEN, NOTED AND CARRIED OUT, PLACED PT ON TELE FOR MONITORING.
[2019-10-08] MEDS ORDERED: POTASSIUM PHOSPHATE MM 15 MMOL in IV NS 0.9% 250 ML IV SCH (10:00)
[2019-10-08] MEDS ORDERED: Magnesium 1GM/D5W 100ML PREMIX 100 ML IV SCH (10:00)
[2019-10-08 12:00] VITALS: BP 122/80
[2019-10-08] MEDS: POTASSIUM PHOSPHATE MM 7.5 MMOL in IV D5W 100 ML IV SCH ×2 (12:31→15:53)
--- NOTE | 2019-10-08 13:00 | NUR ---
RN MS NOTES PT IN BED, ASLEEP, EASY TO AROUSE, NO SHORTNESS OF BREATH, NO SIGN OF PAIN, SECRETIONS SUCTIONED NEEDED, SEEN BY DR. LUCAS, AWAITING GI CONSULT FOR POSSIBLE PEG PLACEMENT, TURNED AND REPOSITIONED Q2 HOURS.
[2019-10-08 13:56] LABS: ABG BASE EXCESS 6.2 mmol/L; ABG OXYGEN SATURATION 92.2 % (92.0-98.5); ABG PCO2 41.4 mmHg (35.0-45.0); ABG PH 7.481 (7.350-7.450); AaDO2 147.7 mmHg; COHb 0.3 % (0.5-1.5); MetHb 0.5 % (0.0-1.5); O2Hb 91.5 % (94.0-97.0); SITE, ABG Right Radial; VENT MODE, BG nasal cannula
[2019-10-08 16:00] VITALS: BP 101/50
--- NOTE | 2019-10-08 18:38 | NUR ---
RN MS NOTES PT IN BED, AWAKE, NON VERBAL, MOANS OCCASIONALLY, NO SOB NOTED, NO SIGN OF PAIN, SECRETIONS SUCTIONED NEEDED, KEPT HOB ELEVATED TO PROMOTE OXYGENATION, PM CARE PROVIDED, TURNED AND REPOSITIONED Q2 HOURS, KEPT CLEAN AND DRY, ALL NEEDS ATTENDED.
--- NOTE | 2019-10-08 19:20 | NUR ---
MS RN OPENING NOTES: RECEIVED PT ON 4LPM VIA NC AND IS TOLERATING WELL. PT IS ASLEEP AT THIS TIME WITH EYES SHUT. PT NONVERBAL. PT HAS MERLYN PICC LINE AND IS BEING INFUSED WITH ZOSYN AT THIS TIME. PT REMAINS NPO SHE FAILED SWALLOW EVAL. BED KEPT IN LOW, LOCKED POSITION, AND SIDE RAILS X 3 UP. BED ALARM ACTIVATED. WILL CONTINUE TO MONITOR PT.
[2019-10-08 20:00] VITALS: BP 127/78
--- NOTE | 2019-10-08 20:29 | NUR ---
MS RN NOTES: PT MOANING AT THIS TIME.
[2019-10-08] MEDS: ALBUTEROL HALF STRENGTH 1.25 MG/3 ML VIAL.NEB NEB SCH ×2 (20:31→23:30)
[2019-10-08] MEDS: IPRATROPIUM NEB FS 0.5 MG/2.5 ML AMPUL.NEB NEB SCH ×2 (20:32→23:30)
[2019-10-08] MEDS: METRONIDAZOLE 500MG/ NS 100ML 500 MG in PREMIX 1 EA IV SCH (21:16)
[2019-10-08] MEDS ORDERED: ACETAMINOPHEN 650 MG/SUPP.RECT RC PRN (23:30)
[2019-10-08] MEDS: ACETYLCYSTEINE 10% SOLN 400 MG/4 ML VIAL NEB SCH (23:30)
--- NOTE | 2019-10-09 00:33 | NUR ---
MS RN NOTES: PT APPEARS TO BE IN MILD DISTRESS SHE KEEP MOANING. PT WAS ADMINISTERED TYLENOL 650MG SUPPOSITORY FOR PAIN MGMT. WILL CONTINUE TO MONITOR.
[2019-10-09] MEDS: IPRATROPIUM NEB FS 0.5 MG/2.5 ML AMPUL.NEB NEB SCH ×6 (03:30→23:58)
[2019-10-09] MEDS: ALBUTEROL HALF STRENGTH 1.25 MG/3 ML VIAL.NEB NEB SCH ×6 (03:30→23:58)
[2019-10-09 04:08] LABS: RENIN, PLASMA 1.086 ng/mL/hr (0.167-5.380)
[2019-10-09] MEDS: METRONIDAZOLE 500MG/ NS 100ML 500 MG in PREMIX 1 EA IV SCH ×3 (04:16→21:10)
[2019-10-09] MEDS: INSULIN REGULAR, HUMAN 100 UNIT/ML 3 ML VIAL SQ PRN ×3 (06:12→22:10)
[2019-10-09] MEDS: BLOOD SUGAR DIAGNOSTIC 1 EACH STRIP IN SCH ×4 (06:37→22:10)
--- NOTE | 2019-10-09 06:44 | NUR ---
MS RN CLOSING NOTES: ALL NEEDS WERE ATTENDED AND ANTICIPATED FOR. PT KEPT CLEAN, DRY, AND COMFORTABLE. PT ORALLY SUCTIONED PRN. ORAL CARE PERFORMED WELL. WOUND TX PERFORMED. PT TURNED AND REPOSITIONED Q2HRS. PT REMAINS ON 4LPM VIA NC AND IS TOLERATING WELL. NO SOB NOTED. NO S/S OF DISTRESS. PT HAS MERLYN PICC LINE AND IS BEING INFUSED WITH TKO. NO INSULIN WAS ADMINISTERED PT IS NPO. BLOOD SUGAR THIS AM WAS 151. BED KEPT IN LOW, LOCKED POSITION, AND SIDE RAILS X 3UP. BED ALARM ACTIVATED. WILL ENDORSE TO AM NURSE FOR DALILA.
--- NOTE | 2019-10-09 07:15 | NUR ---
RN MS OPENING NOTES PT IN BED, ASLEEP, EASY TO AROUSEABLE WITH HOB ELEVATED, NON VERBAL, AOX1. PT APPEARS COMFORTABLE WITH NO S/S OF ANY ACUTE DISTRESS. BREATHING EVEN AND UNLABORED. PT ON 4LPM O2 VIA NC, SAFETY PRECAUTIONS IN PLACE, BED IN LOCKED LOWEST POSITION, SIDE RAILS UP X2, CALL LIGHT WITHIN REACH, WILL CONTINUE TO MONITOR
--- NOTE | 2019-10-09 07:18 | NUR ---
MS RN NOTES: ENDORSED TO AM NURSE, THOR, FOR DALILA.
[2019-10-09 07:27] LABS: CALCIUM, SERUM 8.5 mg/dL (8.5-10.1); CREATININE 0.8 mg/dL (0.6-1.3); MAGNESIUM 2.1 mg/dL (1.8-2.4); PHOSPHORUS 2.8 mg/dL (2.5-4.9); POTASSIUM 3.7 mmol/L (3.5-5.1)
[2019-10-09 07:30] LABS: BASOPHILS # (AUTO) 0.1 /CMM (0.0-0.2); BASOPHILS % (AUTO) 0.8 % (0.0-2.0); EOSINOPHILS % (AUTO) 0.3 % (0.0-6.0); HEMATOCRIT 30 % (33-45); HEMOGLOBIN 9.7 g/dL (11.5-14.8); LYMPHOCYTES # (AUTO) 1.3 /CMM (0.8-4.8); LYMPHOCYTES % (AUTO) 11.1 % (20.0-44.0); MEAN CORPUSCULAR HGB CONC 32 g/dl (31.0-36.0); MEAN CORPUSCULAR VOLUME 88 fL (82-100); MONOCYTES # (AUTO) 0.8 /CMM (0.1-1.30); MONOCYTES % (AUTO) 7.3 % (2.0-12.0); NEUTROPHILS # (AUTO) 9.3 /CMM (1.8-8.9); NEUTROPHILS % (AUTO) 80.5 % (43.0-81.0); PLATELET COUNT (AUTO) 264 /CMM (150-450); RED BLOOD CELL COUNT(AUTO) 3.42 MIL/uL (4.0-5.2); WHITE BLOOD COUNT (AUTO) 11.6 K/uL (4.3-11.0)
[2019-10-09] MEDS: ACETYLCYSTEINE 10% SOLN 400 MG/4 ML VIAL NEB SCH ×3 (07:49→23:58)
[2019-10-09 08:00] VITALS: BP 110/71
[2019-10-09] MEDS: CARVEDILOL 3.125 MG TABLET PO SCH ×2 (09:00→21:00)
[2019-10-09] MEDS: ENOXAPARIN SODIUM 30 MG/0.3 ML DISP.SYRIN SQ SCH (09:00)
[2019-10-09] MEDS: AMIODARONE HCL 200 MG TABLET PO SCH ×2 (09:00→17:00)
[2019-10-09] MEDS: VALSARTAN 40 MG TABLET PO SCH (09:00)
[2019-10-09] MEDS: DIVALPROEX SODIUM 250 MG TABLET.DR PO SCH ×2 (09:00→21:00)
[2019-10-09] MEDS: CLOTRIMAZOLE 1% 15 GM TUBE TP SCH ×2 (09:18→17:34)
[2019-10-09] MEDS: Z GUARD REMEDY 2 OZ OINT TP SCH (09:18)
[2019-10-09] MEDS: TIMOLOL MAL/DORZOLAM HCL OPHTH 10 ML BOTTLE LEFTEYE SCH ×2 (09:23→17:36)
[2019-10-09 09:39] LABS: ABG BASE EXCESS 4.2 mmol/L; ABG OXYGEN SATURATION 94.4 % (92.0-98.5); ABG PCO2 39.7 mmHg (35.0-45.0); ABG PH 7.469 (7.350-7.450); ABG PO2 73.5 mmHg (75.0-100.0); MetHb 0.5 % (0.0-1.5); O2Hb 93.9 % (94.0-97.0); SITE, ABG Right Radial; VENT MODE, BG NASAL CANULA 40%
[2019-10-09] MEDS ORDERED: FUROSEMIDE 40 MG/4 ML VIAL IV ONE (14:00)
--- NOTE | 2019-10-09 14:27 | NUR ---
FUROSEMIDE 40MG/ML VIAL IV WAS NOT ADMINISTERED DUE TO PT BP 103/48, PULSE 92
[2019-10-09 16:00] VITALS: BP 106/78
--- NOTE | 2019-10-09 17:00 | NUR ---
RN MS NOTES RECEIVED ORDERS FROM DR. OLIVAS TO OBTAIN CONSENT FOR EGD WITH PEG TO BE DONE TOMORROW AT 0730, CONSENT GIVEN BY PT'S SON ANATOLE VIA PHONE.
--- NOTE | 2019-10-09 18:51 | NUR ---
MS RN CLOSING NOTES PT IN BED, AWAKE AT THIS TIME, HOB ELEVATED, PT NON VERBAL, MOANS OCCASIONALLY, NO SOB NOTED, NO SIGN OF PAIN, SECRETIONS SUCTIONED NEEDED, SKIN CARE PROVIDED, PT KEPT CLEAN AND DRY, TURNED AND REPOSITIONED Q2HRS, PRN AND PER PROTOCOL, ALL NEEDS PROVIDED ANTICIPATED. ASPIRATION AND SAFETY PRECAUTIONS IN PLACE. BED IN LOCKED LOWEST POSITION, SIDE RAILS UP X2, CALL LIGHT WITHIN REACH. WILL ENDORSE TO SIDE LASTER TACK NURSE FOR DALILA
--- NOTE | 2019-10-09 19:50 | NUR ---
MS RN OPENING NOTES RECEIVED PATIENT IN BED, EYES OPEN AND MOANING. BREATHING REGULAR AND UNLABORED ON OXYGEN AT 4L/MIN VIA NASAL CANNULA. LEFT UPPER ARM PICC LINE INTACT AND PATENT, FLUSHING WELL WITH NO BLEEDING OR S/S OF INFILTRATION NOTED. NO S/S OF PAIN/DISCOMFORT SEEN AT THIS TIME. BED LOW AND LOCKED ON SEMI FOWLERS POSITION. CALL LIGHT IN REACH. WILL CONTINUE TO MONITOR.
[2019-10-09 20:00] VITALS: BP 114/68
--- NOTE | 2019-10-09 22:15 | NUR ---
MS RN NOTES BS 122mg/dl, NO INSULIN COVERAGE NEEDED. WILL CONTINUE TO MONITOR.
[2019-10-10] MEDS: IPRATROPIUM NEB FS 0.5 MG/2.5 ML AMPUL.NEB NEB SCH ×6 (03:47→23:33)
[2019-10-10] MEDS: ALBUTEROL HALF STRENGTH 1.25 MG/3 ML VIAL.NEB NEB SCH ×6 (03:47→23:33)
[2019-10-10] MEDS: METRONIDAZOLE 500MG/ NS 100ML 500 MG in PREMIX 1 EA IV SCH ×3 (04:09→21:22)
[2019-10-10] MEDS: BLOOD SUGAR DIAGNOSTIC 1 EACH STRIP IN SCH ×4 (06:34→22:04)
[2019-10-10] MEDS: INSULIN REGULAR, HUMAN 100 UNIT/ML 3 ML VIAL SQ PRN ×4 (06:35→22:07)
--- NOTE | 2019-10-10 06:50 | NUR ---
MS RN CLOSING NOTES PATIENT IN BED AWAKE AND MOANING. BREATHING REGULAR AND UNLABORED ON OXYGEN AT 4L/MIN VIA NASAL CANNULA. LEFT UPPER ARM PICC LINE PATENT AND FLUSHING WELL. NO S/S OF PAIN/DISCOMFORT SEEN AT THIS TIME. BED LOW AND LOCKED ON SEMI FOWLERS POSITION. CALL LIGHT IN REACH. WILL ENDORSE TO MORNING SHIFT FOR DALILA.
[2019-10-10 06:55] LABS: BASOPHILS # (AUTO) 0.1 /CMM (0.0-0.2); BASOPHILS % (AUTO) 0.9 % (0.0-2.0); EOSINOPHILS % (AUTO) 0.4 % (0.0-6.0); HEMATOCRIT 27 % (33-45); HEMOGLOBIN 8.7 g/dL (11.5-14.8); LYMPHOCYTES # (AUTO) 1.6 /CMM (0.8-4.8); LYMPHOCYTES % (AUTO) 13.2 % (20.0-44.0); MEAN CORPUSCULAR HGB CONC 32 g/dl (31.0-36.0); MEAN CORPUSCULAR VOLUME 88 fL (82-100); MONOCYTES # (AUTO) 0.7 /CMM (0.1-1.30); MONOCYTES % (AUTO) 6.2 % (2.0-12.0); NEUTROPHILS # (AUTO) 9.5 /CMM (1.8-8.9); NEUTROPHILS % (AUTO) 79.3 % (43.0-81.0); PLATELET COUNT (AUTO) 253 /CMM (150-450); RED BLOOD CELL COUNT(AUTO) 3.09 MIL/uL (4.0-5.2); WHITE BLOOD COUNT (AUTO) 12.1 K/uL (4.3-11.0)
[2019-10-10] MEDS ORDERED: ANESTHESIA TRAY IN PYXIS 1 EA TRAY MC ONE (07:03)
[2019-10-10 07:12] LABS: CALCIUM, SERUM 8.3 mg/dL (8.5-10.1); CREATININE 0.9 mg/dL (0.6-1.3); MAGNESIUM 1.8 mg/dL (1.8-2.4); POTASSIUM 3.6 mmol/L (3.5-5.1)
[2019-10-10] MEDS: ACETYLCYSTEINE 10% SOLN 400 MG/4 ML VIAL NEB SCH ×3 (07:35→23:30)
--- NOTE | 2019-10-10 07:49 | NUR ---
PT AWAY FROM DEPT IN PROCEDURE. RN AWARE Addendum: 10/10/19 at 0750 by ANNABEL URIBE RT Amended: Links added.
[2019-10-10 08:00] VITALS: BP 130/90
--- NOTE | 2019-10-10 08:18 | NUR ---
Patient back from surgery (PEG placement). VS are stable , O2 saturation 95% on 3.5 l NC. No bleeding noted. Orders received , will carry out. Will continue to monitor .
[2019-10-10] MEDS: DIVALPROEX SODIUM 250 MG TABLET.DR PO SCH ×2 (09:00→21:00)
[2019-10-10] MEDS: VALSARTAN 40 MG TABLET PO SCH (09:00)
[2019-10-10] MEDS: AMIODARONE HCL 200 MG TABLET PO SCH ×2 (09:00→17:20)
[2019-10-10] MEDS: ENOXAPARIN SODIUM 30 MG/0.3 ML DISP.SYRIN SQ SCH (09:00)
[2019-10-10] MEDS: CARVEDILOL 3.125 MG TABLET PO SCH ×2 (09:00→21:00)
[2019-10-10] MEDS: CLOTRIMAZOLE 1% 15 GM TUBE TP SCH ×2 (10:00→17:19)
[2019-10-10] MEDS: Z GUARD REMEDY 2 OZ OINT TP SCH (10:00)
[2019-10-10] MEDS: TIMOLOL MAL/DORZOLAM HCL OPHTH 10 ML BOTTLE LEFTEYE SCH ×2 (10:02→17:18)
--- NOTE | 2019-10-10 14:00 | NUR ---
G-tube flushed with 200 cc water. Flushing well
[2019-10-10] MEDS: IV D5W 1,000 ML IV PRN (15:19)
[2019-10-10 16:00] VITALS: BP 139/72
--- NOTE | 2019-10-10 19:25 | NUR ---
PT IN BED, AWAKE AT THIS TIME, HOB ELEVATED, PT NON VERBAL, NO SOB NOTED, NO SIGN OF PAIN, SECRETIONS SUCTIONED NEEDED, SKIN CARE PROVIDED, PT KEPT CLEAN AND DRY, TURNED AND REPOSITIONED Q2HRS. ALL NEEDS PROVIDED ANTICIPATED. G-TUBE FLUSHED WELL.ASPIRATION AND SAFETY PRECAUTIONS IN PLACE.BED IN LOCKED LOWEST POSITION, SIDE RAILS UP X2, CALL LIGHT WITHIN REACH. WILL ENDORSE TO PRODUCTION SOLDERER NURSE FOR DALILA
--- NOTE | 2019-10-10 19:30 | NUR ---
ms brazing furnace feeder initial notes received report from am nurse Adilia while doing our rounds and seen pt in bed awake only [place] speaking. open eyes when you mentioned her name. Pt still with IVF of D5W at 50ml/hr infusing at this time. she also with O2 at 3liters via NS. no signs of any acute distress noted. respiration even and non-labored. Noticed right arm swollen and presence of bruises. per am nurse pt will be have her G-tube feeding started in am as ordered. kept her warm and comfortable at all times. bed in low and lock in position . 2x side rails up for pt safety. will continue monitoring.
[2019-10-10 20:50] VITALS: BP 118/67
--- NOTE | 2019-10-10 22:07 | NUR ---
MS SOUND ENGINEERING TECHNICIAN NOTES BLOOD SUGAR 192, NO INSULIN DUE AT THIS TIME BECAUSE PT IS NPO AND G-TUBE FEEDING WILL START TO IN AM ORDERED. NO SIGNS OF HYPER GLYCEMIA NOTED. NO SIGNS OF SEIZURE NOTED WELL.
[2019-10-11] MEDS: ALBUTEROL HALF STRENGTH 1.25 MG/3 ML VIAL.NEB NEB SCH ×6 (02:37→23:10)
[2019-10-11] MEDS: IPRATROPIUM NEB FS 0.5 MG/2.5 ML AMPUL.NEB NEB SCH ×6 (02:37→23:10)
[2019-10-11] MEDS: METRONIDAZOLE 500MG/ NS 100ML 500 MG in PREMIX 1 EA IV SCH ×2 (05:22→14:51)
[2019-10-11] MEDS: BLOOD SUGAR DIAGNOSTIC 1 EACH STRIP IN SCH ×4 (05:56→22:54)
--- NOTE | 2019-10-11 06:42 | NUR ---
ms box packer closing notes pt resting at this time after morning care done with the helped of [employer]. stable obi the night , no signs of any distress noted. garble speaking noted when she woke up .IVF still infusing. PICC line patent and intact. G-tube site patent and flushed well. kept her warm and comfortable at all times. on semi fowlers position with side rails X2 up and bed in low and lock in position. will endorse to am nurse for continuity of care.
[2019-10-11] MEDS: ACETYLCYSTEINE 10% SOLN 400 MG/4 ML VIAL NEB SCH ×3 (07:30→23:10)
[2019-10-11 08:00] VITALS: BP 120/61
[2019-10-11] MEDS ORDERED: PHARMACY TO CHANGE PO MEDS TO GT/NG XX PRN (08:00)
[2019-10-11] MEDS ORDERED: GLUCERNA 1.2 1,000 ML BOTTLE NG PRN (08:00)
--- NOTE | 2019-10-11 08:00 | NUR ---
M/S PSYCH NURSE: NOTES NOTED TO HAVE GENERALIZED RASH TO BACK, CHEST AND LEFT FOOT WELL FUNGAL RASH TO BUTTOCKS, THIGHS AND PERINEUM. ABNER (LUIS CARLOS) HERE AND MADE AWARE WITH ORDER TO GIVE BENADRYL 50MG VIA GT X ONE AND 25MG VIA GT EVERY 6 HOURS NEEDED. ORDERS READ BACK AND CARRIED OUT AND ACKNOWLEDGED. Addendum: 10/11/19 at 0829 by NANI TREADWELL LVN ALSO ABDOMEN RASH
--- NOTE | 2019-10-11 08:08 | NUR ---
WOUND CARE CONSULT/FOLLOW UP: PT SEEN FOR RASHES AND NOTED TO HAVE GENERALIZED RASH TO BACK, CHEST AND LEFT FOOT WELL FUNGAL RASH TO BUTTOCKS, THIGHS AND PERINEUM. PER NURSING STAFF, PT HAS BEEN INCONTINENT OF STOOL BUT DID NOT HAVE ANY STOOL YESTERDAY. GENERALIZED RASH DISCUSSED WITH Art LUCAS NP AND NEW ORDERS RECEIVED BY NURSING STAFF. RECOMMENDATIONS MADE FOR FUNGAL RASH AND DISCUSSED WITH NURSING STAFF AND N.P. PT ON [facility] B[facility]. MD/SURGICAL ASSISTANT IN AGREEMENT WITH PLAN OF CARE. WILL SEE PRN. Addendum: 10/11/19 at 0811 by CASSIDY GARNETT WNDNU Amended: Links added.
[2019-10-11] MEDS ORDERED: predniSONE 10 MG TABLET GT SCH ×2 (08:14→10:30)
[2019-10-11] MEDS ORDERED: diphenhydrAMINE HCL ELIX 25 MG/10 ML UDC GT ONE (08:30)
[2019-10-11] MEDS ORDERED: diphenhydrAMINE HCL ELIX 25 MG/10 ML UDC GT PRN (08:30)
[2019-10-11] MEDS: TIMOLOL MAL/DORZOLAM HCL OPHTH 10 ML BOTTLE LEFTEYE SCH ×2 (08:51→16:22)
[2019-10-11] MEDS: CARVEDILOL 3.125 MG TABLET GT SCH ×2 (08:52→21:00)
[2019-10-11] MEDS: AMIODARONE HCL 200 MG TABLET GT SCH ×2 (08:52→16:21)
[2019-10-11] MEDS: VALSARTAN 40 MG TABLET GT SCH (08:56)
[2019-10-11] MEDS: VALPROIC ACID 250 MG/5 ML UDC GT SCH ×2 (08:57→21:25)
[2019-10-11] MEDS: Z GUARD REMEDY 2 OZ OINT TP SCH (09:32)
[2019-10-11 09:36] LABS: BASOPHILS # (AUTO) 0.1 /CMM (0.0-0.2); BASOPHILS % (AUTO) 0.8 % (0.0-2.0); EOSINOPHILS % (AUTO) 0.6 % (0.0-6.0); HEMATOCRIT 28 % (33-45); HEMOGLOBIN 8.8 g/dL (11.5-14.8); LYMPHOCYTES # (AUTO) 1.4 /CMM (0.8-4.8); LYMPHOCYTES % (AUTO) 10.9 % (20.0-44.0); MEAN CORPUSCULAR HGB CONC 32 g/dl (31.0-36.0); MEAN CORPUSCULAR VOLUME 88 fL (82-100); MONOCYTES # (AUTO) 0.7 /CMM (0.1-1.30); MONOCYTES % (AUTO) 5.3 % (2.0-12.0); NEUTROPHILS # (AUTO) 10.9 /CMM (1.8-8.9); NEUTROPHILS % (AUTO) 82.4 % (43.0-81.0); PLATELET COUNT (AUTO) 219 /CMM (150-450); RED BLOOD CELL COUNT(AUTO) 3.15 MIL/uL (4.0-5.2); WHITE BLOOD COUNT (AUTO) 13.2 K/uL (4.3-11.0)
[2019-10-11 09:51] LABS: CALCIUM, SERUM 7.9 mg/dL (8.5-10.1); POTASSIUM 3.2 mmol/L (3.5-5.1)
[2019-10-11 09:55] LABS: MAGNESIUM 1.5 mg/dL (1.8-2.4); PHOSPHORUS 2.6 mg/dL (2.5-4.9)
--- NOTE | 2019-10-11 10:30 | NUR ---
m/s manager supply chain planning: notes kailee (acnp) notified and made aware re: hgb/hct 8.8/28, mag=1.5, and k+=3.2; clarify lovenox order and informed acnp that her lovenox was held and okay to give now as stated. called pharmacist to replace electrolytes.
[2019-10-11] MEDS: CLOTRIMAZOLE/BETAMETASONE DIPROPIONATE 15 GM TUBE TP SCH ×2 (10:47→16:23)
[2019-10-11] MEDS: ENOXAPARIN SODIUM 30 MG/0.3 ML DISP.SYRIN SQ SCH (10:51)
[2019-10-11 11:20] VITALS: BP 141/57
--- NOTE | 2019-10-11 11:20 | NUR ---
m/s player manager: notes r.t. at bedside and noted with agonal breathing. vital signs taken and satting 100% on o2 at 3l/min via n/c. resp. rate at 22. r.t recommends abg. kailee (acnp) notified and made aware with order for stat abg and cxr. orders read back and carried out and acknowledged.
--- NOTE | 2019-10-11 11:30 | NUR ---
m/s service unit operator: notes breathing improved. pt remains arousable. hob elevated. will continue to monitor.
[2019-10-11] MEDS: INSULIN REGULAR, HUMAN 100 UNIT/ML 3 ML VIAL SQ PRN ×3 (11:33→22:57)
[2019-10-11 11:40] LABS: ABG BASE EXCESS 4.2 mmol/L; ABG OXYGEN SATURATION 96.6 % (92.0-98.5); ABG PCO2 36.3 mmHg (35.0-45.0); ABG PH 7.498 (7.350-7.450); ABG PO2 90.7 mmHg (75.0-100.0); COHb 0.5 % (0.5-1.5); MetHb 0.7 % (0.0-1.5); O2Hb 95.4 % (94.0-97.0); SITE, ABG Right Radial; VENT MODE, BG 3L NC
--- NOTE | 2019-10-11 11:44 | NUR ---
RT NOTE ABG RESULTS RELAYED TO LUCY CARDOZA.
[2019-10-11] MEDS ORDERED: METR-147 PO (11:48)
[2019-10-11] MEDS ORDERED: POTASSIUM CHLORIDE 20 MEQ TAB.PRT.SR PO ONE (12:00)
--- NOTE | 2019-10-11 12:00 | NUR ---
m/s busher helper: notes chest x-ray resulted. kailee (acnp) notified and made aware and instructed me to forward the chest x-ray to dr. floyd.
--- NOTE | 2019-10-11 12:10 | NUR ---
m/s jet inspector: notes dr. floyd notified and made aware re: chest x-ray results and informed me to have r.t. suction pt. maryann (r.t.) made aware.
--- NOTE | 2019-10-11 12:35 | NUR ---
m/s barber apprentice: notes will hold discharge today and will discharge her tomorrow per kailee (acnp) per telephone conversation.
[2019-10-11] MEDS: Magnesium 1GM/D5W 100ML PREMIX 100 ML IV SCH ×2 (12:41→13:47)
[2019-10-11] MEDS ORDERED: ACETYLCYSTEINE 10% SOLN 400 MG/4 ML VIAL NEB SCH (15:30)
--- NOTE | 2019-10-11 15:30 | NUR ---
m/s special education resource teacher: notes received orders from dr. floyd. alfonsotSmitha grace. orders acknowledged.
[2019-10-11 16:00] VITALS: BP 105/42
--- NOTE | 2019-10-11 16:00 | NUR ---
M/S FIRE PREVENTION FORESTER: NOTES CHEST PERCUSSION AND SUCTIONED BY R.T. HOB ELEVATED. INCREASE G-TUBE FEEDING TO 30ML/HR. WILL CONTINUE TO MONITOR.
--- NOTE | 2019-10-11 18:00 | NUR ---
M/S DOUBLE END TENON OPERATOR: NOTES RESTING COMFORTABLE IN BED. HOB ELEVATED. NEEDS ATTENDED. WILL CONTINUE TO MONITOR.
--- NOTE | 2019-10-11 19:15 | NUR ---
MS RN NOTES RECEIVED PT IN BED AND AWAKE. PT A/O X1 OPENS EYES AND CONFUSED. RESPIRATIONS EVEN AND UNLABORED WITH NO S/S OF ACUTE DISTRESS OR SOB NOTED. NO S/S OF PAIN AT THIS TIME. SAFETY MEASURES IN PLACE WITH BED IN LOWEST LOCKED POSITION WITH SIDE RAILS UPX2. CALL LIGHT WITHIN REACH. WILL CONTINUE TO MONITOR.
--- NOTE | 2019-10-11 19:20 | NUR ---
M/S COLOR PRINTER OPERATOR: NOTES REPORT GIVEN TO GERMAN (RN) FOR CONTINUITY OF CARE.
[2019-10-11] MEDS: IV D5W 1,000 ML IV PRN (19:52)
[2019-10-11 20:23] VITALS: BP 100/58
[2019-10-12] MEDS: IPRATROPIUM NEB FS 0.5 MG/2.5 ML AMPUL.NEB NEB SCH ×4 (03:52→15:44)
[2019-10-12] MEDS: ALBUTEROL HALF STRENGTH 1.25 MG/3 ML VIAL.NEB NEB SCH ×4 (03:52→15:44)
[2019-10-12] MEDS: BLOOD SUGAR DIAGNOSTIC 1 EACH STRIP IN SCH ×2 (06:47→13:18)
[2019-10-12] MEDS: INSULIN REGULAR, HUMAN 100 UNIT/ML 3 ML VIAL SQ PRN (07:00)
--- NOTE | 2019-10-12 07:45 | NUR ---
MS RN NOTES PT IN BED AND AWAKE. PT A/O X1 OPENS EYES AND CONFUSED. RESPIRATIONS EVEN AND UNLABORED WITH NO S/S OF ACUTE DISTRESS OR SOB NOTED THROUGHOUT SHIFT. PT KEPT CLEAN, DRY, AND COMFORTABLE. NO S/S OF PAIN AT THIS TIME. SAFETY MEASURES IN PLACE WITH BED IN LOWEST LOCKED POSITION WITH SIDE RAILS UPX2. CALL LIGHT WITHIN REACH. WILL ENDORSE TO ONCOMING NURSE FOR DALILA.
[2019-10-12 08:00] VITALS: BP 157/94
[2019-10-12] MEDS: ACETYLCYSTEINE 10% SOLN 400 MG/4 ML VIAL NEB SCH ×2 (08:08→15:44)
[2019-10-12] MEDS: VALPROIC ACID 250 MG/5 ML UDC GT SCH (09:16)
[2019-10-12] MEDS: VALSARTAN 40 MG TABLET GT SCH (09:16)
[2019-10-12] MEDS: CARVEDILOL 3.125 MG TABLET GT SCH (09:16)
[2019-10-12] MEDS: AMIODARONE HCL 200 MG TABLET GT SCH (09:17)
[2019-10-12] MEDS: CLOTRIMAZOLE/BETAMETASONE DIPROPIONATE 15 GM TUBE TP SCH (09:19)
[2019-10-12] MEDS: TIMOLOL MAL/DORZOLAM HCL OPHTH 10 ML BOTTLE LEFTEYE SCH (09:19)
[2019-10-12] MEDS: Z GUARD REMEDY 2 OZ OINT TP SCH (09:19)
--- NOTE | 2019-10-12 14:05 | NUR ---
report called to Sabina AYALA ( [facility])
[2019-10-12 16:00] VITALS: BP 98/60
--- NOTE | 2019-10-12 16:40 | NUR ---
Patient cleared for d/c to SNF by . Patient non-verbal, bed bound , open eyes. Breathing unlabored and even on 3l 02 via nasal canula, saturating 97%. VS are stable and with in baseline, afebrile. G-tube intact patent , residual 60ml. PICC line removed, no bleeding noted. ID wrist removed. Patient kept clean and dry, Lotrisone applied as directed. Skin care instructions given to facility. D/C pictures taken 10/11/19. D/C instructions provided, med recon provided. Patient unable to sigh d/c papers. Patient has no belongings. Pt picked up by ambulance.
[2019-10-13] MEDS ORDERED: NUT.237L30 GT (14:53)
== END 2019-10-12 16:40 | DRG 871 ==
LOC: ER 13:22 → TELE1 17:22 → MEDSG1 10-06 11:15 → MED 10-06 23:20
PROVIDERS: ADMIT Student in an Organized Health Care Education/Training Program; ATTEND Nurse Practitioner Acute Care
PROC: 0DH63UZ Insertion of Feeding Device into Stomach, Percutaneous Approach (ICD-10-PCS; principal; 2019-10-10)
PROC: 0DJ08ZZ Inspection of Upper Intestinal Tract, Via Natural or Artificial Opening Endoscopic (ICD-10-PCS; 2019-10-10)
DX: A41.9 Sepsis, unspecified organism (principal); J69.0 Pneumonitis due to inhalation of food and vomit; I21.A1 Myocardial infarction type 2; E43 Unspecified severe protein-calorie malnutrition; G93.41 Metabolic encephalopathy; E27.40 Unspecified adrenocortical insufficiency; E87.0 Hyperosmolality and hypernatremia; J98.11 Atelectasis; D68.69 Other thrombophilia; T17.928A Food in respiratory tract, part unspecified causing other injury, initial encounter; X58.XXXA Exposure to other specified factors, initial encounter; Y92.129 Unspecified place in nursing home as the place of occurrence of the external cause; F03.90 Unspecified dementia, unspecified severity, without behavioral disturbance, psychotic disturbance, mood disturbance, and anxiety; E87.6 Hypokalemia; E11.9 Type 2 diabetes mellitus without complications; E03.9 Hypothyroidism, unspecified; E83.39 Other disorders of phosphorus metabolism; E83.42 Hypomagnesemia; I25.10 Atherosclerotic heart disease of native coronary artery without angina pectoris; I48.91 Unspecified atrial fibrillation; R13.10 Dysphagia, unspecified; Z86.73 Personal history of transient ischemic attack (TIA), and cerebral infarction without residual deficits; Z79.4 Long term (current) use of insulin; Z96.659 Presence of unspecified artificial knee joint; M06.9 Rheumatoid arthritis, unspecified; E88.09 Other disorders of plasma-protein metabolism, not elsewhere classified; Z68.26 Body mass index [BMI] 26.0-26.9, adult; F09 Unspecified mental disorder due to known physiological condition; I11.0 Hypertensive heart disease with heart failure; I50.9 Heart failure, unspecified; K29.70 Gastritis, unspecified, without bleeding; D64.9 Anemia, unspecified
CPT/HCPCS: 36415; 36600; 70450-TC; 71045-TC; 80048-TC; 80053-TC; 80202-TC; 81000-TC; 82088; 82550-TC; 82728-TC; 82803-TC; 82962-TC; 83540-TC; 83605-TC; 83615-TC; 83735-TC; 83880; 84100-TC; 84244; 84484-TC; 85025-TC; 85378-TC; 85610-TC; 85730-TC; 86140-TC; 86850-TC; 87040-TC; 87081-TC; 87086-TC; 92526; 92611-TC; 94640-TC; 94667-TC; 94799-TC; A4216; G0378; J0360; J0456; J0690; J1644; J1650; J1815; J1940; J2543; J2704; J3370; J3475; J3480; J3490; J7030; J7040; J7050; J7060; J7070; Q0163

== ENCOUNTER 2019-10-13 14:17 | Inpatient (IN) | payer MEDICARE, OTHER ==
[~2019-10-13] VITALS: Ht 162.6 cm; Wt 68.5 kg
[~2019-10-13 14:17] MED LIST changes: +AMIO200T4 GT; -DILT180C66 PO; +METR-147 PO; -PIPE3.379 IV; -RXVAN XX
--- NOTE | 2019-10-13 14:27 | NUR ---
PT [id number] SNF, NOTED O2 DESATURATION/ RASH S/P GIVEN MILK BASE FEEDING, PT IS AAOX0, NOTED RESPIRATORY DISTRESS, HOOKED TO O2 AT 2LP VIA NC AND INTERACTIVE MEDIA DIRECTOR, KEPT RESTED AND COMFORTABLE, WILL CONTINUE TO MONITOR.
--- NOTE | 2019-10-13 14:45 | NUR ---
URINE SPECIMEN COLLECTED AND SENT TO LAB.
--- NOTE | 2019-10-13 14:50 | NUR ---
IV LINE ESTABLISHED, BLOOD DRAWN AND SENT TO LAB.
[2019-10-13] MEDS ORDERED: NUT.237L30 GT (14:53)
[2019-10-13 14:57] LABS: BASOPHILS # (AUTO) 0.1 /CMM (0.0-0.2); EOSINOPHILS % (AUTO) 0.5 % (0.0-6.0); HEMATOCRIT 32 % (33-45); HEMOGLOBIN 10.3 g/dL (11.5-14.8); LYMPHOCYTES # (AUTO) 0.7 /CMM (0.8-4.8); LYMPHOCYTES % (AUTO) 5.4 % (20.0-44.0); MEAN CORPUSCULAR HGB CONC 32 g/dl (31.0-36.0); MEAN CORPUSCULAR VOLUME 88 fL (82-100); MONOCYTES # (AUTO) 0.5 /CMM (0.1-1.30); MONOCYTES % (AUTO) 3.6 % (2.0-12.0); NEUTROPHILS # (AUTO) 12.1 /CMM (1.8-8.9); NEUTROPHILS % (AUTO) 89.5 % (43.0-81.0); PLATELET COUNT (AUTO) 215 /CMM (150-450); RED BLOOD CELL COUNT(AUTO) 3.65 MIL/uL (4.0-5.2); WHITE BLOOD COUNT (AUTO) 13.5 K/uL (4.3-11.0)
[2019-10-13 14:58] LABS: APPEARANCE,URINE Slightly Cloudy (CLEAR); BILIRUBIN,URINE SMALL (NEGATIVE); BLOOD, URINE Moderate Ery/uL (NEGATIVE); COLOR,URINE Yellow (YELLOW); KETONES,URINE Trace (NEGATIVE); LEUKOCYTE ESTERASE ,URINE Large (NEGATIVE); NITRITE, URINE Negative (NEGATIVE); PH,URINE 5.5 (5.0-8.0); PROTEIN,URINE 30 mg/dl (NEGATIVE); UGLUCOSE Negative (NEGATIVE); UROBILINOGEN,URINE 0.2 EU/dL (0.2)
[2019-10-13 15:03] LABS: BACTERIA,URINE 3+ /HPF (None Seen); SQUAMOUS EPITHELIAL CELL,UR Few /HPF (None Seen); WBC,URINE 51-80 /HPF (0-3)
[2019-10-13 15:07] LABS: CALCIUM, SERUM 8.4 mg/dL (8.5-10.1); CARBON DIOXIDE 35 mmol/L (21-32); CHLORIDE 105 mmol/L (98-107); CREATININE 0.9 mg/dL (0.6-1.3); GLUCOSE 161 mg/dL (74-106); POTASSIUM 4.1 mmol/L (3.5-5.1); SODIUM SERUM 141 mmol/L (136-145); UREA NITROGEN, BLOOD 13 mg/dL (7-18)
--- NOTE | 2019-10-13 15:15 | NUR ---
INSULATION CUPOLA CHARGER AT BEDSIDE FOR XRAY.
[2019-10-13 15:19] LABS: ALANINE AMINOTRANSFERASE 14 U/L (12-78); ALBUMIN 2.1 g/dL (3.4-5.0); ALKALINE PHOSPHATASE 57 U/L (46-116); ASPARTATE AMINOTRANSFERASE 14 U/L (15-37); B-TYPE NATRIURETIC PEPTIDE 25745 PG/ML (0-125); BILIRUBIN,DIRECT 0.1 mg/dL (0.0-0.2); BILIRUBIN,TOTAL 0.3 mg/dL (0.2-1.0); TOTAL PROTEIN, SERUM 5.6 g/dL (6.4-8.2)
--- NOTE | 2019-10-13 16:15 | NUR ---
EPIC PAGE. ABNER IS ADMITTING. AWAITING CALL BACK
[2019-10-13] MEDS ORDERED: FUROSEMIDE 40 MG/4 ML VIAL ONE (16:27)
[2019-10-13] MEDS ORDERED: PIPERACILLIN /TAZOBACTAM 3.375 G in IV D5W 50 ML IV ONE (17:00)
[2019-10-13] MEDS ORDERED: FUROSEMIDE 40 MG/4 ML VIAL IV ONE (17:00)
--- NOTE | 2019-10-13 17:00 | NUR ---
NURSING SUP GAVE TELE BED 311-1.
--- NOTE | 2019-10-13 17:15 | NUR ---
CALLED PHARMACY FOR ANTIBIOTIC.
--- NOTE | 2019-10-13 17:30 | NUR ---
REPORT GIVEN TO LUCY LOPEZ FOR DALILA.
--- NOTE | 2019-10-13 18:25 | NUR ---
MEN'S BASKETBALL COACH NOTES RECEIVED PATIENT VIA GURNEY FROM ER. PATIENT CONFUSED ABLE TO OPEN EYES. NO SOB OR ACUTE DISTRESS NOTED. PATIENT PLACED IN BED. ORIENTED TO ROOM. CALL LIGHT WITHIN REACH. WILL ENDORSE TO PM SHIFT.
[2019-10-13] MEDS ORDERED: MAG HYDROX/AL HYDROX/SIMETH 30 ML UDC PO PRN (18:30)
[2019-10-13] MEDS ORDERED: ACETAMINOPHEN 325 MG TABLET PO PRN (18:30)
[2019-10-13] MEDS ORDERED: MORPHINE SULFATE INJ 2 MG/ML DISP.SYRIN IV PRN (18:30)
[2019-10-13] MEDS ORDERED: ONDANSETRON HCL/PF 4 MG/2 ML VIAL IVP PRN (18:30)
[2019-10-13] MEDS ORDERED: Z GUARD REMEDY 2 OZ OINT TP PRN (18:30)
[2019-10-13] MEDS ORDERED: MAGNESIUM HYDROXIDE 30 ML UDC PO PRN (18:30)
[2019-10-13] MEDS ORDERED: HYDROCODONE/APAP 5/325MG 1 EACH TABLET PO PRN (18:30)
[2019-10-13] MEDS ORDERED: INSULIN REGULAR, HUMAN 100 UNIT/ML 3 ML VIAL SQ PRN (19:00)
[2019-10-13] MEDS ORDERED: DEXTROSE 50%-WATER 50 ML DISP.SYRIN IV PRN (19:00)
[2019-10-13] MEDS ORDERED: *INSULIN REGULAR(HUMULIN R)HUM 100 UNIT/ML VIAL SQ PRN (19:00)
[2019-10-13] MEDS: ALBUTEROL HALF STRENGTH 1.25 MG/3 ML VIAL.NEB NEB SCH (19:13)
[2019-10-13] MEDS: IPRATROPIUM NEB FS 0.5 MG/2.5 ML AMPUL.NEB NEB SCH ×2 (19:13→22:32)
--- NOTE | 2019-10-13 19:15 | NUR ---
POP SINGER OPEN NOTES PATIENT IS LAYING IN BED. BED IS IN LOWEST LOCKED POSITION WITH SIDE RAILS UP, SEMI FOWLERS. NO COMPLAINTS OF PAIN AT THIS TIME. NO SOB/ ACUTE RESPIRATORY DISTRESS NOTED. CALL LIGHT IS WITHIN REACH. WILL CONTINUE TO MONITOR.
--- NOTE | 2019-10-13 19:35 | NUR ---
PAPER BALING MACHINE OPERATOR NOTES RECEIVED CRITICAL LAB VALUE LACTIC ACID 2.1 DOMI DIXON MADE AWARE.
[2019-10-13] MEDS: ENOXAPARIN SODIUM 40 MG/0.4 ML DISP.SYRIN SQ SCH (19:50)
[2019-10-13 20:00] VITALS: BP 95/50
[2019-10-13] MEDS: ACETYLCYSTEINE 10% SOLN 400 MG/4 ML VIAL NEB SCH (22:32)
[2019-10-13] MEDS: BLOOD SUGAR DIAGNOSTIC 1 EACH STRIP VI SCH (22:33)
[2019-10-13] MEDS: PIPERACILLIN /TAZOBACTAM 3.375 G in IV D5W 50 ML IV SCH (23:32)
[2019-10-14] VITALS: BP 104/80
[2019-10-14] MEDS: IPRATROPIUM NEB FS 0.5 MG/2.5 ML AMPUL.NEB NEB SCH ×6 (02:31→23:30)
[2019-10-14 04:00] VITALS: BP 119/51
[2019-10-14] MEDS: PIPERACILLIN /TAZOBACTAM 3.375 G in IV D5W 50 ML IV SCH ×4 (05:11→23:17)
[2019-10-14 06:06] VITALS: BP 97/66
[2019-10-14] MEDS: BLOOD SUGAR DIAGNOSTIC 1 EACH STRIP VI SCH ×4 (06:38→23:17)
--- NOTE | 2019-10-14 07:18 | NUR ---
RN CLOSE NOTES PATIENT IS LAYING IN BED. NO COMPLAINTS OF PAIN AT THE MOMENT. BED IS IN LOWEST LOCKED POSITION WITH SIDE RAILS UP, SEMI FOWLERS. NO COMPLAINTS OF PAIN AT THE MOMENT. NO SOB/ ACUTE RESPIRATORY DISTRESS NOTED. WILL ENDORSE TO AM NURSE.
--- NOTE | 2019-10-14 07:28 | NUR ---
PERFORMANCE ANALYST OPENING NOTES RECEIVED PATIENT IN BED, AWAKE, A/O X1. PATIENT ON OXYGEN THERAPY AT 3 LPM SATURATING WELL; BREATHING EVEN AND UNLABORED WITH NO S/S OF SOB PRESENT. NO SIGNS OF PAIN SUCH FACIAL GRIMACING, MOANING OR GUARDING. RFA GUAGE # 20 AND L HAND IV ACCESS PRESENT AND INTACT; FLUSHING WELL. SAFETY PRECAUTIONS IN PLACE; BED IN LOW POSITION AND LOCKED, RAILS UP X2, CALL LIGHT WITHIN REACH. WILL CONTINUE TO MONITOR PATIENT.
[2019-10-14] MEDS: PANTOPRAZOLE 40 MG TABLET.DR PO SCH (07:30)
[2019-10-14 08:00] VITALS: BP 112/58
[2019-10-14] MEDS: ALBUTEROL HALF STRENGTH 1.25 MG/3 ML VIAL.NEB NEB SCH ×4 (08:12→19:30)
[2019-10-14] MEDS: ACETYLCYSTEINE 10% SOLN 400 MG/4 ML VIAL NEB SCH ×3 (08:12→23:30)
[2019-10-14 08:44] LABS: BASOPHILS # (AUTO) 0.1 /CMM (0.0-0.2); BASOPHILS % (AUTO) 0.4 % (0.0-2.0); EOSINOPHILS % (AUTO) 1.5 % (0.0-6.0); HEMATOCRIT 30 % (33-45); HEMOGLOBIN 9.4 g/dL (11.5-14.8); LYMPHOCYTES # (AUTO) 1.3 /CMM (0.8-4.8); MEAN CORPUSCULAR HGB CONC 32 g/dl (31.0-36.0); MEAN CORPUSCULAR VOLUME 88 fL (82-100); MONOCYTES # (AUTO) 0.7 /CMM (0.1-1.30); MONOCYTES % (AUTO) 3.7 % (2.0-12.0); NEUTROPHILS % (AUTO) 87.4 % (43.0-81.0); PLATELET COUNT (AUTO) 191 /CMM (150-450); RED BLOOD CELL COUNT(AUTO) 3.34 MIL/uL (4.0-5.2); WHITE BLOOD COUNT (AUTO) 18.3 K/uL (4.3-11.0)
[2019-10-14 08:49] LABS: ALBUMIN 1.7 g/dL (3.4-5.0); BILIRUBIN,TOTAL 0.3 mg/dL (0.2-1.0); CALCIUM, SERUM 8.4 mg/dL (8.5-10.1); CREATININE 0.8 mg/dL (0.6-1.3); MAGNESIUM 1.6 mg/dL (1.8-2.4); PHOSPHORUS 3.2 mg/dL (2.5-4.9); POTASSIUM 3.7 mmol/L (3.5-5.1); TOTAL PROTEIN, SERUM 4.7 g/dL (6.4-8.2)
[2019-10-14] MEDS: FUROSEMIDE 40 MG/4 ML VIAL IV SCH ×2 (09:44→17:23)
--- NOTE | 2019-10-14 12:21 | NUR ---
MS RN NOTES 1200 ACCUCHECK WITH BS OF 93. NO INSULIN COVERAGE PER PROTOCOL.
[2019-10-14] MEDS: Magnesium 1GM/D5W 100ML PREMIX 100 ML IV SCH ×2 (13:14→14:27)
[2019-10-14] MEDS: GLUCERNA 1.2 1,000 ML BOTTLE NG PRN (14:54)
[2019-10-14 16:00] VITALS: BP 102/55
--- NOTE | 2019-10-14 18:46 | NUR ---
ATM MANAGER CLOSING NOTES PATIENT IN BED AND ASLEEP AT THIS TIME. PATIENT ON OXYGEN THERAPY AT 3 LPM SATURATING WELL; BREATHING EVEN AND UNLABORED WITH NO S/S OF SOB PRESENT. NO SIGNS OF PAIN SUCH FACIAL GRIMACING, MOANING OR GUARDING AT THIS MOMENT. RFA GUAGE # 20 AND L HAND IV ACCESS PRESENT AND INTACT; FLUSHING WELL. WOUND CONSULT SCHEDULED FOR TOMORROW DUE TO SKIN RASH AND FLUID OOZING AT RFA. ALL NEEDS ATTENDED TO THROUGHOUT THE DAY. SAFETY PRECAUTIONS IN PLACE; BED IN LOW POSITION AND LOCKED, RAILS UP X2, CALL LIGHT WITHIN REACH. ISOLATION PRECAUTIONS IN PLACE R/O COVID-19. WILL ENDORSE TO YEAST PUMPER NURSE.
--- NOTE | 2019-10-14 19:05 | NUR ---
RN OPENING NOTES Received patient awake, opens eyes, non-verbal. On O2 inhalation via NC @ 3LPM, saturating well, no SOB/respiratory distress noted. On tele monitor with NSR noted. On GTF, infusing well, no N/V noted. With FC indwelling well, clear yellow urine output noted. No s/sx of discomfort noted at this time. Kept on bed clean, dry and comfortable. Call light within easy reach. Will continue to monitor accordingly.
[2019-10-14] MEDS ORDERED: DEXTROSE 50%-WATER 50 ML DISP.SYRIN IV PRN (19:51)
[2019-10-14 20:00] VITALS: BP 99/46
[2019-10-14] MEDS: FLUCONAZOLE (100 MG) 100 MG TABLET PO SCH (20:33)
[2019-10-14] MEDS: ENOXAPARIN SODIUM 40 MG/0.4 ML DISP.SYRIN SQ SCH (20:35)
[2019-10-14] MEDS: INSULIN REGULAR, HUMAN 100 UNIT/ML 3 ML VIAL SQ PRN (23:43)
[2019-10-15] VITALS: BP 109/82
[2019-10-15] MEDS: IPRATROPIUM NEB FS 0.5 MG/2.5 ML AMPUL.NEB NEB SCH ×6 (03:30→23:30)
[2019-10-15 04:00] VITALS: BP 106/78
[2019-10-15] MEDS: PIPERACILLIN /TAZOBACTAM 3.375 G in IV D5W 50 ML IV SCH ×2 (05:01→14:39)
[2019-10-15] MEDS: BLOOD SUGAR DIAGNOSTIC 1 EACH STRIP VI SCH ×4 (05:02→23:45)
[2019-10-15] MEDS: INSULIN REGULAR, HUMAN 100 UNIT/ML 3 ML VIAL SQ PRN ×2 (05:14→23:45)
--- NOTE | 2019-10-15 06:25 | NUR ---
RN CLOSING NOTES Patient asleep on bed, easily awaken. On O2 inhalation via NC, saturating well, no SOB/respiratory distress noted at this time. On GTF infusing well, tolerating well, adjusted accordingly. On 30ml/hr as this time. No N/V noted. No s/sx of discomfort noted. Kept on bed clean, dry and comfortable. Call light within easy reach. On fall and aspiration precautions. Endorsed.
--- NOTE | 2019-10-15 07:20 | NUR ---
ms rn received on bed, awake,non verbal patient,on continuous o2 sat, at 92, 2 liters nc, abdomen soft,positive bowel sounds,g tube feeding at 30ml/hr, no residual noted.
[2019-10-15] MEDS: ACETYLCYSTEINE 10% SOLN 400 MG/4 ML VIAL NEB SCH ×3 (07:35→23:30)
[2019-10-15] MEDS: ALBUTEROL HALF STRENGTH 1.25 MG/3 ML VIAL.NEB NEB SCH ×4 (07:35→19:30)
[2019-10-15 08:00] VITALS: BP 115/89
--- NOTE | 2019-10-15 08:00 | NUR ---
ms rn was seen by dr. iván singh/ orders made and carried out.
--- NOTE | 2019-10-15 08:20 | NUR ---
ms rn patient saturation going down at 70%, cn notified, called dr. floyd for result, o2 increase to 4 liters, lasix iv given ,will monitor patient, temp98.9 at this time.
[2019-10-15 08:23] LABS: ABG BASE EXCESS 10.3 mmol/L; ABG OXYGEN SATURATION 89.7 % (92.0-98.5); ABG PCO2 40.9 mmHg (35.0-45.0); ABG PH 7.535 (7.350-7.450); ABG PO2 54.2 mmHg (75.0-100.0); AaDO2 147.8 mmHg; COHb 0.4 % (0.5-1.5); MetHb 0.5 % (0.0-1.5); O2Hb 88.9 % (94.0-97.0); SITE, ABG Right Radial; VENT MODE, BG 3L NASAL CANULA
--- NOTE | 2019-10-15 09:50 | NUR ---
ms rn was seen by dr. floyd pt better today.
--- NOTE | 2019-10-15 10:00 | NUR ---
ms rn ok to use lower extremity for iv use.
[2019-10-15] MEDS: FUROSEMIDE 40 MG/4 ML VIAL IV SCH (10:20)
[2019-10-15] MEDS: PANTOPRAZOLE 40 MG TABLET.DR PO SCH (10:20)
[2019-10-15] MEDS: FLUCONAZOLE (100 MG) 100 MG TABLET PO SCH (10:21)
[2019-10-15 12:00] VITALS: BP 119/65
[2019-10-15 12:11] LABS: BASOPHILS # (AUTO) 0.1 /CMM (0.0-0.2); BASOPHILS % (AUTO) 0.4 % (0.0-2.0); EOSINOPHILS % (AUTO) 3.6 % (0.0-6.0); HEMATOCRIT 31 % (33-45); HEMOGLOBIN 9.8 g/dL (11.5-14.8); LYMPHOCYTES # (AUTO) 1.6 /CMM (0.8-4.8); LYMPHOCYTES % (AUTO) 9.3 % (20.0-44.0); MEAN CORPUSCULAR HGB CONC 32 g/dl (31.0-36.0); MEAN CORPUSCULAR VOLUME 88 fL (82-100); MONOCYTES # (AUTO) 0.6 /CMM (0.1-1.30); MONOCYTES % (AUTO) 3.4 % (2.0-12.0); NEUTROPHILS # (AUTO) 14.2 /CMM (1.8-8.9); NEUTROPHILS % (AUTO) 83.3 % (43.0-81.0); PLATELET COUNT (AUTO) 221 /CMM (150-450); RED BLOOD CELL COUNT(AUTO) 3.47 MIL/uL (4.0-5.2)
[2019-10-15 12:22] LABS: CALCIUM, SERUM 8.4 mg/dL (8.5-10.1); CREATININE 1.2 mg/dL (0.6-1.3); MAGNESIUM 1.7 mg/dL (1.8-2.4); POTASSIUM 3.4 mmol/L (3.5-5.1)
--- NOTE | 2019-10-15 15:00 | NUR ---
ms rn midline at right upper arm done, will get labs for today.
--- NOTE | 2019-10-15 17:20 | NUR ---
ms rn on bed, all needs attended.
[2019-10-15] MEDS: GLUCERNA 1.2 1,000 ML BOTTLE NG PRN (18:43)
[2019-10-15] MEDS ORDERED: POTASSIUM CHLORIDE 20 MEQ TAB.PRT.SR PO SCH ×2 (19:00→21:00)
--- NOTE | 2019-10-15 19:00 | NUR ---
RN OPENING NOTES Patient asleep, responsive to touch and pain. On GTF infusing well, no N/V noted. Generalized edema noted. With FC with clear yellow urine output noted. On O2 inhalation via NC, no SOB/respiratory distress noted. Kept on bed clean, dry and comfortable. On fall and aspiration precautions. Will continue to monitor accordingly.
[2019-10-15 20:00] VITALS: BP 153/89
[2019-10-15] MEDS: Magnesium 1GM/D5W 100ML PREMIX 100 ML IV SCH ×2 (20:32→22:56)
--- NOTE | 2019-10-15 20:42 | NUR ---
RT nebulized tx not given due to pt being covid rule out
--- NOTE | 2019-10-15 20:55 | NUR ---
RN NOTES Called in house pharmacy for technical problem in withdrawing Potassium 20mEq from pyxis. Problem resolved, withdrawn med at this time, administered as ordered.
[2019-10-15] MEDS: ENOXAPARIN SODIUM 40 MG/0.4 ML DISP.SYRIN SQ SCH (20:59)
--- NOTE | 2019-10-15 22:00 | NUR ---
RN NOTES On GTF at 30 ml/hr, residual 10 ml noted. Increased to 40ml/hr as tolerated, goal rate is 50ml/hr as ordered. Will continue to monitor accordingly.
--- NOTE | 2019-10-15 23:45 | NUR ---
RT neb tx not given due to pt being covid rule out. notified chiqui encarnacion rn
[2019-10-16] VITALS: BP 122/56
[2019-10-16] MEDS: IPRATROPIUM NEB FS 0.5 MG/2.5 ML AMPUL.NEB NEB SCH ×6 (03:30→23:02)
--- NOTE | 2019-10-16 03:45 | NUR ---
RT neb med not given due to pt being covid rule out. notified chiqui encarnacion rn
[2019-10-16 04:00] VITALS: BP 127/74
[2019-10-16] MEDS: BLOOD SUGAR DIAGNOSTIC 1 EACH STRIP VI SCH ×3 (05:52→18:42)
[2019-10-16] MEDS: INSULIN REGULAR, HUMAN 100 UNIT/ML 3 ML VIAL SQ PRN ×3 (05:54→17:48)
--- NOTE | 2019-10-16 06:27 | NUR ---
RN CLOSING NOTES Patient on bed, on O2 inhalation via NC, no SOB/respiratory distress noted at this time. No s/sx of discomfort noted. On tele monitor with NSR noted. All nursing needs attended, due meds given as ordered. Kept on bed clean, dry and comfortable. On fall and aspiration precautions. Endorsed to the next shift.
--- NOTE | 2019-10-16 07:30 | NUR ---
MS/RN Opening note Patient received from night coordinator. Alert to self, 3l oxygen via nasal cannula, saturation 96%. Tele reading NSA, heart rate 89. Tolerating GT feeding, no residual noted. Appears comfortable, in no distress. Bed in low setting, side rails X3 in upright position, call light within reach. Will continue to monitor and ensure safety.
[2019-10-16] MEDS: ALBUTEROL HALF STRENGTH 1.25 MG/3 ML VIAL.NEB NEB SCH ×4 (07:35→19:30)
[2019-10-16] MEDS: ACETYLCYSTEINE 10% SOLN 400 MG/4 ML VIAL NEB SCH ×3 (07:35→23:03)
[2019-10-16 08:00] VITALS: BP 140/98
[2019-10-16 08:20] LABS: BASOPHILS % (AUTO) 0.3 % (0.0-2.0); EOSINOPHILS % (AUTO) 4.1 % (0.0-6.0); HEMATOCRIT 30 % (33-45); HEMOGLOBIN 9.5 g/dL (11.5-14.8); LYMPHOCYTES # (AUTO) 1.6 /CMM (0.8-4.8); LYMPHOCYTES % (AUTO) 10.7 % (20.0-44.0); MEAN CORPUSCULAR HGB CONC 32 g/dl (31.0-36.0); MEAN CORPUSCULAR VOLUME 87 fL (82-100); MONOCYTES # (AUTO) 0.6 /CMM (0.1-1.30); MONOCYTES % (AUTO) 3.9 % (2.0-12.0); NEUTROPHILS # (AUTO) 12.2 /CMM (1.8-8.9); PLATELET COUNT (AUTO) 190 /CMM (150-450); RED BLOOD CELL COUNT(AUTO) 3.44 MIL/uL (4.0-5.2); WHITE BLOOD COUNT (AUTO) 15.1 K/uL (4.3-11.0)
--- NOTE | 2019-10-16 08:27 | NUR ---
WOUND CARE CONSULT: PT PRESENTS WITH GENERALIZED REDNESS OF SKIN WITH RED BLOTCHES ALL OVER INCLUDING FEET (UNKNOWN ETIOLOGY), SACRAL INTACT DEEP TISSUE INJURY, RASH TO BUTTOCKS AND PERINEUM, MULTIPLE AREAS OF GENERALIZED EDEMA WITH SKIN DISCOLORATION AND SOME PEELING OF SKIN TO SIDES AND CHEST WALL, PRESENT ON ADMISSION. DISCUSSED SKIN CONDITION WITH NURSING STAFF AND SKIDDER LOADER. RN TO DISCUSS WITH MD TODAY. RECOMMENDATIONS MADE FOR WOUND CARE AND SKIN PROTECTION. DISCUSSED WITH NURSING STAFF. PEG AND AWAD NOTED. REMOVED ABDOMINAL BINDER FROM SENDING FACILITY (WHICH WAS SOILED). PT NOTED TO BE INCONTINENT OF STOOL. RECOMMEND LOW AIRLOSS BED (TO BE PLACED). WILL SEE PRN. MD IN AGREEMENT WITH PLAN OF CARE. Addendum: 10/16/19 at 0831 by CASSIDY GARNETT WNDNU Amended: Links added.
[2019-10-16 08:30] LABS: CALCIUM, SERUM 8.2 mg/dL (8.5-10.1); CREATININE 1.1 mg/dL (0.6-1.3); MAGNESIUM 2.2 mg/dL (1.8-2.4); PHOSPHORUS 3.3 mg/dL (2.5-4.9); POTASSIUM 3.3 mmol/L (3.5-5.1)
[2019-10-16] MEDS: PANTOPRAZOLE 40 MG TABLET.DR PO SCH (08:51)
[2019-10-16] MEDS: FLUCONAZOLE (100 MG) 100 MG TABLET PO SCH (08:51)
[2019-10-16] MEDS: CLOTRIMAZOLE 1% 15 GM TUBE TP SCH ×2 (09:00→17:00)
[2019-10-16] MEDS: POTASSIUM CHLORIDE 20 MEQ TAB.PRT.SR PO SCH ×2 (10:41→11:42)
--- NOTE | 2019-10-16 10:42 | NUR ---
MS/RN Aly Unable to administer lotrimin as not yet dispensed by pharmacy.
--- NOTE | 2019-10-16 13:52 | NUR ---
MS/palliative care physician Wound care as per order. New pictures taken and placed in chart.
[2019-10-16 16:00] VITALS: BP_SYST 143; BP_DIAS 89; BP_DIAS 98
--- NOTE | 2019-10-16 16:00 | NUR ---
MS/RN S/B Toni Morales Seen by Toni Morales, orders noted and carried out. Asked DNP to call patient's son with update. Per Toni Morales, family will decide if they want to withdrawal current treatment and place patient on hospice. Will discuss amongst family and make a decision by Monday or Monday.
--- NOTE | 2019-10-16 18:47 | NUR ---
MS/RN End note No changes in plan of care, will endores ton raw hide trimmer.
[2019-10-16 20:00] VITALS: BP 122/68
--- NOTE | 2019-10-16 20:00 | NUR ---
MS marketing education teacher initial notes pt seen in bed after got report from am nurse Pam/RN . pt resting at this time with eyes closed, respiration even and non-labored not in any acute distress noted. She also on g-tube feeding glucerna at 40ml/hr , pt tolerated well no aspiration noted. Noticed rashed noted and MD aware of it, peterson to gtavity. kept him warm and comfortable at all times. will continue to monitor. kept pt on semi fowlers position with side rails x3 up will continue monitoring.
[2019-10-16] MEDS: ENOXAPARIN SODIUM 40 MG/0.4 ML DISP.SYRIN SQ SCH (21:15)
[2019-10-16] MEDS: GLUCERNA 1.2 1,000 ML BOTTLE NG PRN (21:49)
--- NOTE | 2019-10-16 23:03 | NUR ---
Neb med not given due to pt covid R/O. No SOB noted
--- NOTE | 2019-10-17 | NUR ---
ms britney notes blood sugar 155 , 2 units of inuslin given obi SQ as ordered on diff. site. PT still on G-tube feeding. no aspiration noted. will continue monitoring.
[2019-10-17] MEDS: BLOOD SUGAR DIAGNOSTIC 1 EACH STRIP VI SCH ×4 (00:13→17:06)
[2019-10-17] MEDS: INSULIN REGULAR, HUMAN 100 UNIT/ML 3 ML VIAL SQ PRN ×3 (00:20→11:43)
[2019-10-17] MEDS: IPRATROPIUM NEB FS 0.5 MG/2.5 ML AMPUL.NEB NEB SCH ×6 (03:12→22:30)
--- NOTE | 2019-10-17 06:00 | NUR ---
MS BREED TO WEAN PRODUCTION TECHNICIAN NOTES BLOOD SUGAR CHECKED DONE 162, 3 UNITS OF INSULIN GIVEN ORDERED.
--- NOTE | 2019-10-17 07:01 | NUR ---
MS PUPIL PERSONNEL WORKER CLOSING NOTES PT RESTING AT THIS TIME STABLE REUBEN THE NIGHT . NO SIGNS OF ANY ACUTE DISTRESS NOTED REUBEN ENTIRE OF THE SHIFT. G-TUBE FEEDING TOLERATED WELL AND NO ASPIRATION NOTED. RESPIRATION EVEN AND NON-LABORED. ,SKIN WARM AND DRY TO TOUCH. KEPT HER WARM AND COMFORTABLE AT ALL TIMES. ON SEMI FOWLERS POSITION FOR ASPIRATION PRECAUTION . BED IN LOW AND LOCK IN POSITION WITH SIDE RAILS X2 UP . ENDORSE TO AM NURSE JERSON FOR CONTINUITY OF CARE.
--- NOTE | 2019-10-17 07:45 | NUR ---
MS/RN - Assessment Patient is awake, lethargic but arousable to verbal and tactile stimuli, afebrile, no s/s of pain, currently on supplemental oxygen at 3lpm via NC, saturating well. Rubio catheter in place for retention, draining yellow urine. GTF Glucerna @ 40 ml/hr tolerating well, no residual, will increase to 50 ml/hr to reach goal rate. Saline lock on the RLE is patent, intact, with no signs of infiltration. Fall and aspiration precautions maintained. Will continue with current plan of care.
[2019-10-17] MEDS: ACETYLCYSTEINE 10% SOLN 400 MG/4 ML VIAL NEB SCH ×3 (07:56→22:30)
[2019-10-17] MEDS: ALBUTEROL HALF STRENGTH 1.25 MG/3 ML VIAL.NEB NEB SCH ×4 (07:56→19:25)
[2019-10-17 08:00] VITALS: BP 132/92
[2019-10-17] MEDS ORDERED: POTASSIUM CHLORIDE 20 MEQ POWDER PACKET GT ONE (08:30)
[2019-10-17] MEDS: PANTOPRAZOLE 40 MG/PACK PACK GT SCH (08:35)
[2019-10-17] MEDS: FLUCONAZOLE (100 MG) 100 MG TABLET PO SCH (08:38)
[2019-10-17] MEDS: CLOTRIMAZOLE 1% 15 GM TUBE TP SCH ×2 (08:38→16:22)
[2019-10-17 13:00] LABS: BASOPHILS # (AUTO) 0.1 /CMM (0.0-0.2); BASOPHILS % (AUTO) 0.5 % (0.0-2.0); HEMATOCRIT 25 % (33-45); HEMOGLOBIN 8.1 g/dL (11.5-14.8); LYMPHOCYTES # (AUTO) 1.8 /CMM (0.8-4.8); LYMPHOCYTES % (AUTO) 13.5 % (20.0-44.0); MEAN CORPUSCULAR HGB CONC 32 g/dl (31.0-36.0); MEAN CORPUSCULAR VOLUME 88 fL (82-100); MONOCYTES # (AUTO) 0.6 /CMM (0.1-1.30); MONOCYTES % (AUTO) 4.5 % (2.0-12.0); NEUTROPHILS # (AUTO) 10.1 /CMM (1.8-8.9); NEUTROPHILS % (AUTO) 75.5 % (43.0-81.0); PLATELET COUNT (AUTO) 218 /CMM (150-450); RED BLOOD CELL COUNT(AUTO) 2.86 MIL/uL (4.0-5.2); WHITE BLOOD COUNT (AUTO) 13.4 K/uL (4.3-11.0)
[2019-10-17 13:16] LABS: CALCIUM, SERUM 8.3 mg/dL (8.5-10.1); CREATININE 0.9 mg/dL (0.6-1.3); POTASSIUM 4.3 mmol/L (3.5-5.1)
[2019-10-17 15:59] VITALS: BP 145/100
--- NOTE | 2019-10-17 18:04 | NUR ---
MS/RN - End of shift notes No significant change in condition seen. Awaiting for family decision about initiation of hospice. Will continue with current medical management.
[2019-10-17 20:00] VITALS: BP 138/88
--- NOTE | 2019-10-17 20:00 | NUR ---
steel buffer initial notes seen pt in bed resting with eyes closed but arouse to touch. No signs of any acute distress noted. skin warm and dry to touch. Breathing even and non-labored. still with G-tube feeding Glucerna at 50ml/hr , no aspiration noted. Kept her on semi fowlers position with side rails x2 up and kept her warm and comfortable at all times. will continue monitoring.
[2019-10-17] MEDS: ENOXAPARIN SODIUM 40 MG/0.4 ML DISP.SYRIN SQ SCH (21:43)
[2019-10-18] MEDS: BLOOD SUGAR DIAGNOSTIC 1 EACH STRIP VI SCH ×4 (00:52→17:57)
[2019-10-18] MEDS: INSULIN REGULAR, HUMAN 100 UNIT/ML 3 ML VIAL SQ PRN ×4 (01:00→17:58)
[2019-10-18] MEDS: GLUCERNA 1.2 1,000 ML BOTTLE NG PRN ×2 (01:00→21:58)
--- NOTE | 2019-10-18 01:10 | NUR ---
ms animal surgeon notes blood sugar 210. 6 units of insulin given obi SQ as ordered , pt still on g-tube feeding. kept her comfortable at all times. will continue monitoring.
[2019-10-18] MEDS: IPRATROPIUM NEB FS 0.5 MG/2.5 ML AMPUL.NEB NEB SCH ×6 (02:37→23:35)
[2019-10-18 06:29] LABS: BASOPHILS # (AUTO) 0.1 /CMM (0.0-0.2); BASOPHILS % (AUTO) 0.5 % (0.0-2.0); EOSINOPHILS % (AUTO) 5.5 % (0.0-6.0); HEMATOCRIT 27 % (33-45); HEMOGLOBIN 8.5 g/dL (11.5-14.8); LYMPHOCYTES # (AUTO) 1.7 /CMM (0.8-4.8); LYMPHOCYTES % (AUTO) 12.9 % (20.0-44.0); MEAN CORPUSCULAR HGB CONC 32 g/dl (31.0-36.0); MEAN CORPUSCULAR VOLUME 89 fL (82-100); MONOCYTES # (AUTO) 0.8 /CMM (0.1-1.30); MONOCYTES % (AUTO) 6.4 % (2.0-12.0); NEUTROPHILS # (AUTO) 9.9 /CMM (1.8-8.9); NEUTROPHILS % (AUTO) 74.7 % (43.0-81.0); PLATELET COUNT (AUTO) 233 /CMM (150-450); RED BLOOD CELL COUNT(AUTO) 2.99 MIL/uL (4.0-5.2); WHITE BLOOD COUNT (AUTO) 13.2 K/uL (4.3-11.0)
[2019-10-18 06:59] LABS: CALCIUM, SERUM 8.8 mg/dL (8.5-10.1); CREATININE 0.9 mg/dL (0.6-1.3); MAGNESIUM 2.1 mg/dL (1.8-2.4); POTASSIUM 4.2 mmol/L (3.5-5.1)
--- NOTE | 2019-10-18 07:17 | NUR ---
ms fan mail editor closing notes pt back to rest after morning care done . Blood sugar checked done 142, 2 units of insulin given obi SQ as ordered. No signs of hyper/hypo glycemia noted. Stable obi the night. Breathing even and non-labored with no acute distress noted. pt still on O2 at 2 liters via Nasal Canula. kept her warm and comfortable at all times. will endorse to am nurse for continuity of care.
[2019-10-18] MEDS: ACETYLCYSTEINE 10% SOLN 400 MG/4 ML VIAL NEB SCH ×3 (07:51→23:35)
[2019-10-18] MEDS: ALBUTEROL HALF STRENGTH 1.25 MG/3 ML VIAL.NEB NEB SCH ×4 (07:51→19:21)
[2019-10-18 08:00] VITALS: BP 138/78
--- NOTE | 2019-10-18 08:00 | NUR ---
m/s wood sash and frame carpenter: initial assessment received pt in bed with eyes open, confused and disoriented to time, place, and situation. reality orientation provided prn. hob elevated. g-tube placement check and patent. no distress noted. still has generalized rash. skin care rendered. will continue to monitor.
[2019-10-18] MEDS: CLOTRIMAZOLE 1% 15 GM TUBE TP SCH ×2 (08:53→16:51)
[2019-10-18] MEDS: PANTOPRAZOLE 40 MG/PACK PACK GT SCH (08:53)
[2019-10-18] MEDS: FLUCONAZOLE (100 MG) 100 MG TABLET PO SCH (08:53)
--- NOTE | 2019-10-18 10:00 | NUR ---
m/s chicken stuffer: notes am care rendered. tx done to buttocks/perineum rash/masd. turned and repositioned. kept comfortable. will continue to monitor.
--- NOTE | 2019-10-18 12:00 | NUR ---
m/s infrastructure engineer: notes turned and repositioned. pericare rendered. kept clean and dry. will continue to monitor.
--- NOTE | 2019-10-18 14:00 | NUR ---
m/s parts classifier: notes turned and repositioned, kept comfortable. no acute distress noted. will continue to monitor.
[2019-10-18] MEDS ORDERED: acetaZOLAMIDE SODIUM 500 MG/VIAL VIAL IV ONE (15:30)
[2019-10-18 16:00] VITALS: BP 124/65
--- NOTE | 2019-10-18 16:30 | NUR ---
m/s medical apparatus model maker: notes pm care rendered. kept clean and dry. turned and repositioned. hob elevated. will continue to monitor.
--- NOTE | 2019-10-18 19:15 | NUR ---
m/s director cloud transformation: notes report given to sagar (rn) for continuity of care.
--- NOTE | 2019-10-18 19:30 | NUR ---
MS RN PT IN BED EYES OPEN ALERT TO SELF STABLE AND NOT IN DISTRESS, SAFETY MEASURES AT ALL TIMES. WILL CONT TO MONITOR
[2019-10-18 20:00] VITALS: BP 113/86
[2019-10-18 20:30] VITALS: BP 113/86
[2019-10-18] MEDS: ENOXAPARIN SODIUM 40 MG/0.4 ML DISP.SYRIN SQ SCH (21:38)
[2019-10-19] MEDS: IPRATROPIUM NEB FS 0.5 MG/2.5 ML AMPUL.NEB NEB SCH ×6 (03:47→23:24)
[2019-10-19] MEDS: BLOOD SUGAR DIAGNOSTIC 1 EACH STRIP VI SCH ×5 (05:27→23:07)
[2019-10-19] MEDS: INSULIN REGULAR, HUMAN 100 UNIT/ML 3 ML VIAL SQ PRN ×5 (05:28→23:07)
--- NOTE | 2019-10-19 05:33 | NUR ---
MS RN NO SIGNIFICANT CHANGES, MONITORED ACCORDINGLY, NEEDS ATTENDED AND ANTICIPATED, KEPT CLEAN, DRY AND COMFORTABLE AT ALL TIMES, NO S/S OF DISTRESS, TOLERATED GT FEEDING ORDERED. REPOSITION EVERY 2HOURS. SAFETY MEASURES AT ALL TIMES. ENDORSE TO NEXT SHIFT POC.
--- NOTE | 2019-10-19 07:18 | NUR ---
MS/RN OPENING NOTES RECEIVED PATIENT ON BED. NO S/S OF RESPIRATORY DISTRESS NOTED. GT FEEDING IN PLACED SETTING ORDERED. BED IN LOWEST POSITION. SIDE RAILS UP X2. SAFETY MEASURES IN PLACED. WILL CONTINUE TO MONITOR.
[2019-10-19] MEDS: ALBUTEROL HALF STRENGTH 1.25 MG/3 ML VIAL.NEB NEB SCH ×4 (07:27→19:59)
[2019-10-19] MEDS: ACETYLCYSTEINE 10% SOLN 400 MG/4 ML VIAL NEB SCH ×3 (07:27→23:24)
[2019-10-19 08:00] VITALS: BP 147/98
[2019-10-19] MEDS: PANTOPRAZOLE 40 MG/PACK PACK GT SCH (08:57)
[2019-10-19] MEDS: FLUCONAZOLE (100 MG) 100 MG TABLET PO SCH (08:57)
[2019-10-19] MEDS: CLOTRIMAZOLE 1% 15 GM TUBE TP SCH ×2 (08:57→17:02)
[2019-10-19] MEDS ORDERED: acetaZOLAMIDE SODIUM 500 MG/VIAL VIAL IV ONE (11:00)
--- NOTE | 2019-10-19 11:16 | NUR ---
MS/RN NOTES PATIENT IS RESTLESS AND GRIMACE FACE NOTED. TYLENOL 650 MG VIA GTUBE WAS GIVEN. WILL MONITOR CONTINUOUSLY.
[2019-10-19 16:00] VITALS: BP_SYST 127; BP_SYST 129; BP_DIAS 52; BP_DIAS 60
--- NOTE | 2019-10-19 18:52 | NUR ---
MS/RN CLOSING NOTES PATIENT IS ALERT AND ORIENTED X1. PATIENT IN NO APPARENT RESPIRATORY DISTRESS NOTED. NO S/S OF PAIN AT THIS TIME. IV ACCESS AT LEFT HAND # 20 G PATENT AND INTACT. GTUBE FEEDING IS IN PLACED AT PRESCRIBED ORDER SETTING. SEEN AND EXAMINED BY MD WITH ORDERS MADE AND CARRIED OUT. ALL DUE MEDS WAS GIVEN. CHECKED AND TURNED PATIENT EVERY 2 HOURS. KEPT PATIENT CLEAN AND DRY THE WHOLE TIME. BED IN LOWEST POSITION AND LOCKED. SIDE RAILS UP X 2. CALL LIGHT WITH IN REACH. WILL ENDORSED TO PLASTICS NURSE FOR DALILA.
--- NOTE | 2019-10-19 19:20 | NUR ---
MS RN PT IN BED EYES OPEN ALERT TO SELF NON VERBAL. GT FEEDING INFUSING PT STABLE AND NOT IN DISTRESS, SAFETY MEASURES AT ALL TIMES. WILL CONT TO MONITOR
[2019-10-19 20:00] VITALS: BP 137/87
[2019-10-19] MEDS: ENOXAPARIN SODIUM 40 MG/0.4 ML DISP.SYRIN SQ SCH (21:28)
[2019-10-19] MEDS: GLUCERNA 1.2 1,000 ML BOTTLE NG PRN (21:31)
[2019-10-20] MEDS: IPRATROPIUM NEB FS 0.5 MG/2.5 ML AMPUL.NEB NEB SCH ×6 (03:33→23:19)
[2019-10-20] MEDS: BLOOD SUGAR DIAGNOSTIC 1 EACH STRIP VI SCH ×4 (05:10→23:31)
[2019-10-20] MEDS: INSULIN REGULAR, HUMAN 100 UNIT/ML 3 ML VIAL SQ PRN ×4 (05:10→23:32)
--- NOTE | 2019-10-20 05:52 | NUR ---
MS RN STABLE THROUGHOUT THE NIGHT. TOLERATED GT FEEDING ORDERED. LOW RESIDUAL 5CC. MONITORED FOR PAIN, NEEDS ATTENDED AND ANTICIPATED, KEPT CLEAN, DRY AND COMFORTABLE AT ALL TIMES, NO S/S OF DISTRESS, REPOSITION EVERY 2 HOURS. OFFLOAD HEELS AND ELBOWS. SAFETY MEASURES AT ALL TIMES. ENDORSE TO NEXT SHIFT POC.
[2019-10-20 06:33] LABS: HEMOGLOBIN 8.5 g/dL (11.5-14.8); RED BLOOD CELL COUNT(AUTO) 2.97 MIL/uL (4.0-5.2); WHITE BLOOD COUNT (AUTO) 11.7 K/uL (4.3-11.0)
[2019-10-20 06:34] LABS: BASOPHILS # (AUTO) 0.1 /CMM (0.0-0.2); BASOPHILS % (AUTO) 0.6 % (0.0-2.0); EOSINOPHILS % (AUTO) 9.5 % (0.0-6.0); HEMATOCRIT 27 % (33-45); LYMPHOCYTES # (AUTO) 2.2 /CMM (0.8-4.8); LYMPHOCYTES % (AUTO) 18.8 % (20.0-44.0); MEAN CORPUSCULAR HGB CONC 32 g/dl (31.0-36.0); MEAN CORPUSCULAR VOLUME 90 fL (82-100); MONOCYTES # (AUTO) 0.8 /CMM (0.1-1.30); MONOCYTES % (AUTO) 7.1 % (2.0-12.0); NEUTROPHILS # (AUTO) 7.5 /CMM (1.8-8.9); PLATELET COUNT (AUTO) 251 /CMM (150-450)
[2019-10-20 06:54] LABS: ALBUMIN 1.8 g/dL (3.4-5.0); BILIRUBIN,TOTAL 0.2 mg/dL (0.2-1.0); CALCIUM, SERUM 8.9 mg/dL (8.5-10.1); CREATININE 0.8 mg/dL (0.6-1.3); MAGNESIUM 1.9 mg/dL (1.8-2.4); PHOSPHORUS 3.9 mg/dL (2.5-4.9); POTASSIUM 4.2 mmol/L (3.5-5.1); TOTAL PROTEIN, SERUM 5.3 g/dL (6.4-8.2)
[2019-10-20 08:00] VITALS: BP 144/70
[2019-10-20] MEDS: ACETYLCYSTEINE 10% SOLN 400 MG/4 ML VIAL NEB SCH ×3 (08:03→23:19)
[2019-10-20] MEDS: ALBUTEROL HALF STRENGTH 1.25 MG/3 ML VIAL.NEB NEB SCH ×4 (08:03→20:08)
[2019-10-20 08:33] LABS: BAND % (MANUAL) 4 % (0.0-5.0); EOSINOPHILS % (MANUAL) 9 % (0-4); LYMPHOCYTES % (MANUAL) 14 % (16-48); METAMYELOCYTES % 1 % (0-0); MONOCYTES % (MANUAL) 7 % (0-11.0); MYELOCYTES % 1 % (0-0); NEUTROPHILS % (MANUAL) 64 (42-76)
[2019-10-20] MEDS: FLUCONAZOLE (100 MG) 100 MG TABLET PO SCH (08:37)
[2019-10-20] MEDS: PANTOPRAZOLE 40 MG/PACK PACK GT SCH (08:37)
[2019-10-20 16:00] VITALS: BP 115/50
[2019-10-20] MEDS: CLOTRIMAZOLE 1% 15 GM TUBE TP SCH ×2 (17:16→17:17)
--- NOTE | 2019-10-20 18:29 | NUR ---
PATIENT IS ALERT AND ORIENTED X1. NO APPARENT RESPIRATORY DISTRESS NOTED. NO S/S OF PAIN AT THIS TIME. IV ACCESS AT LEFT HAND # 20 G PATENT AND INTACT, RLE G24. G TUBE FEEDING ONGOING ORDERED. ALL NEEDS ATTENDED. CHECKED AND TURNED PATIENT EVERY 2 HOURS. KEPT PATIENT CLEAN AND DRY. BED IN LOWEST POSITION AND LOCKED. SIDE RAILS UP X 2. CALL LIGHT WITH IN REACH. WILL ENDORSED TO NEXT SHIFT FOR DALILA.
--- NOTE | 2019-10-20 19:36 | NUR ---
MS RN OPENING NOTES PATIENT RECEIVED RESTING IN BED A/O X 0. ON 2L OF O2 VIA NC WITH BREATHING EVEN AND UNLABORED, NO SOB NOTED. NO SIGNS OF ACUTE DISTRESS. NO COMPLAINTS OF PAIN OR DISCOMFORT- NO FACIAL GRIMACING NOTED. IV LOCATED ON R AC #20 SL. SAFETY PRECAUTIONS IN PLACE WITH BED IN LOWEST POSITION, CALL LIGHT WITHIN REACH, BREAKS ON, SIDE RAILS UP. WILL CONTINUE TO MONITOR THROUGHOUT THE NIGHT.
[2019-10-20 20:00] VITALS: BP 102/57
[2019-10-20] MEDS: ENOXAPARIN SODIUM 40 MG/0.4 ML DISP.SYRIN SQ SCH (20:47)
[2019-10-20] MEDS: GLUCERNA 1.2 1,000 ML BOTTLE NG PRN (23:20)
[2019-10-21] MEDS: IPRATROPIUM NEB FS 0.5 MG/2.5 ML AMPUL.NEB NEB SCH ×4 (03:18→14:32)
[2019-10-21] MEDS: BLOOD SUGAR DIAGNOSTIC 1 EACH STRIP VI SCH ×2 (05:40→12:27)
[2019-10-21] MEDS: INSULIN REGULAR, HUMAN 100 UNIT/ML 3 ML VIAL SQ PRN (05:42)
--- NOTE | 2019-10-21 06:38 | NUR ---
MS RN CLOSING NOTES PATIENT RESTING IN BED A/O X 0. ON 2L OF O2 VIA NC WITH BREATHING EVEN AND UNLABORED, NO SOB NOTED. NO SIGNS OF ACUTE DISTRESS. NO COMPLAINTS OF PAIN OR DISCOMFORT- NO FACIAL GRIMACING NOTED. IV LOCATED ON R AC #20 S AND RLE #25. SAFETY PRECAUTIONS IN PLACE WITH BED IN LOWEST POSITION, CALL LIGHT WITHIN REACH, BREAKS ON, SIDE RAILS UP. PATIENT WAS KEPT CLEAN AND DRY THROUGHOUT THE NIGHT, ALL NEEDS ATTENDED TO. WILL ENDORSE TO ONCOMING SHIFT ABOUT DALILA.
[2019-10-21 06:56] LABS: BASOPHILS # (AUTO) 0.1 /CMM (0.0-0.2); EOSINOPHILS % (AUTO) 7.9 % (0.0-6.0); HEMATOCRIT 23 % (33-45); HEMOGLOBIN 7.5 g/dL (11.5-14.8); LYMPHOCYTES # (AUTO) 2.2 /CMM (0.8-4.8); LYMPHOCYTES % (AUTO) 21.2 % (20.0-44.0); MEAN CORPUSCULAR HGB CONC 33 g/dl (31.0-36.0); MEAN CORPUSCULAR VOLUME 91 fL (82-100); MONOCYTES # (AUTO) 0.8 /CMM (0.1-1.30); NEUTROPHILS # (AUTO) 6.5 /CMM (1.8-8.9); NEUTROPHILS % (AUTO) 61.9 % (43.0-81.0); PLATELET COUNT (AUTO) 238 /CMM (150-450); RED BLOOD CELL COUNT(AUTO) 2.54 MIL/uL (4.0-5.2); WHITE BLOOD COUNT (AUTO) 10.5 K/uL (4.3-11.0)
[2019-10-21 07:10] LABS: CALCIUM, SERUM 8.7 mg/dL (8.5-10.1); CREATININE 0.9 mg/dL (0.6-1.3); MAGNESIUM 1.8 mg/dL (1.8-2.4); PHOSPHORUS 2.9 mg/dL (2.5-4.9); POTASSIUM 4.4 mmol/L (3.5-5.1)
[2019-10-21 08:00] VITALS: BP 110/80
[2019-10-21] MEDS: ALBUTEROL HALF STRENGTH 1.25 MG/3 ML VIAL.NEB NEB SCH ×3 (08:30→14:32)
[2019-10-21] MEDS: ACETYLCYSTEINE 10% SOLN 400 MG/4 ML VIAL NEB SCH ×2 (08:30→14:32)
--- NOTE | 2019-10-21 08:32 | NUR ---
PATIENT A&O X0. ALERT TO SELF. PATIENTMUBBLES AND GRUMBLES. NO SIGN OR SYMPTOMS OFPAIN OR DISTRESS. BED IN LOWEST POSITION. WILL CONTINUE TO MONITOR THORUGHOUT SHIFT.
[2019-10-21 08:35] LABS: BAND % (MANUAL) 1 % (0.0-5.0); EOSINOPHILS % (MANUAL) 6 % (0-4); LYMPHOCYTES % (MANUAL) 19 % (16-48); METAMYELOCYTES % 1 % (0-0); MONOCYTES % (MANUAL) 6 % (0-11.0); MYELOCYTES % 1 % (0-0); NEUTROPHILS % (MANUAL) 66 (42-76)
[2019-10-21] MEDS: FLUCONAZOLE (100 MG) 100 MG TABLET PO SCH (09:50)
[2019-10-21] MEDS: PANTOPRAZOLE 40 MG/PACK PACK GT SCH (09:50)
[2019-10-21] MEDS: CLOTRIMAZOLE 1% 15 GM TUBE TP SCH (09:56)
--- NOTE | 2019-10-21 16:57 | NUR ---
Patient in bed resting. Monitoring vital signs. Bed in lowest position. Call light in reach. Preparing discharge paperwork for discharge to [facility].
--- NOTE | 2019-10-21 17:33 | NUR ---
Patient discharged with ambulance accompanied by two ambulance staff. Discharge teaching done. Paperwork is with ambulance staff. No signs and symptoms of pain or distress. Discharged to SNF.
[2019-11-23] MEDS ORDERED: AMIO200T7 PO (19:08)
== END 2019-10-21 17:30 | DRG 280 ==
LOC: ER 14:22 → TELE 17:19 → MED 10-16 12:13
PROVIDERS: ADMIT Nurse Practitioner Acute Care; ATTEND Internal Medicine
PROC: 02HV33Z Insertion of Infusion Device into Superior Vena Cava, Percutaneous Approach (ICD-10-PCS; principal; 2019-10-16)
PROC: B548ZZA Ultrasonography of Superior Vena Cava, Guidance (ICD-10-PCS; 2019-10-16)
DX: I13.0 Hypertensive heart and chronic kidney disease with heart failure and stage 1 through stage 4 chronic kidney disease, or unspecified chronic kidney disease (principal); J96.01 Acute respiratory failure with hypoxia; I21.A1 Myocardial infarction type 2; J15.9 Unspecified bacterial pneumonia; E43 Unspecified severe protein-calorie malnutrition; I50.33 Acute on chronic diastolic (congestive) heart failure; D68.59 Other primary thrombophilia; E27.40 Unspecified adrenocortical insufficiency; J98.11 Atelectasis; E87.3 Alkalosis; E87.0 Hyperosmolality and hypernatremia; B37.49 Other urogenital candidiasis; J90 Pleural effusion, not elsewhere classified; G93.40 Encephalopathy, unspecified; N17.9 Acute kidney failure, unspecified; N18.9 Chronic kidney disease, unspecified; E11.22 Type 2 diabetes mellitus with diabetic chronic kidney disease; F03.90 Unspecified dementia, unspecified severity, without behavioral disturbance, psychotic disturbance, mood disturbance, and anxiety; M06.9 Rheumatoid arthritis, unspecified; R26.9 Unspecified abnormalities of gait and mobility; R62.7 Adult failure to thrive; D63.8 Anemia in other chronic diseases classified elsewhere; E03.9 Hypothyroidism, unspecified; E83.42 Hypomagnesemia; I25.10 Atherosclerotic heart disease of native coronary artery without angina pectoris; I48.91 Unspecified atrial fibrillation; I25.2 Old myocardial infarction; Z96.659 Presence of unspecified artificial knee joint; Z98.890 Other specified postprocedural states; Z79.4 Long term (current) use of insulin; Z87.440 Personal history of urinary (tract) infections; Z93.1 Gastrostomy status; R13.10 Dysphagia, unspecified; I69.893 Ataxia following other cerebrovascular disease; Z91.011 Allergy to milk products; Z79.899 Other long term (current) drug therapy; E87.6 Hypokalemia; F09 Unspecified mental disorder due to known physiological condition; Z74.09 Other reduced mobility; Y95 Nosocomial condition; D72.829 Elevated white blood cell count, unspecified
CPT/HCPCS: 36415; 36600; 71045-TC; 80048-TC; 80053-TC; 80076-TC; 81000-TC; 82803-TC; 82962-TC; 83605-TC; 83735-TC; 83880; 84100-TC; 84484-TC; 85025-TC; 87081-TC; 87086-TC; 94799-TC; G0378; J1120; J1650; J1815; J1940; J2543; J3475; J7050; J7060

== ENCOUNTER 2019-10-30 21:27 | Inpatient (IN) | payer MEDICARE, OTHER ==
[~2019-10-30] VITALS: Ht 154.9 cm; Wt 61.3 kg
[~2019-10-30 21:27] MED LIST changes: -AMIN30LI2 PO; +NUT.237L30 GT
[2019-10-30] MEDS ORDERED: ACETAMINOPHEN 325 MG TABLET PO ONE (22:00)
[2019-10-30 22:13] LABS: BASOPHILS # (AUTO) 0.1 /CMM (0.0-0.2); BASOPHILS % (AUTO) 0.7 % (0.0-2.0); EOSINOPHILS % (AUTO) 0.1 % (0.0-6.0); HEMATOCRIT 27 % (33-45); HEMOGLOBIN 8.4 g/dL (11.5-14.8); LYMPHOCYTES # (AUTO) 2.4 /CMM (0.8-4.8); LYMPHOCYTES % (AUTO) 14.8 % (20.0-44.0); MEAN CORPUSCULAR HGB CONC 32 g/dl (31.0-36.0); MEAN CORPUSCULAR VOLUME 90 fL (82-100); MONOCYTES # (AUTO) 1.4 /CMM (0.1-1.30); MONOCYTES % (AUTO) 8.8 % (2.0-12.0); NEUTROPHILS # (AUTO) 12.4 /CMM (1.8-8.9); NEUTROPHILS % (AUTO) 75.6 % (43.0-81.0); PLATELET COUNT (AUTO) 444 /CMM (150-450); RED BLOOD CELL COUNT(AUTO) 2.97 MIL/uL (4.0-5.2); WHITE BLOOD COUNT (AUTO) 16.3 K/uL (4.3-11.0)
--- NOTE | 2019-10-30 22:21 | NUR ---
BLOOD COLLECTED AND SENT TO THE LAB.
[2019-10-30 22:22] LABS: CALCIUM, SERUM 8.5 mg/dL (8.5-10.1); CARBON DIOXIDE 28 mmol/L (21-32); CHLORIDE 100 mmol/L (98-107); CREATININE 1.2 mg/dL (0.6-1.3); GLUCOSE 226 mg/dL (74-106); POTASSIUM 4.5 mmol/L (3.5-5.1); SODIUM SERUM 137 mmol/L (136-145); UREA NITROGEN, BLOOD 27 mg/dL (7-18)
[2019-10-30] MEDS ORDERED: CEFTRIAXONE 1GM BAG (ER ONLY) 50 ML IV ONE (22:22)
[2019-10-30] MEDS ORDERED: ACETAMINOPHEN 325 MG TABLET ONE (22:23)
[2019-10-30 22:27] LABS: ALANINE AMINOTRANSFERASE 25 U/L (12-78); ALBUMIN 1.9 g/dL (3.4-5.0); ALKALINE PHOSPHATASE 82 U/L (46-116); ASPARTATE AMINOTRANSFERASE 31 U/L (15-37); BILIRUBIN,DIRECT 0.1 mg/dL (0.0-0.2); BILIRUBIN,TOTAL 0.3 mg/dL (0.2-1.0); TOTAL PROTEIN, SERUM 6.8 g/dL (6.4-8.2)
[2019-10-30] MEDS ORDERED: AZITHROMYCIN 500 MG in IV D5W 250 ML IV ONE (22:30)
[2019-10-30] MEDS ORDERED: CEFTRIAXONE 1GM BAG (ER ONLY) 1 GM/50 ML PIGGYBACK IV ONE (22:30)
--- NOTE | 2019-10-30 22:41 | NUR ---
URINE COLLECTED AND SENT TO THE LAB.
[2019-10-30 22:47] LABS: APPEARANCE,URINE Cloudy (CLEAR); BILIRUBIN,URINE Negative (NEGATIVE); BLOOD, URINE Small Ery/uL (NEGATIVE); COLOR,URINE Yellow (YELLOW); KETONES,URINE Negative (NEGATIVE); LEUKOCYTE ESTERASE ,URINE Large (NEGATIVE); NITRITE, URINE Negative (NEGATIVE); PH,URINE 8.5 (5.0-8.0); PROTEIN,URINE 100 mg/dl (NEGATIVE); UGLUCOSE 100 MG/DL mg/dL (NEGATIVE); UROBILINOGEN,URINE 0.2 EU/dL (0.2)
--- NOTE | 2019-10-30 23:01 | NUR ---
[id number] FROM [facility] FOR SOB AND FEVER. TESTED -COVID. PATIENT IS AAOX0. RESPONSIVE TO PAINFUL STIMULI. CONNECTED TO CARDIAC MONITORING. BREATHING EVENLY AND UNLABORED ON 3L OF N/C.
[2019-10-30 23:11] LABS: BACTERIA,URINE Many /HPF (None Seen); WBC,URINE TOO NUMEROUS TO COUN /HPF (0-3)
[2019-10-30 23:12] LABS: SQUAMOUS EPITHELIAL CELL,UR Few /HPF (None Seen)
--- NOTE | 2019-10-30 23:27 | NUR ---
COVID SWAB SAMPLE COLLECTED AND SENT TO LAB.
[2019-10-30] MEDS ORDERED: DILTIAZEM HCL 50 MG IV IV ONE (23:30)
[2019-10-30] MEDS ORDERED: AZITHROMYCIN 500 MG VIAL ONE (23:40)
--- NOTE | 2019-10-30 23:44 | NUR ---
TELE 106
--- NOTE | 2019-10-31 00:13 | NUR ---
PATIENT'S VITAL SIGN AT 78/48, MD NOTIFIED. ORDERED FOR 500ML OF NORMAL SALINE 0.9% BOLUS VIA IV.
--- NOTE | 2019-10-31 00:17 | NUR ---
ER TALKING TO GABRIEL MUÑOZ REGARDING PT ADMISSION.
[2019-10-31] MEDS ORDERED: DEXTROSE 50%-WATER 50 ML DISP.SYRIN IV PRN (00:30)
[2019-10-31] MEDS ORDERED: IV NS 0.9% 500 ML BAG IV ONE (00:30)
--- NOTE | 2019-10-31 00:56 | NUR ---
REPORT GIVEN TO NIRANJAN AYALA FOR DALILA.
--- NOTE | 2019-10-31 00:56 | NUR ---
Received report from LUCY Sow for DALILA Addendum: 10/31/19 at 0118 by NIRANJAN OJEDA RN LUCY Dubon
[2019-10-31] MEDS ORDERED: Z GUARD REMEDY 2 OZ OINT TP PRN (01:00)
[2019-10-31] MEDS ORDERED: MORPHINE SULFATE INJ 2 MG/ML DISP.SYRIN IV PRN (01:00)
[2019-10-31] MEDS ORDERED: IPRATROPIUM NEB FS 0.5 MG/2.5 ML AMPUL.NEB NEB PRN (01:00)
[2019-10-31] MEDS ORDERED: ALBUTEROL FS 2.5 MG/3 ML VIAL.NEB NEB PRN (01:00)
[2019-10-31] MEDS ORDERED: MAG HYDROX/AL HYDROX/SIMETH 30 ML UDC PO PRN (01:00)
[2019-10-31] MEDS ORDERED: ZOLPIDEM TARTRATE 5 MG TABLET PO PRN (01:00)
[2019-10-31] MEDS ORDERED: MAGNESIUM HYDROXIDE 30 ML UDC PO PRN (01:00)
[2019-10-31] MEDS ORDERED: ONDANSETRON HCL/PF 4 MG/2 ML VIAL IVP PRN (01:00)
--- NOTE | 2019-10-31 02:00 | NUR ---
RN OPENING NOTES: Pt transferred to unit via edward accompanied by RN and rowdy. Transferred to bed, bed bath given, head to toe assessment done and wound pictures taken. Pt A&Ox0, opens eyes and is nonverbal. On isolation for R/O Covid. Admit dx of UTI, sepsis and PNA. IV on RFA #20, patent and flushing. Dressing c/d/i. GT site patent and flushing. No residual noted. Robbie notified of pt's arrival to unit. Safety measures in place. Will continue to monitor. Addendum: 10/31/19 at 0351 by NIRANJAN OJEDA RN ST on tele monitor.
[2019-10-31] MEDS: ENOXAPARIN SODIUM 30 MG/0.3 ML DISP.SYRIN SQ SCH (02:02)
--- NOTE | 2019-10-31 02:30 | NUR ---
RN NOTE: Pt has no feeding orders. Was getting Glucerna 1.2 at 50ml/hr x 20hrs at [facility]. Paged Robbie who gave orders to continue same feeding. Noted and carried out.
[2019-10-31] MEDS ORDERED: GLUCERNA 1.2 1,000 ML BOTTLE GT PRN (03:30)
--- NOTE | 2019-10-31 03:56 | NUR ---
RN NOTE: 5389: Pt;s HR goes up to 140 but does not sustain. Drops back down 110's. Paged Robbie. 4692: Robbie gave orders for Cardizem 5mg IV once. Noted and carried out. Will administer.
[2019-10-31 04:00] VITALS: BP 104/60
[2019-10-31] MEDS ORDERED: DILTIAZEM HCL 50 MG IV IV ONE (04:00)
[2019-10-31] MEDS ORDERED: DILTIAZEM HCL 25 MG IV ONE (04:13)
--- NOTE | 2019-10-31 04:35 | NUR ---
RN NOTE: Robbie aware of pt's BP of 104/60. Gave ok to still administer Cardizem. Noted.
[2019-10-31] MEDS ORDERED: PIPERACILLIN /TAZOBACTAM 3.375 G VIAL IV ONE (05:23)
[2019-10-31] MEDS ORDERED: PIPERACILLIN /TAZOBACTAM 3.375 G in IVPB D5W FOR ZOSYN 50 ML IV ONE (06:00)
[2019-10-31 06:22] LABS: BASOPHILS # (AUTO) 0.1 /CMM (0.0-0.2); BASOPHILS % (AUTO) 0.7 % (0.0-2.0); EOSINOPHILS % (AUTO) 0.3 % (0.0-6.0); HEMATOCRIT 26 % (33-45); LYMPHOCYTES # (AUTO) 3.8 /CMM (0.8-4.8); LYMPHOCYTES % (AUTO) 22.8 % (20.0-44.0); MEAN CORPUSCULAR HGB CONC 32 g/dl (31.0-36.0); MEAN CORPUSCULAR VOLUME 90 fL (82-100); MONOCYTES # (AUTO) 1.6 /CMM (0.1-1.30); MONOCYTES % (AUTO) 9.8 % (2.0-12.0); NEUTROPHILS % (AUTO) 66.4 % (43.0-81.0); PLATELET COUNT (AUTO) 400 /CMM (150-450); RED BLOOD CELL COUNT(AUTO) 2.83 MIL/uL (4.0-5.2); WHITE BLOOD COUNT (AUTO) 16.5 K/uL (4.3-11.0)
--- NOTE | 2019-10-31 06:27 | NUR ---
RN NOTE: Noted pt to have infiltrated IV. D/C'd site and started a new IV on RW #22. Line patent and flushing. IV ATB running.
--- NOTE | 2019-10-31 06:31 | NUR ---
RN CLOSING NOTE: Pt resting in bed, confused. On isolation for R/O Covid. On 6L/min NC tolerating well. No SOB or respiratory distress noted during shift. No acute changes noted during shift. ST on tele monitor. GT feeding Glucerna running at 50ml/hr tolerating well. Minimal residuals noted. LW #22 IV patent and flushing. Dressing c/d/i. Safety measures in place. Will endorse to AM nurse for DALILA.
[2019-10-31 07:03] LABS: ALBUMIN 1.8 g/dL (3.4-5.0); BILIRUBIN,TOTAL 0.3 mg/dL (0.2-1.0); CALCIUM, SERUM 8.4 mg/dL (8.5-10.1); PHOSPHORUS 3.6 mg/dL (2.5-4.9); POTASSIUM 5.1 mmol/L (3.5-5.1); TOTAL PROTEIN, SERUM 6.2 g/dL (6.4-8.2)
[2019-10-31 08:00] VITALS: BP 80/40
[2019-10-31] MEDS: BLOOD SUGAR DIAGNOSTIC 1 EACH STRIP IN SCH ×4 (08:18→20:39)
[2019-10-31] MEDS: INSULIN REGULAR, HUMAN 100 UNIT/ML 3 ML VIAL SQ PRN ×3 (08:20→17:18)
[2019-10-31] MEDS ORDERED: PANT40SU2 GT (08:30)
[2019-10-31] MEDS ORDERED: ACET1OOV6 HHN (08:30)
[2019-10-31] MEDS ORDERED: COLL30OI TP (08:30)
[2019-10-31] MEDS ORDERED: IPRA0.2S9 IH (08:30)
[2019-10-31] MEDS ORDERED: INSU100V3 SQ (08:30)
[2019-10-31] MEDS ORDERED: GLUC1KIT IM (08:30)
[2019-10-31] MEDS ORDERED: MAGN400O6 GT (08:30)
[2019-10-31] MEDS ORDERED: BISA10SU11 RC (08:30)
[2019-10-31] MEDS ORDERED: ACET-868 GT ×2 (08:30)
[2019-10-31] MEDS ORDERED: ENOX40DI SQ (08:30)
[2019-10-31] MEDS ORDERED: ALBU1.257 IH (08:30)
[2019-10-31] MEDS ORDERED: MAG30ORA GT (08:30)
[2019-10-31] MEDS ORDERED: NYST15OI TP (08:30)
[2019-10-31] MEDS ORDERED: ZINC1CAP2 GT (08:30)
[2019-10-31] MEDS ORDERED: AMIN30LI2 GT (08:30)
[2019-10-31] MEDS ORDERED: NA P133E RC (08:30)
[2019-10-31] MEDS ORDERED: ASCO-352 GT (08:30)
[2019-10-31] MEDS ORDERED: MULT-447 GT (08:30)
[2019-10-31] MEDS ORDERED: NUT.237L30 GT (08:30)
[2019-10-31] MEDS ORDERED: FLUC100T8 GT (08:30)
[2019-10-31] MEDS: IV NS 0.9% 1,000 ML IV PRN (09:24)
[2019-10-31] MEDS: PIPERACILLIN /TAZOBACTAM 3.375 G in IV D5W 50 ML IV SCH ×3 (11:23→23:25)
[2019-10-31 12:00] VITALS: BP 75/59
[2019-10-31 16:00] VITALS: BP 82/48
--- NOTE | 2019-10-31 18:31 | NUR ---
Patient bedbound , nonverbal. Breathing unlabored and even on 5l oxygen via NC saturation 92%. On tele monitor A-fib to ST ,currently HR 106. G-tube feeding at rate 55 ml/hr duration 24 hr., no residual. Hydration at rate 70 ml/hr ongoing. All needs attended. Patient kept clean and dry , repositioned Q2hr. Wound consult ordered. Will endorse to next shift for DALILA
[2019-10-31 20:00] VITALS: BP 87/56
--- NOTE | 2019-10-31 20:00 | NUR ---
TELE/RN OPENING NOTES RECEIVED PATIENT IN BED, AWAKE, OPENS EYES AND RESPONSIVE ON OXYGEN AT 5LITER, RESPIRATIONS EVEN AND UNLABORED AN TELE MONITORING AT ST 111. WAK AND FRAIL. BUE AND BLE WITH REDNESS AROUND BODY. ABLE TO ACKNOWLEDGE NURSW ON IV NS AY 70 ML/HR, AND ON GTUBE FEEDING. MONITORING FOR ANY CHANGES,RECEIVED ENDORSEMENT FROM AM RN FOR DALILA. WILL MONITOR,
--- NOTE | 2019-10-31 20:46 | NUR ---
BS-193 ON GTUBE FEEDING AT A RATE OF 55 ML PER HOUR.
[2019-10-31] MEDS ORDERED: AZITHROMYCIN 500 MG in IV D5W 250 ML IV SCH (23:00)
--- NOTE | 2019-10-31 23:47 | NUR ---
2347 NOTED PATIENT'S HR AFIB UNCONTROLLED IN THE 150S-160S, NO PRN MEDICATION ORDERED WHEN CHECKED. NOTIFIED AUTO MECHANICS INSTRUCTOR SHAYY, AWAITING ORDERS. PATIENT AWAKE AND NOT IN DISTRESS. LOW GRADE FEVER OF 100.1, BP 118/71. COOLING MEASURES PROVIDED.
[2019-10-31] MEDS: ACETAMINOPHEN 325 MG TABLET PO PRN (23:55)
--- NOTE | 2019-10-31 23:55 | NUR ---
TELE/RN NOTES PATIENT WITH UNCONTROLLED AFIB WITH PULSE RATE OF 160, TEMPERATURE OF 100.1 OXYGEN AT 5 LITER OF 94% AND B/P OF 118/71. MD CONTACTED AWAITING FOR ORDER.TYLENOL 650 MG PO TO BE GIVEN,
--- NOTE | 2019-10-31 23:55 | NUR ---
7855 LOW LUCAS CALLED BACK WITH ORDER MADE. ORDER NOTED AND CARRIED OUT.
[2019-10-31] MEDS ORDERED: AMIODARONE HCL 200 MG TABLET GT STA (23:58)
[2019-10-31 23:59] VITALS: BP 118/71
[2019-11-01] VITALS (8 sets, daily range): BP systolic 118–158; BP diastolic 65–88
[2019-11-01] MEDS: ENOXAPARIN SODIUM 30 MG/0.3 ML DISP.SYRIN SQ SCH (00:03)
--- NOTE | 2019-11-01 00:55 | NUR ---
TELE MONITOR RATE 115 TRENDING DOWN
[2019-11-01] MEDS: GLUCERNA 1.2 1,000 ML BOTTLE GT PRN (03:38)
[2019-11-01] MEDS: PIPERACILLIN /TAZOBACTAM 3.375 G in IV D5W 50 ML IV SCH ×4 (05:01→23:21)
[2019-11-01] MEDS: IV NS 0.9% 1,000 ML IV PRN (06:01)
--- NOTE | 2019-11-01 06:13 | NUR ---
106-1TELE/RN NOTES CLOSING NOTES PATIENT OPENS EYES ,AND WEAK, ON OXYGEN VIA NC AT 5 LITER, WITH UNCONTROLLED AFIB. GTUBE PATENT WITH 10 ML RESIDUAL. ISOLATION PRECAUTION FOLLOWED FOR DROPLET, ATTENDED TO ALL NEEDS, MONITORED FOR ANY CHANGES. BED LOCKED, CALL LIGHTS WITHIN REACH.WILL ENDORSE TO AM RN FOR DALILA,
[2019-11-01 06:27] LABS: BASOPHILS % (AUTO) 0.3 % (0.0-2.0); EOSINOPHILS % (AUTO) 0.9 % (0.0-6.0); HEMATOCRIT 32 % (33-45); HEMOGLOBIN 10.1 g/dL (11.5-14.8); LYMPHOCYTES % (AUTO) 7.2 % (20.0-44.0); MEAN CORPUSCULAR HGB CONC 32 g/dl (31.0-36.0); MEAN CORPUSCULAR VOLUME 90 fL (82-100); MONOCYTES # (AUTO) 0.5 /CMM (0.1-1.30); MONOCYTES % (AUTO) 3.6 % (2.0-12.0); NEUTROPHILS # (AUTO) 11.7 /CMM (1.8-8.9); PLATELET COUNT (AUTO) 559 /CMM (150-450); RED BLOOD CELL COUNT(AUTO) 3.51 MIL/uL (4.0-5.2); WHITE BLOOD COUNT (AUTO) 13.3 K/uL (4.3-11.0)
[2019-11-01 06:58] LABS: ALANINE AMINOTRANSFERASE 40 U/L (12-78); ALBUMIN 1.5 g/dL (3.4-5.0); ALKALINE PHOSPHATASE 110 U/L (46-116); ASPARTATE AMINOTRANSFERASE 58 U/L (15-37); BILIRUBIN,TOTAL 0.3 mg/dL (0.2-1.0); CALCIUM, SERUM 7.9 mg/dL (8.5-10.1); CARBON DIOXIDE 23 mmol/L (21-32); CHLORIDE 103 mmol/L (98-107); CREATININE 1.2 mg/dL (0.6-1.3); MAGNESIUM 1.9 mg/dL (1.8-2.4); PHOSPHORUS 3.4 mg/dL (2.5-4.9); SODIUM SERUM 138 mmol/L (136-145); TOTAL PROTEIN, SERUM 5.9 g/dL (6.4-8.2); UREA NITROGEN, BLOOD 32 mg/dL (7-18)
[2019-11-01 07:08] LABS: GLUCOSE 422 mg/dL (74-106)
[2019-11-01] MEDS: INSULIN REGULAR, HUMAN 100 UNIT/ML 3 ML VIAL SQ PRN ×4 (07:12→16:44)
--- NOTE | 2019-11-01 07:15 | NUR ---
PER LAB GLUCOSE LEVEL ELEVATED AT 422, SLIDING SCALE OF 10 UNITS GIVEN SQ. ENDORSE TO CHARGE NURSE AND WILL FOLLOW UP WITH OCTAVIANO YOON TO MONITOR.
--- NOTE | 2019-11-01 08:00 | NUR ---
TELE/RN OPENING NOTES RECEIVED PATIENT IN BED, AWAKE, OPENS EYES AND RESPONSIVE ON OXYGEN AT 5LITER, RESPIRATIONS EVEN AND UNLABORED AN TELE MONITORING UNCONTROLLED AFIB 106. WEAK AND FRAIL. BUE AND BLE WITH REDNESS AROUND BODY. ON IVF NS AY 70 ML/HR INFUSING WELL AND ON GTUBE FEEDING GLUCERNA AT 55 ML/HR TOLERATING WELL. HOB ELEVATED. TURNED EVERY TWO HRS.WOUND TX DONE ORDERED. MONITORING FOR ANY CHANGES,
[2019-11-01] MEDS: BLOOD SUGAR DIAGNOSTIC 1 EACH STRIP IN SCH (09:10)
[2019-11-01] MEDS ORDERED: DEXTROSE 50%-WATER 50 ML DISP.SYRIN IV PRN (09:30)
[2019-11-01] MEDS: BLOOD SUGAR DIAGNOSTIC 1 EACH STRIP VI SCH ×4 (09:35→21:37)
--- NOTE | 2019-11-01 09:47 | NUR ---
WOUND CARE CONSULT: REVIEWED CHART, NURSING DOCUMENTATION AND PHOTOS WHICH SHOW MULTIPLE SKIN ISSUES INCLUDING BILATERAL HIP DEEP TISSUE INJURIES, RASH TO GROIN AREA, INTACT DEEP TISSUE INJURIES TO BILAT FEET, HEELS AND RT ANKLE, SACRAL DEEP TISSUE INJURY AND WOUND TO RT CHEST WALL, ALL PRESENT ON ADMISSION. RECOMMENDATIONS MADE FOR SKIN PROTECTION AND WOUND CARE. DISCUSSED WITH NURSING STAFF. MD IN AGREEMENT WITH PLAN OF CARE. WILL SEE PRN.
[2019-11-01] MEDS: DIGOXIN INJ 0.5 MG/2 ML AMPUL IV SCH ×3 (13:06→23:36)
[2019-11-01] MEDS: CLOTRIMAZOLE 1% 15 GM TUBE TP SCH (16:19)
--- NOTE | 2019-11-01 19:17 | NUR ---
PT HAS BEEN COUGHING WITH MOIST COUGH AND SUCTIONED THICK YELLOW SECRETIONS.ORAL CARE RENDERED.TOLERATED GT FEEDING WITH HOB ELEVATED.TURNED EVERY TWO HRS. WILL MONITOR.
--- NOTE | 2019-11-01 19:30 | NUR ---
FIXED ROUTE OPERATOR OPENING NOTE RECEIVED PATIENT IN ISOLATION FOR COVID 19. PATIENT IN BED. PATIENT IS NONVERBAL ,OPENS EYES. ON OXYGEN 5L/MIN VIA NASAL CANNULA. RESPIRATIONS ARE EVEN AND UNLABORED. NO S/S SOB NOTED. NO S/S PAIN AT THIS TIME. EXTERNAL TELE MONITOR READS UNCONTROLLED AFIB HR 128. IN NO APPARENT DISTRESS. IV ACCESS IN LEFT WRIST#22 RUNNING NS@70ML/HR. GTUBE IS PRESENT, ASPIRATED, RESIDUAL 5ML, FLUSHED WITH NO RESISTANCE, RUNNING GLUCERNA 1.2@55ML/HR. BED IS LOW AND LOCKED HOB ELEVATED IN SEMI FOWLERS, SIDE RAILS UP X3, EXTREMITIES OFFLOADED. CALL LIGHT WITHIN REACH. WILL CONTINUE TO MONITOR.
[2019-11-01] MEDS: ACETAMINOPHEN 325 MG TABLET PO PRN (21:37)
--- NOTE | 2019-11-01 21:55 | NUR ---
SHOW HORSE DRIVER NOTE TURNED OFF IVF NS@70ML/HR D/T PATIENT SOUNDING CONGESTED. WILL CONTINUE TO MONITOR.
--- NOTE | 2019-11-01 21:55 | NUR ---
ELECTRONIC SCALE TESTER NOTE ADMINISTERED PRN TYLENOL 650MG FOR TEMP 100. WILL REASSESS. WILL CONTINUE TO MONITOR.
--- NOTE | 2019-11-01 22:54 | NUR ---
ASSISTANT PROFESSOR OF GEOGRAPHY NOTE RECEIVED A CALL FROM DAVI IN LAB TO REPORT PATIENT IS NEGATIVE FOR COVID.
[2019-11-02] VITALS (7 sets, daily range): BP systolic 98–191; BP diastolic 54–83
--- NOTE | 2019-11-02 00:26 | NUR ---
CANNERY WORKER NOTE ADMINISTERED PRN MORPHINE 1MG D/T CHANGE IN VITAL SIGN, MOANING WHEN TOUCHING PATIENT AND PERSPIRATION. WILL CONTINUE TO MONITOR. \\
--- NOTE | 2019-11-02 00:27 | NUR ---
BAGGAGEMAN NOTE WASTE WITNESSED BY TARA AYALA. WASTE PLACED IN RX DESTROYER.
[2019-11-02] MEDS: ENOXAPARIN SODIUM 30 MG/0.3 ML DISP.SYRIN SQ SCH (01:54)
[2019-11-02] MEDS: PIPERACILLIN /TAZOBACTAM 3.375 G in IV D5W 50 ML IV SCH ×2 (05:13→11:17)
[2019-11-02] MEDS: GLUCERNA 1.2 1,000 ML BOTTLE GT PRN (05:34)
--- NOTE | 2019-11-02 06:40 | NUR ---
HYDRAULIC PUNCH PRESS OPERATOR CLOSING NOTE PATIENT NEGATIVE FOR COVID 19. PATIENT IN BED. PATIENT REMAINS NONVERBAL ,OPENS EYES. REMAINS ON OXYGEN 5L/MIN VIA NASAL CANNULA. RESPIRATIONS ARE EVEN AND UNLABORED. NO SOB NOTED. MANAGED PAIN WITH MORPHINE. EXTERNAL TELE MONITOR READS UNCONTROLLED AFIB HR 128. NO DISTRESS. IV ACCESS MAINTAINED IN LEFT WRSIT #22 SALINE LOCKED. GTUBE IS MAINTAINED, DRESSING CHANGED RUNNING GLUCERNA 1.2@55ML/HR. BED REMAINS LOW AND LOCKED HOB ELEVATED IN SEMI FOWLERS, SIDE RAILS UP X3, EXTREMITIES OFFLOADED. CALL LIGHT WITHIN REACH. WILL ENDORSE TO NEXT SHIFT
--- NOTE | 2019-11-02 07:18 | NUR ---
HYDROELECTRIC PRODUCTION TECHNICIAN NOTE RECEIVED PATIENT IN BED RESTING COMFORTABLY IN MODERATE HIGH BACK REST. PATIENT IS NONVERBAL ,OPENS EYES. ON OXYGEN 5L/MIN VIA NASAL CANNULA. NO SIGNS OF DISTRESS NOTED AT THIS TIME. EXTERNAL TELE MONITOR READS UNCONTROLLED AFIB. IV ACCESS IN LEFT WRIST#22 RUNNING NS@70ML/HR. GTUBE IS PRESENT, ASPIRATED, RESIDUAL 5ML, FLUSHED WITH NO RESISTANCE, RUNNING GLUCERNA 1.2@55ML/HR. BED IS LOW AND LOCKED, SIDE RAILS UP X3, EXTREMITIES OFFLOADED. CALL LIGHT WITHIN REACH. WILL CONTINUE TO MONITOR.
[2019-11-02] MEDS: BLOOD SUGAR DIAGNOSTIC 1 EACH STRIP VI SCH ×4 (07:30→21:01)
[2019-11-02] MEDS: CLOTRIMAZOLE 1% 15 GM TUBE TP SCH ×2 (08:25→16:29)
[2019-11-02] MEDS: INSULIN REGULAR, HUMAN 100 UNIT/ML 3 ML VIAL SQ PRN ×2 (08:32→11:23)
--- NOTE | 2019-11-02 09:14 | NUR ---
dr. de souza notified patient covid result came back negative and also relayed pt. on afib 100 to 120's no drips per md ok patient to transfer to clean room.nursing sup made aware awaits bed.
[2019-11-02] MEDS: AMIODARONE HCL 200 MG TABLET PO SCH ×3 (10:43→21:13)
--- NOTE | 2019-11-02 11:06 | NUR ---
STILL AWAITS BED FOR 3W PER NURSING SUP.
--- NOTE | 2019-11-02 13:30 | NUR ---
FINANCIAL PLANNER NOTE PATIENT IS NONVERBAL ,OPENS EYES. ON OXYGEN 5L/MIN VIA NASAL CANNULA. NO SIGNS OF DISTRESS NOTED. IV ACCESS IN LEFT WRIST#22 RUNNING NS@70ML/HR. GTUBE IS PRESENT, RUNNING GLUCERNA 1.2@55ML/HR. PATIENT WAS TRANSFERRED TO [address] [place] [address] ON ROOM 328, REPORT GIVEN TO ZHOU. CHARGE NURSE JITENDRA MORLEY.
--- NOTE | 2019-11-02 13:30 | NUR ---
Patient arrived via gurney to room 328. Report from LUCY Wilson. No s/s of discomfort or distress. Feeding tube and IV fluids reestablished. Will continue to monitor.
--- NOTE | 2019-11-02 15:10 | NUR ---
TWO NEEDLE MACHINE OPERATOR NOTES TOOK OVER THE PATIENT. WILL CONTINUE TO MONITOR.
[2019-11-02] MEDS: IV NS 0.9% 1,000 ML IV PRN (15:32)
--- NOTE | 2019-11-02 17:40 | NUR ---
CERTIFIED DRUG COUNSELOR NOTES PERFORMED ACCU-CHECK TWICE FOR THE PATIENT. THE VALUES ARE NOT BEING TRANSFERRED TO THE COMPUTER (CHEM LAB VALUE). SECOND VALUE OF 232. CONTACTED LAB; THEY SAID THEY ARE NOT RESPONSIBLE FOR THE ISSUES. CHARGE NURSE NOTIFIED.
[2019-11-02] MEDS: MEROPENEM 500 MG in IV NS 0.9% 100 ML IV SCH (17:48)
--- NOTE | 2019-11-02 18:48 | NUR ---
LINING PARTS SEWER CLOSING NOTES PATIENT IS IN BED, ASLEEP AND A/O X0. PATIENT IS NON-VERBAL, OPENS EYES OCCASIONALLY. BREATHING ON 5 LPM VIA NASAL CANNULA; NO SOB NOTED AT THIS TIME. NO SIGNS OF PAIN SUCH FACIAL GRIMACING, GUARDING OR MOANING. LAYING COMFORTABLY. EXTERNAL TELE WITH A CURRENT RHYTHM OF A-FIB 107. L WRIST IV ACCESS G#22 IS PRESENT AND INTACT INFUSING ANTIBIOTICS AT THIS TIME. G-TUBE IN PLACE RUNNING AT A RATE OF 55 MLS/HR. ALL NEEDS ATTENDED TO THROUGHOUT THE DAY. SAFETY PRECAUTIONS REMAIN IN PLACE; BED IN LOW POSITION AND LOCKED, RAILS UP X2, CALL LIGHT WITHIN REACH. WILL ENDORSE TO ASSURANCE OFFICER NURSE.
--- NOTE | 2019-11-02 19:40 | NUR ---
SALES MERCHANDISER OPENING NOTES RECEIVED PATIENT RESTING IN BED COMFORTABLY; A/OX1, NON-VERBAL; BREATHING EVEN AND UNLABORED, PATIENT ON 5L NC AND TOLERATING WELL; NO SOB NOTED; NO DISTRESS NOTED; TELE MONITOR READS UNCONTROLLED AFIB 104BPM; GTUBE FEEDING IN PLACE; GTUBE FEEDING STOPPED TEMPORARILY, PER AM SHIFT, NO INSULIN COVERAGE GIVEN D/T TECHNICAL ISSUES WITH ACCU CHECK DEVICE, 232MG/DL; RECHECKED ON MY SHIFT, 258MG/DL; STILL HAVING TECHNICAL ISSUES, NO PROOF OF ACCU CHECK DONE; WILL INFORM CHARGE NURSE; L WRIST #22 INTACT AND PATENT, INFUSING NS @70ML/HR; TOLERATING IVF WELL; SAFETY PRECAUTIONS IMPLEMENTED; BED LOCKED IN LOW POSITION; SIDE RAILS X2; CALL LIGHT WITHIN REACH, WILL CONT TO MONITOR
--- NOTE | 2019-11-02 21:03 | NUR ---
DIRECTOR OF CONTENT AND PROGRAMMING NOTES ACCU CHECK FOR 2200 DONE; BS 269MG/DL, INSULIN COVERAGE GIVEN; TECHNICAL ISSUES, ACCU CHECK READINGS NOT TRANSMITTING SINCE AM SHIFT; CHARGE NURSE JENSEN, LUCY AND CHARGE NURSE CELY AWARE; PER JENSEN RN IT WAS CALLED TO COME FIX THE ISSUE; GTUBE FEEDING WILL RESUME AT 55ML/HR; WILL CONT TO MONITOR
[2019-11-02] MEDS: *INSULIN REGULAR(HUMULIN R)HUM 100 UNIT/ML VIAL SQ PRN (21:07)
[2019-11-03] VITALS: BP 138/48
[2019-11-03] MEDS: ACETAMINOPHEN 325 MG TABLET PO PRN (00:09)
[2019-11-03] MEDS: ENOXAPARIN SODIUM 30 MG/0.3 ML DISP.SYRIN SQ SCH (00:18)
[2019-11-03 04:00] VITALS: BP 142/56
[2019-11-03] MEDS: MEROPENEM 500 MG in IV NS 0.9% 100 ML IV SCH ×2 (04:00→17:47)
[2019-11-03 04:23] VITALS: BP 142/56
--- NOTE | 2019-11-03 05:08 | NUR ---
MS RN NOTES RECEIVED REPORT FROM LAB; BLOOD CX GRAM + COCCI IN CLUSTERS; WILL CONT TO MONITOR
--- NOTE | 2019-11-03 06:50 | NUR ---
PHARMACY DATA ANALYST CLOSING NOTES PATIENT RESTING IN BED COMFORTABLY; 5L NC, TOLERATING WELL, BREATHING EVEN AND UNLABORED; NO SOB NOTED; TELE MONITOR READS UNCONTROLLED AFIB 95BPM; GTUBE INTACT AND RUNNING GLUCERNA @ 55ML/HR; TOLERATING WELL WITH LOW RESIDUALS; L WRIST #22 INTACT AND PATENT; FLUSHING WELL; ALL NEEDS RENDERED; SAFETY PRECAUTIONS IMPLEMENTED; BED LOCKED IN LOW POSITION; SIDE RAILS X2; CALL LIGHT WITHIN REACH; WILL ENDORSE DALILA TO ONCOMING SHIFT
[2019-11-03] MEDS: BLOOD SUGAR DIAGNOSTIC 1 EACH STRIP VI SCH ×4 (07:01→22:07)
[2019-11-03] MEDS: INSULIN REGULAR, HUMAN 100 UNIT/ML 3 ML VIAL SQ PRN ×3 (07:02→17:51)
--- NOTE | 2019-11-03 07:32 | NUR ---
GREEN END MAN OPENING NOTES RECEIVED PATIENT IN BED, NON-VERBAL. PATIENT ON OXYGEN THERAPY AT 5L NC, TOLERATING WELL, BREATHING EVEN AND UNLABORED; NO SOB NOTED; EXTERNAL TELE MONITOR WITH A CURRENT READING OF UNCONTROLLED AFIB 97 BPM. G-TUBE INTACT AND RUNNING GLUCERNA @ 55ML/HR; TOLERATING WELL WITH LOW RESIDUALS; L WRIST #22 INTACT AND PATENT; FLUSHING WELL. SAFETY PRECAUTIONS IN PLACE; BED IN LOW POSITION AND LOCKED; RAILS UP X2; CALL LIGHT WITHIN REACH. WILL CONTINUE TO MONITOR PATIENT.
[2019-11-03 08:00] VITALS: BP 144/67
[2019-11-03] MEDS: AMIODARONE HCL 200 MG TABLET PO SCH ×3 (09:23→21:00)
[2019-11-03] MEDS: CLOTRIMAZOLE 1% 15 GM TUBE TP SCH ×2 (09:23→17:47)
[2019-11-03 11:36] LABS: BASOPHILS % (AUTO) 0.2 % (0.0-2.0); EOSINOPHILS % (AUTO) 0.3 % (0.0-6.0); HEMATOCRIT 25 % (33-45); HEMOGLOBIN 7.8 g/dL (11.5-14.8); LYMPHOCYTES # (AUTO) 1.7 /CMM (0.8-4.8); LYMPHOCYTES % (AUTO) 10.4 % (20.0-44.0); MEAN CORPUSCULAR HGB CONC 32 g/dl (31.0-36.0); MEAN CORPUSCULAR VOLUME 89 fL (82-100); NEUTROPHILS # (AUTO) 13.8 /CMM (1.8-8.9); NEUTROPHILS % (AUTO) 83.1 % (43.0-81.0); PLATELET COUNT (AUTO) 523 /CMM (150-450); RED BLOOD CELL COUNT(AUTO) 2.74 MIL/uL (4.0-5.2); WHITE BLOOD COUNT (AUTO) 16.6 K/uL (4.3-11.0)
[2019-11-03 11:52] LABS: ALBUMIN 1.5 g/dL (3.4-5.0); BILIRUBIN,TOTAL 0.2 mg/dL (0.2-1.0); CALCIUM, SERUM 8.5 mg/dL (8.5-10.1); CREATININE 1.1 mg/dL (0.6-1.3); MAGNESIUM 2.3 mg/dL (1.8-2.4); PHOSPHORUS 2.5 mg/dL (2.5-4.9); POTASSIUM 4.5 mmol/L (3.5-5.1); TOTAL PROTEIN, SERUM 5.9 g/dL (6.4-8.2)
[2019-11-03] MEDS: GLUCERNA 1.2 1,000 ML BOTTLE GT PRN (12:15)
--- NOTE | 2019-11-03 14:37 | NUR ---
MS RN NOTES GAVE REPORT TO SHUBHAM (RN); WILL BE TAKEN OVER.
[2019-11-03] MEDS ORDERED: FEE PK DOSING 1 MIN EA MC ONE (15:49)
[2019-11-03 16:00] VITALS: BP 142/69
[2019-11-03] MEDS: VANCOMYCIN 1 GM in IV D5W 250 ML IV SCH (16:14)
--- NOTE | 2019-11-03 17:45 | NUR ---
BS 252, 9 UNITS OF INSULIN REGULAR (HUMULIN R/NOVOLIN R) ADMINISTERED ON RIGHT LOWER ABDOMEN
--- NOTE | 2019-11-03 19:10 | NUR ---
CHIEF ORTHOPTIST CLOSING NOTES PT IN BED, SLEEPING INTERMITTENTLY AT THIS. EASILY AROUSED AND RESPONSE TO LIGHT STIMULUS. PT IS NON VERBAL. NO SOB NOTED. PT REMAINED STABLE THROUGHOUT SHIFT. ALL NEEDS ATTENDED TO ANTICIPATED. NO S/S OF ANY ACUTE DISTRESS NOTED AT THIS TIME.SUCTION PERFORMED PER PROTOCOL. REPOSITION PER PROTOCOL. SAFETY PRECAUTIONS IN PLACE. PT KEPT CLEAN AND DRY. SKIN INTACT. BED IN LOWEST LOCKED POSITION, SIDE RAILS UP, BED ALARM ON, HOB ELEVATED TO 35 DEGREES, CALL LIGHT WITHIN REACH. WILL ENDORSE TO PHYSICIAN PRACTICE COORDINATOR NURSE FOR DALILA
--- NOTE | 2019-11-03 19:40 | NUR ---
MS RN OPENING NOTES RECEIVED PATIENT RESTING IN BED COMFORTABLY; NONVERBAL; BREATHING EVEN AND UNLABORED; PATIENT HAS CRACKLES; WILL MONITOR FLUID INTAKE; PATIENT TOLERATING 5L NC WELL; G TUBE FEEDING RUNNING AT 55ML/HR; PATIENT TOLERATING FEEDING WELL WITH LOW RESIDUALS; L WRIST 22# INTACT AND PATENT; FLUSHING WELL; SAFETY PRECAUTIONS IMPLEMENTED; BED LOCKED IN LOW POSITION; SIDE RAILS X2; CALL LIGHT WITHIN REACH; WILL CONT TO MONITOR
[2019-11-03 20:00] VITALS: BP 144/65
--- NOTE | 2019-11-03 21:00 | NUR ---
MS RN NOTES HELD CORDARONE; PATIENT HR 52BPM; WILL CONT TO MONITOR
[2019-11-03] MEDS: *INSULIN REGULAR(HUMULIN R)HUM 100 UNIT/ML VIAL SQ PRN (22:12)
[2019-11-04] MEDS: ENOXAPARIN SODIUM 30 MG/0.3 ML DISP.SYRIN SQ SCH (01:28)
[2019-11-04] MEDS: MEROPENEM 500 MG in IV NS 0.9% 100 ML IV SCH ×2 (04:59→16:39)
[2019-11-04] MEDS: BLOOD SUGAR DIAGNOSTIC 1 EACH STRIP VI SCH ×4 (06:34→22:45)
[2019-11-04] MEDS: INSULIN REGULAR, HUMAN 100 UNIT/ML 3 ML VIAL SQ PRN ×3 (06:37→18:54)
--- NOTE | 2019-11-04 07:01 | NUR ---
MS RN CLOSING NOTES PATIENT RESTING IN BED COMFORTABLY; BREATHING EVEN AND UNLABORED; NO SOB NOTED; PATIENT TOLERATING 5L NC WELL; [employer] MATTRESS APPLIED; LWRIST #22 INTACT AND PATENT; FLUSHING WELL; GTUBE INTACT; PATIENT TOLERATING GTUBE FEEDING WELL WITH LOW RESIDUALS; ALL NEEDS RENDERED; SAFETY PRECAUTIONS IMPLEMENTED; BED LOCKED IN LOW POSITION; SIDE RAILS X2; CALL LIGHT WITHIN REACH; WILL ENDORSE DALILA TO ONCOMING NURSE
[2019-11-04 07:30] VITALS: BP 101/67
[2019-11-04 07:40] LABS: CALCIUM, SERUM 9.2 mg/dL (8.5-10.1); CREATININE 0.9 mg/dL (0.6-1.3); POTASSIUM 4.5 mmol/L (3.5-5.1)
--- NOTE | 2019-11-04 07:40 | NUR ---
M/S RN NOTES PATIENT RESTING IN BED, NO RESPIRATORY DISTRESS NOTED, ON NASAL CANULA, O2 AT 4L, SPO2 96%. PATIENT WITH NO S/S OF PAIN OR DISCOMFORT AT THIS TIME. SKIN WARM TO TOUCH, IV ACCESS SITE INTACT AND PATENT. PATIENT'S NEEDS ATTENDED, BED ON LOWEST LOCKED POSITION, CALL LIGHT WITHIN REACH. WILL CONTINUE TO MONITOR.
[2019-11-04] MEDS: CLOTRIMAZOLE 1% 15 GM TUBE TP SCH ×2 (09:09→16:48)
[2019-11-04] MEDS: AMIODARONE HCL 200 MG TABLET PO SCH ×3 (09:10→21:49)
--- NOTE | 2019-11-04 14:51 | NUR ---
M/S RN NOTES CALLED [facility] AND LEFT MESSAGE FOR MD FOR MED RECON TO BE DONE.
[2019-11-04] MEDS: VANCOMYCIN 1 GM in IV D5W 250 ML IV SCH (15:09)
[2019-11-04 16:00] VITALS: BP 156/72
[2019-11-04 20:00] VITALS: BP 125/83
[2019-11-04] MEDS: GLUCERNA 1.2 1,000 ML BOTTLE GT PRN (22:00)
[2019-11-04] MEDS: *INSULIN REGULAR(HUMULIN R)HUM 100 UNIT/ML VIAL SQ PRN (22:48)
[2019-11-05] MEDS: ENOXAPARIN SODIUM 30 MG/0.3 ML DISP.SYRIN SQ SCH (01:05)
[2019-11-05] MEDS: MEROPENEM 500 MG in IV NS 0.9% 100 ML IV SCH ×2 (04:16→17:39)
--- NOTE | 2019-11-05 05:29 | NUR ---
MS RN OPENING NOTES PATIENT RECEIVED RESTING IN BED A/O X 0, ABLE TO OPEN EYES AND GROAN. ON 4L OF O2 WITH BREATHING EVEN AND UNLABORED, NO SOB NOTED. NO SIGNS OF ACUTE DISTRESS. NO COMPLAINTS OF PAIN OR DISCOMFORT, NO FACIAL GRIMACING NOTED. GTUBE FEEDING RUNNING GLUCERNA 1.2 @ 55ML/ HR. IV LOCATED ON L WRIST #22 RUNNING NS @ 70 ML/HR. SAFETY PRECAUTIONS IN PLACE WITH BED IN LOWEST POSITION, CALL LIGHT WITHIN REACH, BREAKS ON, SIDE RAILS UP. WILL CONTINUE TO MONITOR THROUGHOUT THE SHIFT.
[2019-11-05] MEDS: BLOOD SUGAR DIAGNOSTIC 1 EACH STRIP VI SCH ×4 (06:48→22:47)
[2019-11-05] MEDS: INSULIN REGULAR, HUMAN 100 UNIT/ML 3 ML VIAL SQ PRN ×3 (06:49→19:05)
--- NOTE | 2019-11-05 07:25 | NUR ---
MS RN CLOSING NOTES PATIENT RESTING IN BED A/O X 0, ABLE TO OPEN EYES AND GROAN. ON 4L OF O2 WITH BREATHING EVEN AND UNLABORED, NO SOB NOTED. NO SIGNS OF ACUTE DISTRESS. NO COMPLAINTS OF PAIN OR DISCOMFORT, NO FACIAL GRIMACING NOTED. GTUBE FEEDING RUNNING GLUCERNA 1.2 @ 55ML/ HR. IV LOCATED ON L WRIST #22 RUNNING NS @ 70 ML/HR. SAFETY PRECAUTIONS IN PLACE WITH BED IN LOWEST POSITION, CALL LIGHT WITHIN REACH, BREAKS ON, SIDE RAILS UP. PATIENT KEPT CLEAN AND DRY, ALL NEEDS ATTENDED TO. WILL ENDORSE TO ONCOMING SHIFT ABOUT DALILA.
[2019-11-05 07:40] LABS: CREATININE 0.8 mg/dL (0.6-1.3); POTASSIUM 4.6 mmol/L (3.5-5.1)
[2019-11-05 08:00] VITALS: BP 142/99
[2019-11-05] MEDS: AMIODARONE HCL 200 MG TABLET PO SCH ×3 (09:47→21:13)
[2019-11-05] MEDS: CLOTRIMAZOLE 1% 15 GM TUBE TP SCH ×2 (09:49→17:39)
[2019-11-05 16:00] VITALS: BP 134/83
[2019-11-05] MEDS: VANCOMYCIN 1 GM in IV D5W 250 ML IV SCH (16:29)
--- NOTE | 2019-11-05 19:30 | NUR ---
M/S RN NOTES PATIENT RESTING IN BED, NO ACUTE DISTRESS NOTED, ON NASAL CANULA, O2 AT 4L. PATIENT HAVING WET COUGH AT TIMES. PATIENT SUCTIONED ORALLY. HOB AT SEMI FOWLERS. PATIENT WITH NO S/S OF PAIN OR DISCOMFORT AT THIS TIME. SKIN WARM TO TOUCH, IV ACCESS SITE INTACT AND PATENT. GT INTACT AND PATENT, GLUCERNA 1.2 RUNNING AT 55ML/HR, TOLERATING WELL. PATIENT'S NEEDS ATTENDED, BED ON LOWEST LOCKED POSITION, CALL LIGHT WITHIN REACH. WILL ENDORSE TO ONCOMING NURSE.
--- NOTE | 2019-11-05 19:56 | NUR ---
RN NOTES RECEIVED PATIENT RESTING IN BED, NO ACUTE DISTRESS NOTED, ON NASAL CANULA, O2 AT 4L. SUCTIONED ORALLY.SAFETY MEASURES [address]IN [address], ASPIRATION PRECAUTION EMPHASIZED. HOB AT SEMI FOWLERS. PATIENT WITH NO S/S OF PAIN OR DISCOMFORT AT THIS TIME. SKIN WARM TO TOUCH, IV ACCESS SITE INTACT AND PATENT. GT INTACT AND PATENT, GLUCERNA 1.2 RUNNING AT 55ML/HR, FEEDING TOLERATING WELL. PATIENT'S NEEDS ATTENDED, BED ON LOWEST LOCKED POSITION, CALL LIGHT WITHIN EASY REACH. WILL CONTINUE TO MONITOR ACCORDINGLY.
[2019-11-05 20:08] VITALS: BP 161/88
[2019-11-05 20:53] VITALS: BP 89/50
[2019-11-05] MEDS: GLUCERNA 1.2 1,000 ML BOTTLE GT PRN (21:43)
[2019-11-05] MEDS: *INSULIN REGULAR(HUMULIN R)HUM 100 UNIT/ML VIAL SQ PRN (23:03)
[2019-11-06] MEDS: ENOXAPARIN SODIUM 30 MG/0.3 ML DISP.SYRIN SQ SCH (02:01)
[2019-11-06] MEDS ORDERED: VANCOMYCIN 0.75 GM in IV D5W 250 ML IV SCH (04:00)
[2019-11-06] MEDS: MEROPENEM 500 MG in IV NS 0.9% 100 ML IV SCH ×2 (05:18→17:26)
--- NOTE | 2019-11-06 06:44 | NUR ---
RN NOTES ALL NEEDS ATTENDED AND MET. ABLE TO REST AND SLEPT AT INTERVALS. PATIENT RESTING IN BED, NO ACUTE DISTRESS NOTED, ON NASAL CANULA, O2 AT 4L. SUCTIONED ORALLY.SAFETY MEASURES [address]IN [address], ASPIRATION PRECAUTION EMPHASIZED. HOB AT SEMI FOWLERS. PATIENT WITH NO S/S OF PAIN OR DISCOMFORT AT THIS TIME. SKIN WARM TO TOUCH, IV ACCESS SITE INTACT AND PATENT. GT INTACT AND PATENT, GLUCERNA 1.2 RUNNING AT 55ML/HR, FEEDING TOLERATING WELL. PATIENT'S NEEDS ATTENDED, BED ON LOWEST LOCKED POSITION, CALL LIGHT WITHIN EASY REACH. WILL ENDORSE TO AM NURSE FOR CONTINUITY OF CARE.
[2019-11-06] MEDS: BLOOD SUGAR DIAGNOSTIC 1 EACH STRIP VI SCH ×3 (06:51→17:32)
[2019-11-06] MEDS: INSULIN REGULAR, HUMAN 100 UNIT/ML 3 ML VIAL SQ PRN ×3 (06:52→17:39)
--- NOTE | 2019-11-06 07:10 | NUR ---
MS RN OPENING NOTES RECEIVED PT RESTING IN BED. A/O X 0, GROANING AND ABLE TO OPEN EYES. NO SOB NOTED, NO S/S OF ANY ACUTE DISTRESS NOTED. PT ON 4LPM OF O2 VIA NC. BREATHING EVEN AND UNLABORED, NO S/S OF PAIN OR DISCOMFORT, NO FACIAL GRIMACING NOTED. GTUBE FEEDING RUNNING GLUCERNA 1.2 @ 55ML/HR WITH NO RESIDUAL NOTED. IV LOCATED ON L WRIST G#22, INTACT AND PATENT. BED IN LOWEST LOCKED, SIDE RAILS UP, BED ALARM ON, HOB ELEVATED TO SEMI FOWLERS POSITION, CALL LIGHTS WITHIN REACH. WILL CONTINUE TO MONITOR FOR DALILA
[2019-11-06 08:34] LABS: CALCIUM, SERUM 9.2 mg/dL (8.5-10.1); CREATININE 0.8 mg/dL (0.6-1.3); POTASSIUM 4.7 mmol/L (3.5-5.1)
[2019-11-06 08:37] LABS: BASOPHILS # (AUTO) 0.1 /CMM (0.0-0.2); BASOPHILS % (AUTO) 0.6 % (0.0-2.0); EOSINOPHILS % (AUTO) 6.3 % (0.0-6.0); HEMATOCRIT 27 % (33-45); HEMOGLOBIN 8.2 g/dL (11.5-14.8); LYMPHOCYTES # (AUTO) 2.3 /CMM (0.8-4.8); LYMPHOCYTES % (AUTO) 16.2 % (20.0-44.0); MEAN CORPUSCULAR HGB CONC 31 g/dl (31.0-36.0); MEAN CORPUSCULAR VOLUME 91 fL (82-100); MONOCYTES # (AUTO) 1.1 /CMM (0.1-1.30); MONOCYTES % (AUTO) 7.6 % (2.0-12.0); NEUTROPHILS # (AUTO) 9.8 /CMM (1.8-8.9); NEUTROPHILS % (AUTO) 69.3 % (43.0-81.0); PLATELET COUNT (AUTO) 543 /CMM (150-450); RED BLOOD CELL COUNT(AUTO) 2.92 MIL/uL (4.0-5.2); WHITE BLOOD COUNT (AUTO) 14.2 K/uL (4.3-11.0)
[2019-11-06 09:54] LABS: EOSINOPHILS % (MANUAL) 3 % (0-4); LYMPHOCYTES % (MANUAL) 14 % (16-48); MONOCYTES % (MANUAL) 6 % (0-11.0); NEUTROPHILS % (MANUAL) 77 (42-76)
[2019-11-06] MEDS: AMIODARONE HCL 200 MG TABLET PO SCH ×3 (09:56→21:16)
[2019-11-06] MEDS: CLOTRIMAZOLE 1% 15 GM TUBE TP SCH ×2 (09:56→17:27)
--- NOTE | 2019-11-06 11:00 | NUR ---
NO MORE IV FLUIDS ADMINISTRATION PER BROOKE LIU. ORDER CARRIED OUT. WILL CONTINUE TO MONITOR
[2019-11-06] MEDS ORDERED: IV D5W 1,000 ML IV ONE (14:00)
[2019-11-06 16:00] VITALS: BP 148/69
--- NOTE | 2019-11-06 19:10 | NUR ---
MS RN CLOSING NOTES PT RESTING IN BED. EYES OPEN.PT REMAINED STABLE THROUGHOUT SHIFT. NO SOB NOTED, NO S/S OF ANY ACUTE DISTRESS NOTED. BREATHING EVEN AND UNLABORED, NO S/S OF PAIN OR DISCOMFORT, N GTUBE FEEDING RUNNING GLUCERNA 1.2 @ 55ML/HR WITH NO RESIDUAL NOTED. PT TOLERATING GTUBE FEEDING WELL. PT KEPT CLEAN AND DRY. PT CARE PROVIDED PER ORDER. SUCTION DONE NEEDED. PT REPOSITIONED Q2HRS AND PRN. BED IN LOWEST LOCKED, SIDE RAILS UP, BED ALARM ON, HOB ELEVATED TO SEMI FOWLERS POSITION, CALL LIGHTS WITHIN REACH. WILL ENDORSE TO FLORAL CLERK NURSE FOR DALILA
--- NOTE | 2019-11-06 19:30 | NUR ---
MS RN PM OPENING NOTE REPORT RECIEVED FROM IMMACJONES RN. PT IN BED. EYES OPEN. NO SOB NOTED. BREATHING EVEN AND UNLABORED, NO S/S OF PAIN OR DISCOMFORT, GTUBE FEEDING RUNNING GLUCERNA 1.2 @ 55ML/HR WITH RESIDUAL CHECKED AND LESS THEN 20 ML. SUCTION DONE NEEDED. SKIN PROTECTION IN PLACE TURNING SCHEDULE TO BE OBSERED PT ON AIR MATTRESS. BED IN LOWEST LOCKED, SIDE RAILS UP, BED ALARM ON, HOB ELEVATED TO SEMI FOWLERS POSITION, CALL LIGHT PLACED WITHIN REACH.
[2019-11-06 20:00] VITALS: BP 142/78
--- NOTE | 2019-11-06 20:28 | NUR ---
REPORT GIVEN TO PRIMO TO ASSUME AND CONTINUE PATIENT CARE.
--- NOTE | 2019-11-06 20:30 | NUR ---
RN NOTES Assume care of this patient. On bed comfortably. Will continue to monitor accordingly.
[2019-11-06] MEDS: GLUCERNA 1.2 1,000 ML BOTTLE GT PRN (20:34)
[2019-11-06 20:46] VITALS: BP 142/78
[2019-11-06] MEDS: ENOXAPARIN SODIUM 40 MG/0.4 ML DISP.SYRIN SQ SCH (21:20)
[2019-11-07] MEDS: HYDROCODONE/APAP 5/325MG 1 EACH TABLET PO PRN (00:09)
[2019-11-07] MEDS: BLOOD SUGAR DIAGNOSTIC 1 EACH STRIP VI SCH ×5 (00:09→23:29)
--- NOTE | 2019-11-07 00:30 | NUR ---
RN NOTES ACCU-CHEK DONE. BS -285, NOT UPLOADED TO THE SYSTEM. SIMILAR TO PREVIOUS PROBLEM, CHARGE NURSE MADE AWARE.
[2019-11-07] MEDS: *INSULIN REGULAR(HUMULIN R)HUM 100 UNIT/ML VIAL SQ PRN (00:32)
[2019-11-07] MEDS: MEROPENEM 500 MG in IV NS 0.9% 100 ML IV SCH ×2 (04:03→17:30)
--- NOTE | 2019-11-07 04:15 | NUR ---
RN NOTES Patient noted with coarse breath sound. Suctioned oral, scanty thick whitish secretion noted. Breath sound no improvement noted. Kept on Abarca's position, on O2 inhalation, breathing remained symmetrical and unlabored. Notified RT for further deep suctioning. Will continue to monitor accordingly.
--- NOTE | 2019-11-07 04:59 | NUR ---
RT NOTE PERFORMED NASOTRACHEAL SUCTION ON PATIENT DUE TO COARSE B/S BILATERALLY. MODERATE THICK RED BLOODY SECRETIONS NOTED. RN PRIMO AWARE. NO DISTRESS NOTED.
--- NOTE | 2019-11-07 05:00 | NUR ---
RN NOTES Rt at bedside for deep suctioning. Thick secretions with blood noted. Coarse breath sound diminished. Patient noted comfortable at this time.
--- NOTE | 2019-11-07 05:18 | NUR ---
RN NOTES BS RECHECKED - 108. NO INSULIN COVERAGE AT THIS TIME.
--- NOTE | 2019-11-07 06:36 | NUR ---
RN CLOSING NOTES Patient asleep, responsive to pain and tactile stimuli. On O2 inhalation via NC @ 4LPM, saturating well, no SOB/respiratory distress noted. On GTF tolerating well, no vomiting or abdominal distention/tenderness noted. Due meds given as ordered. All nursing needs attended. Kept on bed clean, dry and comfortable. On fall and aspiration precautions. Endorsed.
--- NOTE | 2019-11-07 07:12 | NUR ---
MS RN OPENING NOTES RECEIVED PT RESTING IN BED. A/O X 0, ABLE TO OPEN EYE. NO SOB NOTED, NO S/S OF ANY ACUTE DISTRESS NOTED. PT ON 4LPM OF O2 VIA NC. RESPIRATIONS EVEN AND UNLABORED, NO S/S OF PAIN OR DISCOMFORT, NO FACIAL GRIMACING NOTED. GTUBE FEEDING RUNNING GLUCERNA 1.2 @ 55ML/HR WITH NO RESIDUAL NOTED. IV LOCATED ON L WRIST G#22, INTACT AND PATENT. BED IN LOWEST LOCKED, SIDE RAILS UP, BED ALARM ON, HOB ELEVATED TO SEMI FOWLERS POSITION, CALL LIGHTS WITHIN REACH. WILL CONTINUE TO MONITOR
--- NOTE | 2019-11-07 07:12 | NUR ---
PT GTUBE FLUSHED WITH 150ML WATER Q6HR PER ORDER. WILL CONTINUE TO MONITOR
[2019-11-07 07:35] LABS: CREATININE 0.8 mg/dL (0.6-1.3)
[2019-11-07 08:00] VITALS: BP 112/58
--- NOTE | 2019-11-07 08:58 | NUR ---
[employer]OL[employer] SETTER INDUCTION HEATING EQUIPMENT CALLED IN PT'S CRITICAL LAB VALUE FOR SODIUM 158. BROOKE LIU WAS MADE AWARE. PER BROOKE LAZCANO PT IS ON WATER FLUSH 150ML Q6HRS. ORDER CARRIED OUT PER ORDER, WILL CONTINUE TO MONITOR.
[2019-11-07] MEDS: CLOTRIMAZOLE 1% 15 GM TUBE TP SCH ×2 (09:13→17:31)
[2019-11-07] MEDS: AMIODARONE HCL 200 MG TABLET PO SCH ×3 (09:13→21:28)
[2019-11-07] MEDS: INSULIN REGULAR, HUMAN 100 UNIT/ML 3 ML VIAL SQ PRN ×3 (11:54→23:50)
--- NOTE | 2019-11-07 12:00 | NUR ---
BS 314, INSULIN REGULAR 12 UNITS SQ PRN Q6HR ADMINISTERED PER ORDER. WILL CONTINUE TO MONITOR
--- NOTE | 2019-11-07 13:20 | NUR ---
PT GTUBE FLUSHED WITH 150ML WATER Q6HR PER ORDER. WILL CONTINUE TO MONITOR
[2019-11-07 16:00] VITALS: BP 112/58
--- NOTE | 2019-11-07 19:00 | NUR ---
MS RN CLOSING NOTES PT RESTING IN BED. EASY TO AWAKE. PT REMAINED STABLE THROUGHOUT SHIFT. NO SOB NOTED, NO S/S OF ANY ACUTE DISTRESS NOTED. RESPIRATIONS EVEN AND UNLABORED, NO S/S OF PAIN OR DISCOMFORT NOTED, NO FACIAL GRIMACING, NO GROANING AT THIS TIME. GTUBE FEEDING RUNNING GLUCERNA 1.2 @ 55ML/HR WITH 5ML RESIDUAL NOTED. PT TOLERATING GTUBE FEEDING WELL. PT KEPT CLEAN AND DRY. PT CARE AND WOUND TREATMENT PROVIDED PER ORDER. SUCTION DONE NEEDED. PT REPOSITIONED Q2HRS AND PRN. BED IN LOWEST LOCKED, SIDE RAILS UP, BED ALARM ON, HOB ELEVATED TO SEMI FOWLERS POSITION, CALL LIGHTS WITHIN REACH. WILL ENDORSE TO ENGINEER STATION MAINLINE NURSE FOR DALILA
--- NOTE | 2019-11-07 19:12 | NUR ---
PT GTUBE FLUSHED WITH 150ML WATER Q6HR PER ORDER. WILL ENDORSE TO [employer] [place] NURSE FOR DALILA
[2019-11-07 20:55] VITALS: BP 130/82
[2019-11-07] MEDS: ENOXAPARIN SODIUM 40 MG/0.4 ML DISP.SYRIN SQ SCH (21:24)
[2019-11-08] MEDS: MEROPENEM 500 MG in IV NS 0.9% 100 ML IV SCH ×2 (05:02→16:36)
[2019-11-08] MEDS: BLOOD SUGAR DIAGNOSTIC 1 EACH STRIP VI SCH ×3 (06:35→17:48)
[2019-11-08] MEDS: INSULIN REGULAR, HUMAN 100 UNIT/ML 3 ML VIAL SQ PRN ×3 (06:44→17:49)
[2019-11-08 07:11] LABS: CALCIUM, SERUM 8.9 mg/dL (8.5-10.1); CREATININE 0.8 mg/dL (0.6-1.3); POTASSIUM 4.7 mmol/L (3.5-5.1)
[2019-11-08 08:54] VITALS: BP 150/63
[2019-11-08] MEDS: AMIODARONE HCL 200 MG TABLET PO SCH ×2 (09:10→16:36)
[2019-11-08] MEDS: CLOTRIMAZOLE 1% 15 GM TUBE TP SCH ×2 (09:13→16:47)
--- NOTE | 2019-11-08 11:39 | NUR ---
MS/RN NOTES BS 214MG/DL INSULIN 6 UNITS WAS GIVEN.
[2019-11-08] MEDS: GLUCERNA 1.2 1,000 ML BOTTLE GT PRN (12:22)
[2019-11-08] MEDS: HYDROCODONE/APAP 5/325MG 1 EACH TABLET PO PRN ×3 (12:22→20:29)
[2019-11-08 16:07] VITALS: BP 144/81
--- NOTE | 2019-11-08 18:48 | NUR ---
TELE/RN CLOSING NOTES PATIENT RESTING IN BED COMFORTABLY. PATIENT IS ALERT AND ORIENTED X 0-1. PATIENT NO SIGN AND SYMPTOM OF PAIN AT THIS TIME. PATIENT IN NO APPARENT RESPIRATORY DISTRESS NOTED. PATIENT ON OXYGEN AT 4L VIA NASAL CANNULA SATURATION OF 98%. IV ACCESS IN PLACE AT LEFT WRIST #22 H/L INTACT AND PATENT, FLUSHING WELL. NO S/S OF REDNESS OR INFILTRATION. SAFETY PRECAUTIONS IMPLEMENTED, SEEN AND EXAMINED BY MD WITH ORDERS MADE AND NOTED. ALL DUE MEDS WAS GIVEN. CHECKED AND TURNED PATIENT EVERY TWO HOURS. BED LOCKED IN LOW POSITION, SIDE RAILS UP X2. CALL LIGHT WITHIN REACH. WILL ENDORSED TO FIELD ARTILLERY OPERATIONS MAN FOR DALILA.
--- NOTE | 2019-11-08 20:07 | NUR ---
RECIEVED IN BED LYING ON THE RIGHT SIDE iv LEAKING, NEW IV G20 PLACED RIGHT AWAY. SHE MOANS AND SHAKES WHEN TOUCHED. 02 N/C ON.
[2019-11-08 20:09] VITALS: BP 145/87
[2019-11-08] MEDS: ENOXAPARIN SODIUM 40 MG/0.4 ML DISP.SYRIN SQ SCH (20:31)
[2019-11-08 20:36] VITALS: BP 145/87
[2019-11-09] MEDS: BLOOD SUGAR DIAGNOSTIC 1 EACH STRIP VI SCH ×4 (00:04→17:12)
[2019-11-09] MEDS: *INSULIN REGULAR(HUMULIN R)HUM 100 UNIT/ML VIAL SQ PRN (00:08)
[2019-11-09] MEDS: MEROPENEM 500 MG in IV NS 0.9% 100 ML IV SCH ×2 (05:05→17:10)
[2019-11-09] MEDS: GLUCERNA 1.2 1,000 ML BOTTLE GT PRN (05:06)
[2019-11-09] MEDS: INSULIN REGULAR, HUMAN 100 UNIT/ML 3 ML VIAL SQ PRN ×3 (05:45→17:13)
[2019-11-09 07:22] LABS: BASOPHILS # (AUTO) 0.1 /CMM (0.0-0.2); BASOPHILS % (AUTO) 0.8 % (0.0-2.0); EOSINOPHILS % (AUTO) 5.5 % (0.0-6.0); HEMATOCRIT 25 % (33-45); LYMPHOCYTES # (AUTO) 1.9 /CMM (0.8-4.8); MEAN CORPUSCULAR HGB CONC 32 g/dl (31.0-36.0); MEAN CORPUSCULAR VOLUME 90 fL (82-100); MONOCYTES # (AUTO) 0.4 /CMM (0.1-1.30); MONOCYTES % (AUTO) 3.9 % (2.0-12.0); NEUTROPHILS # (AUTO) 8.3 /CMM (1.8-8.9); NEUTROPHILS % (AUTO) 72.8 % (43.0-81.0); PLATELET COUNT (AUTO) 394 /CMM (150-450); RED BLOOD CELL COUNT(AUTO) 2.81 MIL/uL (4.0-5.2); WHITE BLOOD COUNT (AUTO) 11.4 K/uL (4.3-11.0)
--- NOTE | 2019-11-09 07:45 | NUR ---
RN NOTES RECEIVED PATIENT RESTING IN BED COMFORTABLY. A/O X 0-1. ON OXYGEN AT 4L VIA NASAL CANNULA. NO SIGNS OF DISTRESS NOTED AT THIS TIME. IV ACCESS IN PLACE AT RIGHT ARM #20 H/L INTACT AND PATENT, FLUSHING WELL. SAFETY PRECAUTIONS IN PLACE. BED LOCKED IN LOW POSITION, SIDE RAILS UP X2. CALL LIGHT WITHIN REACH. WILL CONTINUE TO MONITOR.
[2019-11-09 08:00] VITALS: BP 149/100
[2019-11-09 08:13] LABS: CREATININE 0.9 mg/dL (0.6-1.3)
[2019-11-09] MEDS: AMIODARONE HCL 200 MG TABLET PO SCH ×2 (08:54→17:19)
[2019-11-09] MEDS: CLOTRIMAZOLE 1% 15 GM TUBE TP SCH ×2 (08:58→17:14)
[2019-11-09 16:00] VITALS: BP 139/50
[2019-11-09] MEDS: ACETAMINOPHEN 325 MG TABLET PO PRN (17:10)
--- NOTE | 2019-11-09 18:29 | NUR ---
RN NOTES PATIENT RESTING IN BED COMFORTABLY. A/O X 0-1. ON OXYGEN AT 4L VIA NASAL CANNULA. NO SIGNS OF DISTRESS NOTED THROUGHOUT THE SHIFT. IV ACCESS IN PLACE AT RIGHT ARM #20 H/L INTACT AND PATENT, FLUSHING WELL. NOTED WITH FEVER OF 101.5, TYLENOL WAS GIVEN AND COOLING MEASURES APPLIED, CURRENT TEMP OF 99.3. SAFETY PRECAUTIONS IN PLACE. BED LOCKED IN LOW POSITION, SIDE RAILS UP X2. CALL LIGHT WITHIN REACH. WILL ENDORSE TO LUBRICATION SERVICER NURSE FOR DALILA.
--- NOTE | 2019-11-09 19:50 | NUR ---
RN OPENING NOTES RECEIVED REPORT FROM MADHU RODARTE. FOUND Pt ASLEEP IN BED. NO S/S OF ACUTE DISTRESS OR SOB NOTED. ON 2L NC. Pt IS A/OX1, RESPONDS TO TACTILE STIMULI. ON GTF GLUCERNA 1.2 @ 55ML/HR CONTINUOUS. IV ACCESS ON RFA #20G @ TKO. IV ABX RUNNING AT THIS TIME. PER REPORT Pt TESTED NEGATIVE X1 FOR COVID. DC PLANNING TO SNF. PER REPORT Pt WAS RUNNING A TEMP @ 100.1F AUX, TYLENOL 650MG WAS GIVEN @1710 & COOLING MEASURES APPLIED. WILL MONITOR TEMP. SAFETY MEASURES IN PLACE. BED LOW, LOCKED, HOB ELEVATED, SIDE RAILS UP, & BED ALARM ON. WILL CONTINUE TO MONITOR Pt's CONDITION AND SAFETY THROUGHOUT THE NIGHT.
[2019-11-09 20:00] VITALS: BP 139/93
[2019-11-09] MEDS: ENOXAPARIN SODIUM 40 MG/0.4 ML DISP.SYRIN SQ SCH (21:13)
--- NOTE | 2019-11-10 00:30 | NUR ---
RN NOTES BG ACCUCHECK 258. ADMINISTERED 9UN OF INSULIN PER SLIDING SCALE.
[2019-11-10] MEDS: BLOOD SUGAR DIAGNOSTIC 1 EACH STRIP VI SCH ×5 (00:35→23:30)
[2019-11-10] MEDS: GLUCERNA 1.2 1,000 ML BOTTLE GT PRN (00:36)
[2019-11-10] MEDS: INSULIN REGULAR, HUMAN 100 UNIT/ML 3 ML VIAL SQ PRN ×4 (00:49→23:33)
[2019-11-10] MEDS: MEROPENEM 500 MG in IV NS 0.9% 100 ML IV SCH ×2 (05:42→17:34)
--- NOTE | 2019-11-10 06:30 | NUR ---
RN NOTES BG ACCUCHECK 96. NO INSULIN COVERAGE NEEDED AT THIS TIME.
--- NOTE | 2019-11-10 07:24 | NUR ---
RN CLOSING NOTES NO SIGNIFICANT CHANGES IN Pt's CONDITION. NO S/S OF ACUTE DISTRESS OR SOB NOTED DURING THE NIGHT. ALL NEEDS MET AND ATTENDED TO. Pt IS RESTING COMFORTABLY IN BED. SAFETY MEASURES IN PLACE. ENDORSED TO DAYSHIFT RN FOR Pt's DALILA.
[2019-11-10 08:00] VITALS: BP 130/66
--- NOTE | 2019-11-10 08:00 | NUR ---
MS RN OPENING NOTES RECEIVED PATIENT IN BED, A/0 X 0, NON VERBAL, IN SALCEDO'S POSITION, BREATHING AT ROOM AIR, UNLABORED BREATHING, NO SIGNS OF RFA #20G @ TKO, GT FEEDING GLUCERNA @ 55ML/HR, WOUNDS AROUND BOTH LEGS, SIDE RAILS UP.
[2019-11-10] MEDS: CLOTRIMAZOLE 1% 15 GM TUBE TP SCH ×2 (09:58→17:36)
[2019-11-10] MEDS: AMIODARONE HCL 200 MG TABLET PO SCH ×2 (10:00→17:35)
[2019-11-10 11:36] LABS: APPEARANCE,URINE SL CLOUDY (CLEAR); BILIRUBIN,URINE NEGATIVE (NEGATIVE); BLOOD, URINE NEGATIVE Ery/uL (NEGATIVE); COLOR,URINE YELLOW (YELLOW); KETONES,URINE NEGATIVE (NEGATIVE); LEUKOCYTE ESTERASE ,URINE NEGATIVE (NEGATIVE); NITRITE, URINE NEGATIVE (NEGATIVE); PH,URINE 7.5 (5.0-8.0); PROTEIN,URINE TRACE mg/dl (NEGATIVE); UGLUCOSE NEGATIVE (NEGATIVE); UROBILINOGEN,URINE 0.2 EU/dL (0.2)
[2019-11-10 12:14] LABS: BACTERIA,URINE Rare /HPF (None Seen); RBC,URINE 0-2 /HPF (0-2); SQUAMOUS EPITHELIAL CELL,UR Few /HPF (None Seen)
[2019-11-10 16:00] VITALS: BP 137/100
--- NOTE | 2019-11-10 19:16 | NUR ---
MS RN CLOSING NOTES ENDORSED PATIENT TO PHARMACY RESIDENT NURSE IN BED, A/0 X 0, IN HIGH SALCEDO'S POSITION, BREATHING AT ROOM AIR, UNLABORED BREATHING, NO SIGNS OF RESPIRATORY DISTRESS, RFA #20G TKO, GT FEEDING GLUCERNA @ 55ML/HR, SIDE RAILS UP FOR SAFETY. RECEIVED PATIENT IN BED, A/0 X 0, NON VERBAL, IN SALCEDO'S POSITION, BREATHING AT ROOM AIR, UNLABORED BREATHING, NO SIGNS OF RFA #20G @ TKO, GT FEEDING GLUCERNA @ 55ML/HR, WOUNDS AROUND BOTH LEGS, SIDE RAILS UP.
--- NOTE | 2019-11-10 19:45 | NUR ---
MS RN OPENING NOTES RECEIVE PATIENT FROM MORNING SHIFT, AWAKE NON-VERBAL. BREATHING REGULAR AND UNLABORED ON OXYGEN AT 2L/MIN VIA NASAL CANNULA. RIGHT FOREARM G20 INTACT AND PATENT, INFUSING WELL WITH NO BLEEDING AND S/S OF INFILTRATION NOTED. GTUBE INTACT AND PATENT WITH NO RESIDUAL ASPIRATED. ON ASPIRATION PRECAUTIONS. NO S/S OF PAIN/DISCOMFORT NOTED AT THIS TIME. BED LOW AND LOCKED ON SEMI FOWLERS POSITION. CALL LIGHT IN REACH. WILL CONTINUE TO MONITOR.
[2019-11-10 20:00] VITALS: BP 150/69
[2019-11-10] MEDS: ENOXAPARIN SODIUM 40 MG/0.4 ML DISP.SYRIN SQ SCH (21:01)
--- NOTE | 2019-11-10 23:00 | NUR ---
MS RN NOTES WEEKLY WOUND ASSESSMENT DONE, PHOTOS TAKEN ATTACHED TO CHART. WOUND TREATMENT PROVIDED. REPOSITIONED ON HER RIGHT SIDE.
--- NOTE | 2019-11-10 23:40 | NUR ---
MS RN NOTES BS 244mg/dl, 6UNITS REGULAR INSULIN GIVEN SQ. GTUBE INTACT AND PATENT, FEEDING TOLERATING WELL. WILL CONTINUE TO MONITOR.
--- NOTE | 2019-11-11 | NUR ---
MS AYALA NOTES BS 244mg/dl, 6UNITS REGULAR INSULIN GIVEN SQ. GTUBE ON, FEEDING TOLERATING WELL. ON ASPIRATION PRECAUTION. Addendum: 11/12/19 at 0623 by WILBERT JACOB RN WRONG DATE ENTRY
[2019-11-11] MEDS: GLUCERNA 1.2 1,000 ML BOTTLE GT PRN (01:09)
[2019-11-11] MEDS: MEROPENEM 500 MG in IV NS 0.9% 100 ML IV SCH ×2 (04:19→17:19)
[2019-11-11] MEDS: INSULIN REGULAR, HUMAN 100 UNIT/ML 3 ML VIAL SQ PRN ×4 (05:27→23:43)
[2019-11-11] MEDS: BLOOD SUGAR DIAGNOSTIC 1 EACH STRIP VI SCH ×4 (05:27→23:42)
--- NOTE | 2019-11-11 06:20 | NUR ---
MS RN CLOSING NOTES PATIENT IN BED AWAKE NON-VERBAL. AFEBRILE WITH NO S/S OF DISTRESS OBSERVED. RIGHT FOREARM G20 PATENT AND INFUSING WELL. GTUBE INTACT AND PATENT WITH ON-GOING FEEDING TOLERATING WELL. MAINTAINED ON ASPIRATION PRECAUTIONS. NO S/S OF PAIN/DISCOMFORT NOTED AT THIS TIME. BED LOW AND LOCKED ON SEMI FOWLERS POSITION. CALL LIGHT IN REACH. WILL ENDORSE TO MORNING SHIFT FOR DALILA.
[2019-11-11 08:00] VITALS: BP 138/76
--- NOTE | 2019-11-11 08:00 | NUR ---
RN NOTES PATIENT IN BED RESTING NO SOB OR ACUTE DISTRESS NOTED. PATIENT CONFUSED NONE VERBAL. WITH G-TUBE ON CONTINUES FEEDING. PERIPHERAL IV INTACT PATENT. BED IN LOW LOCKED POSITION. CALL LIGHT WITHIN REACH. PATIENT ON 2L O2 VIA NASAL CANNULA. WILL CONTINUE TO MONITOR.
[2019-11-11] MEDS: AMIODARONE HCL 200 MG TABLET PO SCH ×2 (09:33→17:19)
[2019-11-11] MEDS: CLOTRIMAZOLE 1% 15 GM TUBE TP SCH ×2 (09:33→17:19)
[2019-11-11 11:55] LABS: BILIRUBIN,TOTAL 0.2 mg/dL (0.2-1.0); CALCIUM, SERUM 8.6 mg/dL (8.5-10.1); CREATININE 0.8 mg/dL (0.6-1.3); POTASSIUM 5.4 mmol/L (3.5-5.1); TOTAL PROTEIN, SERUM 5.6 g/dL (6.4-8.2)
[2019-11-11 12:23] LABS: ALBUMIN 1.4 g/dL (3.4-5.0)
[2019-11-11 12:27] LABS: BASOPHILS # (AUTO) 0.1 /CMM (0.0-0.2); BASOPHILS % (AUTO) 0.9 % (0.0-2.0); EOSINOPHILS % (AUTO) 4.7 % (0.0-6.0); HEMATOCRIT 25 % (33-45); HEMOGLOBIN 7.5 g/dL (11.5-14.8); LYMPHOCYTES # (AUTO) 2.1 /CMM (0.8-4.8); LYMPHOCYTES % (AUTO) 17.1 % (20.0-44.0); MEAN CORPUSCULAR HGB CONC 30 g/dl (31.0-36.0); MEAN CORPUSCULAR VOLUME 91 fL (82-100); MONOCYTES # (AUTO) 0.5 /CMM (0.1-1.30); MONOCYTES % (AUTO) 4.3 % (2.0-12.0); NEUTROPHILS # (AUTO) 8.8 /CMM (1.8-8.9); PLATELET COUNT (AUTO) 360 /CMM (150-450); RED BLOOD CELL COUNT(AUTO) 2.73 MIL/uL (4.0-5.2); WHITE BLOOD COUNT (AUTO) 12.1 K/uL (4.3-11.0)
[2019-11-11 12:37] LABS: CALCIUM, SERUM 8.2 mg/dL (8.5-10.1); CREATININE 0.8 mg/dL (0.6-1.3); POTASSIUM 5.7 mmol/L (3.5-5.1)
[2019-11-11 16:00] VITALS: BP 135/70
--- NOTE | 2019-11-11 18:57 | NUR ---
RN NOTES PATIENT IN BED RESTING NO SOB OR ACUTE DISTRESS NOTED. AL DUE MEDICATIONS ADMINISTERED. ALL NEEDS MET. NO ACUTE CHANGES NOTED DURING SHIFT. WILL ENDORSE CARE TO PM SHIFT.
[2019-11-11 20:00] VITALS: BP 141/78
[2019-11-11 20:17] VITALS: BP 141/78
[2019-11-11] MEDS: ENOXAPARIN SODIUM 40 MG/0.4 ML DISP.SYRIN SQ SCH (21:21)
[2019-11-12] VITALS (8 sets, daily range): BP systolic 138–180; BP diastolic 53–86
--- NOTE | 2019-11-12 | NUR ---
MS RN NOTES BS 244mg/dl, 6UNITS REGULAR INSULIN GIVEN SQ. GTUBE ON, FEEDING TOLERATING WELL. ON ASPIRATION PRECAUTION.
[2019-11-12] MEDS: GLUCERNA 1.2 1,000 ML BOTTLE GT PRN (05:06)
[2019-11-12] MEDS: BLOOD SUGAR DIAGNOSTIC 1 EACH STRIP VI SCH ×4 (05:36→23:54)
[2019-11-12] MEDS: INSULIN REGULAR, HUMAN 100 UNIT/ML 3 ML VIAL SQ PRN ×4 (05:38→23:58)
--- NOTE | 2019-11-12 06:00 | NUR ---
MS RN NOTES BS 187mg/dl, 3UNITS REGULAR INSULIN GIVEN SQ. GTUBE FEEDING TOLERATING WELL. WILL CONTINUE TO MONITOR.
[2019-11-12 07:04] LABS: BASOPHILS # (AUTO) 0.1 /CMM (0.0-0.2); BASOPHILS % (AUTO) 0.8 % (0.0-2.0); HEMATOCRIT 24 % (33-45); HEMOGLOBIN 7.7 g/dL (11.5-14.8); LYMPHOCYTES # (AUTO) 2.1 /CMM (0.8-4.8); LYMPHOCYTES % (AUTO) 16.3 % (20.0-44.0); MEAN CORPUSCULAR HGB CONC 32 g/dl (31.0-36.0); MEAN CORPUSCULAR VOLUME 89 fL (82-100); MONOCYTES # (AUTO) 0.6 /CMM (0.1-1.30); NEUTROPHILS # (AUTO) 9.5 /CMM (1.8-8.9); NEUTROPHILS % (AUTO) 73.9 % (43.0-81.0); PLATELET COUNT (AUTO) 370 /CMM (150-450); RED BLOOD CELL COUNT(AUTO) 2.73 MIL/uL (4.0-5.2); WHITE BLOOD COUNT (AUTO) 12.9 K/uL (4.3-11.0)
[2019-11-12 07:28] LABS: CALCIUM, SERUM 8.4 mg/dL (8.5-10.1); CREATININE 0.7 mg/dL (0.6-1.3); POTASSIUM 5.6 mmol/L (3.5-5.1)
[2019-11-12] MEDS: AMIODARONE HCL 200 MG TABLET PO SCH ×2 (08:59→17:20)
[2019-11-12] MEDS: CLOTRIMAZOLE 1% 15 GM TUBE TP SCH ×2 (09:00→17:20)
[2019-11-12] MEDS: ACETAMINOPHEN 325 MG TABLET PO PRN (09:16)
--- NOTE | 2019-11-12 09:17 | NUR ---
MS/ RN notes Patient had mild temperature 100F and showed signs of discomfort via facial expressions and moaning. Tylenol 650mg via g-tube has been administered. Will continue to monitor.
--- NOTE | 2019-11-12 10:20 | NUR ---
MS/RN NOTE PATIENT`S TEMP REDUCED TO 98.8F. PATIENT IN NO APPARENT DISTRESS.
--- NOTE | 2019-11-12 13:24 | NUR ---
MS/RN NOTE THE PATIENT IS NOTED TO BE CONGESTED WITH LABORED AND FAST BREATHING. OXYGEN SATURATION IS AT 83% WITH OXYGEN DELIVERING AT 2L/MIN VIA NASAL CANNULA. PLACED THE PATIENT ON NON-REBREATHING MASK. TEMP 100.4 F. WITH 15L/MIN AND SATURATION INCREASED TO 94%. SUCTION PATIENT AND PLACED AGAIN ON NON-REBREATHER MASK. OXYGEN SATURATION AT 99%.
--- NOTE | 2019-11-12 13:25 | NUR ---
/RN NOTE DR CHAUDHRY IS GIVEN DETAILED REPORT ON THE PATIENT`S CONDITION. Addendum: 11/12/19 at 1341 by JERE NERI RN /LUCY NOTE WAITING FOR ORDERS FROM DR CHAUDHRY.
--- NOTE | 2019-11-12 13:25 | NUR ---
MS/RN NOTE COOLING MEASURES TAKEN.
--- NOTE | 2019-11-12 13:37 | NUR ---
MS/RN NOTE TEMP IS AT 98.4F.
--- NOTE | 2019-11-12 13:38 | NUR ---
/LUCY NOTE PLACED THE PATIENT TO NASAL CANNULA AND 5L/MIN AND SATURATION IS AT 97.0F. RESPIRATION STILL FAST AT 46 BREATHS/MIN. Addendum: 11/12/19 at 1341 by JERE NERI RN /LUCY NOTE DR CHAUDHRY IS MADE AWARE WITH NEW ORDERS OF STAT CHEST XRAY, ABG AND TESTING FOR COBID19.
--- NOTE | 2019-11-12 13:46 | NUR ---
MS/RN NOTE DR CHAUDHRY`S ORDERS OF STAT CHEST XR, STAT ABG AND STAT COVID-19 TEST ORDERS CARRIED OUT.
[2019-11-12 14:49] LABS: ABG BASE EXCESS 6.2 mmol/L; ABG OXYGEN SATURATION 82.3 % (92.0-98.5); ABG PCO2 43.5 mmHg (35.0-45.0); ABG PH 7.465 (7.350-7.450); ABG PO2 48.9 mmHg (75.0-100.0); AaDO2 99.4 mmHg; COHb 0.6 % (0.5-1.5); MetHb 0.3 % (0.0-1.5); O2Hb 81.6 % (94.0-97.0); SITE, ABG Left Radial; VENT MODE, BG 2L NASAL CANULA
--- NOTE | 2019-11-12 15:00 | NUR ---
MS/RN NOTE DR ATKINS IS AWARE OF ABG RESULT AND CHEST X-RAY RESULT. NO NEW ORDERS.
--- NOTE | 2019-11-12 18:46 | NUR ---
MS/RN NOTE THE PATIENT A/O X0. NON-VERBAL. RECEIVING OXYGEN AT 3L/MIN VIA NASAL CANNULA AND SATURATION IS AT 99%. PATIENT AFEBRILE. GT FEEDING GLUCERNA INFUSING AT PER ORDER. ABDOMEN SOFT AND NON-DISTENDED. NO RESIDUAL NOTED. RFA G 20 PATENT AND SALINE LOCKED. BED LOW AND LOCKED. SIDE RAILS UP X3. CALL LIGHT WITHIN REACH. WILL ENDORSE TO MEDICAL RECORDS TECH.
--- NOTE | 2019-11-12 19:10 | NUR ---
MS/RN OPENING NOTES: RECEIVED PT. A/OX0, NON VERBAL. COVID RESULTS PENDING. LABORED BREATHING. ON 3L OF NC SATURATING AT 100%. GTUBE FEEDING INFUSING AT 55MLS/HR. NO RESIDUAL NOTED. TOLERATED WELL. HOB ELEVATED. RFA IV #20G IN PLACE, SL. FLUSHING WELL. SAFETY MEASURES IN PLACE. BED IN LOW, LOCKED POSITION. SR UP X3. CALL LIGHT WITHIN REACH. WILL CONTINUE TO MONITOR.
--- NOTE | 2019-11-12 20:30 | NUR ---
MS/RN NOTES: CALLED DR. ADAMS REGARDING LOVENOX 40MG ORDER DUE AT 2100. INFORMED THAT PT HAS A SCHEDULED THORACENTESIS TOMORROW. PER DR. ADAMS "HOLD LOVENOX FOR TONIGHT".
[2019-11-12] MEDS: ENOXAPARIN SODIUM 40 MG/0.4 ML DISP.SYRIN SQ SCH (20:44)
--- NOTE | 2019-11-12 22:00 | NUR ---
MS/RN NOTES: PT. DESATURATING AT 88%. OXYGEN INCREASED TO 9L OXYGEN VIA SIMPLE MASK. RT IS PRESENT AT BED SIDE. HOB ELEVATED. WILL KEEP MONITORING.
--- NOTE | 2019-11-12 22:30 | NUR ---
MS/RN NOTES: PT. NOW SATURATING AT 99%-100%. WILL TITRATE OXYGEN DOWN TOLERATED BY PT. WILL KEEP MONITORING.
--- NOTE | 2019-11-13 00:01 | NUR ---
MS/RN NOTES: ACCUCHECK OF 134. ADMINISTERED REGULAR INSULIN 2 UNITS. GTUBE FEEDING INFUSING WELL @55MLS/HR. TOLERATING WELL. WILL CONTINUE TO MONITOR.
--- NOTE | 2019-11-13 04:37 | NUR ---
MS/RN NOTES: URINE SPECIMEN COLLECTED VIA STRAIGHT CATH. SENT TO LAB
[2019-11-13 05:25] LABS: OSMOLALITY,URINE 520 mOS/kg (340-1090)
[2019-11-13 05:30] LABS: CHLORIDE,URINE RANDOM 128 mmol/L (55-125); POTASSIUM RNDM,URINE 33 mmol/L (25-125); URINE SODIUM, RANDOM 149 mmol/l (40-220)
[2019-11-13] MEDS: BLOOD SUGAR DIAGNOSTIC 1 EACH STRIP VI SCH ×3 (05:43→18:36)
[2019-11-13] MEDS: INSULIN REGULAR, HUMAN 100 UNIT/ML 3 ML VIAL SQ PRN ×2 (05:44→18:43)
--- NOTE | 2019-11-13 05:46 | NUR ---
MS/RN NOTES: ACCUCHECK 165. ADMINISTERED 3UNITS OF INSULIN REGULAR PER SLIDING SCALE. PT. GTUBE FEEDING INFUSING RIGHT NOW. TOLERATING WELL. NO RESIDUAL NOTED.
[2019-11-13 06:38] LABS: BASOPHILS # (AUTO) 0.1 /CMM (0.0-0.2); BASOPHILS % (AUTO) 0.8 % (0.0-2.0); EOSINOPHILS % (AUTO) 3.1 % (0.0-6.0); HEMATOCRIT 26 % (33-45); LYMPHOCYTES # (AUTO) 1.9 /CMM (0.8-4.8); LYMPHOCYTES % (AUTO) 17.5 % (20.0-44.0); MEAN CORPUSCULAR HGB CONC 31 g/dl (31.0-36.0); MEAN CORPUSCULAR VOLUME 89 fL (82-100); MONOCYTES # (AUTO) 0.7 /CMM (0.1-1.30); MONOCYTES % (AUTO) 5.9 % (2.0-12.0); NEUTROPHILS # (AUTO) 8.1 /CMM (1.8-8.9); NEUTROPHILS % (AUTO) 72.7 % (43.0-81.0); PLATELET COUNT (AUTO) 346 /CMM (150-450); RED BLOOD CELL COUNT(AUTO) 2.88 MIL/uL (4.0-5.2); WHITE BLOOD COUNT (AUTO) 11.1 K/uL (4.3-11.0)
--- NOTE | 2019-11-13 06:57 | NUR ---
MS/RN CLOSING NOTES: PT. A/OX0, NON VERBAL. COVID RESULTS PENDING. NO SIGNIFICANT CHANGES IN CONDITION. ON5L OF NC SATURATING AT 97% VIA SIMPLE MASK. GTUBE FEEDING INFUSING AT 55MLS/HR. NO RESIDUAL NOTED. TOLERATED WELL. HOB ELEVATED. RFA IV #20G IN PLACE, SL. FLUSHING WELL. SAFETY MEASURES IN PLACE. BED IN LOW, LOCKED POSITION. SR UP X3. CALL LIGHT WITHIN REACH. WILL CONTINUE TO MONITOR. CONSENT FOR ULTRASOUND GUIDED THORACENTESIS OF LEFT LUNG. NEEDS TO BE SIGNED. FAMILY NEED TO BE CALLED. WILL ENDORSE TO DAY SHIFT.
[2019-11-13 07:03] LABS: CALCIUM, SERUM 8.5 mg/dL (8.5-10.1); CREATININE 0.7 mg/dL (0.6-1.3); PHOSPHORUS 3.8 mg/dL (2.5-4.9); POTASSIUM 5.3 mmol/L (3.5-5.1)
--- NOTE | 2019-11-13 07:25 | NUR ---
ms rn received on bed, non verbal patient,responsive to stimuli and pain, on 02 mask at 5l/hr, saturating 98% at this time, no distress noted,w/ g tube feeding on at 55ml/hr tolerating well at this time, repositioned for comfort, will monitor patient.
[2019-11-13 08:00] VITALS: BP 143/68
--- NOTE | 2019-11-13 08:00 | NUR ---
ms rn feeding held at this time, patient will have thoracentesis today.
--- NOTE | 2019-11-13 09:00 | NUR ---
rn was seen by dr. floyd w/ zack to [place] to nasal cannula.
[2019-11-13] MEDS: CLOTRIMAZOLE 1% 15 GM TUBE TP SCH ×2 (09:40→18:36)
[2019-11-13] MEDS: AMIODARONE HCL 200 MG TABLET PO SCH ×2 (09:41→18:36)
--- NOTE | 2019-11-13 13:00 | NUR ---
ms rn thoracentesis done w/ 460ml taken all needs attended.
[2019-11-13 16:00] VITALS: BP 112/87
--- NOTE | 2019-11-13 16:55 | NUR ---
ms rn sent xray result to dr. floyd w/ order to repeat cxr in am,already ordered.
--- NOTE | 2019-11-13 18:18 | NUR ---
ms rn on be, no distress noted, still on g tube feeding tolerating well. all needs attended.
[2019-11-13] MEDS: GLUCERNA 1.2 1,000 ML BOTTLE GT PRN (18:47)
--- NOTE | 2019-11-13 19:50 | NUR ---
ms britney initial notes received report from am nurse Romy and checked the patient, seen her in bed lying on semi fowlers position with side rails x 2up. she also on [employer] mattress for pt comfort . She's on G-tube feeding Glucerna at 55ml/hr as ordered. no residual noted at this time, no aspiration as well. No signs of any acute distress noted. skin warm and dry to touch. Kept her warm and comfortable at all times. will continue monitoring.
[2019-11-13 20:48] VITALS: BP 131/66
--- NOTE | 2019-11-13 21:55 | NUR ---
ms packing house laborer notes Notified Dr Diane regarding the lovenox,"resumed as ordered.
[2019-11-13] MEDS: ENOXAPARIN SODIUM 30 MG/0.3 ML DISP.SYRIN SQ SCH (22:07)
--- NOTE | 2019-11-14 | NUR ---
ms britney notes pt resting at this time without any distress noted. G-tube feeding tolerated well no aspiration noted. Flushed with water as ordered. will continue monitoring.
[2019-11-14] MEDS: BLOOD SUGAR DIAGNOSTIC 1 EACH STRIP VI SCH ×5 (00:05→23:06)
[2019-11-14] MEDS: INSULIN REGULAR, HUMAN 100 UNIT/ML 3 ML VIAL SQ PRN ×4 (00:12→23:10)
--- NOTE | 2019-11-14 07:00 | NUR ---
ms bench assembler battery closing notes pt back to rest after morning care done. Stable obi the night . no signs of any distress noted. G-tube feeding tolerated well no aspiration noted. kept her warm and comfortable at all times. will endorse to am nurse for continuity of care.
[2019-11-14 07:15] LABS: BASOPHILS # (AUTO) 0.1 /CMM (0.0-0.2); BASOPHILS % (AUTO) 0.9 % (0.0-2.0); EOSINOPHILS % (AUTO) 3.3 % (0.0-6.0); HEMATOCRIT 28 % (33-45); HEMOGLOBIN 8.8 g/dL (11.5-14.8); LYMPHOCYTES # (AUTO) 1.5 /CMM (0.8-4.8); LYMPHOCYTES % (AUTO) 16.1 % (20.0-44.0); MEAN CORPUSCULAR HGB CONC 32 g/dl (31.0-36.0); MEAN CORPUSCULAR VOLUME 90 fL (82-100); MONOCYTES # (AUTO) 0.6 /CMM (0.1-1.30); MONOCYTES % (AUTO) 6.5 % (2.0-12.0); NEUTROPHILS # (AUTO) 6.8 /CMM (1.8-8.9); NEUTROPHILS % (AUTO) 73.2 % (43.0-81.0); PLATELET COUNT (AUTO) 369 /CMM (150-450); RED BLOOD CELL COUNT(AUTO) 3.08 MIL/uL (4.0-5.2); WHITE BLOOD COUNT (AUTO) 9.3 K/uL (4.3-11.0)
[2019-11-14 07:20] LABS: CREATININE 0.7 mg/dL (0.6-1.3); MAGNESIUM 2.1 mg/dL (1.8-2.4); POTASSIUM 5.4 mmol/L (3.5-5.1)
--- NOTE | 2019-11-14 07:30 | NUR ---
MS/RN Opening Note Received patient awake, able to responds all stimuli. Does no appears pain or discomfort. Respiratory even and unlabored with oxygen at 6LPM with mask. Skin is warm to touch, kept clean/dry, intact IV site running D5NS at 75 ml. Kept in lock wheel and low position of the bed with elevated head of bed for secure airway. Call light within reach, will continue to monitor.
[2019-11-14 08:00] VITALS: BP 104/73
[2019-11-14] MEDS: AMIODARONE HCL 200 MG TABLET PO SCH ×2 (09:06→17:00)
[2019-11-14] MEDS: CLOTRIMAZOLE 1% 15 GM TUBE TP SCH ×2 (09:07→17:44)
[2019-11-14 16:00] VITALS: BP 106/70
[2019-11-14] MEDS: GLUCERNA 1.2 1,000 ML BOTTLE GT PRN (17:41)
--- NOTE | 2019-11-14 18:50 | NUR ---
MS/RN Closing Note Patient in bed comfortably, does no appears pain or discomfort, skin is warm to touch, intact IV site. Respiratory even and unlabored in room air. Kept in locked wheel with low position of the bed and elevated head of bed foe secure airway. Call light within reach, will endorse night time nanny.
[2019-11-14 20:01] VITALS: BP 105/40
--- NOTE | 2019-11-14 20:10 | NUR ---
rn notes/gtube patency check: pt has peg in placed, abdomen soft to touch with active bowel sound heard upon auscultation. gtube patent and flushing well, no resistance obtained upon flushing well water, no residual obtained.
[2019-11-14 20:50] VITALS: BP 105/40
--- NOTE | 2019-11-14 21:30 | NUR ---
rn notes: applied mepilex on pt's bilateral cheeks area and 4x4 folded gauze applied along ears where the adjustable string of simple mask were attached. these applied to be use as cushion/protection in order to prevent possible development of pressure injuries on ears caused by using simple mask.
[2019-11-14] MEDS: ENOXAPARIN SODIUM 30 MG/0.3 ML DISP.SYRIN SQ SCH (21:33)
--- NOTE | 2019-11-14 23:10 | NUR ---
blood glucose 214: fingerstick glucose check performed, result obtained is 214, 6units of insulin administered per sliding scale, pt on glucerna gtube feeding.
[2019-11-15] MEDS: BLOOD SUGAR DIAGNOSTIC 1 EACH STRIP VI SCH ×3 (05:06→17:51)
[2019-11-15] MEDS: INSULIN REGULAR, HUMAN 100 UNIT/ML 3 ML VIAL SQ PRN ×2 (05:07→12:05)
--- NOTE | 2019-11-15 05:07 | NUR ---
blood glucose 129: fingerstick blood glucose check performed and result obtained is 129, no insulin coverage given per sliding scale.
--- NOTE | 2019-11-15 06:45 | NUR ---
end of shift report: received report form marisol rn last night at 1900. s/p thoracentesis on 11/11 with 460ml output. pt was placed on contact isolation, esbl urine. ppe utilized. pt is lethargic, on 6l simple mask. iv access remains patent and flushing well, on hl, no s/s of iv infiltration noted. receiving gtube feeding, glucerna at 55ml/hr. abdomen remains soft to touch with active bowel sound heard upon auscultation, has peg, no residual obtained throughout the shift. 150cc q6hrs free water flush administered as scheduled. kept hob 30 degree and pt was kept on aspiration precaution. ble kept offloaded on pillows. am care, wound care and complete linen change provided. vs remains stable, needs attended, safety precautions for fall remains engaged, call light in reach, will endorse to day rn for continuity of care.
--- NOTE | 2019-11-15 07:10 | NUR ---
MS RN OPENING NOTES RECEIVED PT IN BED ASLEEP, EASY TO AROUSE. AOX3. PT ABLE TO RESPOND TO LIGHT STIMULUS, NON VERBAL. NO SOB NOTED, NO S/S OF ANY ACUTE DISTRESS NOTED AT THIS TIME, NO GRIMACING OR GROANING NOTED. PT ON 4LPM O2 VIA NC. RESPIRATIONS EVEN AND UNLABORED WITH EQUAL RISE AND FALL IN CHEST. IV ACCESS TO RFA G#20, INTACT AND PATENT. GTUBE IN PLACE, WITH NO RESIDUAL NOTED. SAFETY MEASURES IN PLACE, BED IN LOWEST LOCKED POSITION, HOB ELEVATED TO SEMI FOWLERS POSITION, SIDE RAILS UP, CALL LIGHT WITHIN REACH. WILL CONTINUE TO MONITOR
[2019-11-15 07:35] LABS: BASOPHILS # (AUTO) 0.1 /CMM (0.0-0.2); BASOPHILS % (AUTO) 0.9 % (0.0-2.0); EOSINOPHILS % (AUTO) 3.4 % (0.0-6.0); HEMATOCRIT 25 % (33-45); HEMOGLOBIN 7.6 g/dL (11.5-14.8); LYMPHOCYTES # (AUTO) 1.6 /CMM (0.8-4.8); LYMPHOCYTES % (AUTO) 16.3 % (20.0-44.0); MEAN CORPUSCULAR HGB CONC 31 g/dl (31.0-36.0); MEAN CORPUSCULAR VOLUME 90 fL (82-100); MONOCYTES # (AUTO) 0.6 /CMM (0.1-1.30); MONOCYTES % (AUTO) 6.3 % (2.0-12.0); NEUTROPHILS # (AUTO) 7.1 /CMM (1.8-8.9); NEUTROPHILS % (AUTO) 73.1 % (43.0-81.0); PLATELET COUNT (AUTO) 351 /CMM (150-450); RED BLOOD CELL COUNT(AUTO) 2.75 MIL/uL (4.0-5.2); WHITE BLOOD COUNT (AUTO) 9.8 K/uL (4.3-11.0)
[2019-11-15 07:47] LABS: CALCIUM, SERUM 8.7 mg/dL (8.5-10.1); CREATININE 0.6 mg/dL (0.6-1.3); MAGNESIUM 1.8 mg/dL (1.8-2.4); PHOSPHORUS 3.5 mg/dL (2.5-4.9); POTASSIUM 5.5 mmol/L (3.5-5.1)
[2019-11-15 08:00] VITALS: BP 94/57
[2019-11-15] MEDS: AMIODARONE HCL 200 MG TABLET PO SCH ×2 (08:59→17:31)
[2019-11-15] MEDS: CLOTRIMAZOLE 1% 15 GM TUBE TP SCH ×2 (08:59→17:32)
--- NOTE | 2019-11-15 11:00 | NUR ---
PATIENT'S POTASSIUM AT 5.5. MD AWARE. MD RECOMMENDED TO CHANGED TUBE FEEDING TO NEPRO (LOWER IN POTASSIUM) @45ml/hr x 24 hr. WILL ADMINISTER PER ORDER AND CONTINUE TO MONITOR
--- NOTE | 2019-11-15 11:30 | NUR ---
MS AYALA GTUBE PATENCY ASSESSMENT GTUBE IN PLACE, ABDOMEN INSPECTED AND ACTIVE BOWEL SOUNDS AUSCULTATED IN ALL FOUR QUADRANTS. G-TUBE PATENT AND FLUSHED WITH 150ML OF WATER AT TIME Q6HRS PER ORDER. NO RESISTANCE NOTED, NO RESIDUAL NOTED. WILL CONTINUE TO MONITOR. G-TUBE FEEDING CHANGED FROM GLUCERNA TO NEPRO @45ML/HR PRN. ORDER ADMINISTERED AND WILL CONTINUE TO MONITOR.
[2019-11-15] MEDS: NEPRO 1,000 ML BOTTLE GT PRN (11:39)
[2019-11-15 16:00] VITALS: BP 117/77
[2019-11-15] MEDS: *INSULIN REGULAR(HUMULIN R)HUM 100 UNIT/ML VIAL SQ PRN (17:56)
--- NOTE | 2019-11-15 18:01 | NUR ---
ASSESSED GTUBE FEEDING. NO RESIDUAL NOTED. PT TOLERATING G-TUBE FEEDING WELL. WATER FLUSHED WITH 150ML Q6HRS PER ORDER. WILL CONTINUE TO MONITOR
--- NOTE | 2019-11-15 19:00 | NUR ---
MS RN CLOSING ING NOTES PT IN BED ASLEEP, EASY TO AROUSE. AOX3. PT REMAINED STABLE THROUGHOUT SHIFT. PT KEPT CLEAN AND DRY. ALL CARE, MEDICATIONS AND WOUND TREATMENT PROVIDED ANTICIPATED AND PER ORDER. PT REPOSITION Q2HRS, PRN AND PER PROTOCOL. NO SOB NOTED, NO S/S OF ANY ACUTE DISTRESS NOTED AT THIS TIME, G-TUBE IN PLACE, WITH NO RESIDUAL NOTED. ASPIRATION AND SAFETY PRECAUTIONS IN PLACE, BED IN LOWEST LOCKED POSITION, HOB ELEVATED TO SEMI FOWLERS POSITION, SIDE RAILS UP, CALL LIGHT WITHIN REACH. WILL ENDORSE TO CT SCAN SPECIAL PROCEDURES TECHNOLOGIST NURSE FOR DALILA
--- NOTE | 2019-11-15 19:30 | NUR ---
MS RN PM OPENING NOTE REPORT RECIEVED FROM IMMACULATE RN. PT IN BED IN NO APPARENT DISTRESS. RESPONDS TO PAINFUL STIMULI, LETHARGIC, ON 6L FACE MASK IN NO APPARENT DISTRESS. RESEP EVEN AND UNLABORED. NO S/S OF ANY ACUTE DISTRESS NOTED AT THIS TIME, G-TUBE IN PLACE, WITH NO RESIDUAL NOTED NEPRO RUNNING AT 45 ML PER HOUR ORDERED. ASPIRATION AND SAFETY PRECAUTIONS IN PLACE, BED IN LOWEST LOCKED POSITION, HOB ELEVATED SEMI FOWLERS POSITION, SIDE RAILS UP X3, CALL LIGHT WITHIN REACH.
[2019-11-15 20:00] VITALS: BP 144/66
[2019-11-15] MEDS: ENOXAPARIN SODIUM 30 MG/0.3 ML DISP.SYRIN SQ SCH (22:21)
[2019-11-15 22:39] LABS: OCCULT BLOOD STOOL POSITIVE (NEGATIVE)
[2019-11-16] MEDS: BLOOD SUGAR DIAGNOSTIC 1 EACH STRIP VI SCH ×5 (00:16→23:28)
[2019-11-16] MEDS: *INSULIN REGULAR(HUMULIN R)HUM 100 UNIT/ML VIAL SQ PRN (00:17)
[2019-11-16] MEDS: INSULIN REGULAR, HUMAN 100 UNIT/ML 3 ML VIAL SQ PRN ×4 (06:22→23:40)
[2019-11-16] MEDS: ACETAMINOPHEN 325 MG TABLET PO PRN (06:24)
[2019-11-16 07:27] LABS: BASOPHILS # (AUTO) 0.1 /CMM (0.0-0.2); EOSINOPHILS % (AUTO) 2.4 % (0.0-6.0); HEMATOCRIT 24 % (33-45); HEMOGLOBIN 7.6 g/dL (11.5-14.8); LYMPHOCYTES # (AUTO) 1.8 /CMM (0.8-4.8); LYMPHOCYTES % (AUTO) 21.5 % (20.0-44.0); MEAN CORPUSCULAR HGB CONC 32 g/dl (31.0-36.0); MEAN CORPUSCULAR VOLUME 90 fL (82-100); MONOCYTES # (AUTO) 0.6 /CMM (0.1-1.30); MONOCYTES % (AUTO) 7.1 % (2.0-12.0); NEUTROPHILS # (AUTO) 5.8 /CMM (1.8-8.9); PLATELET COUNT (AUTO) 363 /CMM (150-450); RED BLOOD CELL COUNT(AUTO) 2.67 MIL/uL (4.0-5.2); WHITE BLOOD COUNT (AUTO) 8.5 K/uL (4.3-11.0)
--- NOTE | 2019-11-16 07:36 | NUR ---
MS/RN OPENING NOTES RECEIVED PATIENT ON BED IN NO APPARENT DISTRESS. RESPONDS TO PAINFUL STIMULI, LETHARGIC, ON 6L FACE MASK IN NO APPARENT DISTRESS. RESPIRATION EVEN AND UNLABORED. NO S/S OF ANY ACUTE DISTRESS NOTED AT THIS TIME, G-TUBE IN PLACE, WITH NO RESIDUAL NOTED NEPRO RUNNING AT 45 ML PER HOUR ORDERED. ASPIRATION AND SAFETY PRECAUTIONS IN PLACE, BED IN LOWEST LOCKED POSITION, HOB ELEVATED SEMI FOWLERS POSITION, SIDE RAILS UP X3, CALL LIGHT WITHIN REACH. WILL CONTINUE TO MONITOR.
[2019-11-16 07:43] LABS: IRON, SERUM 23 ug/dl (50-175); TOTAL IRON BINDING CAPACITY 221 ug/dl (250-450)
[2019-11-16 07:51] LABS: CARBON DIOXIDE 39 mmol/L (21-32); CHLORIDE 101 mmol/L (98-107); POTASSIUM 5.2 mmol/L (3.5-5.1); SODIUM SERUM 138 mmol/L (136-145)
[2019-11-16 07:52] LABS: ALANINE AMINOTRANSFERASE 25 U/L (12-78); ALBUMIN 1.6 g/dL (3.4-5.0); ALKALINE PHOSPHATASE 146 U/L (46-116); ASPARTATE AMINOTRANSFERASE 24 U/L (15-37); BILIRUBIN,TOTAL 0.1 mg/dL (0.2-1.0); CALCIUM, SERUM 8.5 mg/dL (8.5-10.1); CREATININE 0.8 mg/dL (0.6-1.3); GLUCOSE 254 mg/dL (74-106); PHOSPHORUS 2.8 mg/dL (2.5-4.9); TOTAL PROTEIN, SERUM 5.9 g/dL (6.4-8.2); UREA NITROGEN, BLOOD 29 mg/dL (7-18)
[2019-11-16 08:00] VITALS: BP 118/69
[2019-11-16 08:03] LABS: FERRITIN 141 ng/mL (8-388)
[2019-11-16] MEDS: AMIODARONE HCL 200 MG TABLET PO SCH (08:38)
[2019-11-16] MEDS: CLOTRIMAZOLE 1% 15 GM TUBE TP SCH ×2 (09:19→17:38)
--- NOTE | 2019-11-16 11:58 | NUR ---
MS/RN NOTES BS 206MG/DL ADMINISTERED 6 UNIT INSULIN.
[2019-11-16] MEDS: SOD FERRIC GLUC 125 MG in IV NS 0.9% 100 ML IV SCH (14:14)
[2019-11-16 16:00] VITALS: BP 109/67
--- NOTE | 2019-11-16 16:00 | NUR ---
MS/RN NOTES PATIENT IS STILL FULL CODE PER ANATOLE (SON).
[2019-11-16] MEDS: NEPRO 1,000 ML BOTTLE GT PRN (16:20)
--- NOTE | 2019-11-16 19:23 | NUR ---
MS/RN CLOSING NOTES PATIENT IS ON BED, PATIENT IS NON VERBAL AND LETHARGIC. PATIENT IS ON 6L OF O2 VIA FACE MASK WITH SATURATION OF 100% BREATHING EVEN AND UNLABORED. PATIENT IN NO APPARENT RESPIRATORY DISTRESS NOTED. NO S/S OF PAIN OR DISCOMFORT NOTED. IV ACCESS AT RIGHT FOREARM # 20 SALINE LOCKED PATENT AND INTACT. GTUBE RUNNING NEPRO @ 45ML/HR. SEEN AND EXAMINED BY MD WITH ORDERS MADE AND CARRIED OUT. ALL DUE MEDICATION WAS GIVEN. CHECKED AND TURN PATIENT EVERY 2 [address]RS[address] SAFETY PRECAUTIONS IN PLACE WITH BED IN LOWEST POSITION AND LOCKED. SIDE RAILS UP X2. WILL ENDORSED TO SUPERINTENDENT BOARD MILL FOR DALILA.
--- NOTE | 2019-11-16 19:25 | NUR ---
MS/RN OPENING NOTES: RECEIVED PATIENT RESTING ON THE BED. NONVERBAL, LETHARGIC. IN NO APPARENT DISTRESS. RESPONDS TO PAINFUL STIMULI, ON 6L FACE MASK IN NO APPARENT DISTRESS. RESPIRATION EVEN AND UNLABORED. SATURATING AT 99%-100%. NO S/S OF ANY ACUTE DISTRESS NOTED AT THIS TIME, G-TUBE IN PLACE, WITH NO RESIDUAL NOTED NEPRO RUNNING AT 45 ML PER HOUR ORDERED. ASPIRATION AND SAFETY PRECAUTIONS IN PLACE, BED IN LOWEST LOCKED POSITION, HOB ELEVATED SEMI FOWLERS POSITION, SIDE RAILS UP X3, CALL LIGHT WITHIN REACH. WILL CONTINUE TO MONITOR ACCORDINGLY.
[2019-11-16 20:00] VITALS: BP 167/79
[2019-11-16 20:07] VITALS: BP 167/79
--- NOTE | 2019-11-16 21:00 | NUR ---
MS/RN NOTES: LOVENOX 30MG ADMINISTERED SUBCUTANEOUSLY ORDERED. ROTATED THE SITE. NO S/S OF BLEEDING. WILL CONTINUE TO MONITOR [id number].
[2019-11-16] MEDS: ENOXAPARIN SODIUM 30 MG/0.3 ML DISP.SYRIN SQ SCH (21:11)
[2019-11-16 22:40] VITALS: BP 138/74
--- NOTE | 2019-11-16 23:42 | NUR ---
MS/RN NOTES: ACCUCHECK OF 245. ADMINISTERED 6 UNITS OF REGULAR INSULIN PER SLIDING SCALE. GTUBE FEEDING RUNNING AT 45MLS/HR. WILL CONTINUE TO MONITOR ACCORDINGLY.
--- NOTE | 2019-11-17 00:12 | NUR ---
MS/RN NOTES: G-TUBE FLUSHED WITH 100MLS WATER PER ORDERED. TOLERATED WELL. WILL CONTINUE MONITORING.
[2019-11-17] MEDS: BLOOD SUGAR DIAGNOSTIC 1 EACH STRIP VI SCH ×4 (05:27→23:48)
[2019-11-17] MEDS: INSULIN REGULAR, HUMAN 100 UNIT/ML 3 ML VIAL SQ PRN ×2 (05:30→23:51)
--- NOTE | 2019-11-17 05:35 | NUR ---
MS/RN NOTES: ACCUCHECK 185. ADMINISTERED 3 UNITS OF REG. INSULIN PER SLIDING SCALE. GTUBE RUNNING AT 45MLS/HR. TOLERATING WELL. HOB ELEVATED. GTUBE FLUSHED WITH WATER 100MLS. NO RESIDUAL NOTED. WILL KEEP MONITORING PT.
--- NOTE | 2019-11-17 06:48 | NUR ---
MS/RN CLOSING NOTES: PATIENT CURRENTLY SLEEPING IN BED. AROUSABLE TO STIMULI. REMAINS NONVERBAL, LETHARGIC. IN NO SIGNIFICANT CHANGES IN CONDITION. ON 6L FACE MASK IN NO APPARENT DISTRESS. SATURATING AT 100%. NO S/S OF ANY ACUTE DISTRESS NOTED AT THIS TIME, G-TUBE IN PLACE, WITH NO RESIDUAL NOTED NEPRO RUNNING AT 45 ML/HR ORDERED. FLUSHED WITH 100MLS OF WATER [id number] ORDERED. ASPIRATION AND SAFETY PRECAUTIONS IN PLACE, BED IN LOWEST LOCKED POSITION, HOB ELEVATED SEMI FOWLERS POSITION, SIDE RAILS UP X3, CALL LIGHT WITHIN REACH. KEPT WARM AND COMFORTABLE THROUGHOUT THE SHIFT. KEPT CLEAN AND DRY AT ALL TIMES. ALL NURSING NEEDS MET AND RENDERED. WILL ENDORSE TO DAY SHIFT RN FOR DALILA.
--- NOTE | 2019-11-17 07:05 | NUR ---
MS RN OPENING NOTES RECEIVED PT IN BED ASLEEP AT THIS TIME. EASILY AWAKEN. PT ABLE TO RESPOND TO LIGHT STIMULUS, NON VERBAL. NO SOB NOTED, NO S/S OF ANY ACUTE DISTRESS NOTED AT THIS TIME, NO FACIAL GRIMACING OR GROANING NOTED. PT ON 6LPM O2 VIA NC. RESPIRATIONS EVEN AND UNLABORED WITH EQUAL RISE AND FALL IN CHEST. IV ACCESS TO RFA G#20, INTACT AND PATENT. GTUBE IN PLACE RUNNING NEPRO @45ML./HR WITH NO RESIDUAL NOTED. SAFETY MEASURES IN PLACE, BED IN LOWEST LOCKED POSITION, HOB ELEVATED TO SEMI FOWLERS POSITION, SIDE RAILS UP, CALL LIGHT WITHIN REACH. WILL CONTINUE TO MONITOR
[2019-11-17 08:00] VITALS: BP 127/61
[2019-11-17 08:18] VITALS: BP 127/61
[2019-11-17] MEDS: AMIODARONE HCL 200 MG TABLET PO SCH (09:37)
[2019-11-17] MEDS: CLOTRIMAZOLE 1% 15 GM TUBE TP SCH ×2 (09:38→16:34)
--- NOTE | 2019-11-17 12:03 | NUR ---
WATER FLUSHED GTUBE WITH 100ML Q6HRS PER ORDER. WILL CONTINUE TO MONITOR
[2019-11-17] MEDS: *INSULIN REGULAR(HUMULIN R)HUM 100 UNIT/ML VIAL SQ PRN ×2 (12:57→17:47)
[2019-11-17] MEDS: SOD FERRIC GLUC 125 MG in IV NS 0.9% 100 ML IV SCH (14:23)
[2019-11-17 16:09] VITALS: BP 138/53
[2019-11-17] MEDS: NEPRO 1,000 ML BOTTLE GT PRN (16:37)
--- NOTE | 2019-11-17 18:00 | NUR ---
WATER FLUSHED G-TUBE WITH 100ML Q6HRS PER ORDER AT THIS TIME. WILL CONTINUE TO MONITOR
--- NOTE | 2019-11-17 19:07 | NUR ---
MS RN CLOSING NOTES PT IN BED ASLEEP, EASY TO AROUSE. PT REMAINED STABLE THROUGHOUT SHIFT. PT KEPT CLEAN AND DRY. ALL NEEDS, CARE, MEDICATIONS AND WOUND TREATMENT ADMINISTERED ANTICIPATED PER ORDER. PT REPOSITION Q2HRS, PRN AND PER PROTOCOL. NO SOB NOTED, NO S/S OF ANY ACUTE DISTRESS NOTED AT THIS TIME, G-TUBE IN PLACE, WITH NO RESIDUAL NOTED. ASPIRATION AND SAFETY PRECAUTIONS IN PLACE, BED IN LOWEST LOCKED POSITION, HOB ELEVATED TO SEMI FOWLERS POSITION, SIDE RAILS UP, CALL LIGHT WITHIN REACH. WILL ENDORSE TO BARREL CENTERER NURSE FOR DALILA
--- NOTE | 2019-11-17 19:10 | NUR ---
MS/RN OPENING NOTES: RECEIVED PATIENT RESTING ON THE BED IN COMFORTABLE CONDITION. NONVERBAL AND LETHARGIC. IN NO APPARENT DISTRESS. RESPONDS TO PAINFUL STIMULI, ON 6L FACE MASK IN NO APPARENT DISTRESS. RESPIRATION EVEN AND UNLABORED. SATURATING AT 97%-100%. NO S/S OF ANY ACUTE DISTRESS NOTED AT THIS TIME, G-TUBE IN PLACE. INTACT AND PATENT, WITH NO RESIDUAL NOTED NEPRO RUNNING @ 45ML/HR ORDERED. TO BE FLUSHED WITH WATER 100ML EVERY 6HRS ORDERED. ASPIRATION AND SAFETY PRECAUTIONS IN PLACE, BED IN LOWEST LOCKED POSITION, HOB ELEVATED SEMI FOWLERS POSITION, SIDE RAILS UP X3, CALL LIGHT WITHIN REACH. WILL CONTINUE TO MONITOR ACCORDINGLY.
[2019-11-17 20:00] VITALS: BP 112/73
[2019-11-17] MEDS: ENOXAPARIN SODIUM 30 MG/0.3 ML DISP.SYRIN SQ SCH (21:08)
--- NOTE | 2019-11-17 21:08 | NUR ---
MS/RN NOTES: LOVENOX 30MG ADMINISTERED SUBCUTANEOUSLY. ROTATED SITE. NO S/S OF BLEEDING. WILL CONTINUE MONITORING ACCORDINGLY.
--- NOTE | 2019-11-18 | NUR ---
MS/RN NOTES: ACCUCHECK FOR 0000 IS 252. ADMINISTERED 9 UNITS REGULAR INSULIN. GTUBE FEEDING INFUSING AT 45MLS/HR. WILL KEEP MONITORING.
--- NOTE | 2019-11-18 00:05 | NUR ---
MS/RN NOTES: G-TUBE FLUSHED WITH 100MLS WATER Q6HRS ORDERED. TOLERATED WELL. WILL CONTINUE MONITORING.
[2019-11-18] MEDS: BLOOD SUGAR DIAGNOSTIC 1 EACH STRIP VI SCH ×4 (05:24→23:59)
[2019-11-18] MEDS: INSULIN REGULAR, HUMAN 100 UNIT/ML 3 ML VIAL SQ PRN ×2 (05:37→13:40)
--- NOTE | 2019-11-18 05:38 | NUR ---
MS/RN NOTES: ACCUCHECK FOR 0600 IS 178. ADMINISTERED 3 UNITS REGULAR INSULIN. GTUBE FEEDING INFUSING AT 45MLS/HR. WILL KEEP MONITORING.
--- NOTE | 2019-11-18 06:43 | NUR ---
MS/RN CLOSING NOTES: PATIENT CURRENTLY SLEEPING IN BED. AROUSABLE TO STIMULI. REMAINS NONVERBAL, AND LETHARGIC. MD AWARE OF PATIENT'S CONDITION. REMAINED STABLE ALL NIGHT. NO SIGNIFICANT CHANGES IN CONDITION. ON 6L FACE MASK IN NO APPARENT DISTRESS. SATURATING AT 97-100%. NO S/S OF ANY ACUTE DISTRESS NOTED AT THIS TIME, G-TUBE IN PLACE, WITH NO RESIDUAL NOTED NEPRO RUNNING AT 45 ML/HR ORDERED. FLUSHED WITH 100MLS OF WATER [id number] ORDERED. ASPIRATION AND SAFETY PRECAUTIONS IN PLACE, BED IN LOWEST LOCKED POSITION, HOB ELEVATED SEMI FOWLERS POSITION, SIDE RAILS UP X3, CALL LIGHT WITHIN REACH. KEPT WARM AND COMFORTABLE THROUGHOUT THE SHIFT. KEPT CLEAN AND DRY AT ALL TIMES. SKIN ASSESSED. WOUND CARE TREATMENT DONE. PHOTOS WERE TAKEN AND DOCUMENTED IN THE CHART. REPOSITIONED PT Q2HRS. ALL NURSING NEEDS MET AND RENDERED. WILL ENDORSE TO DAY SHIFT RN FOR DALILA.
[2019-11-18 08:00] VITALS: BP 84/45
--- NOTE | 2019-11-18 08:00 | NUR ---
MS RN OPENING NOTES Received Patient resting in bed. Non-verbal, lethargic. VS stable with no acute distress. Breathing even and unlabored on 6LPM via mask with no respiratory distress. No signs and symptoms of pain. GTube in place and patent with Nepro infusing at 45ml/hr. 20g PIV on RFA clean, intact, patent and flushing well. Safety precautions in place. Bed locked and set to lowest position with side rails x 2 up. All needs rendered at this time. Will continue to monitor.
[2019-11-18] MEDS: AMIODARONE HCL 200 MG TABLET PO SCH (09:00)
[2019-11-18] MEDS: CLOTRIMAZOLE 1% 15 GM TUBE TP SCH ×2 (09:56→17:31)
[2019-11-18 16:00] VITALS: BP 123/55
[2019-11-18] MEDS: SOD FERRIC GLUC 125 MG in IV NS 0.9% 100 ML IV SCH (16:12)
[2019-11-18] MEDS: NEPRO 1,000 ML BOTTLE GT PRN (17:32)
--- NOTE | 2019-11-18 18:59 | NUR ---
MS RN CLOSING NOTES Patient resting in bed. Non-verbal, lethargic. VS stable with no acute distress. Breathing even and unlabored on 6LPM via mask with no respiratory distress. No signs and symptoms of pain. GTube in place and patent with Nepro infusing at 45ml/hr. 20g PIV on RFA clean, intact, patent and flushing well. Safety precautions in place. Bed locked and set to lowest position with side rails x 2 up. All needs rendered at this time. Will endorse plan of care to oncoming shift.
--- NOTE | 2019-11-18 19:05 | NUR ---
MS/RN OPENING NOTES: RECEIVED REPORT FROM GANESH (MADHU RN). PATIENT IS RESTING IN THE BED IN COMFORTABLE POSITION. NONVERBAL AND LETHARGIC. IN NO APPARENT DISTRESS. ON 6L FACE MASK IN NO APPARENT DISTRESS. RESPIRATION EVEN AND UNLABORED. SATURATING AT 99%. NO S/S OF ANY ACUTE DISTRESS NOTED AT THIS TIME, G-TUBE IN PLACE. INTACT AND PATENT, WITH NO RESIDUAL NOTED NEPRO RUNNING @ 45ML/HR ORDERED. TO BE FLUSHED WITH WATER 100ML EVERY 6HRS ORDERED. IV SITE LOCATED ON THE [facility] #20G SL. ASPIRATION AND SAFETY PRECAUTIONS IN PLACE, BED IN LOWEST LOCKED POSITION, HOB ELEVATED SEMI FOWLERS POSITION, SIDE RAILS UP X3, CALL LIGHT WITHIN REACH. WILL CONTINUE TO MONITOR ACCORDINGLY.
--- NOTE | 2019-11-18 20:37 | NUR ---
MS/RN NOTES: RT MEHRDAD AT BEDSIDE. AUSCULTATED LUNG SOUNDS, PT SEEM TO BE BREATHING FINE. THERE IS A HIGH PITCH ON EXPIRATION. BREATHING IS EVEN AND UNLABORED. NO S/S OF RESP DISTRESS. ON 6L OF OXYGEN VIA MASK. TOLERATING WELL. SATURATING AT 99%. WILL CONTINUE TO MONITOR ACCORDINGLY.
[2019-11-18 20:44] VITALS: BP 118/92
[2019-11-18] MEDS: ENOXAPARIN SODIUM 30 MG/0.3 ML DISP.SYRIN SQ SCH (21:11)
--- NOTE | 2019-11-18 23:50 | NUR ---
MS/RN NOTES: ACCUCHECK FOR 0000 IS 222. ADMINISTERED 6 UNITS OF REG. INSULIN PER SLIDING SCALE. GTUBE FEEDING INFUSING AT 45MLS/HR. WILL KEEP MONITORING.
--- NOTE | 2019-11-19 | NUR ---
MS/RN NOTES: GTUBE FLUSHED WITH WATER 100MLS Q6HRS ORDERED. NO RESIDUAL NOTED. PT. TOLERATING FEEDING WELL.
[2019-11-19] MEDS: INSULIN REGULAR, HUMAN 100 UNIT/ML 3 ML VIAL SQ PRN ×4 (00:02→17:11)
[2019-11-19] MEDS: BLOOD SUGAR DIAGNOSTIC 1 EACH STRIP VI SCH ×3 (05:44→17:07)
--- NOTE | 2019-11-19 05:53 | NUR ---
MS/RN NOTES: ACCUCHECK 215. ADMINISTERED 6UNITS OF REGULAR INSULIN PER SLIDING SCALE. GTUBE INFUSING @45MLS/HR. TOLERATING FEEDING. NO RESIDUALS NOTED. FLUSHED WATER 100 ML Q6HRS ORDERED.
[2019-11-19 06:31] LABS: CALCIUM, SERUM 8.7 mg/dL (8.5-10.1); CREATININE 0.7 mg/dL (0.6-1.3); MAGNESIUM 1.7 mg/dL (1.8-2.4); POTASSIUM 4.6 mmol/L (3.5-5.1)
--- NOTE | 2019-11-19 06:34 | NUR ---
MS/RN NOTES: RECEIVED CRITICAL REPORT VALUE FROM LAB. CO2 [address]. CALL[address] DR[address] AADMS AT THIS TIME.
[2019-11-19 06:37] LABS: BASOPHILS # (AUTO) 0.1 /CMM (0.0-0.2); BASOPHILS % (AUTO) 1.4 % (0.0-2.0); EOSINOPHILS % (AUTO) 3.3 % (0.0-6.0); HEMATOCRIT 25 % (33-45); LYMPHOCYTES # (AUTO) 2.1 /CMM (0.8-4.8); LYMPHOCYTES % (AUTO) 26.9 % (20.0-44.0); MEAN CORPUSCULAR HGB CONC 33 g/dl (31.0-36.0); MEAN CORPUSCULAR VOLUME 90 fL (82-100); MONOCYTES # (AUTO) 0.5 /CMM (0.1-1.30); MONOCYTES % (AUTO) 6.9 % (2.0-12.0); NEUTROPHILS # (AUTO) 4.8 /CMM (1.8-8.9); NEUTROPHILS % (AUTO) 61.5 % (43.0-81.0); PLATELET COUNT (AUTO) 315 /CMM (150-450); RED BLOOD CELL COUNT(AUTO) 2.73 MIL/uL (4.0-5.2); WHITE BLOOD COUNT (AUTO) 7.7 K/uL (4.3-11.0)
--- NOTE | 2019-11-19 07:40 | NUR ---
ms rn received on bed, nonverbal, responsive to stimuli, g tube on going, tolerated well. will monitor patient.
--- NOTE | 2019-11-19 07:53 | NUR ---
MS/RN CLOSING NOTES: PATIENT CURRENTLY SLEEPING IN BED. AROUSABLE TO STIMULI. REMAINS NONVERBAL, AND LETHARGIC. REMAINED STABLE ALL NIGHT. NO SIGNIFICANT CHANGES IN CONDITION. ON 6L FACE MASK IN NO APPARENT DISTRESS. SATURATING AT 97-100%. NO S/S OF ANY ACUTE DISTRESS NOTED AT THIS TIME, G-TUBE IN PLACE, WITH NO RESIDUAL NOTED NEPRO RUNNING AT 45 ML/HR ORDERED. FLUSHED WITH 100MLS OF WATER [id number] ORDERED. ASPIRATION AND SAFETY PRECAUTIONS IN PLACE, BED IN LOWEST LOCKED POSITION, HOB ELEVATED SEMI FOWLERS POSITION, SIDE RAILS UP X3, CALL LIGHT WITHIN REACH. KEPT WARM AND COMFORTABLE THROUGHOUT THE SHIFT. KEPT CLEAN AND DRY AT ALL TIMES. SKIN ASSESSED. WOUND CARE TREATMENT DONE. PHOTOS WERE TAKEN AND DOCUMENTED IN THE CHART. REPOSITIONED PT Q2HRS. ALL NURSING NEEDS MET AND RENDERED. CRITICAL LAB CO2 41 REPORTED TO PATIENT ADVOCATE, DAY SHIFT RN CINDY AND DR. ADAMS. WILL ENDORSE TO DAY SHIFT RN FOR DALILA.
[2019-11-19 08:00] VITALS: BP 96/54
[2019-11-19] MEDS: AMIODARONE HCL 200 MG TABLET PO SCH (09:00)
--- NOTE | 2019-11-19 09:00 | NUR ---
ms rn was seen by dr. floyd,no order at this itme,all needs attended.
[2019-11-19] MEDS: Magnesium 1GM/D5W 100ML PREMIX 100 ML IV SCH ×2 (11:57→13:30)
[2019-11-19 16:00] VITALS: BP 120/45
[2019-11-19] MEDS: CLOTRIMAZOLE 1% 15 GM TUBE TP SCH ×2 (16:01→17:07)
[2019-11-19] MEDS: SOD FERRIC GLUC 125 MG in IV NS 0.9% 100 ML IV SCH (16:02)
--- NOTE | 2019-11-19 18:00 | NUR ---
ms rn on bed, all needs attended,no distress noted.
[2019-11-19] MEDS: NEPRO 1,000 ML BOTTLE GT PRN (18:32)
--- NOTE | 2019-11-19 19:50 | NUR ---
MS RN NOTE: PATIENT RESTING IN BED, NO ACUTE DISTRESS NOTED. BREATHING EVEN AND UNLABORED, NO SOB NOTED. IV TO RFA IN PLACE. G-TUBE IN PLACE, INFUSING NEPHRO 45ML/HR. HOB ELEVATED. NO S/S OF HYPER/HYPOGLYCEMIA NOTED. BED LOCKED AND IN LOWEST POSITION, CALL LIGHT IN REACH. WILL CONTINUE TO MONITOR.
[2019-11-19 20:33] VITALS: BP 120/50
[2019-11-19] MEDS: ENOXAPARIN SODIUM 30 MG/0.3 ML DISP.SYRIN SQ SCH (21:53)
[2019-11-20] MEDS: BLOOD SUGAR DIAGNOSTIC 1 EACH STRIP VI SCH ×4 (00:14→17:55)
[2019-11-20] MEDS: *INSULIN REGULAR(HUMULIN R)HUM 100 UNIT/ML VIAL SQ PRN (00:29)
--- NOTE | 2019-11-20 00:30 | NUR ---
MS RN NOTE: PATIENT BLOOD SUGAR 216MG/DL, PATIENT TO RECEIVE 4 UNITS OF INSULIN PER SLIDING SCALE, NO S/S OF HYPER/HYPOGLYCEMIA NOTED. G-TUBE FEEDING INFUSING. WILL CONTINUE TO MONITOR.
[2019-11-20] MEDS: INSULIN REGULAR, HUMAN 100 UNIT/ML 3 ML VIAL SQ PRN ×3 (06:02→17:56)
--- NOTE | 2019-11-20 06:30 | NUR ---
MS RN NOTE: PATIENT RESTING IN BED, NO ACUTE DISTRESS NOTED. BREATHING EVEN AND UNLABORED, NO SOB NOTED. IV TO RFA IN PLACE. G-TUBE IN PLACE, INFUSING NEPHRO 45ML/HR. HOB ELEVATED. BLOOD SUGAR LEVEL 278MG/DL, TO RECEIVE 9 UNITS OF INSULIN PER SLIDING SCALE. NO S/S OF HYPER/HYPOGLYCEMIA NOTED. BED LOCKED AND IN LOWEST POSITION, CALL LIGHT IN REACH. WILL ENDORSE TO DAY NURSE TO CONTINUE WITH PLAN OF CARE.
[2019-11-20 07:28] LABS: CALCIUM, SERUM 8.9 mg/dL (8.5-10.1); CREATININE 0.9 mg/dL (0.6-1.3); MAGNESIUM 2.2 mg/dL (1.8-2.4); POTASSIUM 4.7 mmol/L (3.5-5.1)
--- NOTE | 2019-11-20 07:30 | NUR ---
MS/ RN OPENING NOTES RECEIVED PATIENT RESTING IN BED, COMFORTABLE POSITION, NO ACUTE DISTRESS NOTED. BREATHING EVEN AND UNLABORED, NO SOB NOTED ON 6L FACE MASK NO APPARENT DISTRESS, SATURATING AT 99% OXYGEN . IV TO RFA IN PLACE. G-TUBE IN PLACE AND INTACT, INFUSING NEPHRO 45ML/HR. HOB ELEVATED. NO S/S OF HYPER/HYPOGLYCEMIA NOTED. SAFETY MEASURES IN PLACE BED LOCKED AND IN LOWEST POSITION, CALL LIGHT WITH REACH, ASPIRATION PRECAUTIONS. WILL CONTINUE TO MONITOR PATIENT ACCORDINGLY THROUGH OUT SHIFT.
[2019-11-20 08:00] VITALS: BP 101/76
[2019-11-20] MEDS: AMIODARONE HCL 200 MG TABLET PO SCH ×2 (09:00→09:23)
[2019-11-20] MEDS: CLOTRIMAZOLE 1% 15 GM TUBE TP SCH ×2 (09:24→17:58)
--- NOTE | 2019-11-20 09:28 | NUR ---
MS/RN AFTER CRUSHING MED NOTE PT BP 101/76, PER NURSING JUDGEMENT DECIDE NOT TO GIVE MED. MED DISCARDED WITNESSED BY RN BUNNY.
--- NOTE | 2019-11-20 09:31 | NUR ---
MS/RN PATIENT SEEN BY DR. ATKINS AND MADE HIM AWARE THAT PT IS AT 6L O2 VIA MASK STAT AT 100%. PER DR. ATKINS TO PLACE PT ON N/C, 3L. NOTED AND CARRIED OUT, WILL MONITOR THE PATIENT.
--- NOTE | 2019-11-20 10:23 | NUR ---
PATIENT TAKEN FOR CT HEAD SCAN WITH OUT CONTRAST. V/S WITHIN NORMAL LIMITS, PATIENT STABLE NO DISTRESSED NOTED. TRANSFERRED VIA BED. PATIENT ON 3L OXYGEN PER MIN N/C
--- NOTE | 2019-11-20 10:34 | NUR ---
MS/ RN NOTES PATIENT RETURNED FROM CT SCAN IN STABLE CONDITION. WILL CONTINUE TO MONITOR.
[2019-11-20] MEDS: SOD FERRIC GLUC 125 MG in IV NS 0.9% 100 ML IV SCH (14:20)
[2019-11-20 16:00] VITALS: BP 106/93
[2019-11-20] MEDS: NEPRO 1,000 ML BOTTLE GT PRN (17:56)
--- NOTE | 2019-11-20 18:41 | NUR ---
MS/RN NOTE THE PATIENT IN BED. A/O X0. RECEIVING OXYGEN AT 3L/MIN VIA NC AND SATURATION IS AT 94%. RESPIRATION REGULAR AND UNLABORED. NO S/S DISTRESS NOTED. RFA G 20 PATENT AND SALINE LOCKED. GT FEEDING NEPHRO INFUSING AT 45ML/HR. NO RESIDUAL NOTED. ABDOMEN SOFT AND NON-DISTENDED. EEG DONE WAITING FOR RESULTS. BED LOW AND LOCKED. SIDE RAILS UP X3. CALL LIGHT WITHIN REACH. WILL ENDORSE TO GYM TEACHER.
--- NOTE | 2019-11-20 18:41 | NUR ---
MS/RN NOTE
--- NOTE | 2019-11-20 19:15 | NUR ---
MS RN NOTES RECEIVED PT IN BED. PT A/O X0. PT NOTED ON OXYGEN AT 3L/MIN VIA NC AND SATURATION IS AT 94%. RESPIRATION REGULAR AND UNLABORED WITH NO S/S OF ACUTE DISTRESS OR SOB NOTED. PT NOTED WITH RFA #20G PATENT AND INTACT AND SL. PT NOTED WITH GT FEEDING NEPHRO INFUSING AT 45ML/HR. SAFETY MEASURES IN PLACE WITH BED IN LOWEST LOCKED POSITION WITH SIDE RAILS UP X2. CALL LIGHT WITHIN REACH. WILL CONTINUE TO MONITOR.
[2019-11-20 20:00] VITALS: BP 151/80
[2019-11-20] MEDS: ENOXAPARIN SODIUM 30 MG/0.3 ML DISP.SYRIN SQ SCH (21:42)
[2019-11-21] MEDS: BLOOD SUGAR DIAGNOSTIC 1 EACH STRIP VI SCH ×4 (00:59→17:27)
[2019-11-21] MEDS: INSULIN REGULAR, HUMAN 100 UNIT/ML 3 ML VIAL SQ PRN ×4 (01:04→17:27)
--- NOTE | 2019-11-21 06:59 | NUR ---
MS RN NOTES PT IN BED. PT A/O X0. RESPIRATIONS EVEN AND UNLABORED WITH NO S/S OF ACUTE DISTRESS OR SOB NOTED THROUGHOUT SHIFT. PT NOTED WITH RFA #20G PATENT AND INTACT AND SL. PT NOTED WITH GT FEEDING NEPHRO INFUSING AT 45ML/HR. PT KEPT CLEAN, DRY, AND COMFORTABLE. SAFETY MEASURES IN PLACE WITH BED IN LOWEST LOCKED POSITION WITH SIDE RAILS UP X2. CALL LIGHT WITHIN REACH. WILL ENDORSE TO ONCOMING NURSE FOR DALILA.
--- NOTE | 2019-11-21 07:30 | NUR ---
MS/ RN OPENING NOTES RECEIVED PATIENT RESTING IN BED, IN A COMFORTABLE POSITION, NO ACUTE DISTRESS NOTED. BREATHING EVEN AND UNLABORED, NO SOB NOTED, ON 3L N/C, NO APPARENT DISTRESS, SATURATING AT 99% OXYGEN . IV TO RFA IN PLACE. G-TUBE IN PLACE AND INTACT, INFUSING NEPHRO 45ML/HR. HOB ELEVATED. NO S/S OF HYPER/HYPOGLYCEMIA NOTED. SAFETY MEASURES IN PLACE BED LOCKED AND IN LOWEST POSITION, CALL LIGHT WITHIN REACH, ASPIRATION PRECAUTIONS. WILL CONTINUE TO MONITOR PATIENT ACCORDINGLY THROUGH OUT SHIFT.
[2019-11-21 08:00] VITALS: BP 109/82
[2019-11-21] MEDS: AMIODARONE HCL 200 MG TABLET PO SCH (09:00)
[2019-11-21] MEDS: CLOTRIMAZOLE 1% 15 GM TUBE TP SCH ×2 (09:05→17:27)
[2019-11-21 16:00] VITALS: BP 119/60
[2019-11-21 17:42] LABS: BASOPHILS # (AUTO) 0.1 /CMM (0.0-0.2); BASOPHILS % (AUTO) 0.7 % (0.0-2.0); EOSINOPHILS % (AUTO) 2.9 % (0.0-6.0); HEMATOCRIT 27 % (33-45); HEMOGLOBIN 8.4 g/dL (11.5-14.8); LYMPHOCYTES # (AUTO) 3.7 /CMM (0.8-4.8); LYMPHOCYTES % (AUTO) 35.7 % (20.0-44.0); MEAN CORPUSCULAR HGB CONC 32 g/dl (31.0-36.0); MEAN CORPUSCULAR VOLUME 91 fL (82-100); MONOCYTES # (AUTO) 0.8 /CMM (0.1-1.30); MONOCYTES % (AUTO) 7.4 % (2.0-12.0); NEUTROPHILS # (AUTO) 5.5 /CMM (1.8-8.9); NEUTROPHILS % (AUTO) 53.3 % (43.0-81.0); PLATELET COUNT (AUTO) 386 /CMM (150-450); RED BLOOD CELL COUNT(AUTO) 2.93 MIL/uL (4.0-5.2); WHITE BLOOD COUNT (AUTO) 10.3 K/uL (4.3-11.0)
[2019-11-21 17:59] LABS: CALCIUM, SERUM 9.3 mg/dL (8.5-10.1); CREATININE 0.8 mg/dL (0.6-1.3); MAGNESIUM 1.9 mg/dL (1.8-2.4); PHOSPHORUS 2.6 mg/dL (2.5-4.9); POTASSIUM 4.6 mmol/L (3.5-5.1)
--- NOTE | 2019-11-21 18:53 | NUR ---
MS/RN NOTE DR JEFFERSON MADE AWARE OF CO2 LEVEL OF 43 WHICH WAS REPORTED TO ME AT 1840. PER NO NEW ORDERS.
--- NOTE | 2019-11-21 18:54 | NUR ---
MS/RN NOTE THE PATIENT IN BED. A/O X0. RECEIVING OXYGEN AT 3L/MIN VIA NC AND SATURATION IS AT 95%. RESPIRATION REGULAR AND UNLABORED. NO S/S DISTRESS NOTED. RFA G 20 PATENT AND SALINE LOCKED. GT FEEDING NEPHRO INFUSING AT 45ML/HR. NO RESIDUAL NOTED. ABDOMEN SOFT AND NON-DISTENDED. BED LOW AND LOCKED. SIDE RAILS UP X3. CALL LIGHT WITHIN REACH. WILL ENDORSE TO SENIOR COUNSEL COMMERCIAL.
--- NOTE | 2019-11-21 19:20 | NUR ---
MS RN NOTES RECEIVED PT IN BED. PT A/O X0, MOANS AND OPENS EYES. PT NOTED ON OXYGEN AT 3L/MIN VIA NC. RESPIRATIONS EVEN AND UNLABORED WITH NO S/S OF ACUTE DISTRESS OR SOB NOTED. PT NOTED WITH RFA #20G PATENT AND INTACT AND SL. PT NOTED WITH GT FEEDING NEPHRO INFUSING AT 45ML/HR. SAFETY MEASURES IN PLACE WITH BED IN LOWEST LOCKED POSITION WITH SIDE RAILS UP X2. CALL LIGHT WITHIN REACH. WILL CONTINUE TO MONITOR.
[2019-11-21 20:00] VITALS: BP 105/92
[2019-11-21] MEDS: ENOXAPARIN SODIUM 30 MG/0.3 ML DISP.SYRIN SQ SCH (22:01)
[2019-11-22] MEDS: BLOOD SUGAR DIAGNOSTIC 1 EACH STRIP VI SCH ×4 (01:01→18:14)
[2019-11-22] MEDS: INSULIN REGULAR, HUMAN 100 UNIT/ML 3 ML VIAL SQ PRN ×4 (01:04→18:33)
[2019-11-22] MEDS: NEPRO 1,000 ML BOTTLE GT PRN (02:02)
[2019-11-22 08:00] VITALS: BP 111/63
--- NOTE | 2019-11-22 08:21 | NUR ---
MS RN NOTES PT IN BED. PT A/O X0. RESPIRATIONS EVEN AND UNLABORED WITH NO S/S OF ACUTE DISTRESS OR SOB NOTED THROUGHOUT SHIFT. PT NOTED WITH GT FEEDING NEPHRO INFUSING AT 45ML/HR. PT KEPT CLEAN, DRY, AND COMFORTABLE. SAFETY MEASURES IN PLACE WITH BED IN LOWEST LOCKED POSITION WITH SIDE RAILS UP X2. CALL LIGHT WITHIN REACH. WILL ENDORSE TO ONCOMING NURSE FOR DALILA.
[2019-11-22] MEDS: AMIODARONE HCL 200 MG TABLET PO SCH (10:27)
[2019-11-22] MEDS: CLOTRIMAZOLE 1% 15 GM TUBE TP SCH ×2 (11:15→17:54)
--- NOTE | 2019-11-22 18:00 | NUR ---
REGINE. TUBE FEEDING,BLOOD SUGARS STABLE. PLANS TO TRANFER TO [facility] EVENT[facility].
--- NOTE | 2019-11-22 19:30 | NUR ---
MS RN PM OPENING NOTE WRITTEN REPORT RECIEVED FROM MIGUEL AYALA. PT IN BED. PT OBTUNDED, RESPONDS TO TOUCH MOANS AND OPENS EYES. PT NOTED ON OXYGEN AT 3L/MIN VIA NC. RESPIRATIONS EVEN AND UNLABORED WITH NO S/S OF ACUTE DISTRESS OR SOB NOTED. PT NOTED WITH LFA #22G PATENT AND INTACT AND SL. PT NOTED WITH GT FEEDING NEPHRO INFUSING AT 45ML/HR. SAFETY MEASURES IN PLACE WITH BED IN LOW LOCKED POSITION WITH SIDE RAILS UP X3. CALL LIGHT WITHIN REACH. WILL CONTINUE TO MONITOR.
[2019-11-22 20:30] VITALS: BP 105/43
[2019-11-22 20:31] VITALS: BP 114/69
[2019-11-22] MEDS: ENOXAPARIN SODIUM 30 MG/0.3 ML DISP.SYRIN SQ SCH (22:31)
[2019-11-23] MEDS: INSULIN REGULAR, HUMAN 100 UNIT/ML 3 ML VIAL SQ PRN ×2 (01:01→05:50)
[2019-11-23] MEDS: BLOOD SUGAR DIAGNOSTIC 1 EACH STRIP VI SCH ×3 (01:02→11:50)
[2019-11-23] MEDS: NEPRO 1,000 ML BOTTLE GT PRN (01:42)
--- NOTE | 2019-11-23 06:59 | NUR ---
MS RN PM CLOSING NOTE PT IN BED. PT OBTUNDED AND MOANS TO TOUCH, OPENS EYES. , RESPONDS TO TOUCH MOANS AND OPENS EYES. PT NOTED ON OXYGEN AT 3L/MIN VIA NC. RESPIRATIONS EVEN AND UNLABORED WITH NO S/S OF ACUTE DISTRESS OR SOB NOTED. PT NOTED WITH LFA #22G PATENT AND INTACT AND SL. PT NOTED WITH GT FEEDING NEPHRO INFUSING AT 45ML/HR. SAFETY MEASURES IN PLACE WITH BED IN LOW LOCKED POSITION WITH SIDE RAILS UP X3. CALL LIGHT WITHIN REACH. WILL ENDORSE TO ONCOMING SHIFT
--- NOTE | 2019-11-23 07:30 | NUR ---
MS/RN Opening note Received patient in bed, sleeping, does no appears pain or any discomfort. Skin is warm to touch, kept clean/dry, intact IV site site. Respiratory even and unlabored with oxygen at 3LPM. Running g tube feeding and no residual noted. Keep bed in lock position with low and elevated HOB for secure airway. Call light within reach, will continue to monitor.
[2019-11-23 08:00] VITALS: BP 121/58
[2019-11-23 08:39] LABS: BASOPHILS # (AUTO) 0.1 /CMM (0.0-0.2); BASOPHILS % (AUTO) 1.1 % (0.0-2.0); EOSINOPHILS % (AUTO) 6.1 % (0.0-6.0); HEMATOCRIT 26 % (33-45); HEMOGLOBIN 8.3 g/dL (11.5-14.8); LYMPHOCYTES # (AUTO) 3.3 /CMM (0.8-4.8); LYMPHOCYTES % (AUTO) 37.3 % (20.0-44.0); MEAN CORPUSCULAR HGB CONC 31 g/dl (31.0-36.0); MEAN CORPUSCULAR VOLUME 92 fL (82-100); MONOCYTES # (AUTO) 0.9 /CMM (0.1-1.30); MONOCYTES % (AUTO) 9.8 % (2.0-12.0); NEUTROPHILS # (AUTO) 4.1 /CMM (1.8-8.9); NEUTROPHILS % (AUTO) 45.7 % (43.0-81.0); PLATELET COUNT (AUTO) 361 /CMM (150-450); RED BLOOD CELL COUNT(AUTO) 2.87 MIL/uL (4.0-5.2); WHITE BLOOD COUNT (AUTO) 8.9 K/uL (4.3-11.0)
[2019-11-23 08:56] VITALS: BP 121/58
[2019-11-23] MEDS: AMIODARONE HCL 200 MG TABLET PO SCH (08:56)
[2019-11-23] MEDS: CLOTRIMAZOLE 1% 15 GM TUBE TP SCH (08:57)
[2019-11-23] MEDS: *INSULIN REGULAR(HUMULIN R)HUM 100 UNIT/ML VIAL SQ PRN (11:51)
[2019-11-23 12:00] LABS: ABG BASE EXCESS 14.7 mmol/L; ABG OXYGEN SATURATION 98.7 % (92.0-98.5); ABG PCO2 63.7 mmHg (35.0-45.0); ABG PH 7.425 (7.350-7.450); ABG PO2 148.9 mmHg (75.0-100.0); AaDO2 4.7 mmHg; COHb 0.5 % (0.5-1.5); MetHb 0.7 % (0.0-1.5); O2Hb 97.5 % (94.0-97.0); SITE, ABG Right Radial; VENT MODE, BG 3LPM NASAL CANNULA
[2019-11-23 12:02] LABS: CALCIUM, SERUM 9.4 mg/dL (8.5-10.1); CREATININE 0.8 mg/dL (0.6-1.3); POTASSIUM 4.9 mmol/L (3.5-5.1)
--- NOTE | 2019-11-23 17:00 | NUR ---
Patient going transfer to [facility], given report Yandel/LUCY.
--- NOTE | 2019-11-23 18:21 | NUR ---
2 rabies inspector arrived to pick up operator pt, given report. Pt left facility in stable.
--- NOTE | 2019-11-23 18:30 | NUR ---
Discharge medication list fax overed to [facility].
[2019-11-23] MEDS ORDERED: AMIO200T7 PO (19:08)
== END 2019-11-23 18:23 | disposition other institution (70) | DRG 871 ==
LOC: ER 21:27 → EDBD 21:27 → TELE1 10-31 00:01 → MERGE 10-31 00:01 → TELE 11-02 13:22 → MED 11-03 09:06
PROVIDERS: ADMIT Internal Medicine; ATTEND Internal Medicine
PROC: 0W9B3ZZ Drainage of Left Pleural Cavity, Percutaneous Approach (ICD-10-PCS; principal; 2019-11-13)
DX: A41.9 Sepsis, unspecified organism (principal); G93.41 Metabolic encephalopathy; E43 Unspecified severe protein-calorie malnutrition; J96.21 Acute and chronic respiratory failure with hypoxia; I50.33 Acute on chronic diastolic (congestive) heart failure; J96.22 Acute and chronic respiratory failure with hypercapnia; N17.0 Acute kidney failure with tubular necrosis; J69.0 Pneumonitis due to inhalation of food and vomit; J90 Pleural effusion, not elsewhere classified; D68.59 Other primary thrombophilia; N39.0 Urinary tract infection, site not specified; E87.2 Acidosis; J98.11 Atelectasis; E27.40 Unspecified adrenocortical insufficiency; E87.0 Hyperosmolality and hypernatremia; E03.9 Hypothyroidism, unspecified; I48.91 Unspecified atrial fibrillation; E11.9 Type 2 diabetes mellitus without complications; K21.9 Gastro-esophageal reflux disease without esophagitis; R13.10 Dysphagia, unspecified; Z93.1 Gastrostomy status; Z86.73 Personal history of transient ischemic attack (TIA), and cerebral infarction without residual deficits; Z87.440 Personal history of urinary (tract) infections; Z74.01 Bed confinement status; Z86.718 Personal history of other venous thrombosis and embolism; M06.9 Rheumatoid arthritis, unspecified; Z91.011 Allergy to milk products; I11.0 Hypertensive heart disease with heart failure; F03.90 Unspecified dementia, unspecified severity, without behavioral disturbance, psychotic disturbance, mood disturbance, and anxiety; I25.10 Atherosclerotic heart disease of native coronary artery without angina pectoris; Z74.09 Other reduced mobility; Y95 Nosocomial condition; D63.8 Anemia in other chronic diseases classified elsewhere; I70.0 Atherosclerosis of aorta; E86.0 Dehydration; F09 Unspecified mental disorder due to known physiological condition; E78.5 Hyperlipidemia, unspecified; I25.2 Old myocardial infarction; Z79.4 Long term (current) use of insulin; Z79.899 Other long term (current) drug therapy; R62.7 Adult failure to thrive; E11.65 Type 2 diabetes mellitus with hyperglycemia; B96.4 Proteus (mirabilis) (morganii) as the cause of diseases classified elsewhere; K29.70 Gastritis, unspecified, without bleeding; E87.5 Hyperkalemia
CPT/HCPCS: 31720; 36415; 36600; 70450-TC; 71045-TC; 80048-TC; 80053-TC; 80076-TC; 80202-TC; 81000-TC; 82272-TC; 82436-TC; 82728-TC; 82803-TC; 82962-TC; 83540-TC; 83605-TC; 83615-TC; 83735-TC; 83935-TC; 84100-TC; 84133-TC; 84300-TC; 84484-TC; 85025-TC; 85378-TC; 85610-TC; 85730-TC; 86140-TC; 87040-TC; 87081-TC; 87086-TC; 87186-TC; 94799-TC; 95819-TC; A6253; A6403; G0378; J0456; J0696; J1160; J1650; J1815; J2185; J2270; J2543; J2916; J3370; J3475; J3490; J7030; J7040; J7050; J7060; J7070; U0003-CS

== ENCOUNTER 2020-01-29 01:00 | Inpatient (IN) | payer MEDICARE, OTHER ==
[2020-01-29] VITALS (75 sets, daily range): BP systolic 65–164; BP diastolic 28–130
[~2020-01-29] VITALS: Ht 167.6 cm; Wt 61.2 kg
[~2020-01-29 01:00] MED LIST changes: +ACET1OOV6 HHN; +ALBU1.257 IH; +AMIN30LI2 GT; -AMIO200T4 GT; +AMIO200T7 PO; +ASCO-352 GT; -BISA-79 RC; +BISA10SU11 RC; -BRIM5DRO3 LEFTEYE; +COLL30OI TP; -CYAN-51 GT; -DIVA-76 GT; -DONE5TAB7 GT; -DORZ10DR11 LEFTEYE; +ENOX40DI SQ; -ERGO500014 GT; -GLUC1KIT IM; -HYDR-4384 GT; -INSU100V3 SQ; +IPRA0.2S9 IH; -LATA2.5D2 EACHEYE; -LINA5TAB GT; +MAG30ORA GT; -MAGN24002 GT; +MAGN400O6 GT; -METR-147 PO; +MULT-447 GT; +NYST15OI TP; +PANT40SU2 GT; -PRED20TA GT; -VALS40TA12 GT; +ZINC1CAP2 GT
[2020-01-29] MEDS ORDERED: PROPOFOL 100 ML IV ONE (01:07)
--- NOTE | 2020-01-29 01:08 | NUR ---
JALEESA FROM SNF FOR AMS AND SOB. PER EMS PT WAS SATTING ON HIGH 80S AND LOW 90S. PT WAS ARRIVED ON SIMPLE MASK. SATTING AT 93-95% . AWAKE BUT NOT VERBALLY RESPONSIVE. PT WAS TRANSFERRED TO BED 5, MONITOR APPLIED.
--- NOTE | 2020-01-29 01:18 | NUR ---
PT WAS INTUBATED BY DR GARCIA AT THE BED SIDE
--- NOTE | 2020-01-29 01:18 | NUR ---
MD MILLER PERFORMED INTUBATION, WITH 7.0 ETT @21CM LIP LINE, PT PLACED ON MECH VENT WITH THE FOLLOWING SETTING AC 16R 500VT 100%02 +5 PEEP, MECH VENT ALARMS WERE PLACED, AND AUDIBLE, VENT PLUGGED INTO RED OUTLET BRAKES LOCKED. PT SUCTION THICK FUENTES SECRETIONS, PT TOLERATING SETTINGS... PENDING XRAY AND POST INTUBATION ABG
[2020-01-29] MEDS ORDERED: ACETAMINOPHEN 650 MG/SUPP.RECT RC ONE ×2 (01:20→01:30)
[2020-01-29] MEDS ORDERED: PROPOFOL 100 ML ONE (01:21)
[2020-01-29] MEDS ORDERED: PIPERACILLIN /TAZOBACTAM 3.375 G VIAL IV ONE (01:21)
[2020-01-29] MEDS ORDERED: CEFTRIAXONE 1GM BAG (ER ONLY) 50 ML IV ONE ×2 (01:21→01:30)
[2020-01-29] MEDS ORDERED: IV NS 0.9% 1,000 ML BAG IV ONE (01:30)
[2020-01-29] MEDS ORDERED: SUCCINYLCHOLINE CHLORIDE 20 MG/ML VIAL IV ONE ×2 (01:30→09:19)
[2020-01-29] MEDS ORDERED: ETOMIDATE 2 MG/ML VIAL IV ONE ×2 (01:30→09:19)
[2020-01-29] MEDS ORDERED: PIPERACILLIN /TAZOBACTAM 3.375 G in IV D5W 50 ML IV ONE (01:30)
--- NOTE | 2020-01-29 01:30 | NUR ---
PROPOFOL STARTED AT 5MCG/KG/ MIN. PT REMAINED ON IVF AND CONTINOUS MONITORING.
--- NOTE | 2020-01-29 01:40 | NUR ---
AWAD INSERTED. URINE COLLECTED
[2020-01-29] MEDS: ACETYLCYSTEINE 10% SOLN 400 MG/4 ML VIAL HHN SCH ×3 (01:55→15:30)
--- NOTE | 2020-01-29 01:57 | NUR ---
BED ASSIGNMENT ICU 253
[2020-01-29 02:16] LABS: BASOPHILS # (AUTO) 0.2 /CMM (0.0-0.2); BASOPHILS % (AUTO) 1.2 % (0.0-2.0); EOSINOPHILS % (AUTO) 0.2 % (0.0-6.0); HEMATOCRIT 45 % (33-45); HEMOGLOBIN 13.6 g/dL (11.5-14.8); LYMPHOCYTES # (AUTO) 0.6 /CMM (0.8-4.8); LYMPHOCYTES % (AUTO) 4.4 % (20.0-44.0); MEAN CORPUSCULAR HGB CONC 30 g/dl (31.0-36.0); MEAN CORPUSCULAR VOLUME 88 fL (82-100); MONOCYTES # (AUTO) 0.6 /CMM (0.1-1.30); MONOCYTES % (AUTO) 4.3 % (2.0-12.0); NEUTROPHILS # (AUTO) 11.7 /CMM (1.8-8.9); NEUTROPHILS % (AUTO) 89.9 % (43.0-81.0); PLATELET COUNT (AUTO) 359 /CMM (150-450); RED BLOOD CELL COUNT(AUTO) 5.12 MIL/uL (4.0-5.2)
[2020-01-29 02:17] LABS: ABG BASE EXCESS 2.9 mmol/L; ABG OXYGEN SATURATION 99.2 % (92.0-98.5); ABG PCO2 44.3 mmHg (35.0-45.0); ABG PH 7.417 (7.350-7.450); ABG PO2 428.3 mmHg (75.0-100.0); AaDO2 240.4 mmHg; COHb 0.3 % (0.5-1.5); MetHb 0.8 % (0.0-1.5); O2Hb 98.1 % (94.0-97.0); PEEP,BG 5 cm H2O; SITE, ABG Right Radial; VT, ABG 500 mL
[2020-01-29] MEDS ORDERED: AMIO200T4 GT (02:17)
[2020-01-29] MEDS ORDERED: LANS30CA56 GT (02:17)
[2020-01-29] MEDS ORDERED: SIME120L GT (02:17)
[2020-01-29] MEDS ORDERED: NA P133E RC (02:17)
[2020-01-29] MEDS ORDERED: INSU100V28 SQ (02:17)
[2020-01-29] MEDS ORDERED: FERR220S2 GT (02:17)
[2020-01-29 02:21] LABS: APPEARANCE,URINE TURBID (CLEAR); BILIRUBIN,URINE NEGATIVE (NEGATIVE); BLOOD, URINE MODERATE Ery/uL (NEGATIVE); COLOR,URINE YELLOW (YELLOW); KETONES,URINE NEGATIVE (NEGATIVE); LEUKOCYTE ESTERASE ,URINE LARGE (NEGATIVE); NITRITE, URINE NEGATIVE (NEGATIVE); PROTEIN,URINE 100 mg/dl (NEGATIVE); UGLUCOSE NEGATIVE (NEGATIVE); UROBILINOGEN,URINE 0.2 EU/dL (0.2)
[2020-01-29 02:27] LABS: BACTERIA,URINE Few /HPF (None Seen); SQUAMOUS EPITHELIAL CELL,UR Few /HPF (None Seen); WBC,URINE TOO NUMEROUS TO COUN /HPF (0-3)
[2020-01-29 02:41] LABS: ALANINE AMINOTRANSFERASE 38 U/L (12-78); ALBUMIN 2.3 g/dL (3.4-5.0); ALKALINE PHOSPHATASE 94 U/L (46-116); ASPARTATE AMINOTRANSFERASE 31 U/L (15-37); B-TYPE NATRIURETIC PEPTIDE 1141 PG/ML (0-125); BILIRUBIN,DIRECT 0.1 mg/dL (0.0-0.2); BILIRUBIN,TOTAL 0.4 mg/dL (0.2-1.0); CALCIUM, SERUM 9.1 mg/dL (8.5-10.1); CARBON DIOXIDE 35 mmol/L (21-32); CHLORIDE 107 mmol/L (98-107); CREATININE 1.2 mg/dL (0.6-1.3); GLUCOSE 252 mg/dL (74-106); POTASSIUM 4.5 mmol/L (3.5-5.1); SODIUM SERUM 147 mmol/L (136-145); TOTAL PROTEIN, SERUM 7.5 g/dL (6.4-8.2); UREA NITROGEN, BLOOD 48 mg/dL (7-18)
[2020-01-29 02:56] LABS: CREATINE KINASE, TOTAL 336 U/L (26-192); FERRITIN 377 ng/mL (8-388)
--- NOTE | 2020-01-29 03:05 | NUR ---
TV 500 AC 16 O2 40 PEEP 5
--- NOTE | 2020-01-29 03:06 | NUR ---
ABG PERFORMED, TITRATED FIO2 40% PER MD MILLER ORDER. PER MD MILLER WITHDRAW ETT 2CM, NEW ETT PLACEMENT 19CM LIP LINE...
[2020-01-29 03:07] LABS: C-REACTIVE PROTEIN 19.9 mg/dL (0.0-0.9)
[2020-01-29] MEDS ORDERED: ENOXAPARIN SODIUM 40 MG/0.4 ML DISP.SYRIN SQ SCH (04:00)
[2020-01-29] MEDS ORDERED: PROPOFOL 100 ML IV PRN (04:30)
[2020-01-29] MEDS ORDERED: ONDANSETRON HCL/PF 4 MG/2 ML VIAL IVP PRN (04:30)
[2020-01-29] MEDS ORDERED: DEXTROSE 50%-WATER 50 ML DISP.SYRIN IV PRN (04:30)
[2020-01-29] MEDS ORDERED: HYDROCODONE/APAP 5/325MG TABLET PO PRN (04:30)
[2020-01-29] MEDS ORDERED: MAGNESIUM HYDROXIDE 30 ML UDC PO PRN (04:30)
[2020-01-29] MEDS ORDERED: MORPHINE SULFATE INJ 2 MG/ML DISP.SYRIN IV PRN (04:30)
[2020-01-29] MEDS ORDERED: ALBUTEROL FS 2.5 MG/0.5 ML VIAL.NEB NEB PRN (04:30)
[2020-01-29] MEDS ORDERED: MAG HYDROX/AL HYDROX/SIMETH 30 ML UDC PO PRN (04:30)
[2020-01-29] MEDS ORDERED: *INSULIN REGULAR(HUMULIN R)HUM 100 UNIT/ML VIAL SQ PRN (04:30)
[2020-01-29] MEDS ORDERED: NOREPINEPHRINE 4 MG/4 ML AMPUL IV ONE (04:36)
[2020-01-29] MEDS ORDERED: VANCOMYCIN 1 GM in IV D5W 250ml IV ONE (05:00)
[2020-01-29] MEDS ORDERED: IV NS 0.9% 250 ML IV ONE (05:30)
--- NOTE | 2020-01-29 05:30 | NUR ---
ELECTRIC TRACK SWITCH MAINTAINER NOTE ADMITTED 89Y OLD FEMALE PT FROM ER WITH THE DX OF SEVER SEPSIS, RESP FAILURE, UTI, PNA RO COVID. PT IS SEDATED AND ON PROPOFOL 30 MCG/KG/MIN. ETT INTACT AND PATENT , VENT SETTING AC 16 TV 500 FIO2 40% PEEP 5 TOLERATING SETTINGS WELL. NO DISTRESS OR DISCOMFORT NOTED. NO S/S OF PAIN NOTED. ON TELE MONITOR ST HR 115. GT INTACT AND PATENT, F/C ALSO INTACT AND PATENT DRAINING YELLOWISH CLOUDY WITH SEDIMENTS URINE. SKIN ASSESSMENT DONE, PICTURES TAKEN AND PLACED THEM IN THE CHART. WOUND CONSULT TRIGGERED. SL RFA INTACT AND PATENT. KEPT HOB ELEVATED. SIDE RAILS UP X 3 AND CALL LIGHT WITHIN REACH. VSS. CONTINUE TO MONITOR HER.
[2020-01-29 05:32] LABS: MAGNESIUM 1.7 mg/dL (1.8-2.4); PHOSPHORUS 2.6 mg/dL (2.5-4.9)
--- NOTE | 2020-01-29 05:35 | NUR ---
DIALYSIS CLINICAL MANAGER NOTE TEMP COMING DOWN TO 100.2 AXILLARY.
[2020-01-29] MEDS ORDERED: VANCOMYCIN 1 GM VIAL ONE (05:44)
[2020-01-29 05:49] LABS: D-DIMER 3.84 mg/L(FEU (0.17-0.50)
[2020-01-29] MEDS ORDERED: PIPERACILLIN /TAZOBACTAM 3.375 G in IV D5W 50 ML IV SCH (06:00)
[2020-01-29] MEDS: BLOOD SUGAR DIAGNOSTIC 1 EACH STRIP VI SCH ×4 (06:49→22:06)
[2020-01-29] MEDS: PHENYLEPHRINE 50 MG in IV NS 0.9% 245 ML IV PRN ×3 (07:05→20:01)
--- NOTE | 2020-01-29 07:05 | NUR ---
COMBATANT DIVER OFFICER NOTE PT STARTED ON NEYDA DRIP AT 0.5 MCG/KG/MIN DUE TO LOW BP 81/28. ALSO PT ENDORSE TO DAY SHIFT NURSE RYAN TO CONTINUE TO MONITOR THE PT.
--- NOTE | 2020-01-29 07:20 | NUR ---
RN INITIAL NOTES RECEIVED PT INTUBATED, ON VENT. HOB ELEVATED. NO RESPIRATORY DISTRESS NOTED. NO SIGNS OF PAIN NOTED. PT SEDATED. ON DIPRIVAN AT 30MCG/KG/MIN. NEYDA STARTED FOR HYPOTENSION. WILL TITRATE ACCORDINGLY. FC IN PLACE. FOR WOUND CONSULT. PENDING PICC INSERTION. BLE ELEVATED. WILL CLOSELY MONITOR
[2020-01-29] MEDS ORDERED: PREVACID (NF) 30 MG TAB GT SCH (07:30)
[2020-01-29] MEDS: IV NS 0.9% 1,000 ML IV SCH ×3 (07:44→16:25)
[2020-01-29] MEDS: HYDROCORTISONE SOD SUCCINATE 100 MG/2 ML VIAL IV SCH ×3 (07:48→21:26)
[2020-01-29] MEDS: Magnesium 1GM/D5W 100ML PREMIX 100 ML IV SCH ×2 (07:48→09:30)
[2020-01-29] MEDS ORDERED: NUTR1PAC14 GT (08:07)
[2020-01-29] MEDS ORDERED: NUT.237L31 GT (08:07)
[2020-01-29] MEDS ORDERED: IPRA3AMP23 IH (08:07)
[2020-01-29] MEDS: ACETAMINOPHEN 325 MG TABLET PO PRN (08:38)
[2020-01-29] MEDS: AMIODARONE HCL 200 MG TABLET GT SCH (08:38)
[2020-01-29] MEDS: PROSOURCE / PROSTAT (PYXIS) 30 ML UDC GT SCH (08:38)
[2020-01-29] MEDS: PANTOPRAZOLE 40 MG/PACK PACK GT SCH (08:38)
[2020-01-29] MEDS: ENOXAPARIN SODIUM 30 MG/0.3 ML DISP.SYRIN SQ SCH (08:39)
[2020-01-29] MEDS ORDERED: FERROUS SULFATE - FOR SA ONLY 330 MG/7.5 ML UDC GT SCH (09:00)
[2020-01-29] MEDS ORDERED: MULTIVIT W/MINERALS 1 TAB TABLET GT SCH (09:00)
[2020-01-29] MEDS ORDERED: ZINC SULFATE 220 MG CAPSULE GT SCH (09:00)
[2020-01-29] MEDS ORDERED: ASCORBIC ACID 500 MG TABLET GT SCH (09:00)
[2020-01-29] MEDS ORDERED: AMIODARONE HCL 200 MG TABLET GT SCH (09:00)
--- NOTE | 2020-01-29 09:30 | NUR ---
RN NOTES SEEN BY DR ATKINS. AWARE OF ABG RESULT. MD ORDERED TO CHANGE PEEP TO 0. OFF SEDATION POSSIBLE. WILL CLOSELY MONITOR
[2020-01-29] MEDS: PIPERACILLIN /TAZOBACTAM 3.375 G in IV D5W 100 ML IV SCH ×2 (10:16→17:04)
[2020-01-29] MEDS: SIMETHICONE SUSP 40 MG/0.6 ML BOTTLE GT SCH (10:16)
--- NOTE | 2020-01-29 10:46 | NUR ---
WOUND CARE CONSULT: PT UNSTABLE FOR SKIN ASSESSMENT AT THIS TIME. REVIEWED CHART, NURSING DOCUMENTATION AND PHOTOS WHICH SHOW MULTIPLE WOUNDS AND SKIN ISSUES. RECOMMENDATIONS MADE FOR SKIN PROTECTION AND WOUND CARE. DISCUSSED WITH NURSING STAFF. FIRST STEP LOW AIRLOSS MATTRESS IS ON ORDER. MD IN AGREEMENT WITH PLAN OF CARE.
[2020-01-29] MEDS: INSULIN REGULAR, HUMAN 100 UNIT/ML 3 ML VIAL SQ PRN ×2 (11:46→17:13)
[2020-01-29] MEDS: CLOTRIMAZOLE 1% 15 GM TUBE TP SCH (16:26)
--- NOTE | 2020-01-29 16:48 | NUR ---
RT PATIENT REMAINS ORALLY INTUBATED ON MECH VENT WITH SETTINGS SET BY . JONATHAN TX'S HELD DUE TO PENDING COVID TEST RESULTS. ALARMS CHECKED + AUDIBLE. AMBU BAG AT HOB
--- NOTE | 2020-01-29 18:26 | NUR ---
RN CLOSING NOTES PT REMAINS INTUBATED, ON VENT. NO RESPIRATORY DISTRESS NOTED. KEPT HOB ELEVATED. NO SIGNS OF TOM NOTED. PT ON NEYDA, BP CLOSELY MONITOR. TX PROVIDED ORDERED. REPOSITIONED. BLE ELEVATED. WILL ENDORSE FOR CONTINUITY OF CARE.
--- NOTE | 2020-01-29 19:15 | NUR ---
RN OPENING NOTE RECEIVED PT WITH HOB ELEVATED ON VENT.NO RESPIRATORY DISTRESS NOTED. RECEIVED PT ON NEYDA 1.5. AWAD CATH DRAINING CLEAR URINE. IV SITE PATENT , INTACT AND FLUSHING WELL. SR ON MONITOR. PT CURRENTLY NPO, AFEBILE AT THIS TIME. WILL CONT. TO MONITOR PT.
--- NOTE | 2020-01-29 20:07 | NUR ---
RT NOTE PT RECEIVED INTUBATED WITH 7.0 ET TUBE @ 19 CM ON MID LIP. MOVED ET TUBE TO RIGHT. AMBU BAG @ HOB. SX DONE, SMALL THICK FUENTES SECRETIONS NOTED. ET TUBE SECURED VIA ANCHOR FAST. VENT PLUGGED TO RED OUTLET. ALARMS ON AND AUDIBLE. NO DISTRESS NOTED AT THIS TIME. WILL MONITOR T/O SHIFT. Addendum: 01/29/20 at 2008 by YOMI RIDDLE RT Amended: Links added. Addendum: 01/29/20 at 2334 by YOMI RIDDLE RT PT INTUBATED WITH 7.5 ET TUBE @ 19 CM.
[2020-01-30] VITALS (94 sets, daily range): BP systolic 80–150; BP diastolic 40–96
[2020-01-30] MEDS: ACETAMINOPHEN 325 MG TABLET PO PRN ×2 (00:04→22:24)
[2020-01-30] MEDS: PIPERACILLIN /TAZOBACTAM 3.375 G in IV D5W 100 ML IV SCH ×2 (02:14→09:14)
[2020-01-30 04:09] LABS: BASOPHILS % (AUTO) 0.1 % (0.0-2.0); HEMATOCRIT 31 % (33-45); HEMOGLOBIN 9.5 g/dL (11.5-14.8); LYMPHOCYTES # (AUTO) 1.6 /CMM (0.8-4.8); LYMPHOCYTES % (AUTO) 4.9 % (20.0-44.0); MEAN CORPUSCULAR HGB CONC 30 g/dl (31.0-36.0); MEAN CORPUSCULAR VOLUME 87 fL (82-100); MONOCYTES % (AUTO) 3.1 % (2.0-12.0); NEUTROPHILS # (AUTO) 29.4 /CMM (1.8-8.9); NEUTROPHILS % (AUTO) 91.9 % (43.0-81.0); PLATELET COUNT (AUTO) 301 /CMM (150-450)
[2020-01-30 04:30] LABS: ALANINE AMINOTRANSFERASE 35 U/L (12-78); ALBUMIN 1.7 g/dL (3.4-5.0); ALKALINE PHOSPHATASE 70 U/L (46-116); ASPARTATE AMINOTRANSFERASE 32 U/L (15-37); BILIRUBIN,TOTAL 0.2 mg/dL (0.2-1.0); CALCIUM, SERUM 7.8 mg/dL (8.5-10.1); CARBON DIOXIDE 26 mmol/L (21-32); CHLORIDE 112 mmol/L (98-107); CREATININE 1.3 mg/dL (0.6-1.3); GLUCOSE 118 mg/dL (74-106); POTASSIUM 3.4 mmol/L (3.5-5.1); SODIUM SERUM 148 mmol/L (136-145); TOTAL PROTEIN, SERUM 5.9 g/dL (6.4-8.2); UREA NITROGEN, BLOOD 47 mg/dL (7-18)
[2020-01-30 04:46] LABS: CHOLESTEROL 75 mg/dL (<200); HDL CHOLESTEROL 44 mg/dL (40-60); LDL 16 mg/dL (0-99); THYROID STIMULATING HORMONE 0.292 uIU/mL (0.358-3.74); TRIGLYCERIDES 39 mg/dL (30-150)
[2020-01-30] MEDS: HYDROCORTISONE SOD SUCCINATE 100 MG/2 ML VIAL IV SCH ×3 (05:28→20:44)
[2020-01-30 05:36] LABS: BAND % (MANUAL) 67 % (0.0-5.0); NEUTROPHILS % (MANUAL) 25 (42-76)
[2020-01-30 05:37] LABS: LYMPHOCYTES % (MANUAL) 4 % (16-48); MONOCYTES % (MANUAL) 4 % (0-11.0)
--- NOTE | 2020-01-30 05:54 | NUR ---
RN Note WBC 32.0, ABNER AWARE AND NOTIFIED.
[2020-01-30] MEDS: VANCOMYCIN 1 GM in IV D5W 250 ML IV SCH (06:10)
--- NOTE | 2020-01-30 07:19 | NUR ---
RN CLOSING NOTE PT WITH HOB ELEVATED ON VENT.NO RESPIRATORY DISTRESS NOTED. PT ON NEYDA CURRENTLY AT 0.6. AWAD CATH DRAINING CLEAR URINE. IV SITE PATENT , INTACT AND FLUSHING WELL. SR ON MONITOR. PT CURRENTLY NPO, AFEBILE THROUGH OUT SHIFT. ALL NEEDS MET. ENDORSED TO AM LEAD QUALITY TECHNICIAN RESULTS AND FOR DALILA .
--- NOTE | 2020-01-30 07:30 | NUR ---
PARCEL POST CARRIER INITIAL NOTE RECEIVED PATIENT AWAKE, DOESN'T FOLLOW SIMPLE COMMAND. WITH ETT IN PLACE, TOLERATING CURRENT VENT SETTINGS. NO S/S OF PAIN OR DISCOMFORT. NO RESPIRATORY DISTRESS NOTED. ON TELE MONITOR SR WITH OCC PVCS GT PATENT, INTACT, IN PLACE. F/C PATENT AND DRAINING BY GRAVITY. BILATERAL WRIST RESTRAINTS IN PLACE, WITH GOOD CIRCULATION. KAREN PICC LINE IN PLACE, PATENT AND INTACT WITH NEYDA TAT 0.6MCG/KG/MIN. ISOLATION PRECAUTIONS OBSERVED. HOB ELEVATED. SIDE RAILS UP AND LOCKED. BED KEPT AT LOWEST POSITION. WILL CONTINUE TO MONITOR.
[2020-01-30] MEDS: ACETYLCYSTEINE 10% SOLN 400 MG/4 ML VIAL HHN SCH ×3 (07:54→23:33)
[2020-01-30] MEDS: BLOOD SUGAR DIAGNOSTIC 1 EACH STRIP VI SCH (08:07)
--- NOTE | 2020-01-30 08:08 | NUR ---
AERONAUTICAL ENGINEERING TEACHER NOTE RECEIVED VERBAL ORDERS FOR VENT CHANGES SIMV, RT AWARE. WILL CONTINUE TO MONITOR.
[2020-01-30] MEDS: PANTOPRAZOLE 40 MG/PACK PACK GT SCH (08:29)
[2020-01-30] MEDS: AMIODARONE HCL 200 MG TABLET GT SCH (08:29)
[2020-01-30] MEDS: ENOXAPARIN SODIUM 30 MG/0.3 ML DISP.SYRIN SQ SCH (08:30)
[2020-01-30] MEDS: SIMETHICONE SUSP 40 MG/0.6 ML BOTTLE GT SCH (08:30)
[2020-01-30] MEDS: PROSOURCE / PROSTAT (PYXIS) 30 ML UDC GT SCH (08:31)
[2020-01-30] MEDS: CLOTRIMAZOLE 1% 15 GM TUBE TP SCH ×2 (08:31→16:53)
[2020-01-30] MEDS: INSULIN REGULAR, HUMAN 100 UNIT/ML 3 ML VIAL SQ PRN ×3 (08:35→18:07)
[2020-01-30] MEDS ORDERED: POTASSIUM CHLORIDE 20 MEQ POWDER PACKET GT SCH (09:00)
[2020-01-30] MEDS: PHENYLEPHRINE 50 MG in IV NS 0.9% 245 ML IV PRN (09:11)
[2020-01-30] MEDS: IV NS 0.9% 1,000 ML IV PRN ×2 (09:20→18:48)
--- NOTE | 2020-01-30 09:32 | NUR ---
SENIOR ACCOUNTING ANALYST NOTE RECEIVED VERBAL ORDER FROM DR MILLY NELSON TO START TUBE FEEDINGS AT 50ML/HR. NOTED.
[2020-01-30 09:35] LABS: ABG BASE EXCESS -1.8 mmol/L; ABG PCO2 36.8 mmHg (35.0-45.0); ABG PH 7.405 (7.350-7.450); ABG PO2 108.4 mmHg (75.0-100.0); AaDO2 134.5 mmHg; COHb 0.3 % (0.5-1.5); MetHb 0.3 % (0.0-1.5); O2Hb 97.4 % (94.0-97.0); SITE, ABG Right Radial; VENT MODE, BG SIMV 4 PS 15 40% +5
--- NOTE | 2020-01-30 09:44 | NUR ---
WAFER FAB TECHNICIAN NOTE ABG RESULT SEEN BY DR ATKINS WITH ORDERS TO KEEP PATIENT ON SIMV MODE
[2020-01-30] MEDS ORDERED: DEXTROSE 50%-WATER 50 ML DISP.SYRIN IV PRN (10:00)
--- NOTE | 2020-01-30 11:06 | NUR ---
SEAT JOINER CHAINSTITCH NOTE PATIENT SLEEPING COMFORTABLY, TOLERATING CURRENT VENT SETTINGS. WILL CONTINUE TO MONITOR.
[2020-01-30] MEDS: BLOOD SUGAR DIAGNOSTIC 1 EACH STRIP IN SCH ×2 (11:46→18:07)
[2020-01-30] MEDS: GLUCERNA 1.2 1,000 ML BOTTLE NG PRN (11:47)
[2020-01-30] MEDS: SOD FERRIC GLUC 125 MG in IV NS 0.9% 100 ML IV SCH (13:37)
[2020-01-30 15:20] LABS: CREATININE KINASE (CK),MB 1.9 ng/mL (0.0-5.3)
[2020-01-30] MEDS ORDERED: MEROPENEM 1 G in IV NS 0.9% 100 ML IV ONE (16:00)
--- NOTE | 2020-01-30 16:15 | NUR ---
horticultural specialty grower note all air from TR band removed. TR band removed with clear dressing placed over site. no bleeding noted, no complications noted. informed pharmacy will be ready for heparin drip in an hour. will continue to monitor.
--- NOTE | 2020-01-30 19:30 | NUR ---
RN OPENING NOTE RECEIVED PATIENT AWAKE, WITH HOB ELEVATED. ETT IN PLACE, CURRENTLY ON SIMV MODE TOLERATING CURRENT VENT SETTINGS. PT IN NO RESPIRATORY DISTRESS. ON TELE MONITOR SR.G-TUBE PATEN AND INTACT GLUCERNA AT 50 ML/HR. AWAD CATH DRAINING BY GRAVITY. BILATERAL WRIST RESTRAINTS IN PLACE NO RELEASED AND NO REDNESS TO SKIN. KAREN PICC AND RFA IV LINE IN PLACE, PATENT AND INTACT. SIDE RAILS UP X 2 WILL CONTINUE TO MONITOR PATIENT. .
[2020-01-30] MEDS: MUPIROCIN OINT 2% 22 GM TUBE NS SCH (20:44)
[2020-01-31] VITALS (55 sets, daily range): BP systolic 98–160; BP diastolic 49–116
[2020-01-31] MEDS: BLOOD SUGAR DIAGNOSTIC 1 EACH STRIP IN SCH ×5 (00:14→23:41)
[2020-01-31] MEDS: INSULIN REGULAR, HUMAN 100 UNIT/ML 3 ML VIAL SQ PRN ×5 (00:23→23:41)
[2020-01-31] MEDS ORDERED: MEROPENEM 1 G in IV NS 0.9% 100 ML IV ONE (04:00)
[2020-01-31] MEDS: IV NS 0.9% 1,000 ML IV PRN ×2 (04:07→16:56)
[2020-01-31] MEDS: MEROPENEM 1 G in IV NS 0.9% 100 ML IV SCH ×2 (04:15→16:55)
[2020-01-31] MEDS: HYDROCORTISONE SOD SUCCINATE 100 MG/2 ML VIAL IV SCH (04:43)
[2020-01-31 05:48] LABS: CALCIUM, SERUM 7.5 mg/dL (8.5-10.1); CARBON DIOXIDE 25 mmol/L (21-32); CHLORIDE 118 mmol/L (98-107); CREATININE 1.1 mg/dL (0.6-1.3); GLUCOSE 290 mg/dL (74-106); POTASSIUM 3.8 mmol/L (3.5-5.1); SODIUM SERUM 149 mmol/L (136-145); UREA NITROGEN, BLOOD 46 mg/dL (7-18)
[2020-01-31] MEDS: VANCOMYCIN 1 GM in IV D5W 250 ML IV SCH (06:30)
--- NOTE | 2020-01-31 07:12 | NUR ---
RN CLOSING NOTE PATIENT AWAKE, WITH HOB ELEVATED. ETT IN PLACE, CURRENTLY ON SIMV MODE TOLERATING CURRENT VENT SETTINGS. IN NO RESPIRATORY DISTRESS. ON TELE MONITOR SR. G-TUBE PATENT AND INTACT GLUCERNA AT 50 ML/HR. AWAD CATH DRAINING BY GRAVITY. BILATERAL WRIST RESTRAINTS IN PLACE NO RELEASED AND NO REDNESS TO SKIN. KAREN PICC AND RFA IV LINE IN PLACE, PATENT AND INTACT. SIDE RAILS UP X 2 WILL. ENDORSED TO AM RN FOR DALILA
--- NOTE | 2020-01-31 07:30 | NUR ---
RN NOTES RECEIVED PATIENT IN BED. ASLEEP. AWAKEN BY TOUCH. MOVES TO LOCALIZED PAIN. ORALLY INTUBATED WITH TUBE SECURED AT 19CM. BREATHING UNLABORED. TOLERATING CURRENT VENT SETTING: SIMV 4, TV AT 450, FIO2 AT 40% PEEP OF 5, SATING WELL AT 100%. SINUS RHYTHM ON THE MONITOR WITH HR ON THE 80s. GT IN PLACE, PLACEMENT VERIFIED BY ASPIRATING GASTRIC RESIDUAL, RESIDUAL >100CC AT THIS TIME- FEEDING TURNED OFF AT THE MEAN TIME. PICC LINE ON THE KAREN, IN PLACE, DRESSING DRY AND INTACT, WITH ONGOING NS AT 100CC/HR. BILATERAL SOFT RESTRAINTS IN PLACE, REMOVE AND REPLACED TO ASSESS FOR SKIN INTEGRITY, NO SKIN BREAKDOWN NOTED AT THIS TIME. AWAD CATHETER IN, DRAINING VIA GRAVITY TO CLEAR YELLOW URINE. HOB KEPT ELEVATED FOR SAP. SAFETY MEASURES OBSERVED AND MAINTAINED. SRX2 UP. BED IN LOW AND LOCKED POSITIONED. CALL LIGHT PLACED WITHIN REACH. WILL CONTINUE TO MONITOR PATIENT CLOSELY Addendum: 01/31/20 at 1901 by COREY APODACA RN PICC LINE 2 PRONGS NOT ACCESSIBLE, UNABLE TO FLUSHED
[2020-01-31] MEDS: ACETYLCYSTEINE 10% SOLN 400 MG/4 ML VIAL HHN SCH ×3 (07:35→23:59)
[2020-01-31] MEDS: AMIODARONE HCL 200 MG TABLET GT SCH (08:42)
[2020-01-31] MEDS: SIMETHICONE SUSP 40 MG/0.6 ML BOTTLE GT SCH (08:43)
[2020-01-31] MEDS: MUPIROCIN OINT 2% 22 GM TUBE NS SCH ×2 (08:43→21:10)
[2020-01-31] MEDS: PROSOURCE / PROSTAT (PYXIS) 30 ML UDC GT SCH (08:43)
[2020-01-31] MEDS: PANTOPRAZOLE 40 MG/PACK PACK GT SCH (08:43)
[2020-01-31] MEDS: CLOTRIMAZOLE 1% 15 GM TUBE TP SCH ×2 (08:43→17:52)
[2020-01-31] MEDS: ENOXAPARIN SODIUM 30 MG/0.3 ML DISP.SYRIN SQ SCH (08:45)
[2020-01-31] MEDS: GLUCERNA 1.2 1,000 ML BOTTLE NG PRN (09:27)
[2020-01-31 09:57] LABS: MAGNESIUM 2.4 mg/dL (1.8-2.4); PHOSPHORUS 2.5 mg/dL (2.5-4.9)
[2020-01-31 10:00] LABS: BASOPHILS # (AUTO) 0.1 /CMM (0.0-0.2); BASOPHILS % (AUTO) 0.2 % (0.0-2.0); HEMATOCRIT 29 % (33-45); HEMOGLOBIN 8.5 g/dL (11.5-14.8); LYMPHOCYTES # (AUTO) 1.2 /CMM (0.8-4.8); LYMPHOCYTES % (AUTO) 5.1 % (20.0-44.0); MEAN CORPUSCULAR HGB CONC 30 g/dl (31.0-36.0); MEAN CORPUSCULAR VOLUME 89 fL (82-100); NEUTROPHILS # (AUTO) 21.6 /CMM (1.8-8.9); NEUTROPHILS % (AUTO) 90.7 % (43.0-81.0); PLATELET COUNT (AUTO) 244 /CMM (150-450); RED BLOOD CELL COUNT(AUTO) 3.24 MIL/uL (4.0-5.2); WHITE BLOOD COUNT (AUTO) 23.8 K/uL (4.3-11.0)
--- NOTE | 2020-01-31 13:00 | NUR ---
RN NOTES PATIENT PLACED ON COOL AEROSOL AT 35% FIO2. TOLERATING WELL AT THIS TIME. SATING AT >95. WILL CONTINUE TO MONITOR
[2020-01-31] MEDS: SOD FERRIC GLUC 125 MG in IV NS 0.9% 100 ML IV SCH (14:05)
[2020-01-31] MEDS: MICAFUNGIN SODIUM 100 MG in IV NS 0.9% 100 ML IV SCH (14:06)
[2020-01-31] MEDS ORDERED: HEPARIN SODIUM, PORCINE 5000 UNITS/1 ML VIAL IV ONE (18:30)
[2020-01-31] MEDS: MORPHINE SULFATE INJ 2 MG/ML DISP.SYRIN IV PRN (19:18)
--- NOTE | 2020-01-31 20:00 | NUR ---
Received patient from day shift resting non verbal non interactive.No acute distress noted. On T-Piece 35% tolerating well sat 96%.SR and normotensive.Tolerating gt feeding well.IVF infusing to KAREN PICC LINE site intact.FC to gravity.Turned and repositioned.Continue monitoring.
[2020-02-01] VITALS (27 sets, daily range): BP systolic 120–163; BP diastolic 68–108
[2020-02-01] MEDS: IV NS 0.9% 1,000 ML IV PRN (02:33)
[2020-02-01] MEDS: MEROPENEM 1 G in IV NS 0.9% 100 ML IV SCH ×2 (04:01→16:06)
[2020-02-01 05:00] LABS: BASOPHILS % (AUTO) 0.1 % (0.0-2.0); EOSINOPHILS % (AUTO) 0.1 % (0.0-6.0); HEMATOCRIT 33 % (33-45); HEMOGLOBIN 9.9 g/dL (11.5-14.8); LYMPHOCYTES # (AUTO) 2.7 /CMM (0.8-4.8); LYMPHOCYTES % (AUTO) 10.7 % (20.0-44.0); MEAN CORPUSCULAR HGB CONC 30 g/dl (31.0-36.0); MEAN CORPUSCULAR VOLUME 89 fL (82-100); MONOCYTES # (AUTO) 1.3 /CMM (0.1-1.30); MONOCYTES % (AUTO) 5.1 % (2.0-12.0); NEUTROPHILS # (AUTO) 21.4 /CMM (1.8-8.9); PLATELET COUNT (AUTO) 255 /CMM (150-450); RED BLOOD CELL COUNT(AUTO) 3.71 MIL/uL (4.0-5.2); WHITE BLOOD COUNT (AUTO) 25.4 K/uL (4.3-11.0)
[2020-02-01 05:09] LABS: ALBUMIN 1.8 g/dL (3.4-5.0); BILIRUBIN,TOTAL 0.1 mg/dL (0.2-1.0); CALCIUM, SERUM 8.1 mg/dL (8.5-10.1); CREATININE 0.9 mg/dL (0.6-1.3); MAGNESIUM 2.3 mg/dL (1.8-2.4); PHOSPHORUS 2.2 mg/dL (2.5-4.9); POTASSIUM 3.7 mmol/L (3.5-5.1); TOTAL PROTEIN, SERUM 6.3 g/dL (6.4-8.2)
[2020-02-01] MEDS: VANCOMYCIN 1 GM in IV D5W 250 ML IV SCH (06:07)
[2020-02-01] MEDS: BLOOD SUGAR DIAGNOSTIC 1 EACH STRIP IN SCH ×3 (06:13→17:50)
[2020-02-01] MEDS: INSULIN REGULAR, HUMAN 100 UNIT/ML 3 ML VIAL SQ PRN ×3 (06:15→17:51)
--- NOTE | 2020-02-01 06:40 | NUR ---
Patient resting VSS.SR/ST 90's-112.No distress noted.Tolerating cool aerosol at 35%. GT feeding well tolerated.FSBS Q 6hrs coverage given per sliding scale.Small loose BM noted x1.Kept clean and dry.Turned and repositioned.AM care done.No significant change noted during the shift.Will endorse to day shift for DALILA.
[2020-02-01] MEDS: IPRATROPIUM NEB FS 0.5 MG/2.5 ML AMPUL.NEB NEB PRN ×2 (07:41→15:02)
[2020-02-01] MEDS: ACETYLCYSTEINE 10% SOLN 400 MG/4 ML VIAL HHN SCH ×3 (07:41→23:30)
[2020-02-01] MEDS: MORPHINE SULFATE INJ 2 MG/ML DISP.SYRIN IV PRN ×3 (08:06→23:19)
[2020-02-01] MEDS: AMIODARONE HCL 200 MG TABLET GT SCH (09:10)
[2020-02-01] MEDS: PANTOPRAZOLE 40 MG/PACK PACK GT SCH (09:10)
[2020-02-01] MEDS: ENOXAPARIN SODIUM 30 MG/0.3 ML DISP.SYRIN SQ SCH (09:11)
[2020-02-01] MEDS: MUPIROCIN OINT 2% 22 GM TUBE NS SCH ×2 (09:11→21:26)
[2020-02-01] MEDS: CLOTRIMAZOLE 1% 15 GM TUBE TP SCH ×2 (09:11→17:50)
[2020-02-01] MEDS: PROSOURCE / PROSTAT (PYXIS) 30 ML UDC GT SCH (09:12)
[2020-02-01] MEDS: SIMETHICONE SUSP 40 MG/0.6 ML BOTTLE GT SCH (09:12)
[2020-02-01] MEDS: GLUCERNA 1.2 1,000 ML BOTTLE NG PRN (09:26)
[2020-02-01 10:05] LABS: BAND % (MANUAL) 3 % (0.0-5.0); LYMPHOCYTES % (MANUAL) 7 % (16-48); MONOCYTES % (MANUAL) 2 % (0-11.0); MYELOCYTES % 3 % (0-0); NEUTROPHILS % (MANUAL) 85 (42-76)
[2020-02-01] MEDS ORDERED: K PHOS NEUTRAL 250 MG TABLET PO ONE (12:00)
[2020-02-01] MEDS ORDERED: NEUTRA PHOS 1 POWD.PACKET PO ONE (12:00)
[2020-02-01] MEDS: MICAFUNGIN SODIUM 100 MG in IV NS 0.9% 100 ML IV SCH (14:11)
[2020-02-01] MEDS: SOD FERRIC GLUC 125 MG in IV NS 0.9% 100 ML IV SCH (14:39)
[2020-02-01] MEDS: IV 1/2NS 1000 ML 1,000 ML IV PRN (16:04)
[2020-02-01] MEDS: IV NS 0.9% 250 ML IV PRN (17:00)
--- NOTE | 2020-02-01 19:44 | NUR ---
RN OPENING NOTES: PATIENT IN BED, ASLEEP. RESPONSIVE TO TOUCH BY OPENING EYES SPONTANEOUSLY. ORALLY INTUBATED. ON T-PIECE; O2 SAT >95%. ON BEDSIDE MONITOR SHOWING SINUS TACHY; HR 103. ON GTF GLUCERNA 1.2 AT 30 MLS/HR; 5 ML RESIDUAL. HOB ELEVATED. AWAD CATH INTACT AND PATENT; DRAINING CLEAR YELLOW URINE. SAFETY PRECAUTIONS IMPLEMENTED. BED LOCKED, LOW POSITION, BILATERAL SIDE RAILS X 2 UP. WILL CONT. TO MONITOR.
--- NOTE | 2020-02-01 23:19 | NUR ---
RN NOTE: PATIENT NOTED WITH FACIAL GRIMACING AND VITAL SIGN CHANGES; BP 157/104, HR 100s. MEDICATED WITH MORPHINE IV ORDERED. WILL CONT. TO MONITOR. AT 0000, PATIENT APPEARS COMFORTABLE. NO FACIAL GRIMACING. BP 147/80, HR 104, RR 24, TEMP 98.9F. PAIN MEDICATION EFFECTIVE. WILL CONT. TO MONITOR. Addendum: 02/02/20 at 0723 by NEELAM QUINTANA RN AT 0515, PATIENT NOTED WITH FACIAL GRIMACING AND VITAL SIGN CHANGES; BP 162/94, HR 113, RR 30, O2 SAT 98%. MEDICATED WITH MORPHINE IV ORDERED. WILL CONT. TO MONITOR. AT 0600, PATIENT APPEARS COMFORTABLE. NO FACIAL GRIMACING. BP 142/76, HR 104, RR 28, O2 SAT 98%. PAIN MEDICATION EFFECTIVE. WILL CONT. TO MONITOR.
[2020-02-02] VITALS (34 sets, daily range): BP systolic 98–171; BP diastolic 53–131
[2020-02-02] MEDS: BLOOD SUGAR DIAGNOSTIC 1 EACH STRIP IN SCH ×4 (00:09→18:05)
[2020-02-02] MEDS: INSULIN REGULAR, HUMAN 100 UNIT/ML 3 ML VIAL SQ PRN ×5 (00:16→23:52)
[2020-02-02] MEDS: IPRATROPIUM NEB FS 0.5 MG/2.5 ML AMPUL.NEB NEB PRN ×3 (00:36→14:41)
[2020-02-02] MEDS: IV 1/2NS 1000 ML 1,000 ML IV PRN ×2 (02:18→14:03)
[2020-02-02] MEDS: GLUCERNA 1.2 1,000 ML BOTTLE NG PRN ×2 (03:55→23:24)
[2020-02-02] MEDS: MEROPENEM 1 G in IV NS 0.9% 100 ML IV SCH ×2 (04:00→16:11)
[2020-02-02 04:50] LABS: BASOPHILS % (AUTO) 0.2 % (0.0-2.0); EOSINOPHILS % (AUTO) 0.6 % (0.0-6.0); HEMATOCRIT 33 % (33-45); LYMPHOCYTES # (AUTO) 2.7 /CMM (0.8-4.8); LYMPHOCYTES % (AUTO) 14.1 % (20.0-44.0); MEAN CORPUSCULAR HGB CONC 30 g/dl (31.0-36.0); MEAN CORPUSCULAR VOLUME 87 fL (82-100); MONOCYTES # (AUTO) 1.1 /CMM (0.1-1.30); MONOCYTES % (AUTO) 5.6 % (2.0-12.0); NEUTROPHILS # (AUTO) 15.1 /CMM (1.8-8.9); NEUTROPHILS % (AUTO) 79.5 % (43.0-81.0); PLATELET COUNT (AUTO) 211 /CMM (150-450); RED BLOOD CELL COUNT(AUTO) 3.79 MIL/uL (4.0-5.2); WHITE BLOOD COUNT (AUTO) 18.9 K/uL (4.3-11.0)
[2020-02-02] MEDS: VANCOMYCIN 1 GM in IV D5W 250 ML IV SCH (05:06)
[2020-02-02] MEDS: MORPHINE SULFATE INJ 2 MG/ML DISP.SYRIN IV PRN ×2 (05:13→11:44)
[2020-02-02 05:59] LABS: ALANINE AMINOTRANSFERASE 30 U/L (12-78); ALBUMIN 1.7 g/dL (3.4-5.0); ALKALINE PHOSPHATASE 107 U/L (46-116); ASPARTATE AMINOTRANSFERASE 17 U/L (15-37); BILIRUBIN,TOTAL 0.1 mg/dL (0.2-1.0); CALCIUM, SERUM 7.9 mg/dL (8.5-10.1); CARBON DIOXIDE 27 mmol/L (21-32); CHLORIDE 115 mmol/L (98-107); CREATININE 0.7 mg/dL (0.6-1.3); GLUCOSE 166 mg/dL (74-106); PHOSPHORUS 2.2 mg/dL (2.5-4.9); POTASSIUM 4.1 mmol/L (3.5-5.1); SODIUM SERUM 148 mmol/L (136-145); TOTAL PROTEIN, SERUM 7.3 g/dL (6.4-8.2); UREA NITROGEN, BLOOD 27 mg/dL (7-18)
--- NOTE | 2020-02-02 07:23 | NUR ---
RN CLOSING NOTES: PATIENT IN NO ACUTE DISTRESS. ENDORSED TO AM RN FOR CONTINUITY OF CARE.
--- NOTE | 2020-02-02 07:30 | NUR ---
RN NOTES RECEIVED REPORT FOR CONTINUITY OF CARE. PATIENT RESPONSIVE TO VERBAL STIMULI, RR AT 30-40s. SATING WITH NOTED LABORED BREATHING WITH THE USE OF ACCESSORY MUSCLE ON BREATHING. PATIENT STILL WITH ETT TUBE IN PLACE, ON T PIECE WITH OXYGEN: COOL AEROSOL AT 40% FIO2. SINUS TACHY WITH HR ON THE 110s. BLOOD PRESSURE ELEVATED. WILL TURN AND REPOSITION TO ASSIST IN COMFORTABLE POSITION AND WILL CONTINUE TO MONITOR PATIENT ACCORDINGLY
[2020-02-02] MEDS: ACETYLCYSTEINE 10% SOLN 400 MG/4 ML VIAL HHN SCH ×3 (07:56→23:14)
[2020-02-02] MEDS ORDERED: hydrALAZINE HCL IV 20 MG VIAL IV PRN (08:00)
[2020-02-02] MEDS: ENOXAPARIN SODIUM 30 MG/0.3 ML DISP.SYRIN SQ SCH (09:15)
[2020-02-02] MEDS: AMIODARONE HCL 200 MG TABLET GT SCH (09:16)
[2020-02-02] MEDS: PROSOURCE / PROSTAT (PYXIS) 30 ML UDC GT SCH (09:17)
[2020-02-02] MEDS: MUPIROCIN OINT 2% 22 GM TUBE NS SCH ×2 (09:17→20:18)
[2020-02-02] MEDS: SIMETHICONE SUSP 40 MG/0.6 ML BOTTLE GT SCH (09:17)
[2020-02-02] MEDS: PANTOPRAZOLE 40 MG/PACK PACK GT SCH (09:17)
[2020-02-02] MEDS: CLOTRIMAZOLE 1% 15 GM TUBE TP SCH ×2 (09:18→18:04)
--- NOTE | 2020-02-02 10:00 | NUR ---
RN NOTES DR. DAY ON THE UNIT. PATIENT WAS SEEN BY THE LATTER. WITH VERBAL ORDERS TO " PLACE PATIENT BACK TO VENT IF IN DISTRESS" ORDER ACKNOWLEDGE. RT MADE AWARE OF THE ORDER
[2020-02-02 10:22] LABS: BAND % (MANUAL) 1 % (0.0-5.0); LYMPHOCYTES % (MANUAL) 9 % (16-48); MONOCYTES % (MANUAL) 6 % (0-11.0); NEUTROPHILS % (MANUAL) 80 (42-76)
[2020-02-02 10:23] LABS: MYELOCYTES % 4 % (0-0)
[2020-02-02 11:04] LABS: ABG OXYGEN SATURATION 91.6 % (92.0-98.5); ABG PCO2 55.2 mmHg (35.0-45.0); ABG PH 7.334 (7.350-7.450); AaDO2 158.7 mmHg; COHb 0.3 % (0.5-1.5); MetHb 0.1 % (0.0-1.5); O2Hb 91.2 % (94.0-97.0); SITE, ABG Right Brachial; VENT MODE, BG CA
[2020-02-02] MEDS ORDERED: NEUTRA PHOS 1 POWD.PACKET GT ONE (12:00)
--- NOTE | 2020-02-02 13:00 | NUR ---
RN NOTES PATIENT WAS PLACED BACK TO THE VENTILATOR AT THIS TIME PRIOR INTERVENTION DID NOT HELP. PATIENT IS NOTED STILL WITH ELEVATED HEART RATE, ELEVATED BLOOD PRESSURE AND LABORED BREATHING ALTHOUGH SATURATION IS GOOD ON THE MONITOR. HAS BEEN GIVEN BED BATH, TURNED AND REPOSITIONED TO ASSIST IN ASSUMING COMFORT. ALSO GIVEN MORPHINE 2MG IVP Q4 PRN FOR PAIN AND HYDRALAZINE 10MG IVP Q6 PRN FOR SBP> 150MMHG.
--- NOTE | 2020-02-02 13:07 | NUR ---
RT PT PLACED BACK ON VENT W/ PREVIOUS SETTINGS DUE TO INCREASE WOB (RR 35-40S) AND DIAPHORETIC. DRY PAN OPERATOR DONE AND ETT IS SECURE. VENT PLUGGED IN RED OUTLET. ALARMS CHECKED AND AUDIBLE. WILL CONTINUE TO MONITOR T/O SHIFT. RN AWARE.
[2020-02-02] MEDS: MICAFUNGIN SODIUM 100 MG in IV NS 0.9% 100 ML IV SCH (14:20)
[2020-02-02] MEDS: SOD FERRIC GLUC 125 MG in IV NS 0.9% 100 ML IV SCH (14:21)
--- NOTE | 2020-02-02 18:00 | NUR ---
RN NOTES PATIENT LOOKED CALM AND COMFORTABLE AT THIS TIME. NO SIGN OF SHORTNESS OF BREATH NOTED AT THIS TIME. REMAINED ON VENTILATOR SUPPORT. TOLERATING CURRENT SETTINGS FOLLOWS AC 16, TV 450, FI02 405 AND PEEP OF 5. HR AND BLOOD PRESSURE NOW WITHIN RANGE. SAFETY MEASURES IN PLACE AT ALL TIME. CALL LIGHT WITHIN REACH
--- NOTE | 2020-02-02 19:30 | NUR ---
RN NOTES RECEIVED PATIENT IN BED,ON MECHANICAL VENTILATION VENT SETTING TOLERATING WELL ORDERED. TELE MONITOR READING SR IN 90-100'S. NO S/S OF PAIN OR DISCOMFORT NOTED. IV'S INTACT PATENT FLUSHES WELL. VITAL SIGNS WNL. F/C INTACT YELLOW URINE RUNNING WELL TO GRAVITY. SAFETY MEASURES IN PLACE, CALL LIGHT WITHIN REACH. WILL CONT TO MONITOR FOR DALILA.
[2020-02-03] VITALS (25 sets, daily range): BP systolic 84–153; BP diastolic 50–86
[2020-02-03] MEDS: BLOOD SUGAR DIAGNOSTIC 1 EACH STRIP IN SCH ×4 (01:16→17:28)
[2020-02-03] MEDS: IV 1/2NS 1000 ML 1,000 ML IV PRN (01:35)
[2020-02-03] MEDS: ACETAMINOPHEN 325 MG TABLET PO PRN (02:55)
--- NOTE | 2020-02-03 04:00 | NUR ---
BED BATH GIVEN PATIENT TOLERATED WELL.
[2020-02-03] MEDS: MEROPENEM 1 G in IV NS 0.9% 100 ML IV SCH ×2 (04:08→16:23)
[2020-02-03 04:45] LABS: BASOPHILS % (AUTO) 0.1 % (0.0-2.0); EOSINOPHILS % (AUTO) 1.1 % (0.0-6.0); HEMATOCRIT 28 % (33-45); HEMOGLOBIN 8.7 g/dL (11.5-14.8); LYMPHOCYTES # (AUTO) 2.6 /CMM (0.8-4.8); LYMPHOCYTES % (AUTO) 14.9 % (20.0-44.0); MEAN CORPUSCULAR HGB CONC 31 g/dl (31.0-36.0); MEAN CORPUSCULAR VOLUME 86 fL (82-100); MONOCYTES # (AUTO) 0.9 /CMM (0.1-1.30); MONOCYTES % (AUTO) 5.2 % (2.0-12.0); NEUTROPHILS # (AUTO) 13.8 /CMM (1.8-8.9); NEUTROPHILS % (AUTO) 78.7 % (43.0-81.0); PLATELET COUNT (AUTO) 179 /CMM (150-450); RED BLOOD CELL COUNT(AUTO) 3.28 MIL/uL (4.0-5.2); WHITE BLOOD COUNT (AUTO) 17.5 K/uL (4.3-11.0)
[2020-02-03 05:20] LABS: CALCIUM, SERUM 7.4 mg/dL (8.5-10.1); CREATININE 0.8 mg/dL (0.6-1.3); PHOSPHORUS 1.8 mg/dL (2.5-4.9); POTASSIUM 3.8 mmol/L (3.5-5.1)
[2020-02-03] MEDS: VANCOMYCIN 1 GM in IV D5W 250 ML IV SCH (06:06)
[2020-02-03] MEDS: INSULIN REGULAR, HUMAN 100 UNIT/ML 3 ML VIAL SQ PRN ×3 (06:21→17:32)
--- NOTE | 2020-02-03 06:57 | NUR ---
RN NOTES NO S/S OF ACUTE DISTRESS NOTED. BREATHING NORMAL, CONT ON MECHANICAL VENTILATION VENT SETTING TOLERATING WELL ORDERED. TELE MONITOR READING SR IN 90-100'S. CONTINUES ON GTF GLUCERNA 1.2 IS RUNNING @ 50MLS/HR. HOB ELEVATED ALL THE TIMES TO PREVENT ASPIRATION. IV'S INTACT PATENT FLUSHES WELL. VITAL SIGNS WNL. F/C INTACT YELLOW URINE RUNNING WELL TO GRAVITY. SAFETY MEASURES IN PLACE, CALL LIGHT WITHIN REACH. WILL ENDORSE TO AM NURSE FOR DALILA.
[2020-02-03] MEDS: ACETYLCYSTEINE 10% SOLN 400 MG/4 ML VIAL HHN SCH ×3 (08:20→23:31)
[2020-02-03] MEDS: SIMETHICONE SUSP 40 MG/0.6 ML BOTTLE GT SCH (08:55)
[2020-02-03] MEDS: PANTOPRAZOLE 40 MG/PACK PACK GT SCH (08:55)
[2020-02-03] MEDS: PROSOURCE / PROSTAT (PYXIS) 30 ML UDC GT SCH (08:55)
[2020-02-03] MEDS: MUPIROCIN OINT 2% 22 GM TUBE NS SCH ×2 (08:55→20:17)
[2020-02-03] MEDS: AMIODARONE HCL 200 MG TABLET GT SCH (08:55)
[2020-02-03] MEDS: CLOTRIMAZOLE 1% 15 GM TUBE TP SCH ×2 (08:57→16:49)
[2020-02-03] MEDS: ENOXAPARIN SODIUM 30 MG/0.3 ML DISP.SYRIN SQ SCH (08:59)
[2020-02-03] MEDS ORDERED: NOREPINEPHRINE 8 MG in IV NS 0.9% 242 ML IV PRN (10:00)
[2020-02-03] MEDS: NEUTRA PHOS 1 POWD.PACKET PO SCH ×3 (11:22→16:48)
[2020-02-03] MEDS: MICAFUNGIN SODIUM 100 MG in IV NS 0.9% 100 ML IV SCH (13:14)
[2020-02-03] MEDS: SOD FERRIC GLUC 125 MG in IV NS 0.9% 100 ML IV SCH (14:07)
[2020-02-03] MEDS: GLUCERNA 1.2 1,000 ML BOTTLE NG PRN (21:32)
[2020-02-04] VITALS (24 sets, daily range): BP systolic 97–164; BP diastolic 48–91
[2020-02-04] MEDS: BLOOD SUGAR DIAGNOSTIC 1 EACH STRIP IN SCH ×4 (00:07→17:27)
[2020-02-04] MEDS: INSULIN REGULAR, HUMAN 100 UNIT/ML 3 ML VIAL SQ PRN ×4 (00:16→18:05)
[2020-02-04] MEDS: MEROPENEM 1 G in IV NS 0.9% 100 ML IV SCH ×2 (04:09→16:24)
[2020-02-04 04:28] LABS: BASOPHILS % (AUTO) 0.2 % (0.0-2.0); EOSINOPHILS % (AUTO) 2.1 % (0.0-6.0); HEMATOCRIT 31 % (33-45); HEMOGLOBIN 9.6 g/dL (11.5-14.8); LYMPHOCYTES # (AUTO) 2.1 /CMM (0.8-4.8); LYMPHOCYTES % (AUTO) 14.3 % (20.0-44.0); MEAN CORPUSCULAR HGB CONC 31 g/dl (31.0-36.0); MEAN CORPUSCULAR VOLUME 86 fL (82-100); MONOCYTES # (AUTO) 0.8 /CMM (0.1-1.30); MONOCYTES % (AUTO) 5.3 % (2.0-12.0); NEUTROPHILS # (AUTO) 11.7 /CMM (1.8-8.9); NEUTROPHILS % (AUTO) 78.1 % (43.0-81.0); PLATELET COUNT (AUTO) 179 /CMM (150-450); RED BLOOD CELL COUNT(AUTO) 3.57 MIL/uL (4.0-5.2)
[2020-02-04 05:06] LABS: BAND % (MANUAL) 3 % (0.0-5.0); LYMPHOCYTES % (MANUAL) 13 % (16-48); MONOCYTES % (MANUAL) 5 % (0-11.0); NEUTROPHILS % (MANUAL) 79 (42-76)
[2020-02-04 06:11] LABS: CALCIUM, SERUM 7.7 mg/dL (8.5-10.1); CREATININE 0.7 mg/dL (0.6-1.3); MAGNESIUM 1.7 mg/dL (1.8-2.4); PHOSPHORUS 2.5 mg/dL (2.5-4.9); POTASSIUM 4.3 mmol/L (3.5-5.1)
--- NOTE | 2020-02-04 07:22 | NUR ---
RN NOTES PATIENT CONT ON MECHANICAL VENTILATION VENT SETTING TOLERATING WELL ORDERED. TELE MONITOR READING SR IN 90-100'S. CONTINUES ON GTF GLUCERNA 1.2 IS RUNNING @ 50MLS/HR. HOB ELEVATED ALL THE TIMES. IV'S INTACT PATENT FLUSHES WELL. VITAL SIGNS WNL. F/C INTACT YELLOW URINE RUNNING WELL TO GRAVITY. SAFETY MEASURES IN PLACE, CALL LIGHT WITHIN REACH. ENDORSE TO AM NURSE FOR DALILA.
[2020-02-04] MEDS ORDERED: Magnesium 1GM/D5W 100ML PREMIX 50 ML IV SCH (07:27)
[2020-02-04] MEDS: ACETYLCYSTEINE 10% SOLN 400 MG/4 ML VIAL HHN SCH ×3 (07:35→23:37)
--- NOTE | 2020-02-04 07:45 | NUR ---
ICU/RN PATIENT INTUBATED ON THE VENT AC MODE FiO2 40%, SAT O2-97-98%. V/S STABLE, AFEBRILE, NO PAIN REPORTED AT THIS TIME. PATIENT IS NOT SEDATED. PRESSORS OFF AT THIS TIME. OPENS HER EYES ON PAIN STIMULATION, DOES NOT FOLLOWS COMMAND, CONTRACTED. IV ACCESS KAREN PICC LINE .G-TUBE INFUSING GLUCERNA AT 50ML/HR, NO RESIDUAL NOTED. AWAD CATH IN PLACE DRAINING CLEAR YELLOW URINE. LABS REVIEW MAGNESIUM 1.7. NOTIFIED. SUCTION PROVIDED AND REPOSITION FOR COMFORT.
[2020-02-04] MEDS: NEUTRA PHOS 1 POWD.PACKET PO SCH (08:53)
[2020-02-04] MEDS: PANTOPRAZOLE 40 MG/PACK PACK GT SCH (08:53)
[2020-02-04] MEDS: AMIODARONE HCL 200 MG TABLET GT SCH (08:53)
[2020-02-04] MEDS: PROSOURCE / PROSTAT (PYXIS) 30 ML UDC GT SCH (08:54)
[2020-02-04] MEDS: Z GUARD REMEDY 2 OZ OINT TP PRN (08:54)
[2020-02-04] MEDS: MUPIROCIN OINT 2% 22 GM TUBE NS SCH ×2 (08:55→20:37)
[2020-02-04] MEDS: CLOTRIMAZOLE 1% 15 GM TUBE TP SCH ×2 (08:55→16:26)
[2020-02-04] MEDS: ENOXAPARIN SODIUM 30 MG/0.3 ML DISP.SYRIN SQ SCH (08:56)
[2020-02-04] MEDS: SIMETHICONE SUSP 40 MG/0.6 ML BOTTLE GT SCH (08:56)
[2020-02-04] MEDS: Magnesium 1GM/D5W 100ML PREMIX 100 ML IV SCH ×2 (10:09→10:24)
--- NOTE | 2020-02-04 10:27 | NUR ---
ICU/RN MG LEVEL-1.7. 2 GM MGSO4 IV ORDERED. BY DIFFERENT DOCTORS.2 GM IV TOTAL GIVEN.
[2020-02-04] MEDS: MICAFUNGIN SODIUM 100 MG in IV NS 0.9% 100 ML IV SCH (14:21)
[2020-02-04] MEDS: GLUCERNA 1.2 1,000 ML BOTTLE NG PRN (16:14)
[2020-02-05] VITALS (24 sets, daily range): BP systolic 110–173; BP diastolic 57–104
[2020-02-05] MEDS: BLOOD SUGAR DIAGNOSTIC 1 EACH STRIP IN SCH ×4 (01:09→18:58)
--- NOTE | 2020-02-05 04:00 | NUR ---
RN NOTES MERREM WAS GIVEN AT 0400, WAS NOT SCANNED.
[2020-02-05 04:48] LABS: BASOPHILS % (AUTO) 0.3 % (0.0-2.0); EOSINOPHILS % (AUTO) 2.4 % (0.0-6.0); HEMATOCRIT 27 % (33-45); HEMOGLOBIN 8.5 g/dL (11.5-14.8); LYMPHOCYTES # (AUTO) 2.4 /CMM (0.8-4.8); LYMPHOCYTES % (AUTO) 21.6 % (20.0-44.0); MEAN CORPUSCULAR HGB CONC 32 g/dl (31.0-36.0); MEAN CORPUSCULAR VOLUME 84 fL (82-100); MONOCYTES # (AUTO) 0.8 /CMM (0.1-1.30); MONOCYTES % (AUTO) 7.5 % (2.0-12.0); NEUTROPHILS # (AUTO) 7.5 /CMM (1.8-8.9); NEUTROPHILS % (AUTO) 68.2 % (43.0-81.0); PLATELET COUNT (AUTO) 197 /CMM (150-450); RED BLOOD CELL COUNT(AUTO) 3.17 MIL/uL (4.0-5.2)
[2020-02-05 05:15] LABS: ALANINE AMINOTRANSFERASE 24 U/L (12-78); ALBUMIN 1.5 g/dL (3.4-5.0); ALKALINE PHOSPHATASE 85 U/L (46-116); ASPARTATE AMINOTRANSFERASE 20 U/L (15-37); BILIRUBIN,TOTAL 0.2 mg/dL (0.2-1.0); CARBON DIOXIDE 31 mmol/L (21-32); CHLORIDE 105 mmol/L (98-107); CREATININE 0.7 mg/dL (0.6-1.3); GLUCOSE 152 mg/dL (74-106); MAGNESIUM 2.1 mg/dL (1.8-2.4); PHOSPHORUS 2.1 mg/dL (2.5-4.9); POTASSIUM 4.4 mmol/L (3.5-5.1); SODIUM SERUM 141 mmol/L (136-145); TOTAL PROTEIN, SERUM 5.3 g/dL (6.4-8.2); UREA NITROGEN, BLOOD 18 mg/dL (7-18)
[2020-02-05 05:41] LABS: LYMPHOCYTES % (MANUAL) 17 % (16-48); MONOCYTES % (MANUAL) 4 % (0-11.0); NEUTROPHILS % (MANUAL) 79 (42-76)
[2020-02-05] MEDS: INSULIN REGULAR, HUMAN 100 UNIT/ML 3 ML VIAL SQ PRN ×3 (06:31→18:58)
--- NOTE | 2020-02-05 07:18 | NUR ---
RN NOTES PATIENT REMAINED ON VENT SETTING TOLERATING WELL ORDERED. BREATHING NORMAL, NO S/S OF RESPIRATORY DISTRESS NOTED. KAREN IV AND RFA IV INTACT FLUSHES WELL,TELE MONITOR READING SR. GTF TOLERATING WELL NO RESIDUAL NOTED, HOB ELEVATED. VITAL SIGNS WNL. F/C INTACT URINE RUNNING TO GRAVITY. SAFETY MEASURES IN PLACE, CALL LIGHT WITHIN REACH. WILL ENDORSE TO AM NURSE FOR DALILA.
[2020-02-05] MEDS: ACETYLCYSTEINE 10% SOLN 400 MG/4 ML VIAL HHN SCH ×3 (07:37→23:10)
--- NOTE | 2020-02-05 07:59 | NUR ---
daiana clemente below for weaning trial per dr. floyd: cpap 5 ps 12 Addendum: 02/05/20 at 0800 by ROJELIO MILLER RT Amended: Links added.
[2020-02-05] MEDS: PANTOPRAZOLE 40 MG/PACK PACK GT SCH (08:26)
[2020-02-05] MEDS: PROSOURCE / PROSTAT (PYXIS) 30 ML UDC GT SCH (08:26)
[2020-02-05] MEDS: MUPIROCIN OINT 2% 22 GM TUBE NS SCH ×2 (08:29→20:19)
[2020-02-05] MEDS: AMIODARONE HCL 200 MG TABLET GT SCH (08:29)
[2020-02-05] MEDS: CLOTRIMAZOLE 1% 15 GM TUBE TP SCH ×2 (08:29→16:43)
[2020-02-05] MEDS: ENOXAPARIN SODIUM 30 MG/0.3 ML DISP.SYRIN SQ SCH (08:46)
[2020-02-05 09:38] LABS: ABG BASE EXCESS 5.5 mmol/L; ABG OXYGEN SATURATION 95.5 % (92.0-98.5); ABG PCO2 52.1 mmHg (35.0-45.0); ABG PH 7.396 (7.350-7.450); ABG PO2 85.8 mmHg (75.0-100.0); AaDO2 139.5 mmHg; COHb 0.2 % (0.5-1.5); MetHb 0.3 % (0.0-1.5); SITE, ABG Right Radial
[2020-02-05] MEDS ORDERED: NEUTRA PHOS 1 POWD.PACKET GT ONE (11:30)
[2020-02-05] MEDS: SIMETHICONE SUSP 40 MG/0.6 ML BOTTLE GT SCH (12:22)
[2020-02-05] MEDS: GLUCERNA 1.2 1,000 ML BOTTLE NG PRN (16:42)
--- NOTE | 2020-02-05 17:30 | NUR ---
tolerating well on cpap / ps Addendum: 02/05/20 at 1730 by ROJELIO MILLER RT Amended: Links added.
--- NOTE | 2020-02-05 19:30 | NUR ---
RN NOTES RECEIVED PATIENT IN BED OBTUNDED. PATIENT IS ON CPAP TOLERATING WELL. BREATHING NORMAL NO SOB NOTED. KAREN PICC LINE INTACT PATENT NO S/S OF INFILTRATION NOTED. RFA G#20 INTACT PATENT FLUSHES WELL. TELE MONITOR READING SR IN 82'S. GTF TOLERATING WELL NO RESIDUAL NOTED. FLEXI SEAL IN PLACE, F/C INTACT YELLOW URINE RUNNING VIA GRAVITY. ALL SAFETY MEASURES IN PLACE, SIDE RAILS UP, CALL LIGHT WITHIN REACH. WILL CONT TO MONITOR FOR DALILA.
--- NOTE | 2020-02-05 19:47 | NUR ---
PT RCVD ORALLY INTUBATED WITH ETT 7.5 SECURED @ 19 CM LIPLINE ON VENT WITH NOTED VENT SETTINGS. SX DONE. VENT PLUGGED INTO RED OUTLET, VENTS ALARMS ON AND AUDIBLE, STOCK WORKER DONE . AMBU BAG @ BEDSIDE. NO RESPIRATORY DISTRESS NOTED AT THIS TIME . WILL CONTINUE TO MONITOR PT T/O SHIFT.
[2020-02-05] MEDS: IPRATROPIUM NEB FS 0.5 MG/2.5 ML AMPUL.NEB NEB PRN (23:09)
[2020-02-06] VITALS (27 sets, daily range): BP systolic 107–165; BP diastolic 63–129
[2020-02-06] MEDS: INSULIN REGULAR, HUMAN 100 UNIT/ML 3 ML VIAL SQ PRN ×4 (00:24→23:51)
[2020-02-06] MEDS: BLOOD SUGAR DIAGNOSTIC 1 EACH STRIP IN SCH ×5 (00:25→23:52)
[2020-02-06 04:33] LABS: CALCIUM, SERUM 8.5 mg/dL (8.5-10.1); CARBON DIOXIDE 34 mmol/L (21-32); CHLORIDE 104 mmol/L (98-107); CREATININE 0.6 mg/dL (0.6-1.3); GLUCOSE 139 mg/dL (74-106); POTASSIUM 4.6 mmol/L (3.5-5.1); SODIUM SERUM 140 mmol/L (136-145); UREA NITROGEN, BLOOD 17 mg/dL (7-18)
--- NOTE | 2020-02-06 06:59 | NUR ---
RN NOTES NO ACUTE CHANGES NOTED IN PATIENT'S CONDITION. CPAP TOLERATING WELL SATURATING 99-100%. GTF TOLERATING WELL WITH MINIMAL RESIDUAL NOTED. FLEXI SEAL IN PLACE, F/C INTACT YELLOW URINE RUNNING VIA GRAVITY. ALL SAFETY MEASURES IN PLACE, SIDE RAILS UP, CALL LIGHT WITHIN REACH. WILL ENDORSED TO AM NURSE FOR CONTINUITY OF CARE.
[2020-02-06] MEDS: ACETYLCYSTEINE 10% SOLN 400 MG/4 ML VIAL HHN SCH ×3 (07:34→23:25)
[2020-02-06] MEDS: CLOTRIMAZOLE 1% 15 GM TUBE TP SCH ×2 (08:25→17:22)
[2020-02-06] MEDS: MUPIROCIN OINT 2% 22 GM TUBE NS SCH (08:25)
[2020-02-06] MEDS: SIMETHICONE SUSP 40 MG/0.6 ML BOTTLE GT SCH (08:26)
[2020-02-06] MEDS: PROSOURCE / PROSTAT (PYXIS) 30 ML UDC GT SCH (08:27)
[2020-02-06] MEDS: PANTOPRAZOLE 40 MG/PACK PACK GT SCH (08:28)
[2020-02-06] MEDS: ENOXAPARIN SODIUM 30 MG/0.3 ML DISP.SYRIN SQ SCH (08:29)
[2020-02-06 08:30] LABS: ABG BASE EXCESS 7.9 mmol/L; ABG OXYGEN SATURATION 95.6 % (92.0-98.5); ABG PCO2 51.9 mmHg (35.0-45.0); ABG PH 7.426 (7.350-7.450); ABG PO2 82.8 mmHg (75.0-100.0); AaDO2 142.7 mmHg; COHb 0.3 % (0.5-1.5); MetHb 0.3 % (0.0-1.5); SITE, ABG Right Radial; VENT MODE, BG CPAP 5 / PS 12
[2020-02-06] MEDS: AMIODARONE HCL 200 MG TABLET GT SCH (09:00)
[2020-02-06] MEDS: FUROSEMIDE 100 MG/10 ML VIAL IV SCH ×3 (09:57→17:21)
[2020-02-06] MEDS ORDERED: FUROSEMIDE 40 MG/4 ML VIAL IV ONE (11:00)
--- NOTE | 2020-02-06 11:12 | NUR ---
@ 1112 pt. placed into cool aerosol @ 40% fio2 per dr. floyd. cuff deflated for aspiration precaution. rn aware on changes. Addendum: 02/06/20 at 1114 by ROJELIO MILLER RT Amended: Links added.
[2020-02-06] MEDS: GLUCERNA 1.2 1,000 ML BOTTLE NG PRN (17:21)
--- NOTE | 2020-02-06 18:32 | NUR ---
PLODDER OPERATOR Closing Patient appears comfortable on cool aerosol via ETT with occasional coughing. SPO2 98%, no SOB, RR 27 even & unlabored. Frequent suctioning- total 200mL this shift. Opens eyes sometimes, non verbal, does not track or follow command. PEG in place, verified via auscultation, abdomen soft/non distended, Glucerna @50mL/hr, no residual. Flexiseal in place, patient having diarrhea. Rubio in place, urine pale, drained 6,100 mL this shift. 80mg Lasix x3 doses given as ordered. Wound care completed, turned per protocol. KAREN PICC intact, NS@TKO.
[2020-02-07] VITALS (34 sets, daily range): BP systolic 62–152; BP diastolic 36–116
[2020-02-07] MEDS: BLOOD SUGAR DIAGNOSTIC 1 EACH STRIP IN SCH ×3 (05:42→17:17)
[2020-02-07] MEDS: INSULIN REGULAR, HUMAN 100 UNIT/ML 3 ML VIAL SQ PRN ×3 (05:43→17:31)
--- NOTE | 2020-02-07 06:45 | NUR ---
LEI MAKER: CONTINUE ON COOL AEROSOL AT 60% FI02 FROM 40%. NOTED WT A LOT OF WHITE/FUENTES THIN SECRETIONS AND NEEDED FREQUENT SUCTIONING OR WILL DESATURATE IN THE 80s. NO ACUTE DISTRESS, NO EVIDENCE OF DISCOMFORT. ALERT TO SELF. UNABLE TO FOLLOW SIMPLE COMMANDS. SR-ST WT HR IN LOW 100s. AFEBRILE. BP WITHIN NORMAL RANGE. KAREN PICC LINE TKO WT NO S/S OF COMPLICATIONS. GT IN PLACE AND VERIFIED UPON AUSCULTATION WT GLUCERNA 1.2 AT 50ML/HR WT NO RESIDUAL. F/C PATENT AND INTACT DRAINING LARGE AMT. OF CLEAR PALE YELLOW URINE TO GRAVITY. FLEXI-SEAL INTACT DRAINING BROWN LIQUID STOOLS. SAFETY PRECAUTION NOTED AT ALL TIMES.
--- NOTE | 2020-02-07 07:40 | NUR ---
ICU/RN PT IS INTUBATED ON T-TUBE ,FIO2-97%.V/S STABLE ,AFEBRILE.NO PAIN REPORTED AT THIS TIME.PT IS OBTUNDENT,OPEN EYES ,NOT FOLLOWS COMMAND.G-TUBE INFUSING WITH GLYTROL NO RESIDUAL.F/C DRAINING WITH YELLOW URINE.PT IS CONTRACTED.RECTAL TUBE DRAINING WITH YELLOW LIQUID STOOL.SUCTION PROVIDED.REPOSITION FOR COMFORT.
[2020-02-07] MEDS: ACETYLCYSTEINE 10% SOLN 400 MG/4 ML VIAL HHN SCH ×3 (07:48→23:15)
[2020-02-07 07:57] LABS: BASOPHILS # (AUTO) 0.1 /CMM (0.0-0.2); BASOPHILS % (AUTO) 0.7 % (0.0-2.0); EOSINOPHILS % (AUTO) 1.8 % (0.0-6.0); HEMATOCRIT 31 % (33-45); HEMOGLOBIN 9.6 g/dL (11.5-14.8); LYMPHOCYTES # (AUTO) 2.7 /CMM (0.8-4.8); LYMPHOCYTES % (AUTO) 23.8 % (20.0-44.0); MEAN CORPUSCULAR HGB CONC 31 g/dl (31.0-36.0); MEAN CORPUSCULAR VOLUME 85 fL (82-100); MONOCYTES % (AUTO) 8.7 % (2.0-12.0); NEUTROPHILS # (AUTO) 7.3 /CMM (1.8-8.9); PLATELET COUNT (AUTO) 325 /CMM (150-450); RED BLOOD CELL COUNT(AUTO) 3.64 MIL/uL (4.0-5.2); WHITE BLOOD COUNT (AUTO) 11.2 K/uL (4.3-11.0)
[2020-02-07 08:10] LABS: ALBUMIN 1.9 g/dL (3.4-5.0); BILIRUBIN,TOTAL 0.2 mg/dL (0.2-1.0); CALCIUM, SERUM 9.2 mg/dL (8.5-10.1); CREATININE 0.8 mg/dL (0.6-1.3); MAGNESIUM 1.9 mg/dL (1.8-2.4); PHOSPHORUS 3.5 mg/dL (2.5-4.9); POTASSIUM 4.3 mmol/L (3.5-5.1); TOTAL PROTEIN, SERUM 6.5 g/dL (6.4-8.2)
[2020-02-07] MEDS: PANTOPRAZOLE 40 MG/PACK PACK GT SCH (08:16)
[2020-02-07] MEDS: ENOXAPARIN SODIUM 30 MG/0.3 ML DISP.SYRIN SQ SCH (08:16)
[2020-02-07] MEDS: SIMETHICONE SUSP 40 MG/0.6 ML BOTTLE GT SCH (08:17)
[2020-02-07] MEDS: AMIODARONE HCL 200 MG TABLET GT SCH (08:17)
[2020-02-07] MEDS: PROSOURCE / PROSTAT (PYXIS) 30 ML UDC GT SCH (08:18)
[2020-02-07] MEDS: Z GUARD REMEDY 2 OZ OINT TP PRN (08:19)
[2020-02-07] MEDS: CLOTRIMAZOLE 1% 15 GM TUBE TP SCH ×2 (08:19→17:17)
[2020-02-07 08:23] LABS: ABG BASE EXCESS 17.5 mmol/L; ABG OXYGEN SATURATION 99.2 % (92.0-98.5); ABG PCO2 60.2 mmHg (35.0-45.0); ABG PH 7.478 (7.350-7.450); ABG PO2 197.7 mmHg (75.0-100.0); AaDO2 163.9 mmHg; COHb 0.3 % (0.5-1.5); MetHb 0.1 % (0.0-1.5); O2Hb 98.8 % (94.0-97.0); SITE, ABG Left Radial
[2020-02-07] MEDS ORDERED: acetaZOLAMIDE SODIUM 500 MG/VIAL VIAL IV ONE (11:00)
--- NOTE | 2020-02-07 11:05 | NUR ---
ICU/RN PT HAS APNEA,NO TOLERATING T -TUBE,60%.MD NOTIFIED.PLACED ON CPAP VENT MODE ORDERED.
[2020-02-07] MEDS: IV NS 0.9% 250 ML IV PRN (12:28)
--- NOTE | 2020-02-07 13:05 | NUR ---
ICU/RN PT IS NOT TOLERATING CPAP MODE.PLACED ON AC MODE ORDERED. CONSENT FO TRACHEOSTOMY PLACEMENT SIGN OVER THE PHONE.
[2020-02-07] MEDS: FUROSEMIDE 100 MG/10 ML VIAL IV SCH ×3 (13:08→21:30)
--- NOTE | 2020-02-07 17:00 | NUR ---
ICU/RN LASIX 80 MG DOSE HOLD.BP 77/50.
--- NOTE | 2020-02-07 18:00 | NUR ---
ICU/RN PM CARE PROVIDED.DUE MEDS ARE GIVEN ORDERED.SUCTION PROVIDED.REPOSITION FOR COMFORT.
[2020-02-07] MEDS: GLUCERNA 1.2 1,000 ML BOTTLE NG PRN (19:36)
--- NOTE | 2020-02-07 21:40 | NUR ---
PACKER OPERATOR AUTOMATIC: CALLED AND NOTIFIED DR. MUNGUIA THAT PT. HAS BEEN HAVING DECREASED BLOOD PRESSURE FOR PAST FEW HOURS SINCE RECEIVING LASIX 80MG IVP AND DAIMOX 500MG IVP DURING DAY SHIFT. INFORMED HIM THAT 2ND DOSE OF LASIX WAS HELD BY DAY SHIFT RN AND 3RD/FINAL DOSE IS DUE AT THIS TIME BUT SBP IS STILL IN THE 80s; URINE OUTPUT 2.2L SINCE DAY SHIFT. MD AGREED TO HOLD LASIX AT THIS TIME AND START NEOSYNEPHRINE IF SBP IS LESS THAN 80. NOTED AND CARRIED OUT.
[2020-02-07] MEDS ORDERED: PHENYLEPHRINE 50 MG in IV NS 0.9% 245 ML IV PRN (22:00)
[2020-02-07] MEDS ORDERED: PHENYLEPHRINE 10 MG/ML VIAL ONE (22:04)
--- NOTE | 2020-02-07 22:15 | NUR ---
NURSE CONSULTANT: PHENYLEPHRINE DRIP STARTED FOR BP SUPPORT.
--- NOTE | 2020-02-07 23:00 | NUR ---
CHUCKING MACHINE OPERATOR: SBP IN THE 130s-140s WITHIN PAST HOUR. HELD PHENYLEPHRINE DRIP AT THIS TIME. WILL CONTINUE TO MONITOR.
[2020-02-08] VITALS (36 sets, daily range): BP systolic 82–144; BP diastolic 36–104
[2020-02-08] MEDS: BLOOD SUGAR DIAGNOSTIC 1 EACH STRIP IN SCH ×4 (00:25→17:12)
[2020-02-08] MEDS: INSULIN REGULAR, HUMAN 100 UNIT/ML 3 ML VIAL SQ PRN ×4 (00:27→17:41)
[2020-02-08 04:45] LABS: BASOPHILS # (AUTO) 0.1 /CMM (0.0-0.2); BASOPHILS % (AUTO) 0.5 % (0.0-2.0); EOSINOPHILS % (AUTO) 1.9 % (0.0-6.0); HEMATOCRIT 30 % (33-45); HEMOGLOBIN 9.1 g/dL (11.5-14.8); LYMPHOCYTES # (AUTO) 2.7 /CMM (0.8-4.8); LYMPHOCYTES % (AUTO) 23.3 % (20.0-44.0); MEAN CORPUSCULAR HGB CONC 31 g/dl (31.0-36.0); MEAN CORPUSCULAR VOLUME 86 fL (82-100); MONOCYTES # (AUTO) 1.1 /CMM (0.1-1.30); MONOCYTES % (AUTO) 9.4 % (2.0-12.0); NEUTROPHILS # (AUTO) 7.5 /CMM (1.8-8.9); NEUTROPHILS % (AUTO) 64.9 % (43.0-81.0); PLATELET COUNT (AUTO) 339 /CMM (150-450); RED BLOOD CELL COUNT(AUTO) 3.46 MIL/uL (4.0-5.2); WHITE BLOOD COUNT (AUTO) 11.6 K/uL (4.3-11.0)
[2020-02-08 04:54] LABS: BILIRUBIN,TOTAL 0.2 mg/dL (0.2-1.0); PHOSPHORUS 3.8 mg/dL (2.5-4.9); POTASSIUM 4.2 mmol/L (3.5-5.1); TOTAL PROTEIN, SERUM 6.5 g/dL (6.4-8.2)
--- NOTE | 2020-02-08 06:50 | NUR ---
SUPERIOR COURT CLERK: STILL OFF PHENYLEPHRINE AT THIS TIME WT BP STILL IN THE LOW SIDE. VENT SETTINGS ORDERED. TOLERATED WELL. NO OTHER SIGNIFICANT DALILA DURING THE SHIFT. ALL NEEDS MET.
[2020-02-08] MEDS: ACETYLCYSTEINE 10% SOLN 400 MG/4 ML VIAL HHN SCH ×3 (07:35→23:23)
--- NOTE | 2020-02-08 07:50 | NUR ---
ICU/RN PT IS INTUBATED ON THE VENT AC MODE.WAITING FOR TRACHEOSTOMY PLACEMENT.OPEN EYES NOT FOLLOW COMMANDS ,HAS DEMENTIA.NOT SEDATED.GENERALIZED EDEMA PRESENT.CONTRACTED.RIGHTS UPPER ARM PICC LINE.OFF PRESSORS AT THIS TIME.F/C DRAINING WITH YELLOW URINE. G-TUBE INFUSING WITH GLUCERNA AT 50 ML/HR ,NO RESIDUAL.PT HAS RECTAL TUBE.DRAINING WITH YELLOW LIQUID STOOL.REDNESS ON EMBER AREA AND LOWER BACK NOTED.SUCTION PROVIDED.REPOSITION FOR COMFORT.
[2020-02-08] MEDS: ENOXAPARIN SODIUM 30 MG/0.3 ML DISP.SYRIN SQ SCH (08:20)
[2020-02-08] MEDS: SIMETHICONE SUSP 40 MG/0.6 ML BOTTLE GT SCH (08:21)
[2020-02-08] MEDS: PANTOPRAZOLE 40 MG/PACK PACK GT SCH (08:21)
[2020-02-08] MEDS: AMIODARONE HCL 200 MG TABLET GT SCH (08:24)
[2020-02-08] MEDS: PROSOURCE / PROSTAT (PYXIS) 30 ML UDC GT SCH (08:24)
[2020-02-08] MEDS: CLOTRIMAZOLE 1% 15 GM TUBE TP SCH ×2 (08:25→17:12)
--- NOTE | 2020-02-08 09:05 | NUR ---
ICU/RN DUE MED ARE GIVEN ORDERED.
[2020-02-08] MEDS: IV NS 0.9% 250 ML IV PRN (10:57)
[2020-02-08] MEDS: GLUCERNA 1.2 1,000 ML BOTTLE NG PRN (11:14)
[2020-02-08] MEDS: Z GUARD REMEDY 2 OZ OINT TP PRN (12:12)
[2020-02-08] MEDS: VANCOMYCIN HCL 125 MG/2.5 ML ORAL.SUSP PO SCH (18:42)
--- NOTE | 2020-02-08 19:30 | NUR ---
RN OPENING NOTES Received client resting in bed. client open eyes but unable to follow simple commands or to keep eye rack. Client is on ky, vent settings as follow: AC16, TV450,TOS528, PEEP5. G-tube noted, feeding 50ml/hr. FC, drainage noted. Client is on external telemonitor, NSR HR 70'S. Comfort measures provided, all safety mechanisms in place. Will continue to monitor the client.
[2020-02-08] MEDS: IPRATROPIUM NEB FS 0.5 MG/2.5 ML AMPUL.NEB NEB PRN (23:22)
[2020-02-09] VITALS (23 sets, daily range): BP systolic 95–146; BP diastolic 44–101
[2020-02-09] MEDS: BLOOD SUGAR DIAGNOSTIC 1 EACH STRIP IN SCH ×4 (00:12→17:19)
[2020-02-09] MEDS: VANCOMYCIN HCL 125 MG/2.5 ML ORAL.SUSP PO SCH ×4 (00:36→17:08)
[2020-02-09] MEDS: ACETAMINOPHEN 325 MG TABLET PO PRN (01:26)
--- NOTE | 2020-02-09 02:39 | NUR ---
RN OPENING NOTES Received client resting in bed. client open eyes but unable to follow simple commands or to keep eye rack. Client is on ky, vent settings as follow: AC16, TV450,JEY163, PEEP5. G-tube noted, feeding 50ml/hr. FC, drainage noted. Client is on external telemonitor, NSR HR 70'S. Comfort measures provided, all safety mechanisms in place. Will continue to monitor the client.
--- NOTE | 2020-02-09 07:05 | NUR ---
RN NOTES RECEIVED PT ON BED, ORALLY INTUBATED ON THE VENT, TOLERATING VENT SETTING WELL, WAITING FOR TRACHEOSTOMY PLACEMENT.PT OPENS EYES BUT DOSE NOT FOLLOW COMMAND , GENERALIZED EDEMA NOTED, CONTRACTED. ON TELE SR HR IN 70'S , RIGHTS UPPER ARM PICC LINE SITE CLEAN, DRY AND INTACT.F/C DRAINING TO GRAVITY WITH YELLOW URINE. G-TUBE INFUSING WITH GLUCERNA AT 50 ML/HR ,NO RESIDUAL.PT HAS RECTAL TUBE.DRAINING WITH YELLOW LIQUID STOOL. SR UP X3, CALL LIGHT WITHIN EASY REACH, BED LOCKED AND IN LOWEST POSITION, CONTINUE TO MONITOR.
--- NOTE | 2020-02-09 07:19 | NUR ---
RN CLOSING NOTES client is resting in bed. client open eyes but unable to follow simple commands or to keep eye rack. Client is on vent, vent settings as follow: AC16, TV450,WRY688, PEEP5. G-tube noted, feeding 50ml/hr. FC, drainage noted. Client is on external telemonitor, NSR HR 70'S - 80's. Comfort measures provided, all safety mechanisms in place. Will endorse the incoming nurse.
[2020-02-09 07:54] LABS: BASOPHILS # (AUTO) 0.1 /CMM (0.0-0.2); BASOPHILS % (AUTO) 0.9 % (0.0-2.0); HEMATOCRIT 28 % (33-45); LYMPHOCYTES # (AUTO) 2.7 /CMM (0.8-4.8); MEAN CORPUSCULAR HGB CONC 32 g/dl (31.0-36.0); MEAN CORPUSCULAR VOLUME 84 fL (82-100); MONOCYTES # (AUTO) 0.8 /CMM (0.1-1.30); MONOCYTES % (AUTO) 9.3 % (2.0-12.0); NEUTROPHILS # (AUTO) 4.7 /CMM (1.8-8.9); NEUTROPHILS % (AUTO) 54.8 % (43.0-81.0); PLATELET COUNT (AUTO) 356 /CMM (150-450); RED BLOOD CELL COUNT(AUTO) 3.37 MIL/uL (4.0-5.2); WHITE BLOOD COUNT (AUTO) 8.6 K/uL (4.3-11.0)
[2020-02-09 08:06] LABS: CALCIUM, SERUM 8.7 mg/dL (8.5-10.1); POTASSIUM 4.3 mmol/L (3.5-5.1)
[2020-02-09] MEDS: AMIODARONE HCL 200 MG TABLET GT SCH (08:11)
[2020-02-09] MEDS: PANTOPRAZOLE 40 MG/PACK PACK GT SCH (08:11)
[2020-02-09] MEDS: ENOXAPARIN SODIUM 30 MG/0.3 ML DISP.SYRIN SQ SCH (08:12)
[2020-02-09] MEDS: SIMETHICONE SUSP 40 MG/0.6 ML BOTTLE GT SCH (08:12)
[2020-02-09] MEDS: PROSOURCE / PROSTAT (PYXIS) 30 ML UDC GT SCH (08:13)
[2020-02-09] MEDS: CLOTRIMAZOLE 1% 15 GM TUBE TP SCH ×2 (08:14→16:46)
[2020-02-09 08:39] LABS: ABG BASE EXCESS 3.6 mmol/L; ABG OXYGEN SATURATION 98.5 % (92.0-98.5); ABG PCO2 36.2 mmHg (35.0-45.0); ABG PO2 127.2 mmHg (75.0-100.0); AaDO2 116.4 mmHg; COHb 0.3 % (0.5-1.5); MetHb 0.1 % (0.0-1.5); O2Hb 98.1 % (94.0-97.0); SITE, ABG Left Brachial
[2020-02-09] MEDS: ACETYLCYSTEINE 10% SOLN 400 MG/4 ML VIAL HHN SCH ×3 (08:41→22:57)
[2020-02-09] MEDS: INSULIN REGULAR, HUMAN 100 UNIT/ML 3 ML VIAL SQ PRN ×2 (11:52→17:16)
--- NOTE | 2020-02-09 12:00 | NUR ---
RN NOTES VSS STABLE, ORAL AND ET SUCTIONING DONE, CONTINUE TO MONITOR .
[2020-02-09] MEDS: GLUCERNA 1.2 1,000 ML BOTTLE NG PRN (16:27)
--- NOTE | 2020-02-09 18:00 | NUR ---
RN NOTES TRACHEOSTOMY PLACEMENT , ANESTHESIA AND BLOOD TRANSFUSION CONSENT RECEIVED VIA TELEPHONE FROM PT'S SON.
--- NOTE | 2020-02-09 18:40 | NUR ---
RN NOTES PT REMAINS INTUBATED, NO SIGNIFICANT CHANGES NOTED ON THIS SHIFT, VSS STABLE, TOLERATING TF WELL, RECTAL TUBE DRINING TO GRAVITY WITH LIGHT BROWNISH LOOSE STOOL, AWAD DRINING TO GRAVITY, ORAL AND ET TUBE SUCTIONING DONE NEEDED, SR UP x3, CALL LIGHT WITHIN EASY EACH, WILL ENDORSE TO HEAD OF TALENT MANAGEMENT NURSE FOR CONTINUITY OF CARE
--- NOTE | 2020-02-09 19:30 | NUR ---
RN OPENING NOTES Received client resting in bed. client open eyes but unable to follow simple commands or to keep eye rack. Client is on ky, vent settings as follow: AC16, TV450,UHK404, PEEP5. G-tube noted, feeding 50ml/hr. FC, drainage noted. Client is on external telemonitor, NSR HR 70'S - 80'S. Comfort measures provided, all safety mechanisms in place. Will continue to monitor the client.
--- NOTE | 2020-02-09 22:41 | NUR ---
SPOKE TO GONZALO GALINDO ABOUT TRACHEOSTOMY PREPARATION FOR THE 02/10/20 AT 1400 SURGERY. CONSENT FORMS ARE IN MAIN CHART. DOCTOR IS AWARE. CLIENT WILL BE NPO AFTER MIDNIGHT.
[2020-02-09] MEDS: IPRATROPIUM NEB FS 0.5 MG/2.5 ML AMPUL.NEB NEB PRN (22:57)
[2020-02-10] VITALS (23 sets, daily range): BP systolic 90–154; BP diastolic 42–98
[2020-02-10] MEDS: VANCOMYCIN HCL 125 MG/2.5 ML ORAL.SUSP PO SCH ×4 (00:04→17:18)
[2020-02-10] MEDS: BLOOD SUGAR DIAGNOSTIC 1 EACH STRIP IN SCH ×4 (00:04→17:17)
[2020-02-10] MEDS: INSULIN REGULAR, HUMAN 100 UNIT/ML 3 ML VIAL SQ PRN ×3 (00:15→17:17)
--- NOTE | 2020-02-10 00:16 | NUR ---
NO INSULIN ADMINISTER DUE TO NPO STATUS UNTIL OR AFTER 1400 BECAUSE OF SURGERY. WILL CONTINUE TO MONITOR GLUCOSE LEVELS.
[2020-02-10 04:09] LABS: BASOPHILS # (AUTO) 0.1 /CMM (0.0-0.2); BASOPHILS % (AUTO) 0.8 % (0.0-2.0); EOSINOPHILS % (AUTO) 3.2 % (0.0-6.0); HEMATOCRIT 27 % (33-45); HEMOGLOBIN 8.7 g/dL (11.5-14.8); LYMPHOCYTES # (AUTO) 2.7 /CMM (0.8-4.8); MEAN CORPUSCULAR HGB CONC 32 g/dl (31.0-36.0); MEAN CORPUSCULAR VOLUME 85 fL (82-100); MONOCYTES # (AUTO) 0.7 /CMM (0.1-1.30); MONOCYTES % (AUTO) 8.5 % (2.0-12.0); NEUTROPHILS # (AUTO) 4.9 /CMM (1.8-8.9); NEUTROPHILS % (AUTO) 56.5 % (43.0-81.0); PLATELET COUNT (AUTO) 371 /CMM (150-450); RED BLOOD CELL COUNT(AUTO) 3.23 MIL/uL (4.0-5.2); WHITE BLOOD COUNT (AUTO) 8.7 K/uL (4.3-11.0)
[2020-02-10 04:28] LABS: CALCIUM, SERUM 9.1 mg/dL (8.5-10.1); CREATININE 0.8 mg/dL (0.6-1.3); POTASSIUM 4.3 mmol/L (3.5-5.1)
--- NOTE | 2020-02-10 06:38 | NUR ---
NO CHANGE OF CONDITION DURING THE SHIFT. NO S/S OF DISTRESS OR PAIN. THE CLIENT REMAINS NPO AT THIS TIME,AWAITING FOR SURGERY. ALL CONSENT FORMS HAVE BEEN SIGNED. WILL ENDORSE THE INCOMING SHIFT NURSE FOR THE CONTINUITY OF CARE.
--- NOTE | 2020-02-10 07:10 | NUR ---
RN NOTES RECEIVED PT ON BED, ORALLY INTUBATED ON THE VENT, TOLERATING VENT SETTING WELL, PT OPENS EYES BUT DOSE NOT FOLLOW COMMAND , GENERALIZED EDEMA NOTED, CONTRACTED. ON TELE SR HR IN 70'S , RIGHTS UPPER ARM PICC LINE SITE CLEAN, DRY AND INTACT.F/C DRAINING TO GRAVITY WITH YELLOW URINE. FLEXI SEAL DRINING TO GRAVITY WITH LIGHT BROWNISH LOOSE STOOL , PT IS NPO THIS AM FOR SURGERY, SR UP X3, CALL LIGHT WITHIN EASY REACH, BED LOCKED AND IN LOWEST POSITION, CONTINUE TO MONITOR.
[2020-02-10] MEDS: ACETYLCYSTEINE 10% SOLN 400 MG/4 ML VIAL HHN SCH ×3 (07:38→23:23)
--- NOTE | 2020-02-10 08:00 | NUR ---
RN NOTES DR REID'S OFFICE NOTIFIED T=100.0 AXILLARY .
[2020-02-10] MEDS: PANTOPRAZOLE 40 MG/PACK PACK GT SCH (08:37)
[2020-02-10] MEDS: AMIODARONE HCL 200 MG TABLET GT SCH (08:37)
[2020-02-10] MEDS: SIMETHICONE SUSP 40 MG/0.6 ML BOTTLE GT SCH (08:37)
[2020-02-10] MEDS: CLOTRIMAZOLE 1% 15 GM TUBE TP SCH ×2 (08:38→16:12)
[2020-02-10] MEDS: PROSOURCE / PROSTAT (PYXIS) 30 ML UDC GT SCH (08:38)
[2020-02-10] MEDS: ENOXAPARIN SODIUM 30 MG/0.3 ML DISP.SYRIN SQ SCH (09:00)
[2020-02-10] MEDS ORDERED: LIDOCAINE HCL/MPF 1% 30 ML VIAL IJ ONE (14:23)
[2020-02-10] MEDS ORDERED: CELLULOSE,OXIDIZED 1 PKT EACH MC ONE (14:23)
--- NOTE | 2020-02-10 14:59 | NUR ---
RN NOTES PT TO OR AT THIS TIME IN STABLE CONDITION.
[2020-02-10] MEDS: GLUCERNA 1.2 1,000 ML BOTTLE NG PRN (16:06)
--- NOTE | 2020-02-10 16:20 | NUR ---
RN NOTES PT RECEIVED FROM RECOVERY, VSS STABLE, SMALL AMOUNT OF BLOODY DRAINAGE NOTED AT THE TRACH SITE, NEW DRESSING APPLIED, CONTINUE TO MONITOR.
--- NOTE | 2020-02-10 18:25 | NUR ---
RN NOTES NO SIGNIFICANT CHANGES NOTED , TRACH CARE DONE, VSS STABLE, ON TELE SR , TF AT 50CC/HR RUNNING , NO RESIDUAL NOTED, SR UP X3, CALL LIGHT WITHIN EASY REACH, WILL ENDOSE TO SENIOR GEOLOGIST NURSE FOR CONTINUITY OF CARE .
--- NOTE | 2020-02-10 19:30 | NUR ---
SENIOR COPYWRITER RCD PT W/DX RESP FAIL; PT IS AWAKE DOES NOT FOLLOW COMMANDS. NSR ON MONITOR. S/P TRACH PLACEMENT TODAY; SHILEY 8 W/VENT SETTINGS AC 16 450 40%+5; RENDERED ORAL CARE. GTUBE IN PLACE W/GLUCERNA @ 50 ML/HR TOLERATING WELL.
[2020-02-10] MEDS: IPRATROPIUM NEB FS 0.5 MG/2.5 ML AMPUL.NEB NEB PRN (23:23)
[2020-02-11] VITALS (22 sets, daily range): BP systolic 81–131; BP diastolic 34–88
[2020-02-11] MEDS: VANCOMYCIN HCL 125 MG/2.5 ML ORAL.SUSP PO SCH ×4 (00:37→17:01)
[2020-02-11] MEDS: BLOOD SUGAR DIAGNOSTIC 1 EACH STRIP IN SCH ×4 (00:37→17:00)
[2020-02-11] MEDS: INSULIN REGULAR, HUMAN 100 UNIT/ML 3 ML VIAL SQ PRN ×3 (00:38→12:10)
[2020-02-11 04:12] LABS: BASOPHILS # (AUTO) 0.1 /CMM (0.0-0.2); BASOPHILS % (AUTO) 0.6 % (0.0-2.0); EOSINOPHILS % (AUTO) 1.5 % (0.0-6.0); HEMATOCRIT 29 % (33-45); HEMOGLOBIN 9.2 g/dL (11.5-14.8); LYMPHOCYTES # (AUTO) 2.5 /CMM (0.8-4.8); LYMPHOCYTES % (AUTO) 18.2 % (20.0-44.0); MEAN CORPUSCULAR HGB CONC 31 g/dl (31.0-36.0); MEAN CORPUSCULAR VOLUME 85 fL (82-100); MONOCYTES # (AUTO) 0.9 /CMM (0.1-1.30); MONOCYTES % (AUTO) 6.6 % (2.0-12.0); NEUTROPHILS # (AUTO) 10.1 /CMM (1.8-8.9); NEUTROPHILS % (AUTO) 73.1 % (43.0-81.0); PLATELET COUNT (AUTO) 405 /CMM (150-450); RED BLOOD CELL COUNT(AUTO) 3.46 MIL/uL (4.0-5.2); WHITE BLOOD COUNT (AUTO) 13.9 K/uL (4.3-11.0)
[2020-02-11 04:25] LABS: CALCIUM, SERUM 8.9 mg/dL (8.5-10.1); CARBON DIOXIDE 29 mmol/L (21-32); CHLORIDE 103 mmol/L (98-107); CREATININE 0.9 mg/dL (0.6-1.3); GLUCOSE 147 mg/dL (74-106); POTASSIUM 4.5 mmol/L (3.5-5.1); SODIUM SERUM 137 mmol/L (136-145); UREA NITROGEN, BLOOD 28 mg/dL (7-18)
--- NOTE | 2020-02-11 07:20 | NUR ---
RN INITIAL NOTES RECEIVED PT AWAKE, EYES OPEN. TRACH IN PLACE, ON VENT. NO RESPIRATORY DISTRESS NOTED. HOB ELEVATED. NO SIGNS OF PAIN NOTED. G-TUBE IN PLACE. TOLERATING FEEDING WELL. KAREN PICC IN PLACE. AWAD AND FLEXISEAL IN PLACE. BLE ELEVATED. WILL MONITOR
[2020-02-11] MEDS: ACETYLCYSTEINE 10% SOLN 400 MG/4 ML VIAL HHN SCH ×3 (08:02→23:52)
--- NOTE | 2020-02-11 08:04 | NUR ---
WOUND CARE FOLLOW UP: PT SEEN FOR SKIN ASSESSMENT AND NOTED TO HAVE MULTIPLE SKIN ISSUES PRESENT ON ADMISSION INCLUDING FRAGILE SKIN, SKIN DISCOLORATIONS, SCARRING AND INTACT DEEP TISSUE INJURIES TO BACK, SACRUM AND RT HIP. RASH NOTED TO BREAST FOLDS, PERINEUM, GROIN FOLDS AND BUTTOCKS. RECOMMENDATIONS MADE FOR SKIN PROTECTION. DISCUSSED WITH NURSING STAFF. IN AGREEMENT WITH PLAN OF CARE. PT IS ON FIRST STEP [facility] [place]. Addendum: 02/11/20 at 08 by CASSIDY ADKINS Amended: Links added. Addendum: 02/11/20 at 0818 by CASSIDY WHITTAKERU RECTAL TUBE AND AWAD NOTED.
[2020-02-11] MEDS: PANTOPRAZOLE 40 MG/PACK PACK GT SCH (08:30)
[2020-02-11] MEDS: AMIODARONE HCL 200 MG TABLET GT SCH (08:31)
[2020-02-11] MEDS: PROSOURCE / PROSTAT (PYXIS) 30 ML UDC GT SCH (08:31)
[2020-02-11] MEDS: CLOTRIMAZOLE 1% 15 GM TUBE TP SCH ×2 (08:31→16:13)
[2020-02-11] MEDS: SIMETHICONE SUSP 40 MG/0.6 ML BOTTLE GT SCH (08:31)
[2020-02-11] MEDS: ENOXAPARIN SODIUM 30 MG/0.3 ML DISP.SYRIN SQ SCH (08:45)
[2020-02-11] MEDS: GLUCERNA 1.2 1,000 ML BOTTLE NG PRN (11:46)
[2020-02-11] MEDS: ACETAMINOPHEN 325 MG TABLET PO PRN (12:09)
--- NOTE | 2020-02-11 17:01 | NUR ---
ICU/RN PM CARE PROVIDED.WOUND DRESSING DONE ORDERED.DUE MEDS ARE GIVEN ORDERED.BS-130.SUCTION PROVIDED.REPOSITION FOR COMFORT.
--- NOTE | 2020-02-11 17:50 | NUR ---
ICU/RN PT TRANSFERRED TO TELE UNIT.V/S STABLE,AFEBRILE.NO PAIN REPORTED AT THIS TIME.DUE MEDS ARE GIVEN ORDERED.REPORT GIVEN TO SILVINO/LUCY.
--- NOTE | 2020-02-11 18:00 | NUR ---
ms rn received a new transfer from icu, patient is non verbal, vent dependent, contracted, w/ g tube feeding of glucerna at 50ml/hr, tolerating well w/o residual, peterson to gravity, rectal tube intact w/ output, nsr on monitor,all needs attended.
--- NOTE | 2020-02-11 19:45 | NUR ---
EQUIPMENT MECHANIC OPENING NOTES RECEIVED PATIENT FROM MORNING SHIFT, OPENS EYES. BREATHING REGULAR AND UNLABORED ON MECHANICAL VENTILATOR. TRACH INTACT AND PATENT. RIGHT UPPER ARM PICC LINE INTACT AND PATENT WITH NO BLEEDING OR S/S OF INFILTRATION NOTED. ON CARDIAC MONITORING WITH NSR AT 66bpm. GTUBE PATENT WITH NO RESIDUAL ASPIRATED. NO S/S OF PAIN/DISCOMFORT SEEN AT THIS TIME. AWAD CATH AND RECTAL TUBE INTACT WITH MODERATE OUTPUT ON BAG. BED LOW AND LOCKED ON SEMI FOWLERS POSITION. CALL LIGHT IN REACH. WILL CONTINUE TO MONITOR.
[2020-02-12] VITALS: BP 97/51
[2020-02-12] MEDS: BLOOD SUGAR DIAGNOSTIC 1 EACH STRIP IN SCH ×5 (00:03→23:31)
[2020-02-12] MEDS: VANCOMYCIN HCL 125 MG/2.5 ML ORAL.SUSP PO SCH ×5 (00:03→23:31)
[2020-02-12] MEDS: INSULIN REGULAR, HUMAN 100 UNIT/ML 3 ML VIAL SQ PRN ×5 (00:04→23:33)
--- NOTE | 2020-02-12 00:15 | NUR ---
LAND MEASURER NOTES BS 167mg/dl, 3UNITS REGULAR INSULIN GIVEN SQ. GTUBE FEEDING ON AND TOLERATING WELL. MAINTAINED ON ASPIRATION PRECAUTIONS. WILL CONTINUE TO MONITOR.
[2020-02-12 04:00] VITALS: BP_SYST 110; BP_SYST 90; BP_DIAS 46; BP_DIAS 78
[2020-02-12] MEDS: GLUCERNA 1.2 1,000 ML BOTTLE NG PRN (04:48)
[2020-02-12 06:34] LABS: CALCIUM, SERUM 9.3 mg/dL (8.5-10.1); CREATININE 0.9 mg/dL (0.6-1.3); MAGNESIUM 1.9 mg/dL (1.8-2.4); POTASSIUM 4.4 mmol/L (3.5-5.1)
[2020-02-12 06:37] LABS: BASOPHILS # (AUTO) 0.1 /CMM (0.0-0.2); BASOPHILS % (AUTO) 0.8 % (0.0-2.0); EOSINOPHILS % (AUTO) 2.6 % (0.0-6.0); HEMATOCRIT 29 % (33-45); HEMOGLOBIN 9.2 g/dL (11.5-14.8); LYMPHOCYTES # (AUTO) 2.6 /CMM (0.8-4.8); LYMPHOCYTES % (AUTO) 27.2 % (20.0-44.0); MEAN CORPUSCULAR HGB CONC 31 g/dl (31.0-36.0); MEAN CORPUSCULAR VOLUME 86 fL (82-100); MONOCYTES # (AUTO) 0.9 /CMM (0.1-1.30); MONOCYTES % (AUTO) 9.2 % (2.0-12.0); NEUTROPHILS # (AUTO) 5.8 /CMM (1.8-8.9); NEUTROPHILS % (AUTO) 60.2 % (43.0-81.0); PLATELET COUNT (AUTO) 393 /CMM (150-450); RED BLOOD CELL COUNT(AUTO) 3.43 MIL/uL (4.0-5.2); WHITE BLOOD COUNT (AUTO) 9.6 K/uL (4.3-11.0)
--- NOTE | 2020-02-12 06:45 | NUR ---
CREW PERSON CLOSING NOTES PATIENT IN BED OPENS EYES. AFEBRILE WITH NO S/S OF DISTRESS OBSERVED. TRACH INTACT AND PATENT. CURRENT VENT SETTING TOLERATING WELL. RIGHT UPPER ARM PICC LINE PATENT WITH NO BLEEDING OR S/S OF INFILTRATION NOTED. MAINTAINED ON CARDIAC MONITORING WITH NSR AT 70bpm. GTUBE PATENT, ON-GOING FEEDING TOLERATING WELL. NO S/S OF PAIN/DISCOMFORT SEEN AT THIS TIME. AWAD CATH AND RECTAL TUBE INTACT WITH MODERATE OUTPUT ON BAG. BED LOW AND LOCKED ON SEMI FOWLERS POSITION. CALL LIGHT IN REACH. WILL ENDORSE TO MORNING SHIFT FOR DALILA.
--- NOTE | 2020-02-12 07:46 | NUR ---
TRIMMING INSPECTOR OPENING NOTES RECEIVED PATIENT ON BED, OPENS EYES. BREATHING REGULAR AND UNLABORED ON MECHANICAL VENTILATOR. TRACH INTACT AND PATENT. RIGHT UPPER ARM PICC LINE INTACT AND PATENT WITH NO BLEEDING OR S/S OF INFILTRATION NOTED. ON CARDIAC MONITORING WITH NSR AT 70bpm. GTUBE PATENT WITH NO RESIDUAL ASPIRATED. NO S/S OF PAIN/DISCOMFORT SEEN AT THIS TIME. AWAD CATH AND RECTAL TUBE INTACT WITH MODERATE OUTPUT ON BAG. BED LOW AND LOCKED ON SEMI FOWLERS POSITION. CALL LIGHT IN REACH. WILL CONTINUE TO MONITOR.
[2020-02-12 08:00] VITALS: BP 135/54
[2020-02-12] MEDS: ACETYLCYSTEINE 10% SOLN 400 MG/4 ML VIAL HHN SCH ×2 (08:05→14:37)
[2020-02-12] MEDS: PANTOPRAZOLE 40 MG/PACK PACK GT SCH (08:37)
[2020-02-12] MEDS: PROSOURCE / PROSTAT (PYXIS) 30 ML UDC GT SCH (08:38)
[2020-02-12] MEDS: AMIODARONE HCL 200 MG TABLET GT SCH (08:38)
[2020-02-12] MEDS: ENOXAPARIN SODIUM 30 MG/0.3 ML DISP.SYRIN SQ SCH (08:39)
[2020-02-12] MEDS: CLOTRIMAZOLE 1% 15 GM TUBE TP SCH ×2 (08:52→17:20)
[2020-02-12] MEDS: SIMETHICONE SUSP 40 MG/0.6 ML BOTTLE GT SCH (09:14)
[2020-02-12 16:00] VITALS: BP 117/58
--- NOTE | 2020-02-12 19:09 | NUR ---
TELE/RN CLOSING NOTES PATIENT IS ON BED, OPENS EYES. BREATHING REGULAR AND UNLABORED ON MECHANICAL VENTILATOR AT THE PRESCRIBED SETTING. TRACH INTACT AND PATENT. RIGHT UPPER ARM PICC LINE INTACT AND PATENT WITH NO BLEEDING OR S/S OF INFILTRATION NOTED. ON CARDIAC MONITORING WITH NSR 61 BPM. GTUBE PATENT WITH NO RESIDUAL ASPIRATED. NO S/S OF PAIN/DISCOMFORT SEEN AT THIS TIME. AWAD CATH AND RECTAL TUBE INTACT WITH MODERATE OUTPUT ON BAG. BED LOW AND LOCKED ON SEMI FOWLERS POSITION. CALL LIGHT WITHIN REACH. WILL ENDORSED TONIGHT SHIFT FOR DALILA.
--- NOTE | 2020-02-12 19:50 | NUR ---
PROCUREMENT ENGINEER OPENING NOTES RECEIVED PATIENT FROM MORNING SHIFT, OPENS EYES. BREATHING REGULAR AND UNLABORED ON MECHANICAL VENTILATOR. TRACH INTACT AND PATENT. RIGHT UPPER ARM PICC LINE INTACT AND PATENT WITH NO BLEEDING OR S/S OF INFILTRATION NOTED. ON CARDIAC MONITORING WITH NSR AT 65bpm. GTUBE PATENT WITH NO RESIDUAL ASPIRATED. NO S/S OF PAIN/DISCOMFORT SEEN AT THIS TIME. AWAD CATH AND RECTAL TUBE INTACT WITH SCANT OUTPUT ON BAG. BED LOW AND LOCKED ON SEMI FOWLERS POSITION. CALL LIGHT IN REACH. WILL CONTINUE TO MONITOR.
[2020-02-12 20:00] VITALS: BP 114/53
[2020-02-12 20:26] VITALS: BP 114/53
--- NOTE | 2020-02-12 21:00 | NUR ---
TRAVOGRAPH OPERATOR NOTES NOTED WITH BODY TEMP. 99.7; COOLING MEASURES PROVIDED, BED BATH DONE. RECHECK AFTER 1HR WITH RESULT 99. WILL CONTINUE TO MONITOR.
--- NOTE | 2020-02-12 23:40 | NUR ---
INTERNAL CORROSION SPECIALIST NOTES BS 150mg/dl, 2UNITS REGULAR INSULIN GIVEN SQ. GTUBE FEEDING ON AND TOLERATING WELL. MAINTAINED ON ASPIRATION PRECAUTIONS. WILL CONTINUE TO MONITOR.
[2020-02-13] VITALS: BP 137/89
[2020-02-13] MEDS: ACETYLCYSTEINE 10% SOLN 400 MG/4 ML VIAL HHN SCH ×4 (00:10→23:41)
[2020-02-13 00:11] VITALS: BP 137/89
[2020-02-13 03:57] VITALS: BP 136/59
[2020-02-13] MEDS: GLUCERNA 1.2 1,000 ML BOTTLE NG PRN (04:02)
[2020-02-13] MEDS: BLOOD SUGAR DIAGNOSTIC 1 EACH STRIP IN SCH ×4 (06:06→23:42)
[2020-02-13] MEDS: VANCOMYCIN HCL 125 MG/2.5 ML ORAL.SUSP PO SCH ×4 (06:06→23:42)
[2020-02-13] MEDS: INSULIN REGULAR, HUMAN 100 UNIT/ML 3 ML VIAL SQ PRN ×2 (06:08→17:45)
--- NOTE | 2020-02-13 06:30 | NUR ---
REFERENCE LIBRARY ASSISTANT CLOSING NOTES PATIENT IN BED OPENS EYES. AFEBRILE WITH NO S/S OF DISTRESS OBSERVED. TRACH INTACT AND PATENT. CURRENT VENT SETTING TOLERATING WELL. RIGHT UPPER ARM PICC LINE PATENT WITH NO BLEEDING OR S/S OF INFILTRATION NOTED. MAINTAINED ON CARDIAC MONITORING WITH NSR AT 78bpm. GTUBE PATENT, ON-GOING FEEDING TOLERATING WELL. NO S/S OF PAIN/DISCOMFORT SEEN AT THIS TIME. AWAD CATH AND RECTAL TUBE INTACT WITH MODERATE OUTPUT ON BAG. BED LOW AND LOCKED ON SEMI FOWLERS POSITION. CALL LIGHT IN REACH. WILL ENDORSE TO MORNING SHIFT FOR DALILA.
[2020-02-13] MEDS: IPRATROPIUM NEB FS 0.5 MG/2.5 ML AMPUL.NEB NEB PRN ×2 (07:46→16:13)
[2020-02-13 08:00] VITALS: BP 123/65
--- NOTE | 2020-02-13 08:00 | NUR ---
TRANSPORT NURSE RECEDED PT IN BED ON VENT OBTUNDED VENT SETTINGS NOTED SAFETY MEASURES TAKEN, AWAD PATENT, PT HAS FLEXASEAL RECTAL TUBE PATENT, TURN AND REPO PT IN BED ORAL CARE DONE, PT GT RESIDUAL 200CC + HELD FEEDING FOR FURTHER EVALUATION ELEVATED HOP 45 DEGREE CALL LIGHT W/ IN RECH BED LOW POS ALARM ON WILL CONT TO MONITOR.
[2020-02-13] MEDS: PANTOPRAZOLE 40 MG/PACK PACK GT SCH (08:07)
[2020-02-13] MEDS: PROSOURCE / PROSTAT (PYXIS) 30 ML UDC GT SCH (08:08)
[2020-02-13] MEDS: SIMETHICONE SUSP 40 MG/0.6 ML BOTTLE GT SCH (08:08)
[2020-02-13] MEDS: CLOTRIMAZOLE 1% 15 GM TUBE TP SCH ×2 (08:08→17:44)
[2020-02-13] MEDS: AMIODARONE HCL 200 MG TABLET GT SCH (08:10)
[2020-02-13] MEDS: ENOXAPARIN SODIUM 30 MG/0.3 ML DISP.SYRIN SQ SCH (08:13)
--- NOTE | 2020-02-13 13:07 | NUR ---
RN NOTE Report received from Tirso AYALA for DALILA. GTF residual checked: 0ml. Re-started GTF.
--- NOTE | 2020-02-13 13:16 | NUR ---
picu nurse pt cont to be stable no disstress noted during shift all pt needs meet report given to rn for cont of care ....
--- NOTE | 2020-02-13 18:11 | NUR ---
RN CLOSING NOTE Patient is resting in bed, A/O x0, opens eyes and responds to stimuli, patient is on mechanical vent Shiley#8 AC 16 TV450 PEEP 5 FiO2 40%. Tele monitor NSR 60s-70s bpm. KAREN Picc line is clean and intact flushing well. GTF is running glucerna @ 50mls/hour with 0ml residual. Rubio catheter has clear yellow output with 400cc out. Rectal tube with soft brown BM about 200cc out. Patient turned and repositioned q 2 hours; skin protection measures implemented as ordered. All patient needs met, all due medications given, patient kept clean and dry throughout shift. Fall safety seizure and aspiration precautions enforced. Will endorse to lieutenant shift supervisor for DALILA.
[2020-02-13 20:00] VITALS: BP 134/80
--- NOTE | 2020-02-13 20:00 | NUR ---
MERCHANDISE FOR RESALE PURCHASING AGENT OPENING NOTES Patient in bed, awake. Opens eyes. Patient on mechanical ventilator, breathing well, unlabored. Trach is intact and patent. Noted right upper arm PICC line. It is intact, patent, no redness, or infiltration. On Cardiac monitoring, SR with PAC. Noted gtube, patent, no residual. Patient does not show signs of pain or discomfort at this time. Safety precaution is in place, bed is in the lowest level, alarm is on, bed is locked, side rails x2 are up, and call light is within reach. Will continue to monitor.
--- NOTE | 2020-02-13 20:28 | NUR ---
RT NOTE PT RECEIVED TRACHED ON MECHANICAL VENTILATION. FLAVIO [address] AMBU BAG/BACK UP TRACH @ BEDSIDE. SX DONE, TRACH SECURED AND PATENT. ALARMS ON AND AUDIBLE. VENT PLUGGED TO RED OUTLET. NO DISTRESS NOTED AT THIS TIME. CONT. PULSE OX CONNECTED. Addendum: 02/13/20 at 2027 by YOMI RIDDLE RT Amended: Links added.
[2020-02-14] VITALS: BP 112/48
[2020-02-14] MEDS: INSULIN REGULAR, HUMAN 100 UNIT/ML 3 ML VIAL SQ PRN ×4 (00:25→18:00)
[2020-02-14 04:00] VITALS: BP 128/57
[2020-02-14] MEDS: BLOOD SUGAR DIAGNOSTIC 1 EACH STRIP IN SCH ×3 (05:28→17:39)
[2020-02-14] MEDS: VANCOMYCIN HCL 125 MG/2.5 ML ORAL.SUSP PO SCH ×3 (05:28→17:00)
[2020-02-14] MEDS: GLUCERNA 1.2 1,000 ML BOTTLE NG PRN (05:41)
--- NOTE | 2020-02-14 06:30 | NUR ---
MILL RECORDER CLOSING NOTE: Patient in bed sleeping comfortably. Patient on mechanical ventilator and tolerating settings. No SOB or respiratory distress noted. Safety precaution in place, bed in the lowest level, bed is locked, alarm is on, side rails x2 are up, and call light is within reach. Will endorse to next shift.
[2020-02-14 06:35] LABS: BASOPHILS # (AUTO) 0.1 /CMM (0.0-0.2); BASOPHILS % (AUTO) 0.8 % (0.0-2.0); EOSINOPHILS % (AUTO) 2.7 % (0.0-6.0); HEMATOCRIT 29 % (33-45); LYMPHOCYTES # (AUTO) 2.1 /CMM (0.8-4.8); LYMPHOCYTES % (AUTO) 21.6 % (20.0-44.0); MEAN CORPUSCULAR HGB CONC 32 g/dl (31.0-36.0); MEAN CORPUSCULAR VOLUME 85 fL (82-100); MONOCYTES # (AUTO) 0.9 /CMM (0.1-1.30); MONOCYTES % (AUTO) 9.3 % (2.0-12.0); NEUTROPHILS # (AUTO) 6.5 /CMM (1.8-8.9); NEUTROPHILS % (AUTO) 65.6 % (43.0-81.0); PLATELET COUNT (AUTO) 391 /CMM (150-450); RED BLOOD CELL COUNT(AUTO) 3.37 MIL/uL (4.0-5.2); WHITE BLOOD COUNT (AUTO) 9.9 K/uL (4.3-11.0)
[2020-02-14 06:56] LABS: CALCIUM, SERUM 9.5 mg/dL (8.5-10.1); CREATININE 0.8 mg/dL (0.6-1.3); POTASSIUM 4.8 mmol/L (3.5-5.1)
--- NOTE | 2020-02-14 07:25 | NUR ---
RN OPENING NOTE: Received patient in bed. Awake and opens eyes. On mechanical ventilation and tolerating settings well. No resp. distress noted. 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 diff of the stool. Tele monitor showing sinus rhythm. GTube patent and in place, feeding of Glucerna @ 50mls/hr being tolerated well. IV site clean, dry, patent and intact. Rubio catheter in place and draining yellow urine. Rectal tube in place. Call light in reach. Bed locked, low and at semi-tellez's position. Side rails up x3. Safety ensured and observed. Will continue to monitor.
[2020-02-14 08:00] VITALS: BP 116/64
[2020-02-14] MEDS: IPRATROPIUM NEB FS 0.5 MG/2.5 ML AMPUL.NEB NEB PRN ×2 (08:14→15:14)
[2020-02-14] MEDS: ACETYLCYSTEINE 10% SOLN 400 MG/4 ML VIAL HHN SCH ×3 (08:14→23:48)
[2020-02-14] MEDS: AMIODARONE HCL 200 MG TABLET GT SCH (08:30)
[2020-02-14] MEDS: PANTOPRAZOLE 40 MG/PACK PACK GT SCH (08:30)
[2020-02-14] MEDS: ENOXAPARIN SODIUM 30 MG/0.3 ML DISP.SYRIN SQ SCH (08:31)
[2020-02-14] MEDS: SIMETHICONE SUSP 40 MG/0.6 ML BOTTLE GT SCH (09:11)
[2020-02-14] MEDS: PROSOURCE / PROSTAT (PYXIS) 30 ML UDC GT SCH (09:11)
[2020-02-14] MEDS: CLOTRIMAZOLE 1% 15 GM TUBE TP SCH ×2 (09:12→17:00)
[2020-02-14 12:00] VITALS: BP 120/68
[2020-02-14 16:00] VITALS: BP_SYST 112; BP_DIAS 48; BP_DIAS 53
--- NOTE | 2020-02-14 19:20 | NUR ---
RN CLOSING NOTE: Patient remains in bed. Awake and opens eyes. On mechanical ventilation and tolerating settings well. No resp. distress noted. 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 diff of the stool. Tele monitor showing sinus rhythm. GTube patent and in place, feeding of Glucerna @ 50mls/hr being tolerated well. IV site clean, dry, patent and intact. Rubio catheter in place and draining yellow urine. Rectal tube in place. Call light in reach. Bed locked, low and at semi-tellez's position. Side rails up x3. Safety ensured and observed. All due medications given. Treatment done as ordered. Endorsed to oncoming shift for DALILA.
[2020-02-14 20:00] VITALS: BP 120/94
--- NOTE | 2020-02-14 20:01 | NUR ---
RT NOTE PT RECEIVED TRACHED ON MECHANICAL VENTILATION. SHILEY [address] CUFF CHECKED VIA BANQUET MANAGER. SX DONE, TRACH SECURED AND PATENT. ALARMS ON AND AUDIBLE. NO DISTRESS NOTED AT THIS TIME. CONT. PULSE OX CONNECTED. WILL MONITOR T/O SHIFT. Addendum: 02/14/20 at 2001 by YOMI RIDDLE RT Amended: Links added.
--- NOTE | 2020-02-14 21:38 | NUR ---
MS/TELE/RN AT INITIAL ROUNDING AT 1930, RECEIVED PATIENT AWAKE, NON VERBAL, APPEAR COMFORTABLE, NO SIGNS OF DISTRESS NOTED, WITH TRACH, ON MECHANICAL VENTILATOR, G TUBE FEEDING INFUSING, NO RESIDUAL NOTE, HOB ELEVATED, F/C TO GRAVITY, RECTAL TUBE NOTED, NO OUTPUT NOTED AT THIS TIME, WILL MONITOR.
[2020-02-15] VITALS: BP 116/85
[2020-02-15] MEDS: VANCOMYCIN HCL 125 MG/2.5 ML ORAL.SUSP PO SCH ×5 (00:14→23:42)
[2020-02-15] MEDS: BLOOD SUGAR DIAGNOSTIC 1 EACH STRIP IN SCH ×5 (00:23→23:05)
[2020-02-15] MEDS: INSULIN REGULAR, HUMAN 100 UNIT/ML 3 ML VIAL SQ PRN ×5 (00:23→23:05)
[2020-02-15] MEDS: GLUCERNA 1.2 1,000 ML BOTTLE NG PRN ×2 (02:57→20:51)
[2020-02-15 04:00] VITALS: BP 114/60
--- NOTE | 2020-02-15 05:16 | NUR ---
MS/TELE/RN MORNING CARE DONE, SKIN CARE DONE, TOTAL LINEN CHANGE RENDERED, HOB ELEVATED, REPOSITIONED TO COMFORT, WILL CONTINUE TO MONITOR.
--- NOTE | 2020-02-15 06:06 | NUR ---
MS/TELE/RN PATIENT APPEAR SLEEPING AT THIS TIME, APPEAR COMFORTABLE, NO SIGNS OF DISTRESS NOTED, MECHANICAL VENTILATOR WORKING WELL., G TUBE FEEDING INFUSING, HOB ELEVATED, ALL NEEDS ATTENDED AT THIS TIME, WILL CONTINUE TO MONITOR.
[2020-02-15] MEDS: ACETYLCYSTEINE 10% SOLN 400 MG/4 ML VIAL HHN SCH ×3 (07:45→23:44)
[2020-02-15 08:00] VITALS: BP 158/63
--- NOTE | 2020-02-15 08:00 | NUR ---
RN OPENING NOTE Patient is resting in bed, A/O x0, opens eyes and responds to stimuli, patient is on mechanical vent Shiley#8 AC 16 TV450 PEEP 5 FiO2 40%. Tele monitor NSR 66 bpm. KAREN Picc line is clean and intact flushing well. GTF is running glucerna @ 50mls/hour with 0ml residual. Rubio catheter has clear yellow output. Rectal tube in place with soft brown BM. Bed is in lowest position, side rails x3 in upright position, fall safety seizure and aspiration precautions enforced. Will continue with plan of care.
[2020-02-15] MEDS: AMIODARONE HCL 200 MG TABLET GT SCH (08:32)
[2020-02-15] MEDS: ENOXAPARIN SODIUM 30 MG/0.3 ML DISP.SYRIN SQ SCH (08:33)
[2020-02-15] MEDS: PANTOPRAZOLE 40 MG/PACK PACK GT SCH (08:34)
[2020-02-15] MEDS: CLOTRIMAZOLE 1% 15 GM TUBE TP SCH ×2 (08:36→16:37)
[2020-02-15] MEDS: PROSOURCE / PROSTAT (PYXIS) 30 ML UDC GT SCH (08:36)
[2020-02-15] MEDS: SIMETHICONE SUSP 40 MG/0.6 ML BOTTLE GT SCH (08:48)
[2020-02-15 12:00] VITALS: BP_SYST 124; BP_SYST 134; BP_DIAS 59
[2020-02-15 16:00] VITALS: BP 132/74
--- NOTE | 2020-02-15 18:45 | NUR ---
RN CLOSING NOTE Patient is resting in bed, A/O x0, opens eyes and responds to stimuli, patient is on mechanical vent Shiley#8 AC 16 TV 450 PEEP 5 FiO2 40%, trach tie changed. Tele monitor NSR 60s-70s. KAREN Picc line is clean and intact flushing well. GTF is running glucerna @ 50mls/hour with 5ml residual. Rubio catheter has clear yellow output- 500 cc out. Rectal tube removed patient had small soft brown BM, charge nurse made aware. All patient needs met, all due medications given, patient kept clean and dry throughout shift. Bed is in lowest position, side rails x3 in upright position, fall safety seizure and aspiration precautions enforced. Will endorse to shift foreman.
--- NOTE | 2020-02-15 19:38 | NUR ---
HEMMER AUTOMATIC RECEIVE PT IN BED OBTUNDED, TOLERATING VENT SETTINGS ORDERED. STABLE, 02 SAT 1000%. ON GLUCERNA 50 MLS/HR. SAFETY MEASURES AT ALL TIMES. WILL CONT TO MONITOR Addendum: 02/15/20 at 1940 by SNEHAL AUGUSTE RN 100% 02 SAT
[2020-02-15 20:00] VITALS: BP 124/67
[2020-02-15] MEDS: IPRATROPIUM NEB FS 0.5 MG/2.5 ML AMPUL.NEB NEB PRN (23:44)
[2020-02-16] VITALS: BP 111/78
[2020-02-16 04:00] VITALS: BP 112/48
[2020-02-16] MEDS: VANCOMYCIN HCL 125 MG/2.5 ML ORAL.SUSP PO SCH ×2 (05:22→12:12)
[2020-02-16] MEDS: BLOOD SUGAR DIAGNOSTIC 1 EACH STRIP IN SCH ×2 (05:35→12:12)
[2020-02-16] MEDS: INSULIN REGULAR, HUMAN 100 UNIT/ML 3 ML VIAL SQ PRN ×2 (05:36→12:11)
--- NOTE | 2020-02-16 05:59 | NUR ---
WEB APPLICATION TESTER PT OBTUNDED OPENS EYES, TRACH CARE PROVIDED. TOLERATING VENT SETTINGS ORDERED O2 SAT 100%. SR 60'S HR IN TELE MONITOR, IN NO APPARENT DISTRESS, GT FEEDING INFUSING ORDERED TOLERATED WELL, NO RESIDUAL. NEEDS ATTENDED AND ANTICIPATED, KEPT CLEAN, DRY AND COMFORTABLE AT ALL TIMES. GOOD SKIN CARE AT ALL TIMES. REPOSITION EVERY 2 HOURS, NURSING CARE RENDERED. SAFETY MEASURES IN PLACE. WILL ENDORSE TO NEXT SHIFT.
[2020-02-16 07:17] LABS: BASOPHILS # (AUTO) 0.1 /CMM (0.0-0.2); BASOPHILS % (AUTO) 1.2 % (0.0-2.0); EOSINOPHILS % (AUTO) 4.7 % (0.0-6.0); HEMATOCRIT 28 % (33-45); HEMOGLOBIN 8.8 g/dL (11.5-14.8); LYMPHOCYTES # (AUTO) 3.1 /CMM (0.8-4.8); LYMPHOCYTES % (AUTO) 34.3 % (20.0-44.0); MEAN CORPUSCULAR HGB CONC 32 g/dl (31.0-36.0); MEAN CORPUSCULAR VOLUME 85 fL (82-100); MONOCYTES # (AUTO) 0.7 /CMM (0.1-1.30); MONOCYTES % (AUTO) 7.8 % (2.0-12.0); NEUTROPHILS # (AUTO) 4.7 /CMM (1.8-8.9); PLATELET COUNT (AUTO) 399 /CMM (150-450); RED BLOOD CELL COUNT(AUTO) 3.28 MIL/uL (4.0-5.2)
[2020-02-16] MEDS: ACETYLCYSTEINE 10% SOLN 400 MG/4 ML VIAL HHN SCH ×2 (07:38→15:37)
[2020-02-16 07:47] LABS: ALBUMIN 2.1 g/dL (3.4-5.0); BILIRUBIN,TOTAL 0.1 mg/dL (0.2-1.0); CALCIUM, SERUM 9.8 mg/dL (8.5-10.1); CREATININE 1.1 mg/dL (0.6-1.3); MAGNESIUM 2.2 mg/dL (1.8-2.4); PHOSPHORUS 4.6 mg/dL (2.5-4.9); POTASSIUM 5.8 mmol/L (3.5-5.1); TOTAL PROTEIN, SERUM 7.4 g/dL (6.4-8.2)
--- NOTE | 2020-02-16 08:00 | NUR ---
RN Opening Note Received patient in bed, non verbal, able to responds all stimuli. Pt. does no appears pain or distress. Respiratory even and unlabored with oxygen at 3LPM and 100% O2sat, no distress observed. Skin is warm to touch, keep clean/dry, intact midline, also intact g tube feeding running Glucerna at 50 ml. Kept bed in locked with elevated HOB for ensure airway and aspiration precaution. Call light within reach, will continue to monitor. Addendum: 02/16/20 at 0822 by YUNIER CONRAD RN Error
--- NOTE | 2020-02-16 08:00 | NUR ---
RN Opening Note Received patient in bed, non verbal, able to responds all stimuli. Pt. does no appears pain or distress. Respiratory even and unlabored with vent and 98-100% O2sat, no distress observed. Skin is warm to touch, keep clean/dry, intact midline, also intact g tube feeding running Glucerna at 50 ml. Kept bed in locked with elevated HOB for ensure airway and aspiration precaution. Call light within reach, will continue to monitor.
[2020-02-16 08:20] VITALS: BP 120/59
[2020-02-16] MEDS: PANTOPRAZOLE 40 MG/PACK PACK GT SCH (09:23)
[2020-02-16] MEDS: PROSOURCE / PROSTAT (PYXIS) 30 ML UDC GT SCH (09:23)
[2020-02-16] MEDS: AMIODARONE HCL 200 MG TABLET GT SCH (09:25)
[2020-02-16] MEDS: SIMETHICONE SUSP 40 MG/0.6 ML BOTTLE GT SCH (09:25)
[2020-02-16] MEDS: ENOXAPARIN SODIUM 30 MG/0.3 ML DISP.SYRIN SQ SCH (09:29)
[2020-02-16] MEDS: CLOTRIMAZOLE 1% 15 GM TUBE TP SCH (09:33)
[2020-02-16] MEDS ORDERED: AMIO200T4 GT (10:16)
[2020-02-16] MEDS ORDERED: VANC125C11 PO (10:16)
--- NOTE | 2020-02-16 15:00 | NUR ---
[facility], given report Barry AYALA. Wound picture taken before patient d/c.
[2020-02-16 16:29] VITALS: BP 127/76
--- NOTE | 2020-02-16 17:10 | NUR ---
3 community life director picked up patient and given report. Pt in stable condition v/s; b-109/50, p-67, r-20, t-97.8, O2sat- 99%.
== END 2020-02-16 17:33 | DRG 4 ==
LOC: ER 01:00 → ICU 02:09 → TELE 02-02 05:53 → ICU 02-02 05:56 → MED 02-11 17:53 → TELE 02-11 19:20
PROVIDERS: ADMIT Internal Medicine; ATTEND Internal Medicine
PROC: 5A1955Z Respiratory Ventilation, Greater than 96 Consecutive Hours (ICD-10-PCS; principal; 2020-01-29)
PROC: 0BH18EZ Insertion of Endotracheal Airway into Trachea, Via Natural or Artificial Opening Endoscopic (ICD-10-PCS; 2020-01-29)
PROC: 0B110F4 Bypass Trachea to Cutaneous with Tracheostomy Device, Open Approach (ICD-10-PCS; 2020-02-10)
DX: A41.9 Sepsis, unspecified organism (principal); J96.01 Acute respiratory failure with hypoxia; E43 Unspecified severe protein-calorie malnutrition; J18.9 Pneumonia, unspecified organism; G92 Toxic encephalopathy; N17.0 Acute kidney failure with tubular necrosis; R65.21 Severe sepsis with septic shock; E87.2 Acidosis; I50.32 Chronic diastolic (congestive) heart failure; D68.59 Other primary thrombophilia; J98.11 Atelectasis; E87.0 Hyperosmolality and hypernatremia; B37.49 Other urogenital candidiasis; A04.72 Enterocolitis due to Clostridium difficile, not specified as recurrent; F03.90 Unspecified dementia, unspecified severity, without behavioral disturbance, psychotic disturbance, mood disturbance, and anxiety; D63.8 Anemia in other chronic diseases classified elsewhere; I48.91 Unspecified atrial fibrillation; E87.5 Hyperkalemia; I11.0 Hypertensive heart disease with heart failure; Z86.73 Personal history of transient ischemic attack (TIA), and cerebral infarction without residual deficits; E11.65 Type 2 diabetes mellitus with hyperglycemia; E03.9 Hypothyroidism, unspecified; E78.5 Hyperlipidemia, unspecified; M06.9 Rheumatoid arthritis, unspecified; R26.9 Unspecified abnormalities of gait and mobility; M54.30 Sciatica, unspecified side; R13.10 Dysphagia, unspecified; R62.7 Adult failure to thrive; Z90.49 Acquired absence of other specified parts of digestive tract; Z91.011 Allergy to milk products; Z79.4 Long term (current) use of insulin; Z79.51 Long term (current) use of inhaled steroids; Y95 Nosocomial condition; Z74.01 Bed confinement status; Z86.718 Personal history of other venous thrombosis and embolism; Z87.311 Personal history of (healed) other pathological fracture; M85.80 Other specified disorders of bone density and structure, unspecified site; F09 Unspecified mental disorder due to known physiological condition; L89.159 Pressure ulcer of sacral region, unspecified stage; K21.9 Gastro-esophageal reflux disease without esophagitis; I25.2 Old myocardial infarction; I25.10 Atherosclerotic heart disease of native coronary artery without angina pectoris; H40.9 Unspecified glaucoma; L30.4 Erythema intertrigo; I67.2 Cerebral atherosclerosis; Z93.1 Gastrostomy status; Z96.659 Presence of unspecified artificial knee joint; E86.0 Dehydration; Z22.322 Carrier or suspected carrier of Methicillin resistant Staphylococcus aureus
CPT/HCPCS: 31720; 36415; 36600; 70450-TC; 71045-TC; 80048-TC; 80053-TC; 80061-TC; 80076-TC; 80202-TC; 81000-TC; 82533; 82550-TC; 82553; 82728-TC; 82803-TC; 82962-TC; 83540-TC; 83605-TC; 83615-TC; 83735-TC; 83880; 84100-TC; 84443-TC; 84484-TC; 85025-TC; 85378-TC; 85385-TC; 85610-TC; 85730-TC; 86140-TC; 87040-TC; 87070-TC; 87081-TC; 87086-TC; 93970-TC; 94002-TC; 94003-TC; 94640-TC; 94760-TC; 94762-TC; 94799-TC; A4217; A4623; A6253; A6403; A7526; C1751; G0378; J0330; J0360; J0696; J1120; J1650; J1720; J1815; J1940; J2185; J2248; J2270; J2370; J2543; J2916; J3370; J3475; J3490; J7030; J7042; J7050; J7060; U0003-CS